=== PATIENT | female | born 1940 | race Caucasian/White ===

== ENCOUNTER 2019-09-02 11:27 | Outpatient (CLI) | payer MEDICARE, OTHER, SELFPAY ==
[2019-09-02 12:55] LABS: Hematocrit 22.3 % (37.0-47.0); Hemoglobin 7.1 g/dL (11.5-15.3); Lymphocytes # 0.4 10^3/uL (0.8-4.8); Lymphocytes % 15.1 %; Mean Corpuscular HGB Conc 31.8 g/dL (30.0-36.0); Mean Corpuscular Hemoglobin 26.6 pg (28.0-34.0); Mean Corpuscular Volume 83.5 fL (81-99); Mean Platelet Volume 10.1 fL (7.4-10.4); Monocytes # 0.2 10^3/uL (0.2-0.9); Monocytes % 9.3 %; Neutrophils # 1.8 10^3/uL (1.8-7.7); Nucleated Red Blood Cells % 0 %; Platelet Count 240 10^3/cmm (130-400); Red Blood Count 2.67 10^6/uL (4.1-5.3); White Blood Count 2.6 10^3/uL (4.0-10.0)
[2019-09-02 13:12] LABS: Alanine Aminotransferase < 5 U/L (0-33); Albumin Level 4.1 g/dL (3.5-5.2); Alkaline Phosphatase 87 IU/L (35-105); Anion Gap 14.8 (5-19); Aspartate Amino Transferase 6 U/L (0-32); Blood Urea Nitrogen 11 mg/dL (8-23); Calcium 9.2 mg/dL (8.5-10.5); Carbon Dioxide 24 mmol/L (22-29); Chloride 101 mmol/L (98-107); Globulin 2.3 g/dL (1.3-4.6); Glucose 103 mg/dL (65-115); Lactate Dehydrogenase 250 U/L (135-214); Potassium 4.8 mmol/L (3.5-5.1); Sodium 135 mmol/L (136-145); Total Bilirubin 0.7 mg/dL (0.15-1.2); Total Protein 6.4 g/dL (6.6-8.7)
[2019-09-02 15:54] LABS: Slide Review Slide Review Perform
[2019-09-02 15:55] LABS: Neutrophils % 75.6 %
--- NOTE | 2019-09-03 17:37 | ONC FU_ITS ---
Dr. Gonzales Patient Follow-Up Note Patient: Tonya Lynch Unit #: [id number]: 1940 Dicatated By: Cole Gonzales M.D.Date of Visit:Sep 02, 2019 Onc Med Follow-up/Prog Note Chief Complaint: Myelofibrosis. History of Present Illness: This is a 78 year-old woman with myelofibrosis, presenting with anemia, leukopenia, and splenomegaly. On 05/16/2018 she was admitted to the hospital with anemia and leukopenia. Her initial CBC showed hemoglobin 6.5 g with hematocrit 20.2%. The red cell indices were in the low normal range. The white blood cell count was 2800 and the platelet count was 163,000. The differential showed 70% neutrophils, 17% lymphocytes, and 9% monocytes. Also reported were 3% immature . Her serum iron studies show transferrin saturation 34%. The ferritin was relatively low at 44.1 ng/mL. Her comprehensive metabolic profile showed borderline renal function with BUN 9 and creatinine 1.21 mg/dL. The bilirubin and liver enzymes were normal. TSH was normal at 2.38. She was transfused PRBC. She reportedly had a similar episode in 2017, at which time she did undergo GI endoscopy studies. Hematology consultation was recommended, but apparently not completed. I had seen her initially on 06/14/2019. At that time, she was noted to have an enlarged spleen, and that was subsequently confirmed by CT. There was no associated lymphadenopathy. Bone marrow aspiration/biopsy on 07/14/2019 showed hypercellular marrow estimated at 70 to 90% cellularity. There was megakaryocytic hyperplasia with occasional bizarre megakaryocyte forms present. Blasts were estimated at 2.5%. There was severe reticulin fibrosis noted. Standard cytogenetics were not able to be done, as the bone marrow aspirate did not contain any spicules. The FISH panel for MDS was unrevealing. Overall, the findings were most consistent with myelofibrosis. Her other medical illnesses include hypertension, hyperlipidemia, chronic kidney disease, GERD, irritable bowel syndrome, degenerative arthritis, and anxiety/depression. She has a history of smoking 2 packs of cigarettes daily for 63 years. She has cut down to 1 pack/day. She is seen for a follow-up visit. She had recently been transfused after her hemoglobin had dropped to below 8 g. She did note significant improvement with the transfusion, though she still complains of being weak and tired, and she has limited activity. Her ECOG score is 2. Her appetite is not good, but her weight is up a little. She thinks she sometimes has fever. She does not complain of night sweating. She has some shortness of breath and she has cough productive of white sputum. She sometimes has chest pain. She has been having some postprandial nausea and she also complains of having heartburn. She has chronic constipation. She has nocturia up to 3 times. She has pain in her knees and in her neck. She has quite a few headaches and she complains that she is dizzy most of the time. She has no numbness/tingling or other focal neurologic symptoms, but she does complain that her fingers freeze easily and turn white with cold exposure. Medications: Albuterol Sulfate 2 Puff(s) (of 108 (90 base) mcg/act) Aerosol Powder, Breath Activated Inhalation q 6 hours PRN, ALPRAZolam 1 (1 mg) Tablet Oral t.i.d. PRN, amLODIPine Besylate 1 (5 mg) Tablet Oral daily, Antacid Maximum Tablet, chewable Oral PRN, Benzonatate 1 (200 mg) Capsule Oral daily PRN, Combivent Respimat 1 Inhalation (of 20-100 mcg/act) Aerosol, solution Inhalation b.i.d., Cough & Sore Throat NightTime 30 mL (of 30-12.5-1000 mg/30mL) Liquid Oral PRN, [facility] Migraine Relief 1 (250-250-65 mg) Tablet Oral PRN, Ferrous Sulfate 1 (325 (65 fe) mg) Tablet Oral daily, Isosorbide Mononitrate ER 1 (30 mg) Tablet SR 24 HR Oral daily, Meclizine HCl 1 (12.5 mg) Tablet Oral PRN, raNITIdine HCl 1 (150 mg) Capsule Oral at bedtime, SUMAtriptan Succinate Tablet Oral PRN, traMADol-Acetaminophen 1 (37.5-325 mg) Tablet Oral q 6 hours PRN Allergies: No Known Allergies. Review of Systems: Constitutional - She has been feeling weak, but better since the transfusion. Her activity is limited. Her appetite has not been good, but her weight is up a little. She sometimes has fever. She has not had night sweating. ECOG score is 2, ENMT - She has felt plugged up a little. No mouth sores. No sore throat or difficulty swallowing, Hematologic/Lymphatic - She bruises easily, Respiratory - She has some shortness of breath. She has cough productive of white sputum. No pleuritic pain or hemoptysis, Cardiovascular - No angina pain. No palpitations, Gastrointestinal - She sometimes has nausea after eating. No heartburn or acid reflux. She uses Milk of Mag for constipation. No blood in the stool or black stools, Genitourinary (F) - No dysuria or hematuria. She has urinary frequency at night. No urgency or incontinence, Musculoskeletal - She has pain in her knees and the back of her neck, Integumentary - No skin complications, Neurologic - She has frequent headaches. She has a lot of dizziness. Her hands get cold and turn white. No numbness/paresthesias or other focal neurologic symptoms, Psychiatric - She has anxiety and depression. She does not sleep well at night, but that has always been an issue for her. Vital Signs: Performed on Sep 02, 2019 11:56 Height - 69.00 in Weight - 121.8 lbs (HIGH) BSA - 1.67 sq.m BMI - 17.99 (LOW) Temperature - 98.4 F Pulse - 94 /min Respiration - 18 /min BP - 123/63 mm(hg) O2 Sat - 94 % (LOW) Pain - 3 Physical Examination: Constitutional - She appears generally weak and chronically ill, Eyes - Sclerae nonicteric. Conjunctivae clear, ENMT - No lesions noted in the oral cavity, Hematologic/Lymphatic - No cervical, clavicular, or axillary adenopathy, Respiratory - Lungs sound clear with diminished air movement bilaterally, Cardiovascular - Heart rhythm is regular. There is a II/ systolic murmur. There is no gallop or rub noted, Abdomen - Firm on the left side, but not tender. Liver is not enlarged. Spleen is enlarged extending at least 5 cm below the costal margin. There is no abdominal mass or ascites noted and there is no inguinal adenopathy, Extremities - No edema, Neurologic - No focal neurologic deficits noted. Impression: 1. Patient with anemia, leukopenia, and splenomegaly. Her bone marrow aspiration/biopsy on 07/14/2019 showed severe reticulin fibrosis, consistent with myelofibrosis. 2. She has had declining performance status and significant weight loss. Her other medical illnesses include: 3. Hypertension. 4. Hyperlipidemia. 5. Chronic kidney disease, stage III. 6. GERD. 7. Irritable bowel syndrome. 8. Degenerative arthritis. 9. Anxiety/depression. Plan: The bone marrow aspiration/biopsy results were reviewed, and we discussed the clinical implications. Overall, the clinical picture is most consistent with myelofibrosis. We discussed the fact that there is treatment to help with the symptoms, but this is an incurable condition which does tend to be progressive over time. She will have additional laboratory studies today to include CBC and typenex along with CMP, LDH level, and a JAK2 gene mutation study. With those results pending, I will begin the process of getting coverage for a trial of therapy with ruxolitinib. Signed By: Cole Gonzales M.D. <<Signature on File>>
== END 2019-09-02 11:28 | disposition home or self-care (01) ==
PROVIDERS: Family Provider Physician Assistant Medical; PCP Physician Assistant Medical; Visit Provider Internal Medicine Medical Oncology
DX: D75.81 Myelofibrosis (principal); R63.4 Abnormal weight loss; D64.9 Anemia, unspecified; E78.5 Hyperlipidemia, unspecified; I11.0 Hypertensive heart disease with heart failure; N18.3 Chronic kidney disease, stage 3 (moderate); K21.9 Gastro-esophageal reflux disease without esophagitis; K58.9 Irritable bowel syndrome, unspecified; M19.90 Unspecified osteoarthritis, unspecified site; F41.8 Other specified anxiety disorders; F17.210 Nicotine dependence, cigarettes, uncomplicated; Z79.51 Long term (current) use of inhaled steroids; Z79.891 Long term (current) use of opiate analgesic
CPT/HCPCS: 36415; 80053; 81403; 83615; 85025; 99214

== ENCOUNTER 2019-09-12 09:20 | Outpatient (CLI) | payer MEDICARE, OTHER, SELFPAY ==
[2019-09-12 16:13] LABS: Hematocrit 28.7 % (37.0-47.0); Hemoglobin 8.9 g/dL (11.5-15.3); Lymphocytes # 0.7 10^3/uL (0.8-4.8); Lymphocytes % 19.3 %; Mean Corpuscular Hemoglobin 26.1 pg (28.0-34.0); Mean Corpuscular Volume 84.2 fL (81-99); Mean Platelet Volume 11.3 fL (7.4-10.4); Monocytes # 0.3 10^3/uL (0.2-0.9); Monocytes % 9.2 %; Neutrophils # 2.2 10^3/uL (1.8-7.7); Neutrophils % 64.4 %; Nucleated Red Blood Cells % 0 %; Platelet Count 224 10^3/cmm (130-400); Red Blood Count 3.41 10^6/uL (4.1-5.3); Red Cell Distribution Width 16.8 % (12.1-15.1); White Blood Count 3.4 10^3/uL (4.0-10.0)
[2019-09-12 16:58] LABS: Slide Review Slide Review Perform
== END 2019-09-12 09:21 | disposition home or self-care (01) ==
LOC: ONCMED 16:22
PROVIDERS: Family Provider Physician Assistant Medical; PCP Physician Assistant Medical; Visit Provider Internal Medicine Medical Oncology
DX: D75.81 Myelofibrosis (principal); D64.9 Anemia, unspecified
CPT/HCPCS: 36415; 85025

== ENCOUNTER 2019-09-19 10:15 | Outpatient (CLI) | payer MEDICARE, OTHER, SELFPAY ==
[2019-09-19 16:41] LABS: Basophils % 0.2 %; Hematocrit 31.9 % (37.0-47.0); Lymphocytes # 0.6 10^3/uL (0.8-4.8); Lymphocytes % 13.1 %; Mean Corpuscular HGB Conc 31.3 g/dL (30.0-36.0); Mean Corpuscular Hemoglobin 27.2 pg (28.0-34.0); Mean Corpuscular Volume 86.9 fL (81-99); Mean Platelet Volume 11.4 fL (7.4-10.4); Monocytes # 0.4 10^3/uL (0.2-0.9); Monocytes % 8.2 %; Neutrophils # 3.4 10^3/uL (1.8-7.7); Neutrophils % 71.3 %; Nucleated Red Blood Cells % 0 %; Platelet Count 269 10^3/cmm (130-400); Red Blood Count 3.67 10^6/uL (4.1-5.3); Red Cell Distribution Width 16.8 % (12.1-15.1); White Blood Count 4.8 10^3/uL (4.0-10.0)
[2019-09-19 19:29] LABS: Slide Review Slide Review Perform
== END 2019-09-19 10:16 | disposition home or self-care (01) ==
LOC: ONCMED 16:55
PROVIDERS: Family Provider Physician Assistant Medical; PCP Physician Assistant Medical; Visit Provider Internal Medicine Medical Oncology
DX: D75.81 Myelofibrosis (principal); D64.9 Anemia, unspecified
CPT/HCPCS: 36415; 85025

== ENCOUNTER 2019-09-26 13:10 | Outpatient (CLI) | payer MEDICARE, OTHER, SELFPAY ==
[2019-09-26 16:54] LABS: Basophils % 0.3 %; Hematocrit 25.7 % (37.0-47.0); Hemoglobin 8.3 g/dL (11.5-15.3); Lymphocytes # 0.6 10^3/uL (0.8-4.8); Lymphocytes % 17.1 %; Mean Corpuscular HGB Conc 32.3 g/dL (30.0-36.0); Mean Corpuscular Hemoglobin 26.5 pg (28.0-34.0); Mean Corpuscular Volume 82.1 fL (81-99); Mean Platelet Volume 11.4 fL (7.4-10.4); Monocytes # 0.3 10^3/uL (0.2-0.9); Monocytes % 9.1 %; Neutrophils # 2.5 10^3/uL (1.8-7.7); Neutrophils % 66.8 %; Nucleated Red Blood Cells % 0 %; Platelet Count 227 10^3/cmm (130-400); Red Blood Count 3.13 10^6/uL (4.1-5.3); Red Cell Distribution Width 16.9 % (12.1-15.1); White Blood Count 3.8 10^3/uL (4.0-10.0)
[2019-09-26 17:38] LABS: Slide Review Slide Review Perform
== END 2019-09-26 13:11 | disposition home or self-care (01) ==
LOC: ONCMED 17:08
PROVIDERS: Family Provider Physician Assistant Medical; PCP Physician Assistant Medical; Visit Provider Internal Medicine Medical Oncology
DX: D75.81 Myelofibrosis (principal); D64.9 Anemia, unspecified
CPT/HCPCS: 85025

== ENCOUNTER 2019-10-03 12:50 | Outpatient (CLI) | payer MEDICARE, OTHER, SELFPAY ==
[2019-10-03 17:49] LABS: Hematocrit 30.5 % (37.0-47.0); Hemoglobin 9.4 g/dL (11.5-15.3); Lymphocytes # 0.5 10^3/uL (0.8-4.8); Mean Corpuscular HGB Conc 30.8 g/dL (30.0-36.0); Mean Corpuscular Hemoglobin 26.1 pg (28.0-34.0); Mean Corpuscular Volume 84.7 fL (81-99); Mean Platelet Volume 10.8 fL (7.4-10.4); Monocytes # 0.3 10^3/uL (0.2-0.9); Monocytes % 11.4 %; Neutrophils # 1.7 10^3/uL (1.8-7.7); Neutrophils % 63.1 %; Nucleated Red Blood Cells % 0 %; Platelet Count 188 10^3/cmm (130-400); Red Cell Distribution Width 16.4 % (12.1-15.1); White Blood Count 2.6 10^3/uL (4.0-10.0)
[2019-10-03 21:00] LABS: Slide Review Slide Review Perform
== END 2019-10-03 12:51 | disposition home or self-care (01) ==
LOC: ONCMED 17:50
PROVIDERS: Family Provider Physician Assistant Medical; PCP Physician Assistant Medical; Visit Provider Internal Medicine Medical Oncology
DX: D75.81 Myelofibrosis (principal); D64.9 Anemia, unspecified; D72.819 Decreased white blood cell count, unspecified
CPT/HCPCS: 36415; 85025

== ENCOUNTER 2019-10-07 06:36 | Outpatient (CLI) | payer MEDICARE, OTHER, SELFPAY | END 2019-10-07 06:37 | disposition home or self-care (01) | LOC: ONCMED 06:38 | PROVIDERS: Family Provider Physician Assistant Medical; PCP Physician Assistant Medical; Visit Provider Internal Medicine Medical Oncology | DX: Z01.89 Encounter for other specified special examinations (principal) ==

== ENCOUNTER 2019-10-11 06:00 | Outpatient (CLI) | payer MEDICARE, OTHER, SELFPAY ==
[2019-10-10 16:17] LABS: Basophils % 0.2 %; Hematocrit 31.9 % (37.0-47.0); Lymphocytes # 1.4 10^3/uL (0.8-4.8); Lymphocytes % 32.1 %; Mean Corpuscular HGB Conc 31.3 g/dL (30.0-36.0); Mean Corpuscular Hemoglobin 26.6 pg (28.0-34.0); Mean Corpuscular Volume 84.8 fL (81-99); Mean Platelet Volume 10.6 fL (7.4-10.4); Monocytes # 0.3 10^3/uL (0.2-0.9); Monocytes % 6.6 %; Neutrophils # 2.3 10^3/uL (1.8-7.7); Nucleated Red Blood Cells % 0 %; Platelet Count 302 10^3/cmm (130-400); Red Blood Count 3.76 10^6/uL (4.1-5.3); Red Cell Distribution Width 15.9 % (12.1-15.1); White Blood Count 4.4 10^3/uL (4.0-10.0)
[2019-10-10 16:24] LABS: Neutrophils % 61.1 %
--- NOTE | 2019-10-13 12:04 | ONC FU_ITS ---
Dr. Gonzales Patient Follow-Up Note Patient: Tonya Lynch Unit #: [id number]: 1940 Dicatated By: Cole Gonzales M.D.Date of Visit:Oct 11, 2019 Onc Med Follow-up/Prog Note Chief Complaint: Myelofibrosis. History of Present Illness: This is a 79 year-old woman with myelofibrosis, presenting with anemia, leukopenia, and splenomegaly. On 05/16/2018 she was admitted to the hospital with anemia and leukopenia. Her initial CBC showed hemoglobin 6.5 g with hematocrit 20.2%. The red cell indices were in the low normal range. The white blood cell count was 2800 and the platelet count was 163,000. The differential showed 70% neutrophils, 17% lymphocytes, and 9% monocytes. Also reported were 3% immature . Her serum iron studies show transferrin saturation 34%. The ferritin was relatively low at 44.1 ng/mL. Her comprehensive metabolic profile showed borderline renal function with BUN 9 and creatinine 1.21 mg/dL. The bilirubin and liver enzymes were normal. TSH was normal at 2.38. She was transfused PRBC. She reportedly had a similar episode in 2017, at which time she did undergo GI endoscopy studies. Hematology consultation was recommended, but apparently not completed. I had seen her initially on 06/14/2019. At that time, she was noted to have an enlarged spleen, and that was subsequently confirmed by CT. There was no associated lymphadenopathy. Bone marrow aspiration/biopsy on 07/14/2019 showed hypercellular marrow estimated at 70 to 90% cellularity. There was megakaryocytic hyperplasia with occasional bizarre megakaryocyte forms present. Blasts were estimated at 2.5%. There was severe reticulin fibrosis noted. Standard cytogenetics were not able to be done, as the bone marrow aspirate did not contain any spicules. The FISH panel for MDS was unrevealing. Overall, the findings were most consistent with myelofibrosis. Her other medical illnesses include hypertension, hyperlipidemia, chronic kidney disease, GERD, irritable bowel syndrome, degenerative arthritis, and anxiety/depression. She has a history of smoking 2 packs of cigarettes daily for 63 years. She had cut down to 1 pack/day. INTERIM HISTORY: On 10/04/2019 she began treatment with ruxolitinib 10 mg daily for 3 days, then 10 mg twice daily. She is seen for a follow-up visit. Thus far she has tolerated the ruxolitinib without any apparent adverse effects, though she still does not feel good generally. She has limited activity. She does a little bit of light work. ECOG score is 2. She is having to force herself to eat. She has not had fever or night sweats. She has been having some dizzy spells. She mainly feels off balance, but she also says that her head feels numbish. She says her breathing is sometimes tight. She has a little bit of cough. She has tiny chest pains. She has not been having nausea. She has occasional heartburn. She has some constipation, but her bowel function has been pretty good. She has no complaints other than she gets up at night 2 or 3 times. She has some joint pain, mainly in the knees. She also has pain in her neck, which gives her headache. She has no numbness/paresthesia or other focal neurologic symptoms. Medications: Albuterol Sulfate 2 Puff(s) (of 108 (90 base) mcg/act) Aerosol Powder, Breath Activated Inhalation q 6 hours PRN, ALPRAZolam 1 (1 mg) Tablet Oral t.i.d. PRN, amLODIPine Besylate 1 (5 mg) Tablet Oral daily, Antacid Maximum Tablet, chewable Oral PRN, Benzonatate 1 (200 mg) Capsule Oral daily PRN, Combivent Respimat 1 Inhalation (of 20-100 mcg/act) Aerosol, solution Inhalation b.i.d., Cough & Sore Throat NightTime 30 mL (of 30-12.5-1000 mg/30mL) Liquid Oral PRN, [facility] Migraine Relief 1 (250-250-65 mg) Tablet Oral PRN, Ferrous Sulfate 1 (325 (65 fe) mg) Tablet Oral daily, Isosorbide Mononitrate ER 1 (30 mg) Tablet SR 24 HR Oral daily, Jakafi 1 Tablet (of 10 mg) Oral b.i.d. for 2 weeks, Meclizine HCl 1 (12.5 mg) Tablet Oral PRN, raNITIdine HCl 1 (150 mg) Capsule Oral at bedtime, SUMAtriptan Succinate Tablet Oral PRN, traMADol-Acetaminophen 1 (37.5-325 mg) Tablet Oral q 6 hours PRN Allergies: No Known Allergies. Review of Systems: Constitutional - Her energy level is not good. She is able to do a little bit of light housework. Her appetite is poor. Her weight is stable. No fever, chills, hot flashes, or night sweats. ECOG score is 2, ENMT - She has some sinus congestion. No mouth sores. No sore throat or difficulty swallowing, Hematologic/Lymphatic - No abnormal bruising or bleeding, Respiratory - She has some shortness of breath. No cough. No pleuritic pain or hemoptysis, Cardiovascular - No angina pain. No palpitations, Gastrointestinal - No nausea or vomiting. She has occasional heartburn. No diarrhea. No blood in the stool or black stools. She is taking milk of magnesium for prevention of constipation, Genitourinary (F) - No dysuria or hematuria. No urinary frequency, but she does have nocturia. No urgency or incontinence, Musculoskeletal - She is having arthritis pain in her knees and in her neck, Integumentary - No skin complications, Neurologic - No headache. She has been having episodes of dizziness. States she feels off balance and that her head is numby. No numbness/paresthesias or other focal neurologic symptoms, Psychiatric - No anxiety or depression. She is not a good sleeper. Vital Signs: Performed on Oct 11, 2019 10:50 Height - 69.00 in Weight - 116 lbs (LOW) BSA - 1.64 sq.m BMI - 17.13 (LOW) Temperature - 98.0 F (LOW) Pulse - 69 /min Respiration - 21 /min BP - 128/89 mm(hg) O2 Sat - 93 % (LOW) Pain - 0 Physical Examination: Constitutional - She appears generally weak and chronically ill, Eyes - Sclerae nonicteric. Conjunctivae clear, ENMT - No lesions noted in the oral cavity, Hematologic/Lymphatic - No cervical, clavicular, or axillary adenopathy, Respiratory - Lungs sound clear with diminished air movement bilaterally, Cardiovascular - Heart rhythm is regular. There is a II/ systolic murmur. There is no gallop or rub noted, Abdomen - Generally firm. Liver is not enlarged. Spleen is enlarged, extending approximately 5 cm below the costal margin. There is no abdominal mass or ascites noted and there is no inguinal adenopathy, Extremities - No edema, Neurologic - No focal neurologic deficits noted. Lab/Imaging: Test performed on Oct 03, 2019 12:50 WBC 2.6 10 3/uL RBC 3.60 10 6/uL HGB 9.4 g/dL HCT 30.5 % MCV 84.7 fL MCH 26.1 pg MCHC 30.8 g/dL RDW 16.4 % Platelet Count 188 10 3/cmm MPV 10.8 fL Neutrophils 1.7 10 3/uL Lymphocytes 0.5 10 3/uL Monocytes 0.3 10 3/uL Eosinophils 0.0 10 3/uL Basophils 0.0 10 3/uL Neutrophil % 63.1 % Lymphocyte % 19.0 % Monocyte % 11.4 % Eosinophil % 0.0 % Basophils % 0.0 % CBC Slide Review Slide Review Perform Impression: 1. Patient with anemia, leukopenia, and splenomegaly. Her bone marrow aspiration/biopsy on 07/14/2019 showed severe reticulin fibrosis, consistent with myelofibrosis. 2. She has had declining performance status and significant weight loss. Her other medical illnesses include: 3. Hypertension. 4. Hyperlipidemia. 5. Chronic kidney disease, stage III. 6. GERD. 7. Irritable bowel syndrome. 8. Degenerative arthritis. 9. Anxiety/depression. On 10/04/2019 she began treatment with ruxolitinib 10 mg daily for 3 days, then 10 mg twice daily. Thus far she has tolerated it without any apparent adverse effects, though she does have multiple pre-existing complaints and marginal performance status. Plan: She is to continue the ruxolitinib 10 mg twice daily for 2 weeks and then try increasing to 20 mg twice daily. Her blood counts will be monitored twice weekly. I will see her again in 1 month. Signed By: Cole Gonzales M.D. <<Signature on File>>
== END 2019-10-11 06:01 | disposition home or self-care (01) ==
LOC: ONCMED 11:49
PROVIDERS: Family Provider Physician Assistant Medical; PCP Physician Assistant Medical; Visit Provider Internal Medicine Medical Oncology
DX: D75.81 Myelofibrosis (principal); I12.9 Hypertensive chronic kidney disease with stage 1 through stage 4 chronic kidney disease, or unspecified chronic kidney disease; N18.3 Chronic kidney disease, stage 3 (moderate); E78.5 Hyperlipidemia, unspecified; K21.9 Gastro-esophageal reflux disease without esophagitis; K58.9 Irritable bowel syndrome, unspecified; M19.90 Unspecified osteoarthritis, unspecified site; F41.8 Other specified anxiety disorders; F17.210 Nicotine dependence, cigarettes, uncomplicated; Z79.899 Other long term (current) drug therapy
CPT/HCPCS: 85025; 99214

== ENCOUNTER 2019-10-25 13:35 | Outpatient (RCR) | payer MEDICARE, OTHER, SELFPAY ==
[2019-10-13 14:49] LABS: Basophils % 0.2 %; Hematocrit 29.6 % (37.0-47.0); Hemoglobin 9.5 g/dL (11.5-15.3); Lymphocytes % 17.5 %; Mean Corpuscular HGB Conc 32.1 g/dL (30.0-36.0); Mean Corpuscular Hemoglobin 26.5 pg (28.0-34.0); Mean Corpuscular Volume 82.7 fL (81-99); Mean Platelet Volume 10.4 fL (7.4-10.4); Monocytes # 0.4 10^3/uL (0.2-0.9); Monocytes % 6.7 %; Neutrophils # 3.8 10^3/uL (1.8-7.7); Nucleated Red Blood Cells % 0 %; Platelet Count 260 10^3/cmm (130-400); Red Blood Count 3.58 10^6/uL (4.1-5.3); Red Cell Distribution Width 15.9 % (12.1-15.1); White Blood Count 5.7 10^3/uL (4.0-10.0)
[2019-10-13 15:29] LABS: Slide Review Slide Review Perform
[2019-10-17 16:34] LABS: Lymphocytes # 0.7 10^3/uL (0.8-4.8); Lymphocytes % 19.1 %; Mean Corpuscular Hemoglobin 26.9 pg (28.0-34.0); Mean Corpuscular Volume 86.8 fL (81-99); Mean Platelet Volume 10.3 fL (7.4-10.4); Monocytes # 0.3 10^3/uL (0.2-0.9); Monocytes % 8.4 %; Neutrophils # 2.5 10^3/uL (1.8-7.7); Nucleated Red Blood Cells % 0 %; Platelet Count 185 10^3/cmm (130-400); Red Blood Count 3.34 10^6/uL (4.1-5.3); Red Cell Distribution Width 16.2 % (12.1-15.1); White Blood Count 3.8 10^3/uL (4.0-10.0)
[2019-10-17 17:53] LABS: Neutrophils % 72.2 %
[2019-10-17 17:54] LABS: Slide Review Slide Review Perform
[2019-10-20 15:29] LABS: Hematocrit 26.2 % (37.0-47.0); Hemoglobin 8.4 g/dL (11.5-15.3); Lymphocytes # 1.2 10^3/uL (0.8-4.8); Lymphocytes % 24.3 %; Mean Corpuscular HGB Conc 32.1 g/dL (30.0-36.0); Mean Corpuscular Hemoglobin 27.1 pg (28.0-34.0); Mean Corpuscular Volume 84.5 fL (81-99); Mean Platelet Volume 10.7 fL (7.4-10.4); Monocytes # 0.4 10^3/uL (0.2-0.9); Monocytes % 7.8 %; Neutrophils # 2.7 10^3/uL (1.8-7.7); Neutrophils % 57.3 %; Nucleated Red Blood Cells % 0 %; Platelet Count 181 10^3/cmm (130-400); Red Cell Distribution Width 16.3 % (12.1-15.1); White Blood Count 4.7 10^3/uL (4.0-10.0)
[2019-10-20 15:50] LABS: Alanine Aminotransferase < 5 U/L (0-33); Albumin Level 4.4 g/dL (3.5-5.2); Alkaline Phosphatase 84 IU/L (35-105); Anion Gap 17.5 (5-19); Aspartate Amino Transferase 9 U/L (0-32); Blood Urea Nitrogen 10 mg/dL (8-23); Calcium 8.7 mg/dL (8.5-10.5); Carbon Dioxide 22 mmol/L (22-29); Chloride 100 mmol/L (98-107); Globulin 1.9 g/dL (1.3-4.6); Glucose 86 mg/dL (65-115); Lactate Dehydrogenase 237 U/L (135-214); Osmolality Calculated 275 mOsm/kg (285-295); Potassium 4.5 mmol/L (3.5-5.1); Sodium 135 mmol/L (136-145); Total Bilirubin 0.4 mg/dL (0.15-1.2); Total Protein 6.3 g/dL (6.6-8.7)
[2019-10-20 17:24] LABS: Slide Review Slide Review Perform
[2019-10-25 18:38] LABS: Basophils % 0.2 %; Hematocrit 25.9 % (37.0-47.0); Hemoglobin 8.2 g/dL (11.5-15.3); Lymphocytes # 1.5 10^3/uL (0.8-4.8); Lymphocytes % 30.7 %; Mean Corpuscular HGB Conc 31.7 g/dL (30.0-36.0); Mean Corpuscular Hemoglobin 27.2 pg (28.0-34.0); Mean Corpuscular Volume 85.8 fL (81-99); Mean Platelet Volume 10.9 fL (7.4-10.4); Monocytes # 0.2 10^3/uL (0.2-0.9); Monocytes % 4.4 %; Neutrophils # 2.6 10^3/uL (1.8-7.7); Neutrophils % 55.6 %; Nucleated Red Blood Cells % 0 %; Platelet Count 242 10^3/cmm (130-400); Red Blood Count 3.02 10^6/uL (4.1-5.3); Red Cell Distribution Width 16.4 % (12.1-15.1); White Blood Count 4.7 10^3/uL (4.0-10.0)
[2019-10-25 19:57] LABS: Slide Review Slide Review Perform
== END 2019-10-25 23:59 | disposition home or self-care (01) ==
LOC: ONCMED 13:35
PROVIDERS: Family Provider Physician Assistant Medical; PCP Physician Assistant Medical; Visit Provider Internal Medicine Medical Oncology
DX: D75.81 Myelofibrosis (principal); D64.9 Anemia, unspecified; D72.819 Decreased white blood cell count, unspecified
CPT/HCPCS: 36415; 80053; 83615; 85025

== ENCOUNTER 2019-11-24 11:27 | Outpatient (RCR) | payer MEDICARE, OTHER, SELFPAY ==
[2019-10-27] VITALS (11 sets, daily range): BP systolic 94–121; BP diastolic 50–67; PULSE 52–60; RESP 16–60; TEMP 36.3–36.8; O2SAT 97
[2019-10-27] MEDS: diphenhydrAMINE 25 mg Capsule PO (08:36)
[2019-10-27] MEDS: sodium chloride 0.9% 100 ML 30 ML (08:36)
[2019-10-27] MEDS: acetaminophen 325 mg Tablet 650 MG PO (08:36)
[2019-10-27] MEDS: FUROsemide 10 mg/mL SDV 2mL 20 MG IV (10:45)
[2019-10-27] MEDS: sodium chloride 0.9% 250 ML 999 ML IV (10:48)
[2019-10-31 19:36] LABS: Basophils % 0.3 %; Hematocrit 30.2 % (37.0-47.0); Hemoglobin 9.5 g/dL (11.5-15.3); Lymphocytes # 1.3 10^3/uL (0.8-4.8); Lymphocytes % 34.9 %; Mean Corpuscular HGB Conc 31.5 g/dL (30.0-36.0); Mean Corpuscular Hemoglobin 27.5 pg (28.0-34.0); Mean Corpuscular Volume 87.5 fL (81-99); Mean Platelet Volume 10.1 fL (7.4-10.4); Monocytes # 0.3 10^3/uL (0.2-0.9); Monocytes % 7.9 %; Neutrophils # 1.9 10^3/uL (1.8-7.7); Neutrophils % 50.3 %; Nucleated Red Blood Cells % 0.5 %; Platelet Count 213 10^3/cmm (130-400); Red Blood Count 3.45 10^6/uL (4.1-5.3); Red Cell Distribution Width 16.6 % (12.1-15.1); White Blood Count 3.8 10^3/uL (4.0-10.0)
[2019-10-31 20:48] LABS: Slide Review Slide Review Perform
[2019-11-03 14:56] LABS: Basophils % 0.2 %; Hematocrit 29.3 % (37.0-47.0); Hemoglobin 9.2 g/dL (11.5-15.3); Lymphocytes # 1.7 10^3/uL (0.8-4.8); Lymphocytes % 34.7 %; Mean Corpuscular HGB Conc 31.4 g/dL (30.0-36.0); Mean Corpuscular Hemoglobin 27.1 pg (28.0-34.0); Mean Corpuscular Volume 86.4 fL (81-99); Mean Platelet Volume 10.6 fL (7.4-10.4); Monocytes # 0.4 10^3/uL (0.2-0.9); Monocytes % 9.2 %; Neutrophils # 2.3 10^3/uL (1.8-7.7); Neutrophils % 48.6 %; Nucleated Red Blood Cells % 0 %; Platelet Count 192 10^3/cmm (130-400); Red Blood Count 3.39 10^6/uL (4.1-5.3); Red Cell Distribution Width 16.8 % (12.1-15.1); White Blood Count 4.8 10^3/uL (4.0-10.0)
[2019-11-03 15:29] LABS: Slide Review Slide Review Perform
[2019-11-07 17:06] LABS: Basophils % 0.4 %; Hematocrit 29.9 % (37.0-47.0); Hemoglobin 9.5 g/dL (11.5-15.3); Lymphocytes # 1.4 10^3/uL (0.8-4.8); Lymphocytes % 27.9 %; Mean Corpuscular HGB Conc 31.8 g/dL (30.0-36.0); Mean Corpuscular Hemoglobin 27.7 pg (28.0-34.0); Mean Corpuscular Volume 87.2 fL (81-99); Mean Platelet Volume 10.8 fL (7.4-10.4); Monocytes # 0.4 10^3/uL (0.2-0.9); Monocytes % 8.6 %; Neutrophils # 2.8 10^3/uL (1.8-7.7); Neutrophils % 54.9 %; Nucleated Red Blood Cells % 0 %; Platelet Count 175 10^3/cmm (130-400); Red Blood Count 3.43 10^6/uL (4.1-5.3); Red Cell Distribution Width 16.7 % (12.1-15.1)
[2019-11-07 17:47] LABS: Slide Review Slide Review Perform
[2019-11-10 20:29] LABS: Basophils % 0.2 %; Hemoglobin 8.7 g/dL (11.5-15.3); Lymphocytes # 1.2 10^3/uL (0.8-4.8); Lymphocytes % 27.4 %; Mean Corpuscular HGB Conc 32.2 g/dL (30.0-36.0); Mean Corpuscular Hemoglobin 27.9 pg (28.0-34.0); Mean Corpuscular Volume 86.5 fL (81-99); Mean Platelet Volume 11.2 fL (7.4-10.4); Monocytes # 0.4 10^3/uL (0.2-0.9); Monocytes % 9.5 %; Neutrophils # 2.5 10^3/uL (1.8-7.7); Neutrophils % 55.6 %; Nucleated Red Blood Cells % 0 %; Platelet Count 151 10^3/cmm (130-400); Red Blood Count 3.12 10^6/uL (4.1-5.3); Red Cell Distribution Width 16.8 % (12.1-15.1); White Blood Count 4.5 10^3/uL (4.0-10.0)
[2019-11-10 20:43] LABS: Alanine Aminotransferase 12 U/L (0-33); Albumin Level 4.5 g/dL (3.5-5.2); Alkaline Phosphatase 77 IU/L (35-105); Anion Gap 13.5 (5-19); Aspartate Amino Transferase 12 U/L (0-32); Blood Urea Nitrogen 21 mg/dL (8-23); Calcium 9.3 mg/dL (8.5-10.5); Carbon Dioxide 26 mmol/L (22-29); Chloride 99 mmol/L (98-107); Globulin 2.1 g/dL (1.3-4.6); Glucose 83 mg/dL (65-115); Lactate Dehydrogenase 250 U/L (135-214); Osmolality Calculated 274 mOsm/kg (285-295); Potassium 4.5 mmol/L (3.5-5.1); Sodium 134 mmol/L (136-145); Total Bilirubin 0.4 mg/dL (0.15-1.2); Total Protein 6.6 g/dL (6.6-8.7)
[2019-11-10 23:43] LABS: Slide Review Slide Review Perform
[2019-11-14 19:31] LABS: Basophils % 0.2 %; Hematocrit 28.4 % (37.0-47.0); Hemoglobin 8.8 g/dL (11.5-15.3); Lymphocytes # 1.4 10^3/uL (0.8-4.8); Lymphocytes % 25.3 %; Mean Corpuscular Hemoglobin 27.8 pg (28.0-34.0); Mean Corpuscular Volume 89.9 fL (81-99); Mean Platelet Volume 10.3 fL (7.4-10.4); Monocytes # 0.4 10^3/uL (0.2-0.9); Monocytes % 7.5 %; Neutrophils # 3.3 10^3/uL (1.8-7.7); Neutrophils % 59.2 %; Nucleated Red Blood Cells % 0 %; Platelet Count 158 10^3/cmm (130-400); Red Blood Count 3.16 10^6/uL (4.1-5.3); Red Cell Distribution Width 16.8 % (12.1-15.1); White Blood Count 5.5 10^3/uL (4.0-10.0)
[2019-11-14 20:48] LABS: Slide Review Slide Review Perform
[2019-11-21 13:17] LABS: Basophils % 0.5 %; Hematocrit 24.9 % (37.0-47.0); Hemoglobin 7.8 g/dL (11.5-15.3); Lymphocytes # 0.7 10^3/uL (0.8-4.8); Lymphocytes % 17.4 %; Mean Corpuscular HGB Conc 31.3 g/dL (30.0-36.0); Mean Corpuscular Hemoglobin 27.2 pg (28.0-34.0); Mean Corpuscular Volume 86.8 fL (81-99); Mean Platelet Volume 10.8 fL (7.4-10.4); Monocytes # 0.5 10^3/uL (0.2-0.9); Monocytes % 11.8 %; Neutrophils # 2.7 10^3/uL (1.8-7.7); Neutrophils % 62.5 %; Nucleated Red Blood Cells % 0 %; Platelet Count 122 10^3/cmm (130-400); Red Blood Count 2.87 10^6/uL (4.1-5.3); Red Cell Distribution Width 16.6 % (12.1-15.1); White Blood Count 4.3 10^3/uL (4.0-10.0)
[2019-11-21 13:31] LABS: Slide Review Slide Review Perform
[2019-11-24 15:08] LABS: Basophils % 0.2 %; Hematocrit 29.3 % (37.0-47.0); Hemoglobin 9.6 g/dL (11.5-15.3); Lymphocytes # 1.2 10^3/uL (0.8-4.8); Lymphocytes % 25.4 %; Mean Corpuscular HGB Conc 32.8 g/dL (30.0-36.0); Mean Corpuscular Hemoglobin 28.7 pg (28.0-34.0); Mean Corpuscular Volume 87.5 fL (81-99); Mean Platelet Volume 10.9 fL (7.4-10.4); Monocytes # 0.4 10^3/uL (0.2-0.9); Monocytes % 7.5 %; Neutrophils # 2.7 10^3/uL (1.8-7.7); Nucleated Red Blood Cells % 0 %; Platelet Count 199 10^3/cmm (130-400); Red Blood Count 3.35 10^6/uL (4.1-5.3); Red Cell Distribution Width 15.9 % (12.1-15.1); White Blood Count 4.8 10^3/uL (4.0-10.0)
[2019-11-24 15:34] LABS: Slide Review Slide Review Perform
== END 2019-11-24 23:59 | disposition home or self-care (01) ==
LOC: ONCMED 11:27
PROVIDERS: Family Provider Physician Assistant Medical; PCP Physician Assistant Medical; Visit Provider Internal Medicine Medical Oncology
DX: D64.9 Anemia, unspecified (principal); D75.81 Myelofibrosis; D72.819 Decreased white blood cell count, unspecified
CPT/HCPCS: 36415; 36430; 80053; 83615; 85025; 86850; 86900; 86920; J1940; J7050; P9016

== ENCOUNTER 2019-12-12 14:05 | Outpatient (RCR) | payer MEDICARE, OTHER, SELFPAY ==
[2019-11-28 13:14] LABS: Basophils % 0.5 %; Hematocrit 29.5 % (37.0-47.0); Hemoglobin 9.3 g/dL (11.5-15.3); Lymphocytes # 0.9 10^3/uL (0.8-4.8); Mean Corpuscular HGB Conc 31.5 g/dL (30.0-36.0); Mean Corpuscular Hemoglobin 27.5 pg (28.0-34.0); Mean Corpuscular Volume 87.3 fL (81-99); Mean Platelet Volume 10.2 fL (7.4-10.4); Monocytes # 0.3 10^3/uL (0.2-0.9); Monocytes % 6.9 %; Neutrophils # 2.6 10^3/uL (1.8-7.7); Neutrophils % 59.1 %; Nucleated Red Blood Cells % 0 %; Platelet Count 220 10^3/cmm (130-400); Red Blood Count 3.38 10^6/uL (4.1-5.3); Red Cell Distribution Width 15.9 % (12.1-15.1); White Blood Count 4.4 10^3/uL (4.0-10.0)
[2019-11-28 14:49] LABS: Slide Review Slide Review Perform
[2019-12-01 16:34] LABS: Basophils % 0.2 %; Hematocrit 27.7 % (37.0-47.0); Hemoglobin 8.9 g/dL (11.5-15.3); Lymphocytes # 1.6 10^3/uL (0.8-4.8); Lymphocytes % 24.1 %; Mean Corpuscular HGB Conc 32.1 g/dL (30.0-36.0); Mean Corpuscular Hemoglobin 27.5 pg (28.0-34.0); Mean Corpuscular Volume 85.5 fL (81-99); Monocytes # 0.4 10^3/uL (0.2-0.9); Monocytes % 6.2 %; Neutrophils % 60.2 %; Nucleated Red Blood Cells % 0 %; Platelet Count 231 10^3/cmm (130-400); Red Blood Count 3.24 10^6/uL (4.1-5.3); Red Cell Distribution Width 15.8 % (12.1-15.1); White Blood Count 6.6 10^3/uL (4.0-10.0)
[2019-12-01 20:28] LABS: Slide Review Slide Review Perform
[2019-12-05 15:28] LABS: Hematocrit 25.7 % (37.0-47.0); Hemoglobin 8.1 g/dL (11.5-15.3); Mean Corpuscular HGB Conc 31.5 g/dL (30.0-36.0); Mean Corpuscular Hemoglobin 27.6 pg (28.0-34.0); Mean Corpuscular Volume 87.4 fL (81-99); Mean Platelet Volume 10.3 fL (7.4-10.4); Nucleated Red Blood Cells % 0 %; Platelet Count 213 10^3/cmm (130-400); Red Blood Count 2.94 10^6/uL (4.1-5.3); Red Cell Distribution Width 16.1 % (12.1-15.1); White Blood Count 5.9 10^3/uL (4.0-10.0)
[2019-12-05 15:51] LABS: Slide Review Slide Review Perform
[2019-12-05 15:55] LABS: Absolute Segmented Neutrophil 3.5 10/cmm (1.6-7.1); Band Neutrophils Absolute 0.1 10^3/cmm (0.0-1.2); Lymphocytes 35 %; Platelet Estimate Normal (Normal); Polychromasia 2+; Segmented Neutrophils 60 %; Total Cells Counted 100 (0-100)
[2019-12-08 11:58] LABS: Basophils % 0.2 %; Hematocrit 23.6 % (37.0-47.0); Hemoglobin 7.6 g/dL (11.5-15.3); Lymphocytes # 1.2 10^3/uL (0.8-4.8); Lymphocytes % 24.3 %; Mean Corpuscular HGB Conc 32.2 g/dL (30.0-36.0); Mean Corpuscular Hemoglobin 27.8 pg (28.0-34.0); Mean Corpuscular Volume 86.4 fL (81-99); Mean Platelet Volume 10.9 fL (7.4-10.4); Monocytes # 0.3 10^3/uL (0.2-0.9); Neutrophils # 2.9 10^3/uL (1.8-7.7); Neutrophils % 61.5 %; Nucleated Red Blood Cells % 0 %; Platelet Count 191 10^3/cmm (130-400); Red Blood Count 2.73 10^6/uL (4.1-5.3); Red Cell Distribution Width 16.3 % (12.1-15.1); White Blood Count 4.7 10^3/uL (4.0-10.0)
[2019-12-08 12:38] LABS: Slide Review Slide Review Perform
[2019-12-12 19:50] LABS: Basophils % 0.2 %; Hematocrit 32.3 % (37.0-47.0); Hemoglobin 10.4 g/dL (11.5-15.3); Lymphocytes # 1.4 10^3/uL (0.8-4.8); Lymphocytes % 24.8 %; Mean Corpuscular HGB Conc 32.2 g/dL (30.0-36.0); Mean Corpuscular Hemoglobin 27.9 pg (28.0-34.0); Mean Corpuscular Volume 86.6 fL (81-99); Mean Platelet Volume 10.4 fL (7.4-10.4); Monocytes # 0.4 10^3/uL (0.2-0.9); Monocytes % 7.6 %; Neutrophils # 3.4 10^3/uL (1.8-7.7); Neutrophils % 61.3 %; Nucleated Red Blood Cells % 0 %; Platelet Count 175 10^3/cmm (130-400); Red Blood Count 3.73 10^6/uL (4.1-5.3); Red Cell Distribution Width 15.7 % (12.1-15.1); White Blood Count 5.6 10^3/uL (4.0-10.0)
[2019-12-12 23:50] LABS: Slide Review Slide Review Perform
== END 2019-12-12 23:59 | disposition home or self-care (01) ==
LOC: ONCMED 14:05
PROVIDERS: Family Provider Physician Assistant Medical; PCP Physician Assistant Medical; Visit Provider Internal Medicine Medical Oncology
DX: D75.81 Myelofibrosis (principal); D64.9 Anemia, unspecified; D72.819 Decreased white blood cell count, unspecified
CPT/HCPCS: 36415; 85007; 85025

== ENCOUNTER 2019-12-15 10:10 | Outpatient (RCR) | payer MEDICARE, OTHER, SELFPAY ==
[2019-12-15 13:24] LABS: Hematocrit 30.4 % (37.0-47.0); Hemoglobin 9.7 g/dL (11.5-15.3); Mean Corpuscular HGB Conc 31.9 g/dL (30.0-36.0); Mean Corpuscular Hemoglobin 27.9 pg (28.0-34.0); Mean Corpuscular Volume 87.4 fL (81-99); Mean Platelet Volume 9.8 fL (7.4-10.4); Nucleated Red Blood Cells % 0 %; Platelet Count 151 10^3/cmm (130-400); Red Blood Count 3.48 10^6/uL (4.1-5.3); Red Cell Distribution Width 15.5 % (12.1-15.1); White Blood Count 4.6 10^3/uL (4.0-10.0)
[2019-12-15 15:12] LABS: Slide Review Slide Review Perform
[2019-12-15 15:46] LABS: Absolute Segmented Neutrophil 2.4 10/cmm (1.6-7.1); Band Neutrophils Absolute 0.2 10^3/cmm (0.0-1.2); Lymphocytes 35 %; Monocytes Absolute 0.2 10^3/cmm (0.1-0.6); Segmented Neutrophils 54 %; Total Cells Counted 100 (0-100)
[2019-12-15 15:48] LABS: Platelet Estimate Normal (Normal)
== END 2019-12-25 23:59 | disposition home or self-care (01) ==
LOC: ONCMED 10:10
PROVIDERS: PCP Physician Assistant Medical; Visit Provider Internal Medicine Medical Oncology
DX: D75.81 Myelofibrosis (principal); D64.9 Anemia, unspecified; D72.819 Decreased white blood cell count, unspecified
CPT/HCPCS: 85007; 85025

== ENCOUNTER 2020-01-09 11:25 | Outpatient (RCR) | payer MEDICARE, OTHER, SELFPAY ==
[2019-12-26 12:17] LABS: Basophils % 0.2 %; Hemoglobin 8.1 g/dL (11.5-15.3); Lymphocytes # 1.2 10^3/uL (0.8-4.8); Lymphocytes % 23.1 %; Mean Corpuscular HGB Conc 32.4 g/dL (30.0-36.0); Mean Corpuscular Hemoglobin 28.1 pg (28.0-34.0); Mean Corpuscular Volume 86.8 fL (81-99); Mean Platelet Volume 10.7 fL (7.4-10.4); Monocytes # 0.4 10^3/uL (0.2-0.9); Neutrophils # 3.3 10^3/uL (1.8-7.7); Neutrophils % 63.1 %; Nucleated Red Blood Cells % 0 %; Platelet Count 235 10^3/cmm (130-400); Red Blood Count 2.88 10^6/uL (4.1-5.3); Red Cell Distribution Width 15.7 % (12.1-15.1); White Blood Count 5.3 10^3/uL (4.0-10.0)
[2019-12-26 12:33] LABS: Slide Review Slide Review Perform
[2019-12-29 11:43] LABS: Basophils % 0.2 %; Hematocrit 23.2 % (37.0-47.0); Hemoglobin 7.6 g/dL (11.5-15.3); Lymphocytes # 1.3 10^3/uL (0.8-4.8); Lymphocytes % 27.1 %; Mean Corpuscular HGB Conc 32.8 g/dL (30.0-36.0); Mean Corpuscular Hemoglobin 28.3 pg (28.0-34.0); Mean Corpuscular Volume 86.2 fL (81-99); Mean Platelet Volume 9.8 fL (7.4-10.4); Monocytes # 0.3 10^3/uL (0.2-0.9); Monocytes % 7.2 %; Neutrophils # 2.8 10^3/uL (1.8-7.7); Neutrophils % 59.1 %; Nucleated Red Blood Cells % 0 %; Platelet Count 228 10^3/cmm (130-400); Red Blood Count 2.69 10^6/uL (4.1-5.3); Red Cell Distribution Width 15.4 % (12.1-15.1); White Blood Count 4.7 10^3/uL (4.0-10.0)
[2019-12-29 12:09] LABS: Slide Review Slide Review Perform
[2020-01-02 13:54] LABS: Basophils % 0.5 %; Hematocrit 31.4 % (37.0-47.0); Hemoglobin 10.2 g/dL (11.5-15.3); Lymphocytes # 1.8 10^3/uL (0.8-4.8); Lymphocytes % 27.2 %; Mean Corpuscular HGB Conc 32.5 g/dL (30.0-36.0); Mean Corpuscular Hemoglobin 29.6 pg (28.0-34.0); Mean Platelet Volume 10.5 fL (7.4-10.4); Monocytes # 0.5 10^3/uL (0.2-0.9); Monocytes % 7.9 %; Neutrophils # 3.9 10^3/uL (1.8-7.7); Neutrophils % 59.7 %; Nucleated Red Blood Cells % 0 %; Platelet Count 226 10^3/cmm (130-400); Red Blood Count 3.45 10^6/uL (4.1-5.3); Red Cell Distribution Width 15.5 % (12.1-15.1); White Blood Count 6.6 10^3/uL (4.0-10.0)
[2020-01-05 10:50] LABS: Basophils % 0.2 %; Hematocrit 28.9 % (37.0-47.0); Hemoglobin 9.4 g/dL (11.5-15.3); Lymphocytes # 1.6 10^3/uL (0.8-4.8); Lymphocytes % 34.6 %; Mean Corpuscular HGB Conc 32.5 g/dL (30.0-36.0); Mean Corpuscular Hemoglobin 28.7 pg (28.0-34.0); Mean Corpuscular Volume 88.4 fL (81-99); Mean Platelet Volume 10.4 fL (7.4-10.4); Monocytes # 0.4 10^3/uL (0.2-0.9); Monocytes % 7.8 %; Neutrophils # 2.4 10^3/uL (1.8-7.7); Neutrophils % 52.4 %; Nucleated Red Blood Cells % 0 %; Platelet Count 183 10^3/cmm (130-400); Red Blood Count 3.27 10^6/uL (4.1-5.3); Red Cell Distribution Width 15.4 % (12.1-15.1); White Blood Count 4.6 10^3/uL (4.0-10.0)
[2020-01-09 16:45] LABS: Basophils % 0.2 %; Hematocrit 29.6 % (37.0-47.0); Hemoglobin 9.3 g/dL (11.5-15.3); Lymphocytes # 1.9 10^3/uL (0.8-4.8); Lymphocytes % 38.7 %; Mean Corpuscular HGB Conc 31.4 g/dL (30.0-36.0); Mean Corpuscular Volume 89.2 fL (81-99); Mean Platelet Volume 10.2 fL (7.4-10.4); Monocytes # 0.4 10^3/uL (0.2-0.9); Monocytes % 8.5 %; Neutrophils # 2.4 10^3/uL (1.8-7.7); Neutrophils % 49.3 %; Nucleated Red Blood Cells % 0 %; Platelet Count 206 10^3/cmm (130-400); Red Blood Count 3.32 10^6/uL (4.1-5.3); Red Cell Distribution Width 15.3 % (12.1-15.1); White Blood Count 4.8 10^3/uL (4.0-10.0)
== END 2020-01-09 23:59 | disposition home or self-care (01) ==
LOC: ONCMED 11:25
PROVIDERS: PCP Physician Assistant Medical; Visit Provider Internal Medicine Medical Oncology
DX: D75.81 Myelofibrosis (principal); D64.9 Anemia, unspecified; D72.819 Decreased white blood cell count, unspecified
CPT/HCPCS: 36415; 85025

== ENCOUNTER 2020-01-10 10:11 | Outpatient (CLI) | payer MEDICARE, OTHER, SELFPAY ==
--- NOTE | 2020-01-13 18:36 | ONC FU_ITS ---
Dr. Gonzales Patient Follow-Up Note Patient: Tonya Lynch Unit #: [id number]: 1940 Dicatated By: Cole Gonzales M.D.Date of Visit:Jan 10, 2020 Onc Med Follow-up/Prog Note Chief Complaint: Myelofibrosis. History of Present Illness: This is a 79 year-old woman with myelofibrosis, presenting with anemia, leukopenia, and splenomegaly. On 05/16/2018 she was admitted to the hospital with anemia and leukopenia. Her initial CBC showed hemoglobin 6.5 g with hematocrit 20.2%. The red cell indices were in the low normal range. The white blood cell count was 2800 and the platelet count was 163,000. The differential showed 70% neutrophils, 17% lymphocytes, and 9% monocytes. Also reported were 3% immature . Her serum iron studies show transferrin saturation 34%. The ferritin was relatively low at 44.1 ng/mL. Her comprehensive metabolic profile showed borderline renal function with BUN 9 and creatinine 1.21 mg/dL. The bilirubin and liver enzymes were normal. TSH was normal at 2.38. She was transfused PRBC. She reportedly had a similar episode in 2017, at which time she did undergo GI endoscopy studies. Hematology consultation was recommended, but apparently not completed. I had seen her initially on 06/14/2019. At that time, she was noted to have an enlarged spleen, and that was subsequently confirmed by CT. There was no associated lymphadenopathy. Bone marrow aspiration/biopsy on 07/14/2019 showed hypercellular marrow estimated at 70 to 90% cellularity. There was megakaryocytic hyperplasia with occasional bizarre megakaryocyte forms present. Blasts were estimated at 2.5%. There was severe reticulin fibrosis noted. Standard cytogenetics were not able to be done, as the bone marrow aspirate did not contain any spicules. The FISH panel for MDS was unrevealing. Overall, the findings were most consistent with myelofibrosis. Her other medical illnesses include hypertension, hyperlipidemia, chronic kidney disease, GERD, irritable bowel syndrome, degenerative arthritis, and anxiety/depression. She has a history of smoking 2 packs of cigarettes daily for 63 years. She had cut down to 1 pack/day. INTERIM HISTORY: On 10/04/2019 she began treatment with ruxolitinib 10 mg daily for 3 days, then 10 mg twice daily. As of 10/14/2019 the dosage was further increased to 20 mg twice daily. She is seen for a follow-up visit. She says her energy is not too bad, though she does get pretty weak when her blood count is low, and she has continued to require transfusion support. She is able to do light work. ECOG score is 1. Her appetite is better, and she has gained weight. She has not had fever or night sweats. She says her throat feels a little raw. She has no difficulty swallowing. She is sometimes short of breath. She has cough productive of white sputum. She occasionally has small chest pains. She currently has no GI or complaints. She has pain in her neck and back, she also has arthritis in her hands. She has headaches and she sometimes has dizziness. She also sometimes has numbness in her fingers or in her feet. She complains that she has no push in her knees, and she has difficulty getting up steps or getting out of a chair. Medications: Albuterol Sulfate 2 Puff(s) (of 108 (90 base) mcg/act) Aerosol Powder, Breath Activated Inhalation q 6 hours PRN, ALPRAZolam 1 (1 mg) Tablet Oral t.i.d. PRN, amLODIPine Besylate 1 (5 mg) Tablet Oral daily, Antacid Maximum Tablet, chewable Oral PRN, Benzonatate 1 (200 mg) Capsule Oral daily PRN, Combivent Respimat 1 Inhalation (of 20-100 mcg/act) Aerosol, solution Inhalation b.i.d., Cough & Sore Throat NightTime 30 mL (of 30-12.5-1000 mg/30mL) Liquid Oral PRN, [facility]S Migraine Relief 1 (250-250-65 mg) Tablet Oral PRN, Ferrous Sulfate 1 (325 (65 fe) mg) Tablet Oral daily, Isosorbide Mononitrate ER 1 (30 mg) Tablet SR 24 HR Oral daily, Jakafi 1 Tablet (of 20 mg) Oral b.i.d. for 30 days, Meclizine HCl 1 (12.5 mg) Tablet Oral PRN, raNITIdine HCl 1 (150 mg) Capsule Oral at bedtime, SUMAtriptan Succinate Tablet Oral PRN, traMADol-Acetaminophen 1 (37.5-325 mg) Tablet Oral q 6 hours PRN Allergies: No Known Allergies. Review of Systems: Constitutional - Her energy level is not too bad. She is able to do light housework. Her appetite is better. She has gained weight. No fever, chills, hot flashes, or night sweats. ECOG score is 1, ENMT - No sinus congestion/drainage. No mouth sores. Her sore throat feels a little raw. No difficulty swallowing, Hematologic/Lymphatic - No abnormal bruising or bleeding, Respiratory - She has some shortness of breath. She has cough productive of white sputum. No pleuritic pain or hemoptysis, Cardiovascular - She occasionally has small chest pains. No palpitations, Gastrointestinal - No nausea or vomiting. She has some heartburn. No diarrhea or connstipation. No blood in the stool or black stools, Genitourinary (F) - No dysuria or hematuria. No urinary frequency. No urgency or incontinence, Musculoskeletal - She is having arthritis pain in her neck and back and in her hands and knees. She complains that she has no push in her knees, and she has difficulty getting up steps and getting out of a chair, Integumentary - No skin complications, Neurologic - No headache. She has had episodes of dizziness. She sometimes has numbness in her hands or her feet, Psychiatric - She has some anxiety/depression. She is not a good sleeper. Vital Signs: Performed on Jan 10, 2020 10:16 Height - 69.00 in Weight - 127 lbs (HIGH) BSA - 1.70 sq.m BMI - 18.75 Temperature - 97.5 F (LOW) Pulse - 68 /min Respiration - 17 /min BP - 142/74 mm(hg) (HIGH) O2 Sat - 97 % Pain - 0 Physical Examination: Constitutional - She appears generally weak and chronically ill, Eyes - Sclerae nonicteric. Conjunctivae clear, ENMT - No lesions noted in the oral cavity, Hematologic/Lymphatic - No cervical, clavicular, or axillary adenopathy, Respiratory - Lungs sound clear with diminished air movement bilaterally, Cardiovascular - Heart rhythm is regular. There is a II/ systolic murmur. There is no gallop or rub noted, Abdomen - Relatively thin and somewhat firm. Liver is not enlarged. The spleen does not appear to be palpable now. There is no abdominal mass or ascites noted and there is no inguinal adenopathy, Extremities - No edema, Integumentary - No skin eruption, Neurologic - No focal neurologic deficits noted. Lab/Imaging: Test performed on Jan 05, 2020 09:05 WBC 4.6 10 3/uL RBC 3.27 10 6/uL HGB 9.4 g/dL HCT 28.9 % MCV 88.4 fL MCH 28.7 pg MCHC 32.5 g/dL RDW 15.4 % Platelet Count 183 10 3/cmm MPV 10.4 fL Neutrophils 2.4 10 3/uL Lymphocytes 1.6 10 3/uL Monocytes 0.4 10 3/uL Eosinophils 0.0 10 3/uL Basophils 0.0 10 3/uL Neutrophil % 52.4 % Lymphocyte % 34.6 % Monocyte % 7.8 % Eosinophil % 0.0 % Basophils % 0.2 % NRBC % 0 % Impression: 1. Patient with anemia, leukopenia, and splenomegaly. Her bone marrow aspiration/biopsy on 07/14/2019 showed severe reticulin fibrosis, consistent with myelofibrosis. 2. She has had declining performance status and significant weight loss. Her other medical illnesses include: 3. Hypertension. 4. Hyperlipidemia. 5. Chronic kidney disease, stage III. 6. GERD. 7. Irritable bowel syndrome. 8. Degenerative arthritis. 9. Anxiety/depression. On 10/04/2019 she began treatment with ruxolitinib 10 mg daily for 3 days, then 10 mg twice daily. As of 10/14/2019 the dosage was further increased to 20 mg twice daily. She does seem to tolerate it without adverse effects, and she does appear to be showing some benefit with improvement in splenomegaly and with weight gain. However, she remains transfusion dependent, and she continues to have fairly marginal performance status. She appears to have significant proximal muscle weakness in her legs. Plan: She is to continue the ruxolitinib 20 mg twice daily. Her blood counts will be monitored weekly and she will be transfused as needed. I will see her again in 1 month. In the meantime, we will check and see what assistance may be available for her at home, including physical therapy. Signed By: Cole Gonzales M.D. <<Signature on File>>
== END 2020-01-10 10:12 | disposition home or self-care (01) ==
LOC: ONCMED 10:11
PROVIDERS: PCP Physician Assistant Medical; Visit Provider Internal Medicine Medical Oncology
DX: D75.81 Myelofibrosis (principal); R16.1 Splenomegaly, not elsewhere classified; M62.81 Muscle weakness (generalized); I12.9 Hypertensive chronic kidney disease with stage 1 through stage 4 chronic kidney disease, or unspecified chronic kidney disease; N18.3 Chronic kidney disease, stage 3 (moderate); E78.5 Hyperlipidemia, unspecified; K21.9 Gastro-esophageal reflux disease without esophagitis; K58.9 Irritable bowel syndrome, unspecified; M19.90 Unspecified osteoarthritis, unspecified site; F41.8 Other specified anxiety disorders; Z79.899 Other long term (current) drug therapy
CPT/HCPCS: 99214

== ENCOUNTER 2020-01-23 12:35 | Outpatient (RCR) | payer MEDICARE, OTHER, SELFPAY ==
[2020-01-16 18:44] LABS: Basophils % 0.4 %; Hematocrit 26.9 % (37.0-47.0); Hemoglobin 8.5 g/dL (11.5-15.3); Lymphocytes # 2.4 10^3/uL (0.8-4.8); Lymphocytes % 42.6 %; Mean Corpuscular HGB Conc 31.6 g/dL (30.0-36.0); Mean Corpuscular Hemoglobin 28.3 pg (28.0-34.0); Mean Corpuscular Volume 89.7 fL (81-99); Mean Platelet Volume 10.5 fL (7.4-10.4); Monocytes # 0.5 10^3/uL (0.2-0.9); Monocytes % 8.6 %; Neutrophils # 2.6 10^3/uL (1.8-7.7); Neutrophils % 46.1 %; Nucleated Red Blood Cells % 0 %; Platelet Count 218 10^3/cmm (130-400); Red Cell Distribution Width 15.5 % (12.1-15.1); White Blood Count 5.7 10^3/uL (4.0-10.0)
[2020-01-16 19:07] LABS: Alanine Aminotransferase < 5 U/L (0-33); Albumin Level 4.5 g/dL (3.5-5.2); Alkaline Phosphatase 59 IU/L (35-105); Anion Gap 18.5 (5-19); Aspartate Amino Transferase 9 U/L (0-32); Blood Urea Nitrogen 12 mg/dL (8-23); Calcium 9.1 mg/dL (8.5-10.5); Carbon Dioxide 24 mmol/L (22-29); Chloride 97 mmol/L (98-107); Globulin 2.4 g/dL (1.3-4.6); Glucose 76 mg/dL (65-115); Lactate Dehydrogenase 227 U/L (135-214); Osmolality Calculated 275 mOsm/kg (285-295); Potassium 4.5 mmol/L (3.5-5.1); Sodium 135 mmol/L (136-145); Total Bilirubin 0.3 mg/dL (0.15-1.2); Total Protein 6.9 g/dL (6.6-8.7)
[2020-01-23 16:51] LABS: Basophils % 0.2 %; Hematocrit 23.3 % (37.0-47.0); Hemoglobin 7.5 g/dL (11.5-15.3); Lymphocytes # 2.1 10^3/uL (0.8-4.8); Lymphocytes % 40.4 %; Mean Corpuscular HGB Conc 32.2 g/dL (30.0-36.0); Mean Platelet Volume 9.9 fL (7.4-10.4); Monocytes # 0.5 10^3/uL (0.2-0.9); Monocytes % 8.8 %; Neutrophils # 2.4 10^3/uL (1.8-7.7); Neutrophils % 46.6 %; Nucleated Red Blood Cells % 0 %; Platelet Count 227 10^3/cmm (130-400); Red Blood Count 2.59 10^6/uL (4.1-5.3); Red Cell Distribution Width 15.8 % (12.1-15.1); White Blood Count 5.2 10^3/uL (4.0-10.0)
[2020-01-23 17:26] LABS: Alanine Aminotransferase < 5 U/L (0-33); Albumin Level 4.5 g/dL (3.5-5.2); Alkaline Phosphatase 53 IU/L (35-105); Anion Gap 15.6 (5-19); Aspartate Amino Transferase 8 U/L (0-32); Blood Urea Nitrogen 11 mg/dL (8-23); Calcium 8.9 mg/dL (8.5-10.5); Carbon Dioxide 25 mmol/L (22-29); Chloride 99 mmol/L (98-107); Globulin 2.2 g/dL (1.3-4.6); Glucose 82 mg/dL (65-115); Lactate Dehydrogenase 227 U/L (135-214); Osmolality Calculated 275 mOsm/kg (285-295); Potassium 4.6 mmol/L (3.5-5.1); Sodium 135 mmol/L (136-145); Total Bilirubin 0.3 mg/dL (0.15-1.2); Total Protein 6.7 g/dL (6.6-8.7)
[2020-01-25] VITALS (8 sets, daily range): BP systolic 102–153; BP diastolic 56–69; PULSE 62–76; RESP 18; TEMP 36.5–37.2; O2SAT 94–99
[2020-01-25 15:25] LABS: Erythropoietin 249.1 mIU/mL (2.6-18.5)
== END 2020-01-24 23:59 | disposition home or self-care (01) ==
LOC: ONCMED 12:35
PROVIDERS: PCP Physician Assistant Medical; Visit Provider Internal Medicine Medical Oncology
DX: D75.81 Myelofibrosis (principal); D64.9 Anemia, unspecified; D72.819 Decreased white blood cell count, unspecified
CPT/HCPCS: 36415; 80053; 82668; 83615; 85025

== ENCOUNTER 2020-02-13 09:50 | Outpatient (RCR) | payer MEDICARE, OTHER, SELFPAY ==
[2020-01-25] MEDS: sodium chloride 0.9% 250 ML 999 ML IV (10:15)
[2020-01-25] MEDS: acetaminophen 325 mg Tablet 650 MG PO (13:47)
[2020-01-25] MEDS: FUROsemide 10 mg/mL SDV 2mL 20 MG IV (14:15)
[2020-01-25] MEDS: diphenhydrAMINE 25 mg Capsule PO (14:15)
[2020-01-30 13:08] LABS: Alanine Aminotransferase < 5 U/L (0-33); Albumin Level 4.6 g/dL (3.5-5.2); Alkaline Phosphatase 53 IU/L (35-105); Anion Gap 17.1 (5-19); Aspartate Amino Transferase 9 U/L (0-32); Blood Urea Nitrogen 10 mg/dL (8-23); Calcium 8.8 mg/dL (8.5-10.5); Carbon Dioxide 24 mmol/L (22-29); Chloride 98 mmol/L (98-107); Globulin 2.2 g/dL (1.3-4.6); Glucose 132 mg/dL (65-115); Lactate Dehydrogenase 235 U/L (135-214); Osmolality Calculated 278 mOsm/kg (285-295); Potassium 4.1 mmol/L (3.5-5.1); Sodium 135 mmol/L (136-145); Total Bilirubin 0.4 mg/dL (0.15-1.2); Total Protein 6.8 g/dL (6.6-8.7)
[2020-01-30 13:14] LABS: Basophils % 0.4 %; Hemoglobin 9.6 g/dL (11.5-15.3); Lymphocytes # 2.6 10^3/uL (0.8-4.8); Lymphocytes % 47.4 %; Mean Corpuscular Hemoglobin 28.7 pg (28.0-34.0); Mean Corpuscular Volume 89.6 fL (81-99); Mean Platelet Volume 10.2 fL (7.4-10.4); Monocytes # 0.4 10^3/uL (0.2-0.9); Monocytes % 7.2 %; Neutrophils # 2.3 10^3/uL (1.8-7.7); Neutrophils % 42.8 %; Nucleated Red Blood Cells % 0.4 %; Platelet Count 215 10^3/cmm (130-400); Red Blood Count 3.35 10^6/uL (4.1-5.3); Red Cell Distribution Width 15.1 % (12.1-15.1); White Blood Count 5.4 10^3/uL (4.0-10.0)
[2020-02-06 15:23] LABS: Basophils % 0.3 %; Hematocrit 27.2 % (37.0-47.0); Hemoglobin 8.8 g/dL (11.5-15.3); Lymphocytes # 2.5 10^3/uL (0.8-4.8); Lymphocytes % 40.4 %; Mean Corpuscular HGB Conc 32.4 g/dL (30.0-36.0); Mean Corpuscular Hemoglobin 29.2 pg (28.0-34.0); Mean Corpuscular Volume 90.4 fL (81-99); Mean Platelet Volume 10.5 fL (7.4-10.4); Monocytes # 0.6 10^3/uL (0.2-0.9); Neutrophils # 2.89 10^3/uL (1.8-7.7); Neutrophils % 46.7 %; Nucleated Red Blood Cells % 0 %; Platelet Count 242 10^3/cmm (130-400); Red Blood Count 3.01 10^6/uL (4.1-5.3); Red Cell Distribution Width 15.2 % (12.1-15.1); White Blood Count 6.2 10^3/uL (4.0-10.0)
[2020-02-08] MEDS: acetaminophen 325 mg Tablet 650 MG PO (09:00)
[2020-02-08] MEDS: sodium chloride 0.9% 250 ML 999 ML IV (09:00)
[2020-02-08] MEDS: diphenhydrAMINE 25 mg Capsule PO (09:37)
[2020-02-08] MEDS: FUROsemide 10 mg/mL SDV 2mL 20 MG IV (16:46)
[2020-02-13 13:31] LABS: Basophils % 0.2 %; Hematocrit 32.3 % (37.0-47.0); Hemoglobin 10.3 g/dL (11.5-15.3); Lymphocytes % 36.2 %; Mean Corpuscular HGB Conc 31.9 g/dL (30.0-36.0); Mean Corpuscular Hemoglobin 28.6 pg (28.0-34.0); Mean Corpuscular Volume 89.7 fL (81-99); Mean Platelet Volume 10.3 fL (7.4-10.4); Monocytes # 0.6 10^3/uL (0.2-0.9); Monocytes % 11.1 %; Neutrophils # 2.75 10^3/uL (1.8-7.7); Nucleated Red Blood Cells % 0 %; Platelet Count 182 10^3/cmm (130-400); Red Cell Distribution Width 14.7 % (12.1-15.1); White Blood Count 5.4 10^3/uL (4.0-10.0)
[2020-02-13 19:06] LABS: Alanine Aminotransferase 6 U/L (0-33); Albumin Level 1.6 g/dL (3.5-5.2); Alkaline Phosphatase 51 IU/L (35-105); Anion Gap 17.2 (5-19); Aspartate Amino Transferase 8 U/L (0-32); Blood Urea Nitrogen 10 mg/dL (8-23); Calcium 8.4 mg/dL (8.5-10.5); Carbon Dioxide 23 mmol/L (22-29); Chloride 95 mmol/L (98-107); Glucose 69 mg/dL (65-115); Lactate Dehydrogenase 250 U/L (135-214); Osmolality Calculated 266 mOsm/kg (285-295); Potassium 4.2 mmol/L (3.5-5.1); Sodium 131 mmol/L (136-145); Total Bilirubin 0.4 mg/dL (0.15-1.2); Total Protein 6.6 g/dL (6.6-8.7)
== END 2020-02-13 23:59 | disposition home or self-care (01) ==
LOC: ONCMED 09:50
PROVIDERS: PCP Physician Assistant Medical; Visit Provider Internal Medicine Medical Oncology
DX: D75.81 Myelofibrosis (principal); D64.9 Anemia, unspecified; D72.819 Decreased white blood cell count, unspecified
CPT/HCPCS: 36415; 80053; 83615; 85025; 86850; 86900; 86920; J1940; J7050; P9016

== ENCOUNTER 2020-02-14 09:31 | Outpatient (CLI) | payer MEDICARE, OTHER, SELFPAY ==
--- NOTE | 2020-02-15 07:18 | ONC FU_ITS ---
Dr. Gonzales Patient Follow-Up Note Patient: Tonya Lynch Unit #: [id number]: 1940 Dicatated By: Cole Gonzales M.D.Date of Visit:Feb 14, 2020 Onc Med Follow-up/Prog Note Chief Complaint: Myelofibrosis. History of Present Illness: This is a 79 year-old woman with myelofibrosis, presenting with anemia, leukopenia, and splenomegaly. On 05/16/2018 she was admitted to the hospital with anemia and leukopenia. Her initial CBC showed hemoglobin 6.5 g with hematocrit 20.2%. The red cell indices were in the low normal range. The white blood cell count was 2800 and the platelet count was 163,000. The differential showed 70% neutrophils, 17% lymphocytes, and 9% monocytes. Also reported were 3% immature . Her serum iron studies show transferrin saturation 34%. The ferritin was relatively low at 44.1 ng/mL. Her comprehensive metabolic profile showed borderline renal function with BUN 9 and creatinine 1.21 mg/dL. The bilirubin and liver enzymes were normal. TSH was normal at 2.38. She was transfused PRBC. She reportedly had a similar episode in 2017, at which time she did undergo GI endoscopy studies. Hematology consultation was recommended, but apparently not completed. I had seen her initially on 06/14/2019. At that time, she was noted to have an enlarged spleen, and that was subsequently confirmed by CT. There was no associated lymphadenopathy. Bone marrow aspiration/biopsy on 07/14/2019 showed hypercellular marrow estimated at 70 to 90% cellularity. There was megakaryocytic hyperplasia with occasional bizarre megakaryocyte forms present. Blasts were estimated at 2.5%. There was severe reticulin fibrosis noted. Standard cytogenetics were not able to be done, as the bone marrow aspirate did not contain any spicules. The FISH panel for MDS was unrevealing. Overall, the findings were most consistent with myelofibrosis. Her other medical illnesses include hypertension, hyperlipidemia, chronic kidney disease, GERD, irritable bowel syndrome, degenerative arthritis, and anxiety/depression. She has a history of smoking 2 packs of cigarettes daily for 63 years. She had cut down to 1 pack/day. INTERIM HISTORY: On 10/04/2019 she began treatment with ruxolitinib 10 mg daily for 3 days, then 10 mg twice daily. As of 10/14/2019 the dosage was further increased to 20 mg twice daily. She has been tolerating it well. During follow-up she has had improvement in her clinical status with resolution of splenomegaly, improved appetite, and significant weight gain. 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 She is seen for a follow-up visit. She says she is not bad. Her energy is better at times, though she still has significant fatigue. She is able to do light work. She has good appetite. She has gained weight. She does not have fever or night sweats. She has shortness of breath with activity. She has a smoker's cough. She reports having tiny chest pains, but that is chronic. She complains of having abdominal bloating and she occasionally has nausea/vomiting. She also is having acid reflux. Bowel function has been okay. She does complain of urinary frequency and nocturia. She says her knees bother her a lot and she also has pain and muscle cramping in her legs. She has had some headaches and she also complains of dizziness. She has numbness/tingling in her fingers. Medications: Albuterol Sulfate 2 Puff(s) (of 108 (90 base) mcg/act) Aerosol Powder, Breath Activated Inhalation q 6 hours PRN, ALPRAZolam 1 (1 mg) Tablet Oral t.i.d. PRN, amLODIPine Besylate 1 (5 mg) Tablet Oral daily, Antacid Maximum Tablet, chewable Oral PRN, Benzonatate 1 (200 mg) Capsule Oral daily PRN, Combivent Respimat 1 Inhalation (of 20-100 mcg/act) Aerosol, solution Inhalation b.i.d., Cough & Sore Throat NightTime 30 mL (of 30-12.5-1000 mg/30mL) Liquid Oral PRN, [facility] Migraine Relief 1 (250-250-65 mg) Tablet Oral PRN, Ferrous Sulfate 1 (325 (65 fe) mg) Tablet Oral daily, Isosorbide Mononitrate ER 1 (30 mg) Tablet SR 24 HR Oral daily, Jakafi 1 Tablet (of 20 mg) Oral b.i.d. for 30 days, Meclizine HCl 1 (12.5 mg) Tablet Oral PRN, raNITIdine HCl 1 (150 mg) Capsule Oral at bedtime, SUMAtriptan Succinate Tablet Oral PRN, traMADol-Acetaminophen 1 (37.5-325 mg) Tablet Oral q 6 hours PRN Allergies: No Known Allergies. Review of Systems: Constitutional - She feels pretty good, though her energy is up and down. She is able to do light housework. Her appetite is good and her weight is up about 5 pounds. No fever, night sweats, or hot flashes. ECOG score is 1, ENMT - She has some sinus congestion. No mouth sores. No sore throat or difficulty swallowing, Hematologic/Lymphatic - She bruises easily, Respiratory - She has shortness of breath with activity. She has a chronic cough. No pleuritic pain or hemoptysis, Cardiovascular - She has tiny chest pains, which is chronic. No palpitations, Gastrointestinal - She has occasional nausea. No vomiting. She has occasional heartburn. No diarrhea or constipation. No blood in the stool or black stools, Genitourinary (F) - No dysuria or hematuria. She has urinary frequency both day and night. No urgency or incontinence, Musculoskeletal - She is having joint pain in her knees and ankles. She is having have muscle cramping in her legs, both day and at night, Integumentary - No skin complications, Neurologic - She has headaches. She has dizziness. She has numbness and tingling in her fingers and in her feet. No other focal neurologic symptoms, Psychiatric - Her anxiety is managed with alprazolam. She has some depression. She has some difficulty sleeping. Vital Signs: Performed on Feb 14, 2020 09:23 Height - 69.00 in Weight - 132 lbs (HIGH) BSA - 1.73 sq.m BMI - 19.49 Temperature - 97.6 F (LOW) Pulse - 72 /min Respiration - 19 /min BP - 118/88 mm(hg) O2 Sat - 94 % (LOW) Pain - 0 Physical Examination: Constitutional - She appears chronically ill, Eyes - Sclerae nonicteric. Conjunctivae clear, ENMT - No lesions noted in the oral cavity, Hematologic/Lymphatic - No cervical, clavicular, or axillary adenopathy, Respiratory - Lungs show diminished air movement bilaterally, Cardiovascular - Heart rhythm is regular. There is a II/ systolic murmur. There is no gallop or rub noted, Abdomen - Thin. Liver is not enlarged. The spleen is not palpable. There is no abdominal mass or ascites noted and there is no inguinal adenopathy, Extremities - No edema. Pedal pulses are palpable bilaterally, Integumentary - No skin eruption, Neurologic - Her proximal leg muscles are weak. There are no focal neurologic deficits noted. Lab/Imaging: Test performed on Feb 06, 2020 10:37 WBC 6.2 10 3/uL RBC 3.01 10 6/uL HGB 8.8 g/dL HCT 27.2 % MCV 90.4 fL MCH 29.2 pg MCHC 32.4 g/dL RDW 15.2 % Platelet Count 242 10 3/cmm MPV 10.5 fL Neutrophils 2.89 10 3/uL Lymphocytes 2.5 10 3/uL Monocytes 0.6 10 3/uL Eosinophils 0.0 10 3/uL Basophils 0.0 10 3/uL Neutrophil % 46.7 % Lymphocyte % 40.4 % Monocyte % 10.0 % Eosinophil % 0.0 % Basophils % 0.3 % NRBC % 0 % Impression: 1. Patient with anemia, leukopenia, and splenomegaly. Her bone marrow aspiration/biopsy on 07/14/2019 showed severe reticulin fibrosis, consistent with myelofibrosis. 2. She has had declining performance status and significant weight loss. Her other medical illnesses include: 3. Hypertension. 4. Hyperlipidemia. 5. Chronic kidney disease, stage III. 6. GERD. 7. Irritable bowel syndrome. 8. Degenerative arthritis. 9. Anxiety/depression. On 10/04/2019 she began treatment with ruxolitinib 10 mg daily for 3 days, then 10 mg twice daily. As of 10/14/2019 the dosage was further increased to 20 mg twice daily. Thus far she has been able to tolerate it with no adverse effects. She does appear to be showing a good clinical response with weight gain and resolution of splenomegaly. 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 Her erythropoietin level was found to be significantly elevated. Plan: She is to continue the ruxolitinib 20 mg twice daily. Her blood counts will be monitored weekly and she will be transfused as needed. I will see her again in 3 month. In the meantime, she will be given a prescription for pantoprazole for the GERD symptoms and I will have her try ropinirole for the muscle cramps. Signed By: Cole Gonzales M.D. <<Signature on File>>
== END 2020-02-14 09:32 | disposition home or self-care (01) ==
PROVIDERS: PCP Physician Assistant Medical; Visit Provider Internal Medicine Medical Oncology
DX: D75.81 Myelofibrosis (principal); K21.9 Gastro-esophageal reflux disease without esophagitis; R25.2 Cramp and spasm; D64.9 Anemia, unspecified; I12.9 Hypertensive chronic kidney disease with stage 1 through stage 4 chronic kidney disease, or unspecified chronic kidney disease; N18.3 Chronic kidney disease, stage 3 (moderate); E78.5 Hyperlipidemia, unspecified; K58.9 Irritable bowel syndrome, unspecified; M19.90 Unspecified osteoarthritis, unspecified site; F41.8 Other specified anxiety disorders; Z79.899 Other long term (current) drug therapy
CPT/HCPCS: 99214

== ENCOUNTER 2020-02-20 11:06 | Outpatient (RCR) | payer MEDICARE, OTHER, SELFPAY ==
[2020-02-20 15:09] LABS: Basophils % 0.2 %; Hematocrit 28.9 % (37.0-47.0); Hemoglobin 9.4 g/dL (11.5-15.3); Lymphocytes # 0.8 10^3/uL (0.8-4.8); Lymphocytes % 17.6 %; Mean Corpuscular HGB Conc 32.5 g/dL (30.0-36.0); Mean Corpuscular Hemoglobin 29.7 pg (28.0-34.0); Mean Corpuscular Volume 91.2 fL (81-99); Mean Platelet Volume 10.5 fL (7.4-10.4); Monocytes # 0.6 10^3/uL (0.2-0.9); Neutrophils # 2.93 10^3/uL (1.8-7.7); Neutrophils % 66.4 %; Nucleated Red Blood Cells % 0 %; Platelet Count 134 10^3/cmm (130-400); Red Blood Count 3.17 10^6/uL (4.1-5.3); Red Cell Distribution Width 14.6 % (12.1-15.1); White Blood Count 4.4 10^3/uL (4.0-10.0)
== END 2020-02-24 23:59 | disposition home or self-care (01) ==
LOC: ONCMED 11:06
PROVIDERS: PCP Physician Assistant Medical; Visit Provider Internal Medicine Medical Oncology
DX: D75.81 Myelofibrosis (principal); D64.9 Anemia, unspecified; D72.819 Decreased white blood cell count, unspecified
CPT/HCPCS: 36415; 85025

== ENCOUNTER 2020-03-26 09:11 | Outpatient (RCR) | payer MEDICARE, OTHER, SELFPAY ==
[2020-02-28 15:43] LABS: Basophils % 0.3 %; Hematocrit 26.9 % (37.0-47.0); Hemoglobin 8.7 g/dL (11.5-15.3); Lymphocytes # 2.1 10^3/uL (0.8-4.8); Lymphocytes % 27.7 %; Mean Corpuscular HGB Conc 32.3 g/dL (30.0-36.0); Mean Corpuscular Hemoglobin 28.4 pg (28.0-34.0); Mean Corpuscular Volume 87.9 fL (81-99); Mean Platelet Volume 10.3 fL (7.4-10.4); Monocytes # 0.7 10^3/uL (0.2-0.9); Monocytes % 9.5 %; Neutrophils # 4.36 10^3/uL (1.8-7.7); Neutrophils % 57.5 %; Nucleated Red Blood Cells % 0 %; Platelet Count 302 10^3/cmm (130-400); Red Blood Count 3.06 10^6/uL (4.1-5.3); Red Cell Distribution Width 14.6 % (12.1-15.1); White Blood Count 7.6 10^3/uL (4.0-10.0)
[2020-03-01] MEDS: acetaminophen 325 mg Tablet 650 MG PO (10:20)
[2020-03-01] MEDS: sodium chloride 0.9% 250 ML 999 ML IV (10:30)
[2020-03-01] MEDS: diphenhydrAMINE 25 mg Capsule PO (16:12)
[2020-03-01] MEDS: FUROsemide 10 mg/mL SDV 2mL 20 MG IV (16:13)
[2020-03-12 15:52] LABS: Basophils % 0.2 %; Hematocrit 30.2 % (37.0-47.0); Hemoglobin 9.5 g/dL (11.5-15.3); Lymphocytes # 1.9 10^3/uL (0.8-4.8); Lymphocytes % 32.1 %; Mean Corpuscular HGB Conc 31.5 g/dL (30.0-36.0); Mean Corpuscular Hemoglobin 28.4 pg (28.0-34.0); Mean Corpuscular Volume 90.4 fL (81-99); Mean Platelet Volume 10.4 fL (7.4-10.4); Monocytes # 0.8 10^3/uL (0.2-0.9); Monocytes % 13.1 %; Neutrophils # 3.12 10^3/uL (1.8-7.7); Neutrophils % 52.4 %; Nucleated Red Blood Cells % 0 %; Platelet Count 162 10^3/cmm (130-400); Red Blood Count 3.34 10^6/uL (4.1-5.3); Red Cell Distribution Width 14.7 % (12.1-15.1)
[2020-03-19 13:48] LABS: Basophils % 0.2 %; Hematocrit 29.6 % (37.0-47.0); Hemoglobin 9.5 g/dL (11.5-15.3); Lymphocytes # 1.6 10^3/uL (0.8-4.8); Mean Corpuscular HGB Conc 32.1 g/dL (30.0-36.0); Mean Corpuscular Hemoglobin 28.6 pg (28.0-34.0); Mean Corpuscular Volume 89.2 fL (81-99); Mean Platelet Volume 10.2 fL (7.4-10.4); Monocytes # 0.5 10^3/uL (0.2-0.9); Monocytes % 10.9 %; Neutrophils # 2.16 10^3/uL (1.8-7.7); Neutrophils % 50.3 %; Nucleated Red Blood Cells % 0 %; Platelet Count 141 10^3/cmm (130-400); Red Blood Count 3.32 10^6/uL (4.1-5.3); Red Cell Distribution Width 14.7 % (12.1-15.1); White Blood Count 4.3 10^3/uL (4.0-10.0)
[2020-03-26 13:57] LABS: Basophils % 0.4 %; Hematocrit 24.3 % (37.0-47.0); Hemoglobin 7.9 g/dL (11.5-15.3); Lymphocytes # 0.5 10^3/uL (0.8-4.8); Lymphocytes % 19.1 %; Mean Corpuscular HGB Conc 32.5 g/dL (30.0-36.0); Mean Corpuscular Hemoglobin 28.4 pg (28.0-34.0); Mean Corpuscular Volume 87.4 fL (81-99); Mean Platelet Volume 10.9 fL (7.4-10.4); Monocytes # 0.5 10^3/uL (0.2-0.9); Monocytes % 19.5 %; Neutrophils # 1.49 10^3/uL (1.8-7.7); Neutrophils % 57.9 %; Nucleated Red Blood Cells % 0.8 %; Platelet Count 91 10^3/cmm (130-400); Red Blood Count 2.78 10^6/uL (4.1-5.3); Red Cell Distribution Width 14.9 % (12.1-15.1); White Blood Count 2.6 10^3/uL (4.0-10.0)
== END 2020-03-26 23:59 | disposition home or self-care (01) ==
LOC: ONCMED 09:11
PROVIDERS: PCP Physician Assistant Medical; Visit Provider Internal Medicine Medical Oncology
DX: D75.81 Myelofibrosis (principal); D64.9 Anemia, unspecified
CPT/HCPCS: 36415; 85025; 86850; 86900; 86920; J1940; J7050; P9016

== ENCOUNTER 2020-04-23 10:55 | Outpatient (RCR) | payer MEDICARE, OTHER, SELFPAY ==
[2020-03-27] MEDS: acetaminophen 325 mg Tablet 650 MG PO (11:30)
[2020-03-27] MEDS: sodium chloride 0.9% 250 ML 999 ML IV (17:03)
[2020-03-27] MEDS: diphenhydrAMINE 25 mg Capsule PO (17:03)
[2020-03-27] MEDS: FUROsemide 10 mg/mL SDV 2mL 20 MG IV (17:03)
[2020-04-03 14:47] LABS: Hematocrit 29.1 % (37.0-47.0); Hemoglobin 9.5 g/dL (11.5-15.3); Mean Corpuscular HGB Conc 32.6 g/dL (30.0-36.0); Mean Corpuscular Hemoglobin 28.6 pg (28.0-34.0); Mean Corpuscular Volume 87.7 fL (81-99); Mean Platelet Volume 10.2 fL (7.4-10.4); Platelet Count 192 10^3/cmm (130-400); Red Blood Count 3.32 10^6/uL (4.1-5.3); Red Cell Distribution Width 14.7 % (12.1-15.1); White Blood Count 5.8 10^3/uL (4.0-10.0)
[2020-04-03 15:11] LABS: Slide Review Slide Review Perform
[2020-04-03 15:20] LABS: Absolute Neutrophil 3.9 10^3/cmm (1.4-6.5); Absolute Segmented Neutrophil 3.5 10/cmm (1.6-7.1); Band Neutrophils Absolute 0.4 10^3/cmm (0.0-1.2); Lymphocytes 25 %; Monocytes Absolute 0.3 10^3/cmm (0.1-0.6); Platelet Estimate Normal (Normal); Segmented Neutrophils 61 %; Total Cells Counted 100 (0-100)
[2020-04-09 15:16] LABS: Basophils % 0.3 %; Hematocrit 28.9 % (37.0-47.0); Hemoglobin 9.2 g/dL (11.5-15.3); Lymphocytes # 1.6 10^3/uL (0.8-4.8); Mean Corpuscular HGB Conc 31.8 g/dL (30.0-36.0); Mean Corpuscular Hemoglobin 28.8 pg (28.0-34.0); Mean Corpuscular Volume 90.6 fL (81-99); Mean Platelet Volume 10.7 fL (7.4-10.4); Monocytes # 0.8 10^3/uL (0.2-0.9); Monocytes % 13.3 %; Neutrophils # 3.27 10^3/uL (1.8-7.7); Neutrophils % 54.3 %; Nucleated Red Blood Cells % 0 %; Platelet Count 169 10^3/cmm (130-400); Red Blood Count 3.19 10^6/uL (4.1-5.3); Red Cell Distribution Width 14.8 % (12.1-15.1)
[2020-04-09 16:08] LABS: Slide Review Slide Review Perform
[2020-04-16 14:45] LABS: Basophils % 0.2 %; Hematocrit 25.3 % (37.0-47.0); Hemoglobin 8.1 g/dL (11.5-15.3); Lymphocytes % 33.2 %; Mean Corpuscular Hemoglobin 28.3 pg (28.0-34.0); Mean Corpuscular Volume 88.5 fL (81-99); Mean Platelet Volume 10.7 fL (7.4-10.4); Monocytes # 0.9 10^3/uL (0.2-0.9); Neutrophils # 3.02 10^3/uL (1.8-7.7); Neutrophils % 49.2 %; Nucleated Red Blood Cells % 0 %; Platelet Count 152 10^3/cmm (130-400); Red Blood Count 2.86 10^6/uL (4.1-5.3); White Blood Count 6.1 10^3/uL (4.0-10.0)
[2020-04-18] VITALS (9 sets, daily range): BP systolic 84–116; BP diastolic 47–62; PULSE 60–93; RESP 18; TEMP 36.1–36.9; O2SAT 92–97
[2020-04-18] MEDS: acetaminophen 325 mg Tablet 650 MG PO (08:10)
[2020-04-18] MEDS: sodium chloride 0.9% 250 ML 999 ML IV (08:15)
[2020-04-18] MEDS: diphenhydrAMINE 25 mg Capsule PO (08:15)
[2020-04-18] MEDS: FUROsemide 10 mg/mL SDV 2mL 20 MG IV (10:30)
[2020-04-23 15:45] LABS: Basophils % 0.5 %; Hematocrit 29.8 % (37.0-47.0); Hemoglobin 9.4 g/dL (11.5-15.3); Lymphocytes # 1.6 10^3/uL (0.8-4.8); Lymphocytes % 38.6 %; Mean Corpuscular HGB Conc 31.5 g/dL (30.0-36.0); Mean Corpuscular Hemoglobin 28.6 pg (28.0-34.0); Mean Corpuscular Volume 90.6 fL (81-99); Mean Platelet Volume 9.5 fL (7.4-10.4); Monocytes # 0.6 10^3/uL (0.2-0.9); Monocytes % 14.4 %; Neutrophils # 1.78 10^3/uL (1.8-7.7); Neutrophils % 44.3 %; Nucleated Red Blood Cells % 0 %; Platelet Count 165 10^3/cmm (130-400); Red Blood Count 3.29 10^6/uL (4.1-5.3); Red Cell Distribution Width 15.1 % (12.1-15.1)
== END 2020-04-25 23:59 | disposition home or self-care (01) ==
LOC: ONCMED 10:55
PROVIDERS: PCP Physician Assistant Medical; Visit Provider Internal Medicine Medical Oncology
DX: D75.81 Myelofibrosis (principal); D64.9 Anemia, unspecified; D72.819 Decreased white blood cell count, unspecified
CPT/HCPCS: 36415; 36430; 85007; 85025; 86850; 86900; 86920; J1940; J7050; P9016; P9040

== ENCOUNTER 2020-05-15 10:17 | Outpatient (CLI) | payer MEDICARE, OTHER, SELFPAY ==
--- NOTE | 2020-05-21 09:54 | ONC FU_ITS ---
Dr. Gonzales Patient Follow-Up Note Patient: Tnoya Lynch Unit #: [id number]: [id number] Dicatated By: Cole Gonzales M.D.Date of Visit:May 15, 2020 Onc Med Follow-up/Prog Note Chief Complaint: Myelofibrosis. History of Present Illness: This is a 79 year-old woman with myelofibrosis, presenting with anemia, leukopenia, and splenomegaly. On 05/16/2018 she was admitted to the hospital with anemia and leukopenia. Her initial CBC showed hemoglobin 6.5 g with hematocrit 20.2%. The red cell indices were in the low normal range. The white blood cell count was 2800 and the platelet count was 163,000. The differential showed 70% neutrophils, 17% lymphocytes, and 9% monocytes. Also reported were 3% immature . Her serum iron studies show transferrin saturation 34%. The ferritin was relatively low at 44.1 ng/mL. Her comprehensive metabolic profile showed borderline renal function with BUN 9 and creatinine 1.21 mg/dL. The bilirubin and liver enzymes were normal. TSH was normal at 2.38. She was transfused PRBC. She reportedly had a similar episode in 2017, at which time she did undergo GI endoscopy studies. Hematology consultation was recommended, but apparently not completed. I had seen her initially on 06/14/2019. At that time, she was noted to have an enlarged spleen, and that was subsequently confirmed by CT. There was no associated lymphadenopathy. Bone marrow aspiration/biopsy on 07/14/2019 showed hypercellular marrow estimated at 70 to 90% cellularity. There was megakaryocytic hyperplasia with occasional bizarre megakaryocyte forms present. Blasts were estimated at 2.5%. There was severe reticulin fibrosis noted. Standard cytogenetics were not able to be done, as the bone marrow aspirate did not contain any spicules. The FISH panel for MDS was unrevealing. Overall, the findings were most consistent with myelofibrosis. Her other medical illnesses include hypertension, hyperlipidemia, chronic kidney disease, GERD, irritable bowel syndrome, degenerative arthritis, and anxiety/depression. She has a history of smoking 2 packs of cigarettes daily for 63 years. She had cut down to 1 pack/day. INTERIM HISTORY: On 10/04/2019 she began treatment with ruxolitinib 10 mg daily for 3 days, then 10 mg twice daily. As of 10/14/2019 the dosage was further increased to 20 mg twice daily. She has been tolerating it well. During follow-up she has had improvement in her clinical status with resolution of splenomegaly, improved appetite, and significant weight gain. 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 She is seen for a follow-up visit. She has not been feeling good generally. Last week she developed acute onset of sharp pain in the right knee. It lasted for about 3 days and then her left knee started hurting. The pain is worse when she gets up. She continues to complain of fatigue, but she is able to do light work. Her appetite is not very good, but her weight is stable. She has no fever or night sweats. She has shortness of breath with activity. She has cough productive of white sputum. She is still smoking 1 pack of cigarettes daily. She has tiny chest pains. She sometimes has nausea. She has heartburn, which she manages with baking soda. Bowel and bladder function have been okay. She also has back pain. She has had a few headaches. She sometimes has dizziness. She has muscle cramping in her lower legs and feet and she says her legs feel like they are on fire. Medications: Albuterol Sulfate 2 Puff(s) (of 108 (90 base) mcg/act) Aerosol Powder, Breath Activated Inhalation q 6 hours PRN, ALPRAZolam 1 (1 mg) Tablet Oral t.i.d. PRN, amLODIPine Besylate 1 (5 mg) Tablet Oral daily, Antacid Maximum Tablet, chewable Oral PRN, Benzonatate 1 (200 mg) Capsule Oral daily PRN, Combivent Respimat 1 Inhalation (of 20-100 mcg/act) Aerosol, solution Inhalation b.i.d., Cough & Sore Throat NightTime 30 mL (of 30-12.5-1000 mg/30mL) Liquid Oral PRN, [facility] Migraine Relief 1 (250-250-65 mg) Tablet Oral PRN, Ferrous Sulfate 1 (325 (65 fe) mg) Tablet Oral daily, Isosorbide Mononitrate ER 1 (30 mg) Tablet SR 24 HR Oral daily, Jakafi 1 Tablet (of 20 mg) Oral b.i.d. for 30 days, Meclizine HCl 1 (12.5 mg) Tablet Oral PRN, raNITIdine HCl 1 (150 mg) Capsule Oral at bedtime, SUMAtriptan Succinate Tablet Oral PRN, traMADol-Acetaminophen 1 (37.5-325 mg) Tablet Oral q 6 hours PRN Allergies: No Known Allergies. Review of Systems: Constitutional - She has generally been feeling OK. Her energy is the same. She has limited activity. She is able to do housework and care for all her animals. Her appetite is normally good. Her weight is stable. No fever, night sweats, or hot flashes. ECOG score is 1, ENMT - No sinus congestion/drainage. No mouth sores. No sore throat or difficulty swallowing, Hematologic/Lymphatic - She bruises easily, Respiratory - She has shortness of breath with activity. She has a productive cough. No pleuritic pain or hemoptysis, Cardiovascular - No angina pain. No palpitations, Gastrointestinal - No nausea or vomiting. She uses baking soda and water for heartburn. No diarrhea or constipation. No blood in the stool or black stools, Genitourinary (F) - No dysuria or hematuria. No urinary frequency. No urgency or incontinence, Musculoskeletal - Last week she developed acute onset of pain in her right knee which lasted a few days. Her left knee then started hurting. It is worse with bending or getting up. It is limiting her activity, Integumentary - No skin complications, Neurologic - No headache. She has dizziness. No numbness or tingling. No other focal neurologic symptoms, Psychiatric - No anxiety or depression. She sometimes has difficulty sleeping. Vital Signs: Performed on May 15, 2020 10:14 Height - 69.00 in Weight - 131 lbs (LOW) BSA - 1.73 sq.m BMI - 19.35 Temperature - 97.5 F (LOW) Pulse - 106 /min (HIGH) Respiration - 16 /min BP - 122/62 mm(hg) O2 Sat - 97 % Pain - 8 Physical Examination: Constitutional - She appears chronically ill, Eyes - Sclerae nonicteric. Conjunctivae clear, ENMT - No lesions noted in the oral cavity, Hematologic/Lymphatic - No cervical, clavicular, or axillary adenopathy, Respiratory - Lungs sound clear with diminished air movement bilaterally, Cardiovascular - Heart rhythm is regular. There is a II/ systolic murmur. There is no gallop or rub noted, Abdomen - Thin. Liver is not enlarged. The spleen is not palpable or tender. There is no abdominal mass or ascites noted and there is no inguinal adenopathy, Extremities - There is no lower extremity edema, but there is swelling in both knees, slightly worse on the left. The left knee is warm to touch. There is no associated erythema, Integumentary - No skin eruption, Neurologic - There are no focal neurologic deficits noted. Lab/Imaging: Test performed on May 07, 2020 10:45 WBC 5.1 10 3/uL RBC 2.66 10 6/uL HGB 7.6 g/dL HCT 23.4 % MCV 88.0 fL MCH 28.6 pg MCHC 32.5 g/dL RDW 15.4 % Platelet Count 190 10 3/cmm MPV 10.6 fL Neutrophils 2.21 10 3/uL Lymphocytes 2.1 10 3/uL Monocytes 0.5 10 3/uL Eosinophils 0.0 10 3/uL Basophils 0.0 10 3/uL Neutrophil % 43.7 % Lymphocyte % 41.5 % Monocyte % 10.3 % Eosinophil % 0.0 % Basophils % 0.2 % NRBC % 0 % Impression: 1. Patient with anemia, leukopenia, and splenomegaly. Her bone marrow aspiration/biopsy on 07/14/2019 showed severe reticulin fibrosis, consistent with myelofibrosis. 2. She has had declining performance status and significant weight loss. Her other medical illnesses include: 3. Hypertension. 4. Hyperlipidemia. 5. Chronic kidney disease, stage III. 6. GERD. 7. Irritable bowel syndrome. 8. Degenerative arthritis. 9. Anxiety/depression. On 10/04/2019 she began treatment with ruxolitinib 10 mg daily for 3 days, then 10 mg twice daily. As of 10/14/2019 the dosage was further increased to 20 mg twice daily. Thus far she has been able to tolerate it with no adverse effects. She does appear to be showing a good clinical response with weight gain and resolution of splenomegaly. 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 Her erythropoietin level was found to be significantly elevated. She comes in now with new complaint of pain in both knees. This does appear to be some form of acute arthritis, most likely gout or pseudogout. There is some associated swelling in both knees, and the left knee is warm to touch. Plan: She will continue the ruxolitinib 20 mg twice daily. Her blood counts will be monitored weekly and she will be transfused as needed. She will be given short course of prednisone for the acute arthritis in her knees. If that problem persists, she will need to be referred to the orthopedic clinic. I will see her again in 3 months, or sooner as needed. Signed By: Cole Gonzales M.D. <<Signature on File>>
== END 2020-05-15 10:18 | disposition home or self-care (01) ==
LOC: ONCMED 10:18
PROVIDERS: PCP Physician Assistant Medical; Visit Provider Internal Medicine Medical Oncology
DX: D75.81 Myelofibrosis (principal); I10 Essential (primary) hypertension; E78.5 Hyperlipidemia, unspecified; N18.30 Chronic kidney disease, stage 3 unspecified; K21.9 Gastro-esophageal reflux disease without esophagitis; K58.9 Irritable bowel syndrome, unspecified; M19.90 Unspecified osteoarthritis, unspecified site; F41.9 Anxiety disorder, unspecified; F32.9 Major depressive disorder, single episode, unspecified; Z79.899 Other long term (current) drug therapy
CPT/HCPCS: 99214

== ENCOUNTER 2020-05-21 12:15 | Outpatient (RCR) | payer MEDICARE, OTHER, SELFPAY ==
[2020-04-30 13:27] LABS: Basophils % 0.2 %; Hematocrit 27.4 % (37.0-47.0); Hemoglobin 8.8 g/dL (11.5-15.3); Lymphocytes % 40.8 %; Mean Corpuscular HGB Conc 32.1 g/dL (30.0-36.0); Mean Corpuscular Hemoglobin 28.4 pg (28.0-34.0); Mean Corpuscular Volume 88.4 fL (81-99); Mean Platelet Volume 10.5 fL (7.4-10.4); Monocytes # 0.6 10^3/uL (0.2-0.9); Monocytes % 12.2 %; Neutrophils # 2.08 10^3/uL (1.8-7.7); Neutrophils % 43.1 %; Nucleated Red Blood Cells % 0 %; Platelet Count 188 10^3/cmm (130-400); White Blood Count 4.8 10^3/uL (4.0-10.0)
[2020-05-07 14:20] LABS: Basophils % 0.2 %; Hematocrit 23.4 % (37.0-47.0); Hemoglobin 7.6 g/dL (11.5-15.3); Lymphocytes # 2.1 10^3/uL (0.8-4.8); Lymphocytes % 41.5 %; Mean Corpuscular HGB Conc 32.5 g/dL (30.0-36.0); Mean Corpuscular Hemoglobin 28.6 pg (28.0-34.0); Mean Platelet Volume 10.6 fL (7.4-10.4); Monocytes # 0.5 10^3/uL (0.2-0.9); Monocytes % 10.3 %; Neutrophils # 2.21 10^3/uL (1.8-7.7); Neutrophils % 43.7 %; Nucleated Red Blood Cells % 0 %; Platelet Count 190 10^3/cmm (130-400); Red Blood Count 2.66 10^6/uL (4.1-5.3); Red Cell Distribution Width 15.4 % (12.1-15.1); White Blood Count 5.1 10^3/uL (4.0-10.0)
[2020-05-08] MEDS: sodium chloride 0.9% 250 ML 999 ML IV (09:05)
[2020-05-08] MEDS: diphenhydrAMINE 25 mg Capsule PO (09:05)
[2020-05-08] MEDS: acetaminophen 325 mg Tablet 650 MG PO (09:05)
[2020-05-08 09:20] VITALS: BP 112/67; PULSE 69; RESP 18; TEMP 36.3; O2SAT 98
[2020-05-08 09:35] VITALS: BP 118/64; PULSE 70; RESP 18; TEMP 36.3; O2SAT 97
[2020-05-08 10:35] VITALS: BP 136/68; PULSE 65; RESP 18; TEMP 36.6; O2SAT 98
[2020-05-08 10:45] VITALS: BP 128/68; PULSE 65; RESP 18; TEMP 36.3; O2SAT 98
[2020-05-08] MEDS: FUROsemide 10 mg/mL SDV 2mL 20 MG IV (11:05)
[2020-05-14 14:53] LABS: Basophils % 0.4 %; Hemoglobin 9.7 g/dL (11.5-15.3); Lymphocytes # 0.9 10^3/uL (0.8-4.8); Lymphocytes % 16.1 %; Mean Corpuscular HGB Conc 32.3 g/dL (30.0-36.0); Mean Corpuscular Hemoglobin 28.5 pg (28.0-34.0); Mean Corpuscular Volume 88.2 fL (81-99); Mean Platelet Volume 10.7 fL (7.4-10.4); Monocytes # 0.9 10^3/uL (0.2-0.9); Monocytes % 17.3 %; Neutrophils % 64.5 %; Nucleated Red Blood Cells % 0 %; Platelet Count 141 10^3/cmm (130-400); Red Cell Distribution Width 14.8 % (12.1-15.1); White Blood Count 5.4 10^3/uL (4.0-10.0)
[2020-05-14 15:05] LABS: Alanine Aminotransferase 10 U/L (0-33); Albumin Level 4.2 g/dL (3.5-5.2); Alkaline Phosphatase 100 IU/L (35-105); Aspartate Amino Transferase 12 U/L (0-32); Blood Urea Nitrogen 11 mg/dL (8-23); Calcium 8.9 mg/dL (8.5-10.5); Carbon Dioxide 24 mmol/L (22-29); Chloride 95 mmol/L (98-107); Ferritin 975 ng/mL (15-150); Globulin 2.7 g/dL (1.3-4.6); Glucose 140 mg/dL (65-115); Iron 56 ug/dL (37-145); Lactate Dehydrogenase 254 U/L (135-214); Osmolality Calculated 274 mOsm/kg (285-295); Percent Saturation 29.7 % (20-50); Sodium 131 mmol/L (136-145); Total Bilirubin 0.7 mg/dL (0.15-1.2); Total Iron Binding Capacity 188 mcg/dl; Total Protein 6.9 g/dL (6.6-8.7); Unsaturated Iron Binding 132 ug/dL (112-347)
[2020-05-21 14:41] LABS: Basophils % 0.2 %; Hematocrit 26.9 % (37.0-47.0); Hemoglobin 8.7 g/dL (11.5-15.3); Lymphocytes # 1.5 10^3/uL (0.8-4.8); Lymphocytes % 18.4 %; Mean Corpuscular HGB Conc 32.3 g/dL (30.0-36.0); Mean Corpuscular Hemoglobin 28.6 pg (28.0-34.0); Mean Corpuscular Volume 88.5 fL (81-99); Monocytes # 0.8 10^3/uL (0.2-0.9); Monocytes % 9.7 %; Neutrophils # 5.49 10^3/uL (1.8-7.7); Nucleated Red Blood Cells % 0 %; Platelet Count 368 10^3/cmm (130-400); Red Blood Count 3.04 10^6/uL (4.1-5.3); White Blood Count 8.3 10^3/uL (4.0-10.0)
[2020-05-21 15:11] LABS: Neutrophils % 71.7 %; Slide Review Slide Review Perform
== END 2020-05-26 23:59 | disposition home or self-care (01) ==
LOC: ONCMED 12:15
PROVIDERS: Nurse Practitioner; PCP Physician Assistant Medical; Visit Provider Internal Medicine Medical Oncology
DX: D75.81 Myelofibrosis (principal); I12.9 Hypertensive chronic kidney disease with stage 1 through stage 4 chronic kidney disease, or unspecified chronic kidney disease; E78.5 Hyperlipidemia, unspecified; K21.9 Gastro-esophageal reflux disease without esophagitis; K58.9 Irritable bowel syndrome, unspecified; M19.90 Unspecified osteoarthritis, unspecified site; F41.8 Other specified anxiety disorders; F17.210 Nicotine dependence, cigarettes, uncomplicated; N18.30 Chronic kidney disease, stage 3 unspecified; M25.562 Pain in left knee; M25.561 Pain in right knee; Z79.899 Other long term (current) drug therapy; Z79.51 Long term (current) use of inhaled steroids
CPT/HCPCS: 36415; 80053; 82728; 83540; 83550; 83615; 85025; 86850; 86900; 86920; J1940; J7050; P9016

== ENCOUNTER 2020-06-16 19:25 | Emergency (ER) | payer MEDICARE, OTHER, SELFPAY ==
[2020-06-16] VITALS (14 sets, daily range): BP systolic 115–125; BP diastolic 66–75; PULSE 84–107; RESP 16–22; TEMP 36.8; O2SAT 92–100; BMI 23.6
--- NOTE | 2020-06-16 19:50 | CTR_ITS ---
PROCEDURE INFORMATION: Exam: CT Cervical Spine Without Contrast Exam date and time: 06/16/2020 8:55 PM Age: 79 years old Clinical indication: Injury or trauma; Blunt trauma; Patient HX: Fall 1 week ago denies loc C/O neck pain x 3 days TECHNIQUE: Imaging protocol: Computed tomography images of the cervical spine without contrast. Radiation optimization: All CT scans at this facility use at least one of these dose optimization techniques: automated exposure control; mA and/or kV adjustment per patient size (includes targeted exams where dose is matched to clinical indication); or iterative reconstruction. COMPARISON: No relevant prior studies available. RADIATION DOSE METRICS: Total DLP (mGy-cm): 329.68 FINDINGS: Bones/joints: Vertebral body heights are preserved. No compression fractures are noted. Vertebral alignment is physiologic. Discs/Spinal canal/Neural foramina: Degenerative disc narrowing at C5-C6 and C6-C7. The upper cervical discs are normal in height. No severe cervical spinal canal or neural foraminal stenosis noted. Soft tissues: Unremarkable. Lungs: The lung apices are unremarkable. Pleural space: No apical pneumothorax demonstrated. CT/CT cervical spin wo con* [id number] IMPRESSION: 1. Degenerative changes of the cervical spine are noted. 2. No acute abnormality demonstrated. Radiation Dose CTDIVOL = (mGy): DLP = 329.68 (mGy-cm)
--- NOTE | 2020-06-16 19:50 | CTR_ITS ---
PROCEDURE INFORMATION: Exam: CT Head Without Contrast Exam date and time: 06/16/2020 8:55 PM Age: 79 years old Clinical indication: Injury or trauma; Blunt trauma (contusions or hematomas); Without loss of consciousness; Patient HX: Fall 1 week ago denies loc C/O neck pain x 3 days TECHNIQUE: Imaging protocol: Computed tomography of the head without contrast. Radiation optimization: All CT scans at this facility use at least one of these dose optimization techniques: automated exposure control; mA and/or kV adjustment per patient size (includes targeted exams where dose is matched to clinical indication); or iterative reconstruction. COMPARISON: MR head wo con* [id number] 01/02/2015 11:01 AM RADIATION DOSE METRICS: Total DLP (mGy-cm): 860.63 FINDINGS: Limitations: The study is slightly limited by mild patient motion artifact. Brain: Mild parenchymal volume loss noted. There is decreased attenuation of the periventricular white matter, consistent with mild microangiopathic chronic white matter disease. No intracranial hemorrhage noted. No parenchymal edema identified. There is a densely calcified 1.7 cm extra-axial lesion in the left temporal area, likely representing a meningioma. Cerebral ventricles: The ventricles are proportional to the sulci. No hydrocephalus is noted. Bones/joints: No fracture or other acute osseous abnormality. Paranasal sinuses: The paranasal sinuses, as demonstrated, appear clear. Mastoid air cells: The mastoid air cells are clear bilaterally. Soft tissues: Unremarkable. CT/CT head wo con* [id number] IMPRESSION: 1. The study is slightly limited by mild patient motion artifact. 2. Chronic intracranial changes are present. 3. No acute intracranial abnormality is noted. 4. There is a densely calcified 1.7 cm extra-axial lesion in the left temporal area, likely representing a meningioma. No significant mass effect associated. This is unchanged from MRI of 01/02/2015. Radiation Dose CTDIVOL = (mGy): DLP = 860.63 (mGy-cm)
--- NOTE | 2020-06-16 20:55 | W.ED.NECK ---
HPI - Neck Pain/Injury General: Chief Complaint: Neck Pain/Injury Stated Complaint: FALL Time Seen by Provider: 06/16/20 19:37 History of Present Illness: HPI Narrative: 79-year-old female who says that she fell last week striking her head. About 3 days ago she developed head and neck pain that has been significant. She has pain with turning her head. She is not dizzy. She has not vomited. She has had no changes in mental status that she knows of. She notes that her left side feels a little weak, but did so prior to her fall. MD complaint: neck pain and neck injury Associated symptoms: Denies dizziness, headache(s) or nausea Review of Systems Const: Denies: fever(s) or chills Eyes: Denies: change in vision or blurry vision ENMT: Denies: odynophagia or sinus pain Card: Denies: chest pain, palpitations or irregular heart rhythm Resp: Reports: non-productive cough; Denies: dyspnea, productive cough or wheezing GI: Denies: abdominal pain, nausea or vomiting : Denies: dysuria or hematuria Musc: Reports: neck pain; Denies: back pain Skin/Breast: Denies: rash or erythema Neuro: Denies: headache(s), dizziness or vertigo Psych: Denies: anxiety Physical Exam Const: GENERAL APPEARANCE: well developed ORIENTATION/CONSCIOUSNESS: Yes oriented to person, Yes oriented to place and Yes oriented to time HENMT: COMMON NORMALS: normocephalic, external ears normal and Normal external nose present HEAD & SCALP: normocephalic FACE & SINUS: normal facial exam NOSE: Normal external nose present and No nasal discharge present EXTERNAL EAR: Yes external ears normal THROAT: posterior oropharynx normal; no peritonsillar mass Eye: COMMON NORMALS: Equal, round and reactive pupils present, EOMs intact bilaterally and conjunctivae normal EYELID: eyelids normal CONJUNCTIVA: Yes conjunctivae normal PUPIL: Yes Equal, round and reactive pupils present Neck/C-Spine: GENERAL: No tracheal deviation CERVICAL SPINE: Yes normal cervical lordosis and Yes Cervical spine tenderness Chest: COMMONS NORMALS: normal inspection of the chest CHEST: No tenderness Resp: COMMON NORMALS: clear to auscultation bilaterally EFFORT & INSPECTION: No tachypneic, No respiratory distress, No retractions, No uses accessory muscles and No tracheal deviation AUSCULTATION: clear to auscultation bilaterally, no rhonchi, no wheezes and lung sounds not diminished Cardio: COMMON NORMALS: regular rate and regular rhythm RATE: regular rate RHYTHM: regular rhythm HEART SOUNDS: no murmurs PERIPHERAL PULSES: radial pulses present GI: INSPECTION: No abdominal distension AUSCULTATION: No Hyperactive bowel sounds present and No Hypoactive bowel sounds present PALPATION: No Guarding due to palpation present (GI) and No Rigid due to palpation PERCUSSION: no dullness to percussion and no tympanic to percussion Neuro: SENSORIUM/ORIENTATION: Yes oriented to person, Yes oriented to place and Yes oriented to time Psych: COMMON NORMALS: mental status grossly normal Skin: COMMON NORMALS: no rashes or lesions noted GENERAL SKIN EXAM: no rashes or lesions noted Course Vital Signs: Vital signs: Vital Signs Temperature 98.2 F 06/16/20 19:31 Pulse Rate 107 H 06/16/20 23:47 Respiratory Rate 18 06/16/20 23:47 Blood Pressure 115/74 06/16/20 23:47 Pulse Oximetry 92 06/16/20 23:47 MDM - Neck Pain/Injury MDM Narrative: Medical decision making narrative: Patient has minimal symptoms. Head and cervical spine CT are negative. She will be placed on a small taper of steroid for the neck pain, and asked to follow-up with her PCP. Discharge Plan Discharge Patient Disposition: Home Clinical Impression: Cervical spondylosis Condition: Stable Prescriptions: New Blue 5-325 mg tablet 1 tab PO Q6H Qty: 5 RF: 0 Medrol (Greg) 4 mg tablets,dose pack See Rx Instructions .ROUTE .COMPLEX Qty: 21 RF: 0 Discharge Orders: Discharge Order (Routine); Ordered 06/16/20 Ordered By: Washington Fulton Referrals: Bj Mcdowell [Primary Care Provider] - 4-7 days Discharge Diet: Advance as tolerated Discharge Activity: Increase activity as tolerated Patient Instructions: Osteoarthritis (ED), Cervical Sprain (ED) Activity Restrictions/Additional Instructions: Take pain pill only for significant pain. Otherwise use the steroid taper for neck and head pain, which should improve in a couple of days. Return for mental status changes, worsening pain despite treatment, fever greater than 100, weakness, other concerning symptoms. Coding Level of Care Code ED Firewall Administrator for Chg Fwd Exam Comprehensive
--- NOTE | 2020-06-16 21:17 | PC.NURSE ---
Pt in CT
[2020-06-16] MEDS: HYDROcodone-acetaminophen 5-325 mg Tablet 1 TAB PO (22:52)
--- NOTE | 2020-06-16 22:59 | PC.NURSE ---
call to DARIELA Nelson. no answer.
--- NOTE | 2020-06-16 23:02 | PC.NURSE ---
Call Sister on contact list, sister in [place] will try and call Leslie per Sister. Per sister pt has a home number
--- NOTE | 2020-06-16 23:20 | PC.NURSE ---
Leslie, called back and stated she is unable to come to the hospital and pick up driver her cousin. Review with pt and she stated she pay for cab. Cab called by Unit Sec
--- NOTE | 2020-06-16 23:30 | PC.NURSE ---
Pt to [facility] via w/c, notified front desk receptionist staff to call if pt need anything, while she is waiting for cab ride.
== END 2020-06-16 23:35 | disposition home or self-care (01) ==
PROVIDERS: Emergency Provider Emergency Medicine; PCP Physician Assistant Medical
DX: M47.812 Spondylosis without myelopathy or radiculopathy, cervical region (principal)
CPT/HCPCS: 12345; 70450; 72125; 99283

== ENCOUNTER 2020-06-25 11:40 | Outpatient (RCR) | payer MEDICARE, OTHER, SELFPAY ==
[2020-05-28 13:59] LABS: Basophils % 0.2 %; Hemoglobin 7.9 g/dL (11.5-15.3); Lymphocytes # 1.4 10^3/uL (0.8-4.8); Lymphocytes % 21.7 %; Mean Corpuscular HGB Conc 31.6 g/dL (30.0-36.0); Mean Corpuscular Hemoglobin 28.7 pg (28.0-34.0); Mean Corpuscular Volume 90.9 fL (81-99); Mean Platelet Volume 10.3 fL (7.4-10.4); Monocytes % 16.7 %; Neutrophils # 3.54 10^3/uL (1.8-7.7); Neutrophils % 56.9 %; Nucleated Red Blood Cells % 0 %; Platelet Count 179 10^3/cmm (130-400); Red Blood Count 2.75 10^6/uL (4.1-5.3); Red Cell Distribution Width 15.7 % (12.1-15.1); White Blood Count 6.2 10^3/uL (4.0-10.0)
[2020-05-29] MEDS: diphenhydrAMINE 25 mg Capsule PO (09:00)
[2020-05-29] MEDS: sodium chloride 0.9% 250 ML 999 ML IV (09:00)
[2020-05-29] MEDS: acetaminophen 325 mg Tablet 650 MG PO (09:00)
[2020-05-29 09:35] VITALS: BP 100/57; PULSE 72; RESP 18; TEMP 36.6; O2SAT 95
[2020-05-29 09:50] VITALS: BP 101/56; PULSE 72; RESP 18; TEMP 36.4; O2SAT 94
[2020-05-29 10:20] VITALS: BP 113/76; PULSE 66; RESP 18; TEMP 36.6; O2SAT 95
[2020-05-29 11:20] VITALS: BP 112/72; PULSE 66; RESP 18; TEMP 36.6; O2SAT 96
[2020-05-29 11:45] VITALS: BP 122/68; PULSE 74; RESP 18; TEMP 36.1; O2SAT 98
[2020-05-29] MEDS: FUROsemide 10 mg/mL SDV 2mL 20 MG IV (14:43)
[2020-06-04 15:06] LABS: Basophils % 0.4 %; Hematocrit 30.1 % (37.0-47.0); Hemoglobin 9.5 g/dL (11.5-15.3); Lymphocytes # 1.2 10^3/uL (0.8-4.8); Lymphocytes % 24.2 %; Mean Corpuscular HGB Conc 31.6 g/dL (30.0-36.0); Mean Corpuscular Hemoglobin 28.5 pg (28.0-34.0); Mean Corpuscular Volume 90.4 fL (81-99); Mean Platelet Volume 10.6 fL (7.4-10.4); Monocytes # 0.6 10^3/uL (0.2-0.9); Monocytes % 11.9 %; Neutrophils # 3.02 10^3/uL (1.8-7.7); Neutrophils % 61.9 %; Nucleated Red Blood Cells % 0 %; Platelet Count 146 10^3/cmm (130-400); Red Blood Count 3.33 10^6/uL (4.1-5.3); Red Cell Distribution Width 15.5 % (12.1-15.1); White Blood Count 4.9 10^3/uL (4.0-10.0)
[2020-06-11 14:28] LABS: Basophils % 0.2 %; Hematocrit 24.9 % (37.0-47.0); Lymphocytes # 1.6 10^3/uL (0.8-4.8); Lymphocytes % 31.2 %; Mean Corpuscular HGB Conc 32.1 g/dL (30.0-36.0); Mean Corpuscular Hemoglobin 28.4 pg (28.0-34.0); Mean Corpuscular Volume 88.3 fL (81-99); Mean Platelet Volume 10.6 fL (7.4-10.4); Monocytes # 0.7 10^3/uL (0.2-0.9); Monocytes % 13.3 %; Neutrophils # 2.76 10^3/uL (1.8-7.7); Nucleated Red Blood Cells % 0 %; Platelet Count 208 10^3/cmm (130-400); Red Blood Count 2.82 10^6/uL (4.1-5.3); Red Cell Distribution Width 15.1 % (12.1-15.1); White Blood Count 5.2 10^3/uL (4.0-10.0)
[2020-06-13] VITALS (10 sets, daily range): BP systolic 104–120; BP diastolic 54–68; PULSE 66–69; RESP 18; TEMP 36.6–36.9; O2SAT 96–98
[2020-06-13] MEDS: sodium chloride 0.9% 250 ML 999 ML IV (10:00)
[2020-06-13] MEDS: acetaminophen 325 mg Tablet 650 MG PO (10:00)
[2020-06-13] MEDS: diphenhydrAMINE 25 mg Capsule PO (10:00)
[2020-06-13] MEDS: FUROsemide 10 mg/mL SDV 2mL 20 MG IV (12:45)
[2020-06-18 13:45] LABS: Basophils % 0.3 %; Hematocrit 32.4 % (37.0-47.0); Hemoglobin 10.6 g/dL (11.5-15.3); Lymphocytes # 1.4 10^3/uL (0.8-4.8); Lymphocytes % 23.1 %; Mean Corpuscular HGB Conc 32.7 g/dL (30.0-36.0); Mean Corpuscular Hemoglobin 28.3 pg (28.0-34.0); Mean Corpuscular Volume 86.4 fL (81-99); Monocytes # 0.6 10^3/uL (0.2-0.9); Monocytes % 10.3 %; Neutrophils # 3.79 10^3/uL (1.8-7.7); Neutrophils % 62.8 %; Nucleated Red Blood Cells % 0 %; Platelet Count 161 10^3/cmm (130-400); Red Blood Count 3.75 10^6/uL (4.1-5.3); Red Cell Distribution Width 14.3 % (12.1-15.1)
[2020-06-25 15:41] LABS: Basophils % 0.1 %; Hematocrit 28.5 % (37.0-47.0); Lymphocytes # 1.4 10^3/uL (0.8-4.8); Lymphocytes % 20.8 %; Mean Corpuscular HGB Conc 31.6 g/dL (30.0-36.0); Mean Corpuscular Volume 88.5 fL (81-99); Mean Platelet Volume 10.3 fL (7.4-10.4); Monocytes % 15.4 %; Neutrophils # 4.04 10^3/uL (1.8-7.7); Neutrophils % 60.6 %; Nucleated Red Blood Cells % 0 %; Platelet Count 258 10^3/cmm (130-400); Red Blood Count 3.22 10^6/uL (4.1-5.3); Red Cell Distribution Width 14.6 % (12.1-15.1); White Blood Count 6.7 10^3/uL (4.0-10.0)
== END 2020-06-25 23:59 | disposition home or self-care (01) ==
LOC: ONCMED 11:40
PROVIDERS: Nurse Practitioner; PCP Physician Assistant Medical; Visit Provider Internal Medicine Medical Oncology
DX: D75.81 Myelofibrosis (principal); D64.9 Anemia, unspecified; D72.819 Decreased white blood cell count, unspecified
CPT/HCPCS: 36430; 85025; 86850; 86900; 86920; J1940; J7050; P9040

== ENCOUNTER 2020-06-30 13:08 | Emergency (ER) | payer MEDICARE, OTHER, SELFPAY ==
[2020-06-30] VITALS (7 sets, daily range): BP systolic 101–116; BP diastolic 49–62; PULSE 82–87; RESP 18–22; TEMP 36.8–37; O2SAT 92–100; BMI 19.2
--- NOTE | 2020-06-30 13:49 | CTR_ITS ---
PROCEDURE INFORMATION: Exam: CT Angiography Chest With Contrast Exam date and time: 06/30/2020 2:34 PM Age: 79 years old Clinical indication: Shortness of breath; Patient HX: C/O difficulty breathing HX of recent fall w lue injury; Additional info: Dyspnea TECHNIQUE: Imaging protocol: Computed tomographic angiography of the chest with intravenous contrast. 3D rendering (Not supervised by radiologist): MIP and/or 3D reconstructed images were created by the technologist. Radiation optimization: All CT scans at this facility use at least one of these dose optimization techniques: automated exposure control; mA and/or kV adjustment per patient size (includes targeted exams where dose is matched to clinical indication); or iterative reconstruction. Contrast material: VISI 320; Contrast volume: 62 ml; Contrast route: INTRAVENOUS (IV); COMPARISON: CTA Chest-Pulmonary Emb [id number] 02/04/2018 8:09 PM RADIATION DOSE METRICS: Total DLP (mGy-cm): 467.15 FINDINGS: Pulmonary arteries: Normal. No pulmonary emboli. Aorta: Unremarkable. No aortic aneurysm. No aortic dissection. Lungs: Unremarkable. No consolidation. No masses. Pleural space: Unremarkable. No pneumothorax. No pleural effusion. Heart: Unremarkable. No cardiomegaly. No pericardial effusion. Lymph nodes: Unremarkable. No enlarged lymph nodes. Bones/joints: Degenerative change is identified in the spine. No acute fracture. Soft tissues: Unremarkable. CT/CT angio chest PE protcl [id number] IMPRESSION: There is no evidence for a pulmonary embolus. Radiation Dose CTDIVOL = (mGy): DLP = 467.15 (mGy-cm)
--- NOTE | 2020-06-30 13:49 | XRR_ITS ---
PROCEDURE INFORMATION: Exam: XR Chest, 1 View Exam date and time: 06/30/2020 1:52 PM Age: 79 years old Clinical indication: Cough and dyspnea; Additional info: Dyspnea/cough TECHNIQUE: Imaging protocol: XR of the chest Views: 1 view. COMPARISON: CR Chest 1 [place] [id number] 02/04/2018 5:56 PM FINDINGS: Lungs: Unremarkable. No consolidation. Pleural space: Unremarkable. No pleural effusion. No pneumothorax. Heart/Mediastinum: Unremarkable. No cardiomegaly. Bones/joints: Unremarkable. XR/XR chest 1V portable [id number] IMPRESSION: No acute findings.
--- NOTE | 2020-06-30 13:49 | USR_ITS ---
PROCEDURE INFORMATION: Exam: US Duplex Left Upper Extremity Veins, Limited Exam date and time: 06/30/2020 1:58 PM Age: 79 years old Clinical indication: Pain; Arm, lower; Left; Additional info: Pain swelling TECHNIQUE: Imaging protocol: Real-time Duplex ultrasound of the Left Upper Extremity with 2-D durán scale, color Doppler flow and spectral waveform analysis with image documentation. Limited exam focused on the left upper extremity veins. COMPARISON: No relevant prior studies available. FINDINGS: Left deep veins: Unremarkable. Axillary and brachial veins are patent throughout without thrombus. Normal Doppler waveforms. Normal compressibility and/or augmentation response. Visualized internal jugular and subclavian veins are patent. Left superficial veins: Unremarkable. Visualized cephalic and basilic veins are patent without thrombus. Soft tissues: Unremarkable. [place] [id number] IMPRESSION: No evidence of deep vein thrombosis.
--- NOTE | 2020-06-30 13:49 | XRR_ITS ---
PROCEDURE INFORMATION: Exam: XR Left Wrist Exam date and time: 06/30/2020 1:52 PM Age: 79 years old Clinical indication: Pain; Wrist; Left; Additional info: Wrist pain, red/swollen, no known injury TECHNIQUE: Imaging protocol: XR Left wrist. Views: 3 or more views. COMPARISON: No relevant prior studies available. FINDINGS: Bones/joints: No fracture, dislocation or other acute bone or joint abnormalities are seen. Chronic degenerative disease is present with mild joint space narrowing and sclerosis in the triscaphe joint and 1st carpometacarpal joint. Soft tissues: Normal. XR/XR wrist LT min 3V* [id number] IMPRESSION: Mild chronic degenerative joint disease. No acute abnormality.
[2020-06-30 14:04] LABS: ABG PCO2 30.5 mmHg (35-45); ABG PH Result 7.47 (7.35-7.45); Arterial Blood Gas Hematocrit 24.4 % (37-47); Base Excess ABG -1.1 mmol/L (-2.0-2.0); Blood Gas Operator Identificat AMH; HCO3 ABG 22.2 mmol/L (22-26); Oxygen Device NC; Potassium Level - ABG 3.7 mmol/L (3.5-5.0)
[2020-06-30 14:05] LABS: Carboxyhemoglobin 1.7 %THgb (0.4-20.1); HGB O2 Sat 97.4 % (95-100); Ionized Calcium Level - ABG 1.2 mmol/L (1.1-1.4); Methemoglobin 0.9 % (0.4-1.5)
[2020-06-30 14:08] LABS: Alveolar-Arterial Oxygen Gradi 4.6 mmHg (5-10); Blood Gas Allen Test Pos; Blood Gas Sample Site Radial, right; Blood Gas Sample Type Arterial
[2020-06-30 14:27] LABS: Basophils % 0.3 %; Hematocrit 26.2 % (37.0-47.0); Hemoglobin 8.9 g/dL (11.5-15.3); Lymphocytes # 0.8 10^3/uL (0.8-4.8); Lymphocytes % 12.8 %; Mean Corpuscular Hemoglobin 28.8 pg (28.0-34.0); Mean Corpuscular Volume 84.8 fL (81-99); Mean Platelet Volume 10.9 fL (7.4-10.4); Monocytes # 1.6 10^3/uL (0.2-0.9); Monocytes % 24.9 %; Neutrophils # 3.87 10^3/uL (1.8-7.7); Neutrophils % 59.5 %; Nucleated Red Blood Cells % 0 %; Platelet Count 189 10^3/cmm (130-400); Red Blood Count 3.09 10^6/uL (4.1-5.3); Red Cell Distribution Width 14.6 % (12.1-15.1); White Blood Count 6.5 10^3/uL (4.0-10.0)
--- NOTE | 2020-06-30 14:28 | W.ED.SOB ---
HPI - SOB/Dyspnea General: Chief Complaint: Shortness of Breath/Dyspnea Stated Complaint: RESP DISTRESS Time Seen by Provider: 06/30/20 13:12 History of Present Illness: HPI Narrative: 79-year-old female presents emergency room presents with difficulty breathing for the last week. She was seen previously after a fall hit the back of her head was evaluated and had no significant injury. On arrival today EMS reports that her wrist was wrapped because her wrist had also been bothering her at home. When they evaluated the wrist was inflamed reddened and swollen they removed the wrap seemed to improve the swelling distal to it. She had stated she had that the pain initially began in the elbow and moved to the left wrist. She is not had any injections any indwelling lines or IVs in that arm recently. She denies any chest or abdominal pain. MD elicited complaint: shortness of breath Pertinent past history: COPD Onset (ago): day(s) Context: recent illness and occurred during exertion Timing: constant Severity: moderate Exacerbating factors: coughing Relieving factors: nothing Known history of: COPD Associated symptoms: Reports cough; Deny abdominal pain, chest congestion, chest pain, diaphoresis, dizziness, extremity pain, fever(s), hemoptysis, lightheadedness, myalgias, nausea, orthopnea, palpitations, paresthesias, polydipsia, polyuria, rash, sense of impending doom, syncope or vomiting Treatment prior to arrival: oxygen Review of Systems Const: Denies: diaphoresis Card: Denies: chest pain, palpitations, lightheadedness, syncope or orthopnea Resp: Denies: hemoptysis or chest congestion GI: Denies: abdominal pain, nausea or vomiting Musc: Denies: extremity pain Neuro: Denies: dizziness Endo: Denies: polyuria or polydipsia [facility] ED PFSH: Medical History (Updated 06/30/20 @ 18:12 by Dell Schultz DO) Chronic kidney disease Hypertension Irritable bowel syndrome Myelodysplasia (myelodysplastic syndrome) Social History (Updated 06/30/20 @ 14:35 by Dell Schultz DO) Smoking and tobacco status: current every day smoker cigarettes Packs smoked per day: 1 Alcohol intake: never Physical Exam Const: COMMON NORMALS: no acute distress GENERAL APPEARANCE: cooperative and comfortable HENMT: COMMON NORMALS: normocephalic, atraumatic and hearing grossly normal bilaterally HEAD & SCALP: normocephalic and atraumatic Neck/C-Spine: COMMON NORMALS: no JVD Resp: COMMON NORMALS: normal respiratory effort, No retractions, No use of accessory muscles and clear to auscultation bilaterally AUSCULTATION: clear to auscultation bilaterally Cardio: COMMON NORMALS: no JVD, regular rate, regular rhythm and No murmurs present (Cardio) RATE: regular rate RHYTHM: regular rhythm GI: COMMON NORMALS: Soft to palpation and No hepatosplenomegaly present AUSCULTATION: Yes normoactive bowel sounds PALPATION: Yes Soft to palpation, No Tenderness to palpation present (GI), No Guarding due to palpation present (GI) and Yes No hepatosplenomegaly present Extremity: COMMON NORMALS: normal to inspection, capillary refill normal, no clubbing, cyanosis or edema, no calf tenderness and no pedal edema NARRATIVE EXTREMITY EXAM: Edema of the right hand at the wrist. Palpable pulses radial and ulnar neurovascularly intact no pain in the shoulder or at the elbow no swelling proximal to the forearm. Skin: COMMON NORMALS: no rashes or lesions noted GENERAL SKIN EXAM: no rashes or lesions noted Course Vital Signs: Vital signs: Vital Signs Temperature 98.6 F 06/30/20 20:28 Pulse Rate 82 06/30/20 20:28 Respiratory Rate 18 06/30/20 20:28 Blood Pressure 116/62 06/30/20 20:28 Pulse Oximetry 95 06/30/20 20:28 MDM - SOB/Dyspnea MDM Narrative: Medical decision making narrative: No fractures on the wrist x-ray. Swelling is down she still has some discomfort suspect that may be from her fall if it persist she may need more advanced imaging. Chest x-ray shows hyperinflation but no evidence of pneumonia. No pneumonia or PE on CTA of the chest. Patient initially required small amount of oxygen but when we turned it off she maintain her sats in the upper 90s to 100% without difficulty. She is anemic but is chronically anemic. Covid swab was negative. Discussed observation. Patient would prefer to go home. We will go ahead and discharge her home on doxycycline and Medrol Dosepak use albuterol at home which has been worsening or changes symptoms return. Lab Data: Labs: Lab Results 06/30/20 06/30/20 06/30/20 Range/Units 13:20 13:20 13:20 WBC 6.5 (4.0-10.0) 10^3/ uL RBC 3.09 L (4.1-5.3) 10^6/u L Hgb 8.9 L (11.5-15.3) g/dL Hct 26.2 L (37.0-47.0) % MCV 84.8 (81-99) fL MCH 28.8 (28.0-34.0) pg MCHC 34.0 (30.0-36.0) g/dL RDW 14.6 (12.1-15.1) % Plt Count 189 (130-400) 10^3/c mm MPV 10.9 H (7.4-10.4) fL Neut % (Auto) 59.5 % Lymph % (Auto) 12.8 % Stokes % (Auto) 24.9 % Eos % (Auto) 0.0 % Baso % (Auto) 0.3 % Neut # (Auto) 3.87 (1.8-7.7) 10^3/u L Lymph # (Auto) 0.8 (0.8-4.8) 10^3/u L Stokes # (Auto) 1.6 H (0.2-0.9) 10^3/u L Eos # (Auto) 0.0 (0.0-0.8) 10^3/u L Baso # (Auto) 0.0 (0.0-0.1) 10^3/u L Nucleated RBC % (a uto) 0 % Nucleated RBCs # 0.0 /100WBC Specimen Type Sample Site ABG pH (7.35-7.45) ABG pCO2 (35-45) mmHg ABG pO2 (80.0-100.0) mmH g ABG HCO3 (22-26) mmol/L ABG O2 Saturation ABG Base Excess (-2.0-2.0) mmol/ L Ra Test A-a O2 Gradient (5-10) mmHg Hematocrit (37-47) % Hgb O2 Saturation (95-100) % Carboxyhemoglobin (0.4-20.1) %THgb Methemoglobin (0.4-1.5) % Total Hemoglobin (12-16) g/dL Ionized Calcium (1.1-1.4) mmol/L O2 Delivery Device O2 Liters/Min % FiO2 % Linen Worker ID Sodium 133 L (136-145) mmol/L Potassium 4.8 (3.5-5.1) mmol/L Chloride 97 L (98-107) mmol/L Carbon Dioxide 24 (22-29) mmol/L Anion Gap 16.8 (5-19) BUN 11 (8-23) mg/dL Creatinine 1.1 H (0.5-0.9) mg/dL GFR Calculation Not Reportable Glucose 122 H (65-115) mg/dL Calculated Osmolal ity 277 L (285-295) mOsm/k g Calcium 9.4 (8.5-10.5) mg/dL Total Bilirubin 0.8 (0.15-1.2) mg/dL AST 6 (0-32) U/L ALT < 5 (0-33) U/L Alkaline Phosphata se 79 (35-105) IU/L Troponin T Gen 5 n g/L 23 H (0-10) ng/L Total Protein 7.1 (6.6-8.7) g/dL Albumin 4.4 (3.5-5.2) g/dL Globulin 2.7 (1.3-4.6) g/dL Urine Color (Yellow) Urine Appearance (CLEAR) Urine pH (5-7) Ur Specific Gravit y (1.005-1.030) Urine Protein (Negative) Urine Glucose (UA) (Normal) Urine Ketones (Negative) Urine Blood (Negative) Urine Nitrate (Negative) Urine Bilirubin (Negative) Urine Urobilinogen (Negative) mg/dL Ur Leukocyte Karla ase (Negative) Urine RBC (0-2) /hpf Urine WBC (0-5) /hpf Ur Squamous Epith Cells (0-5) /hpf Amorphous Sediment Urine Bacteria (NONE) /hpf Urine Mucus /hpf SARS-CoV-2 Ag (Rap id) (Negative) 06/30/20 06/30/20 06/30/20 Range/Units 13:27 15:55 16:10 WBC (4.0-10.0) 10^3/ uL RBC (4.1-5.3) 10^6/u L Hgb (11.5-15.3) g/dL Hct (37.0-47.0) % MCV (81-99) fL MCH (28.0-34.0) pg MCHC (30.0-36.0) g/dL RDW (12.1-15.1) % Plt Count (130-400) 10^3/c mm MPV (7.4-10.4) fL Neut % (Auto) % Lymph % (Auto) % Stokes % (Auto) % Eos % (Auto) % Baso % (Auto) % Neut # (Auto) (1.8-7.7) 10^3/u L Lymph # (Auto) (0.8-4.8) 10^3/u L Stokes # (Auto) (0.2-0.9) 10^3/u L Eos # (Auto) (0.0-0.8) 10^3/u L Baso # (Auto) (0.0-0.1) 10^3/u L Nucleated RBC % (a uto) % Nucleated RBCs # /100WBC Specimen Type Arterial Sample Site Radial, right ABG pH 7.47 H (7.35-7.45) ABG pCO2 30.5 L (35-45) mmHg ABG pO2 152.0 H (80.0-100.0) mmH g ABG HCO3 22.2 (22-26) mmol/L ABG O2 Saturation 100.0 ABG Base Excess -1.1 (-2.0-2.0) mmol/ L Ra Test Pos A-a O2 Gradient 4.6 L (5-10) mmHg Hematocrit 24.4 L (37-47) % Hgb O2 Saturation 97.4 (95-100) % Carboxyhemoglobin 1.7 (0.4-20.1) %THgb Methemoglobin 0.9 (0.4-1.5) % Total Hemoglobin 8.0 L (12-16) g/dL Ionized Calcium 1.2 (1.1-1.4) mmol/L O2 Delivery Device Nc O2 Liters/Min 3.0 % FiO2 32.0 % Linen Worker ID Amh Sodium 133.0 (136-145) mmol/L Potassium 3.7 (3.5-5.1) mmol/L Chloride (98-107) mmol/L Carbon Dioxide (22-29) mmol/L Anion Gap (5-19) BUN (8-23) mg/dL Creatinine (0.5-0.9) mg/dL GFR Calculation Glucose 179.0 H (65-115) mg/dL Calculated Osmolal ity (285-295) mOsm/k g Calcium (8.5-10.5) mg/dL Total Bilirubin (0.15-1.2) mg/dL AST (0-32) U/L ALT (0-33) U/L Alkaline Phosphata se (35-105) IU/L Troponin T Gen 5 n g/L (0-10) ng/L Total Protein (6.6-8.7) g/dL Albumin (3.5-5.2) g/dL Globulin (1.3-4.6) g/dL Urine Color Yellow (Yellow) Urine Appearance Clear (CLEAR) Urine pH 5 (5-7) Ur Specific Gravit y 1.000 L (1.005-1.030) Urine Protein Trace (Negative) Urine Glucose (UA) Norm (Normal) Urine Ketones 1+ H (Negative) Urine Blood Neg (Negative) Urine Nitrate Negative (Negative) Urine Bilirubin Neg (Negative) Urine Urobilinogen 1 H (Negative) mg/dL Ur Leukocyte Karla ase Negative (Negative) Urine RBC None (0-2) /hpf Urine WBC 0-4 H (0-5) /hpf Ur Squamous Epith Cells 0-4 H (0-5) /hpf Amorphous Sediment Not Reportable Urine Bacteria Trace (NONE) /hpf Urine Mucus 1+ /hpf SARS-CoV-2 Ag (Rap id) Negative (Negative) Discharge Plan Discharge Patient Disposition: Home Clinical Impression: Acute exacerbation of chronic obstructive airways disease Condition: Stable Prescriptions: New doxycycline hyclate 100 mg capsule 100 mg PO BID 10 Days Qty: 20 RF: 0 Medrol (Greg) 4 mg tablets,dose pack See Rx Instructions .ROUTE .COMPLEX Qty: 21 RF: 0 albuterol sulfate 90 mcg/actuation HFA aerosol inhaler 2 inh INHALATION Q4H PRN (Reason: shortness of breath or wheezing) Qty: 18 RF: 0 Held prednisone 10 mg tablet See Rx Instructions .ROUTE .COMPLEX RF: 0 Hold Instructions: Resume on 07/07/20. No Action alprazolam 1 mg tablet 1 mg PO DAILY PRN (Reason: Anxiety) RF: 0 tramadol-acetaminophen 37.5-325 mg tablet 1 tab PO Q6H PRN (Reason: low back pain) RF: 0 ropinirole 0.25 mg tablet 0.25 mg PO BID@0800,1999 RF: 0 pantoprazole 40 mg tablet,delayed release (DR/EC) 40 mg PO DAILY RF: 0 Jakafi 20 mg tablet 20 mg PO CONT RF: 0 Combivent Respimat 20-100 mcg/actuation mist 1 puff INHALATION BID@0900,1999 RF: 0 Vitamin C 1 tab PO DAILY@0800 RF: 0 Vitamin D3 1 tab PO DAILY@0800 RF: 0 vitamin E 1 tab PO DAILY@0800 RF: 0 Discharge Orders: Discharge ED (Routine); Ordered 06/30/20 Ordered By: Dell Schultz Referrals: Bj Mcdowell [Primary Care Provider] - Activity Restrictions/Additional Instructions: Check with your doctor in 3 to 4 days if you have any worsening or change symptoms return. Coding Level of Care Code ED Plastics Supervisor for Susan Fwd Exam Comprehensive
[2020-06-30 14:59] LABS: Alanine Aminotransferase < 5 U/L (0-33); Albumin Level 4.4 g/dL (3.5-5.2); Alkaline Phosphatase 79 IU/L (35-105); Anion Gap 16.8 (5-19); Aspartate Amino Transferase 6 U/L (0-32); Blood Urea Nitrogen 11 mg/dL (8-23); Calcium 9.4 mg/dL (8.5-10.5); Carbon Dioxide 24 mmol/L (22-29); Chloride 97 mmol/L (98-107); Globulin 2.7 g/dL (1.3-4.6); Glucose 122 mg/dL (65-115); Osmolality Calculated 277 mOsm/kg (285-295); Potassium 4.8 mmol/L (3.5-5.1); Sodium 133 mmol/L (136-145); Total Bilirubin 0.8 mg/dL (0.15-1.2); Total Protein 7.1 g/dL (6.6-8.7)
[2020-06-30] MEDS: iodixanol 320 mg/mL 100mL Btl IV (15:16)
[2020-06-30 16:15] LABS: Add Urine Microscopic? YES; Bilirubin Urine Neg (Negative); Blood Urine Neg (Negative); Glucose Urine UA Norm (Normal); Ketones Urine 1+ (Negative); Leukocyte Esterase Urine Negative (Negative); Nitrate Urine Negative (Negative); Protein Urine Trace (Negative); Urine Appearance Clear (CLEAR); Urine Color Yellow (Yellow); Urobilinogen Urine 1 mg/dL (Negative); pH Urine 5 (5-7)
[2020-06-30] MEDS: dexamethasone 4 mg/mL INJ 10 MG IVP (16:16)
[2020-06-30 16:29] LABS: Add Urine Culture? No; Bacteria Urine TRACE /hpf; Mucus Urine 1+ /hpf; Squamous Epithelial Cell Urine 0-4 /hpf (0-5); WBC Urine 0-4 /hpf (0-5)
[2020-06-30 17:37] LABS: SARS Covid-2 Antigen Negative (Negative)
[2020-06-30 17:46] LABS: Troponin T (5th) Once 23 ng/L (0-10)
--- NOTE | 2020-06-30 19:24 | PC.NURSE ---
Report from AMANDA Littlejohn. Pt being D/C. Possible needs a Home OX evaluation. Noted to provider.
--- NOTE | 2020-06-30 20:25 | PC.NURSE ---
RT to do will do a walking trail without oxygen.
== END 2020-06-30 20:31 | disposition home or self-care (01) ==
PROVIDERS: Family Medicine; Emergency Provider Emergency Medicine; PCP Physician Assistant Medical
DX: J44.1 Chronic obstructive pulmonary disease with (acute) exacerbation (principal); I10 Essential (primary) hypertension; F17.210 Nicotine dependence, cigarettes, uncomplicated; M79.89 Other specified soft tissue disorders
CPT/HCPCS: 12345; 36600; 71045; 71275; 73110; 80051; 80053; 81001; 82330; 82805; 83605; 84484; 85025; 87426; 93971; 96374; 99283; 99284; J1100; Q9967

== ENCOUNTER 2020-07-23 12:05 | Outpatient (RCR) | payer MEDICARE, OTHER, SELFPAY ==
[2020-07-02 15:28] LABS: Basophils % 0.3 %; Hematocrit 22.9 % (37.0-47.0); Hemoglobin 7.6 g/dL (11.5-15.3); Lymphocytes # 1.9 10^3/uL (0.8-4.8); Lymphocytes % 29.9 %; Mean Corpuscular HGB Conc 33.2 g/dL (30.0-36.0); Mean Corpuscular Hemoglobin 28.4 pg (28.0-34.0); Mean Corpuscular Volume 85.4 fL (81-99); Monocytes # 0.7 10^3/uL (0.2-0.9); Monocytes % 11.6 %; Neutrophils # 3.53 10^3/uL (1.8-7.7); Neutrophils % 55.5 %; Nucleated Red Blood Cells % 0 %; Platelet Count 253 10^3/cmm (130-400); Red Blood Count 2.68 10^6/uL (4.1-5.3); Red Cell Distribution Width 14.7 % (12.1-15.1); White Blood Count 6.4 10^3/uL (4.0-10.0)
[2020-07-05] VITALS (7 sets, daily range): BP systolic 93–108; BP diastolic 54–74; PULSE 71–83; RESP 18; TEMP 36.6–37.1; O2SAT 96–99
[2020-07-05] MEDS: acetaminophen 325 mg Tablet 650 MG PO (12:30)
[2020-07-05] MEDS: sodium chloride 0.9% 250 ML 999 ML IV (12:30)
[2020-07-05] MEDS: diphenhydrAMINE 25 mg Capsule PO (12:30)
[2020-07-05] MEDS: FUROsemide 10 mg/mL SDV 2mL 20 MG IV (14:22)
[2020-07-09 15:33] LABS: Basophils % 0.3 %; Hematocrit 31.9 % (37.0-47.0); Hemoglobin 10.2 g/dL (11.5-15.3); Lymphocytes # 1.5 10^3/uL (0.8-4.8); Lymphocytes % 23.1 %; Mean Corpuscular Hemoglobin 28.7 pg (28.0-34.0); Mean Corpuscular Volume 89.6 fL (81-99); Mean Platelet Volume 10.6 fL (7.4-10.4); Monocytes # 1.2 10^3/uL (0.2-0.9); Monocytes % 18.5 %; Neutrophils # 3.57 10^3/uL (1.8-7.7); Neutrophils % 54.3 %; Nucleated Red Blood Cells % 0 %; Platelet Count 239 10^3/cmm (130-400); Red Blood Count 3.56 10^6/uL (4.1-5.3); Red Cell Distribution Width 14.6 % (12.1-15.1); White Blood Count 6.6 10^3/uL (4.0-10.0)
[2020-07-16 16:48] LABS: Basophils % 0.2 %; Hematocrit 30.6 % (37.0-47.0); Hemoglobin 9.8 g/dL (11.5-15.3); Lymphocytes # 1.2 10^3/uL (0.8-4.8); Lymphocytes % 26.1 %; Mean Corpuscular Hemoglobin 28.7 pg (28.0-34.0); Mean Corpuscular Volume 89.7 fL (81-99); Mean Platelet Volume 10.8 fL (7.4-10.4); Monocytes # 0.8 10^3/uL (0.2-0.9); Monocytes % 17.6 %; Neutrophils % 53.6 %; Nucleated Red Blood Cells % 0 %; Platelet Count 180 10^3/cmm (130-400); Red Blood Count 3.41 10^6/uL (4.1-5.3); Red Cell Distribution Width 14.6 % (12.1-15.1); White Blood Count 4.5 10^3/uL (4.0-10.0)
[2020-07-23 17:30] LABS: Eosinophils % 0.3 %; Hematocrit 25.6 % (37.0-47.0); Hemoglobin 8.2 g/dL (11.5-15.3); Lymphocytes # 1.1 10^3/uL (0.8-4.8); Lymphocytes % 26.3 %; Mean Corpuscular Hemoglobin 28.4 pg (28.0-34.0); Mean Corpuscular Volume 88.6 fL (81-99); Mean Platelet Volume 10.3 fL (7.4-10.4); Monocytes # 0.7 10^3/uL (0.2-0.9); Monocytes % 17.3 %; Neutrophils # 2.18 10^3/uL (1.8-7.7); Neutrophils % 54.6 %; Nucleated Red Blood Cells % 0 %; Platelet Count 152 10^3/cmm (130-400); Red Blood Count 2.89 10^6/uL (4.1-5.3); Red Cell Distribution Width 14.6 % (12.1-15.1)
== END 2020-07-26 23:59 | disposition home or self-care (01) ==
LOC: ONCMED 12:05
PROVIDERS: PCP Physician Assistant Medical; Visit Provider Internal Medicine Medical Oncology
DX: D64.9 Anemia, unspecified (principal); D75.81 Myelofibrosis; D72.819 Decreased white blood cell count, unspecified
CPT/HCPCS: 36415; 36430; 85025; 86850; 86900; 86920; J1940; J7050; P9040

== ENCOUNTER 2020-08-14 12:30 | Outpatient (CLI) | payer MEDICARE, OTHER, SELFPAY ==
--- NOTE | 2020-08-17 18:13 | ONC FU_ITS ---
Dr. Gonzales Patient Follow-Up Note Patient: Tonya Lynch Unit #: [id number]: 1940 Dicatated By: Cole Gonzales M.D.Date of Visit:Aug 14, 2020 Onc Med Follow-up/Prog Note Chief Complaint: Myelofibrosis. History of Present Illness: This is an 80 year-old woman with myelofibrosis, presenting with anemia, leukopenia, and splenomegaly. On 05/16/2018 she was admitted to the hospital with anemia and leukopenia. Her initial CBC showed hemoglobin 6.5 g with hematocrit 20.2%. The red cell indices were in the low normal range. The white blood cell count was 2800 and the platelet count was 163,000. The differential showed 70% neutrophils, 17% lymphocytes, and 9% monocytes. Also reported were 3% immature . Her serum iron studies show transferrin saturation 34%. The ferritin was relatively low at 44.1 ng/mL. Her comprehensive metabolic profile showed borderline renal function with BUN 9 and creatinine 1.21 mg/dL. The bilirubin and liver enzymes were normal. TSH was normal at 2.38. She was transfused PRBC. She reportedly had a similar episode in 2017, at which time she did undergo GI endoscopy studies. Hematology consultation was recommended, but apparently not completed. I had seen her initially on 06/14/2019. At that time, she was noted to have an enlarged spleen, and that was subsequently confirmed by CT. There was no associated lymphadenopathy. Bone marrow aspiration/biopsy on 07/14/2019 showed hypercellular marrow estimated at 70 to 90% cellularity. There was megakaryocytic hyperplasia with occasional bizarre megakaryocyte forms present. Blasts were estimated at 2.5%. There was severe reticulin fibrosis noted. Standard cytogenetics were not able to be done, as the bone marrow aspirate did not contain any spicules. The FISH panel for MDS was unrevealing. Overall, the findings were most consistent with myelofibrosis. Her other medical illnesses include hypertension, hyperlipidemia, chronic kidney disease, GERD, irritable bowel syndrome, degenerative arthritis, and anxiety/depression. She has a history of smoking 2 packs of cigarettes daily for 63 years. She had cut down to 1 pack/day. INTERIM HISTORY: On 10/04/2019 she began treatment with ruxolitinib 10 mg daily for 3 days, then 10 mg twice daily. As of 10/14/2019 the dosage was further increased to 20 mg twice daily. She has been tolerating it well. During follow-up she had improvement in her clinical status with resolution of splenomegaly, improved appetite, and significant weight gain. 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 She is seen for a follow-up visit. She has been feeling pretty good generally. She recently had been having pretty severe right hip pain. Xrays, though, were unrevealing, and the pain has since then improved. She doesn't have any other pain, but she does complain that her knees don't push. She is able to do housework. ECOG score is 1. She has not had much appetite lately, but her weight has been stable. She has no fever or night sweats. She does have shortness of breath at times. She has cough productive of white sputum. She has little chest pains which come and go. She has no GI/ complaints other than occasional heartburn. She does have some headache and she sometimes has dizziness. She has burning pain in her calves and feet. She sometimes has a little depression. Medications: Albuterol Sulfate 2 Puff(s) (of 108 (90 base) mcg/act) Aerosol Powder, Breath Activated Inhalation q 6 hours PRN, ALPRAZolam 1 (1 mg) Tablet Oral t.i.d. PRN, amLODIPine Besylate 1 (5 mg) Tablet Oral daily, Antacid Maximum Tablet, chewable Oral PRN, Benzonatate 1 (200 mg) Capsule Oral daily PRN, Combivent Respimat 1 Inhalation (of 20-100 mcg/act) Aerosol, solution Inhalation b.i.d., Cough & Sore Throat NightTime 30 mL (of 30-12.5-1000 mg/30mL) Liquid Oral PRN, [employer]S Migraine Relief 1 (250-250-65 mg) Tablet Oral PRN, Ferrous Sulfate 1 (325 (65 fe) mg) Tablet Oral daily, Isosorbide Mononitrate ER 1 (30 mg) Tablet SR 24 HR Oral daily, Jakafi 1 Tablet (of 20 mg) Oral b.i.d. for 30 days, Meclizine HCl 1 (12.5 mg) Tablet Oral PRN, raNITIdine HCl 1 (150 mg) Capsule Oral at bedtime, SUMAtriptan Succinate Tablet Oral PRN, traMADol-Acetaminophen 1 (37.5-325 mg) Tablet Oral q 6 hours PRN Allergies: No Known Allergies. Vital Signs: Performed on Aug 14, 2020 11:50 Height - 69.00 in Weight - 131 lbs BSA - 1.73 sq.m BMI - 19.35 Temperature - 98.1 F (LOW) Pulse - 96 /min Respiration - 16 /min BP - 112/58 mm(hg) O2 Sat - 97 % Pain - 0 Physical Examination: Constitutional - She appears generally weak and chronically ill, Eyes - Sclerae nonicteric. Conjunctivae clear, ENMT - No lesions noted in the oral cavity, Hematologic/Lymphatic - No cervical, clavicular, or axillary adenopathy, Respiratory - Lungs sound clear with diminished air movement bilaterally, Cardiovascular - Heart rhythm is a little irregular. There is a II/ systolic murmur. There is no gallop or rub noted, Abdomen - Soft. Liver is not enlarged. The spleen is not palpable. There is no abdominal mass or ascites noted and there is no inguinal adenopathy, Extremities - No edema. She has scattered, small purpuric lesions, Neurologic - No focal neurologic deficits noted. Lab/Imaging: Test performed on Aug 06, 2020 13:20 LDH (Total) 290 U/L Sodium 129 mmol/L Potassium 4.3 mmol/L Chloride 95 mmol/L CO2 26 mmol/L Anion Gap 12.3 BUN 7 mg/dL Creatinine 1.0 mg/dL Cr Clearance (Est) 42.0900 mL/min Glucose 106 mg/dL Osmolality - Calculated 266 mOsm/kg Calcium 9.2 mg/dL Protein, Total 6.5 g/dL Albumin 3.9 g/dL Globulin 2.6 g/dL Bilirubin, Total 0.3 mg/dL ALT (SGPT) 6 U/L AST (SGOT) 7 U/L Alkaline Phosphatase 84 IU/L WBC 5.5 10 3/uL RBC 3.60 10 6/uL HGB 10.2 g/dL HCT 31.4 % MCV 87.2 fL MCH 28.3 pg MCHC 32.5 g/dL RDW 14.4 % Platelet Count 223 10 3/cmm MPV 10.7 fL Neutrophils 3.48 10 3/uL Lymphocytes 1.0 10 3/uL Monocytes 0.8 10 3/uL Eosinophils 0.0 10 3/uL Basophils 0.0 10 3/uL Neutrophil % 62.8 % Lymphocyte % 18.1 % Monocyte % 14.4 % Eosinophil % 0.0 % Basophils % 0.5 % NRBC % 0 % Problem List: 1. Patient with anemia, leukopenia, and splenomegaly. Her bone marrow aspiration/biopsy on 07/14/2019 showed severe reticulin fibrosis, consistent with myelofibrosis. She had associated decline in performance status and weight loss. Her symptoms have improved with ruxolitinib. 2. She has remained transfusion dependent. She is at risk for iron overload. 3. Hypertension. 4. Hyperlipidemia. 5. Chronic kidney disease, stage III. 6. GERD. 7. Irritable bowel syndrome. 8. Degenerative arthritis. 9. Anxiety/depression. Problems Addressed with this Encounter and Plan: 1. Myelofibrosis with transfusion dependent anemia. Her symptoms have improved with ruxolitinib, but she has remained transfusion dependent. She will continue the ruxolitinib 20 mg twice daily. Her blood counts will be monitored weekly and she will be transfused as needed. She will be scheduled for a followup visit in 3 months. 2. She is at risk for iron overload. She requires monitoring of her transferrin saturation and ferritin. Signed By: Cole Gonzales M.D. <<Signature on File>>
== END 2020-08-14 12:31 | disposition home or self-care (01) ==
LOC: ONCMED 08-15 09:55
PROVIDERS: PCP Physician Assistant Medical; Visit Provider Internal Medicine Medical Oncology
DX: D75.81 Myelofibrosis (principal); D64.9 Anemia, unspecified; D72.819 Decreased white blood cell count, unspecified; I10 Essential (primary) hypertension; E78.5 Hyperlipidemia, unspecified; N18.30 Chronic kidney disease, stage 3 unspecified; K21.9 Gastro-esophageal reflux disease without esophagitis; K58.9 Irritable bowel syndrome, unspecified; M19.90 Unspecified osteoarthritis, unspecified site; F41.9 Anxiety disorder, unspecified; F32.9 Major depressive disorder, single episode, unspecified; Z79.899 Other long term (current) drug therapy
CPT/HCPCS: 99214

== ENCOUNTER 2020-08-21 08:02 | Outpatient (RCR) | payer MEDICARE, OTHER, SELFPAY ==
[2020-07-30 14:20] LABS: Basophils % 0.2 %; Hematocrit 23.2 % (37.0-47.0); Hemoglobin 7.6 g/dL (11.5-15.3); Lymphocytes # 0.8 10^3/uL (0.8-4.8); Lymphocytes % 19.5 %; Mean Corpuscular HGB Conc 32.8 g/dL (30.0-36.0); Mean Corpuscular Hemoglobin 28.4 pg (28.0-34.0); Mean Corpuscular Volume 86.6 fL (81-99); Monocytes # 0.6 10^3/uL (0.2-0.9); Monocytes % 15.2 %; Neutrophils # 2.54 10^3/uL (1.8-7.7); Neutrophils % 61.2 %; Nucleated Red Blood Cells % 0 %; Platelet Count 178 10^3/cmm (130-400); Red Blood Count 2.68 10^6/uL (4.1-5.3); Red Cell Distribution Width 14.6 % (12.1-15.1); White Blood Count 4.2 10^3/uL (4.0-10.0)
[2020-07-30 14:32] LABS: Alanine Aminotransferase < 5 U/L (0-33); Albumin Level 3.6 g/dL (3.5-5.2); Alkaline Phosphatase 64 IU/L (35-105); Anion Gap 13.3 (5-19); Aspartate Amino Transferase 6 U/L (0-32); Blood Urea Nitrogen 8 mg/dL (8-23); Calcium 8.3 mg/dL (8.5-10.5); Carbon Dioxide 24 mmol/L (22-29); Chloride 96 mmol/L (98-107); Globulin 2.3 g/dL (1.3-4.6); Glucose 100 mg/dL (65-115); Lactate Dehydrogenase 266 U/L (135-214); Osmolality Calculated 266 mOsm/kg (285-295); Potassium 4.3 mmol/L (3.5-5.1); Sodium 129 mmol/L (136-145); Total Bilirubin 0.3 mg/dL (0.15-1.2); Total Protein 5.9 g/dL (6.6-8.7)
[2020-08-01] VITALS (10 sets, daily range): BP systolic 102–134; BP diastolic 52–66; PULSE 74–84; RESP 18; TEMP 36.6–37.2; O2SAT 97–99
[2020-08-01] MEDS: sodium chloride 0.9% 250 ML 999 ML IV (11:20)
[2020-08-01] MEDS: diphenhydrAMINE 25 mg Capsule PO (11:20)
[2020-08-01] MEDS: acetaminophen 325 mg Tablet 650 MG PO (11:20)
[2020-08-01] MEDS: FUROsemide 10 mg/mL SDV 2mL 20 MG IV (13:55)
[2020-08-06 17:28] LABS: Basophils % 0.5 %; Hematocrit 31.4 % (37.0-47.0); Hemoglobin 10.2 g/dL (11.5-15.3); Lymphocytes % 18.1 %; Mean Corpuscular HGB Conc 32.5 g/dL (30.0-36.0); Mean Corpuscular Hemoglobin 28.3 pg (28.0-34.0); Mean Corpuscular Volume 87.2 fL (81-99); Mean Platelet Volume 10.7 fL (7.4-10.4); Monocytes # 0.8 10^3/uL (0.2-0.9); Monocytes % 14.4 %; Neutrophils # 3.48 10^3/uL (1.8-7.7); Neutrophils % 62.8 %; Nucleated Red Blood Cells % 0 %; Platelet Count 223 10^3/cmm (130-400); Red Cell Distribution Width 14.4 % (12.1-15.1); White Blood Count 5.5 10^3/uL (4.0-10.0)
[2020-08-06 17:30] LABS: Alanine Aminotransferase 6 U/L (0-33); Albumin Level 3.9 g/dL (3.5-5.2); Alkaline Phosphatase 84 IU/L (35-105); Anion Gap 12.3 (5-19); Aspartate Amino Transferase 7 U/L (0-32); Blood Urea Nitrogen 7 mg/dL (8-23); Calcium 9.2 mg/dL (8.5-10.5); Carbon Dioxide 26 mmol/L (22-29); Chloride 95 mmol/L (98-107); Globulin 2.6 g/dL (1.3-4.6); Glucose 106 mg/dL (65-115); Lactate Dehydrogenase 290 U/L (135-214); Osmolality Calculated 266 mOsm/kg (285-295); Potassium 4.3 mmol/L (3.5-5.1); Sodium 129 mmol/L (136-145); Total Bilirubin 0.3 mg/dL (0.15-1.2); Total Protein 6.5 g/dL (6.6-8.7)
[2020-08-13 17:01] LABS: Basophils % 0.3 %; Hematocrit 28.5 % (37.0-47.0); Hemoglobin 9.2 g/dL (11.5-15.3); Lymphocytes # 1.5 10^3/uL (0.8-4.8); Lymphocytes % 23.7 %; Mean Corpuscular HGB Conc 32.3 g/dL (30.0-36.0); Mean Corpuscular Hemoglobin 27.8 pg (28.0-34.0); Mean Corpuscular Volume 86.1 fL (81-99); Mean Platelet Volume 10.5 fL (7.4-10.4); Monocytes # 0.9 10^3/uL (0.2-0.9); Monocytes % 13.8 %; Neutrophils # 3.58 10^3/uL (1.8-7.7); Neutrophils % 58.3 %; Nucleated Red Blood Cells % 0 %; Platelet Count 208 10^3/cmm (130-400); Red Blood Count 3.31 10^6/uL (4.1-5.3); Red Cell Distribution Width 14.4 % (12.1-15.1); White Blood Count 6.2 10^3/uL (4.0-10.0)
[2020-08-13 17:35] LABS: Alanine Aminotransferase 7 U/L (0-33); Albumin Level 3.9 g/dL (3.5-5.2); Alkaline Phosphatase 71 IU/L (35-105); Anion Gap 13.3 (5-19); Aspartate Amino Transferase 8 U/L (0-32); Blood Urea Nitrogen 10 mg/dL (8-23); Calcium 8.8 mg/dL (8.5-10.5); Carbon Dioxide 26 mmol/L (22-29); Chloride 95 mmol/L (98-107); Globulin 2.2 g/dL (1.3-4.6); Glucose 88 mg/dL (65-115); Lactate Dehydrogenase 286 U/L (135-214); Osmolality Calculated 268 mOsm/kg (285-295); Potassium 4.3 mmol/L (3.5-5.1); Sodium 130 mmol/L (136-145); Total Bilirubin 0.3 mg/dL (0.15-1.2); Total Protein 6.1 g/dL (6.6-8.7)
[2020-08-20 15:01] LABS: Basophils % 0.2 %; Hematocrit 22.8 % (37.0-47.0); Hemoglobin 7.3 g/dL (11.5-15.3); Lymphocytes # 1.2 10^3/uL (0.8-4.8); Lymphocytes % 25.2 %; Mean Corpuscular Hemoglobin 28.5 pg (28.0-34.0); Mean Corpuscular Volume 89.1 fL (81-99); Mean Platelet Volume 10.6 fL (7.4-10.4); Monocytes # 0.7 10^3/uL (0.2-0.9); Monocytes % 14.4 %; Neutrophils # 2.65 10^3/uL (1.8-7.7); Neutrophils % 56.2 %; Nucleated Red Blood Cells % 0 %; Platelet Count 221 10^3/cmm (130-400); Red Blood Count 2.56 10^6/uL (4.1-5.3); Red Cell Distribution Width 14.8 % (12.1-15.1); White Blood Count 4.7 10^3/uL (4.0-10.0)
[2020-08-21] VITALS (10 sets, daily range): BP systolic 108–128; BP diastolic 56–96; PULSE 60–68; RESP 18; TEMP 36.1–36.9; O2SAT 96–98
== END 2020-08-26 23:59 | disposition home or self-care (01) ==
LOC: ONCMED 08:02
PROVIDERS: PCP Physician Assistant Medical; Visit Provider Internal Medicine Medical Oncology
DX: D75.81 Myelofibrosis (principal); D64.9 Anemia, unspecified; D72.819 Decreased white blood cell count, unspecified
CPT/HCPCS: 36415; 36430; 80053; 81270; 83615; 85025; 86850; 86900; 86920; J1940; J7050; P9016; P9040

== ENCOUNTER 2020-09-19 09:38 | Outpatient (RCR) | payer MEDICARE, OTHER, SELFPAY ==
[2020-08-27 16:35] LABS: Basophils % 0.2 %; Hematocrit 29.9 % (37.0-47.0); Hemoglobin 9.5 g/dL (11.5-15.3); Lymphocytes # 1.4 10^3/uL (0.8-4.8); Lymphocytes % 25.1 %; Mean Corpuscular HGB Conc 31.8 g/dL (30.0-36.0); Mean Corpuscular Hemoglobin 28.4 pg (28.0-34.0); Mean Corpuscular Volume 89.5 fL (81-99); Mean Platelet Volume 10.8 fL (7.4-10.4); Monocytes % 18.8 %; Neutrophils # 2.88 10^3/uL (1.8-7.7); Neutrophils % 53.7 %; Nucleated Red Blood Cells % 0 %; Platelet Count 204 10^3/cmm (130-400); Red Blood Count 3.34 10^6/uL (4.1-5.3); Red Cell Distribution Width 14.8 % (12.1-15.1); White Blood Count 5.4 10^3/uL (4.0-10.0)
[2020-09-04 17:38] LABS: Basophils % 0.4 %; Lymphocytes # 1.5 10^3/uL (0.8-4.8); Lymphocytes % 28.4 %; Mean Corpuscular Hemoglobin 28.8 pg (28.0-34.0); Mean Corpuscular Volume 90.1 fL (81-99); Mean Platelet Volume 10.1 fL (7.4-10.4); Monocytes % 18.1 %; Neutrophils # 2.56 10^3/uL (1.8-7.7); Neutrophils % 48.4 %; Nucleated Red Blood Cells % 0.4 %; Platelet Count 218 10^3/cmm (130-400); Red Blood Count 2.22 10^6/uL (4.1-5.3); Red Cell Distribution Width 15.2 % (12.1-15.1); White Blood Count 5.3 10^3/uL (4.0-10.0)
[2020-09-04 17:46] LABS: Hemoglobin 6.4 g/dL (11.5-15.3)
[2020-09-11 16:55] LABS: Basophils % 0.4 %; Hemoglobin 9.4 g/dL (11.5-15.3); Lymphocytes # 1.7 10^3/uL (0.8-4.8); Lymphocytes % 31.5 %; Mean Corpuscular HGB Conc 32.4 g/dL (30.0-36.0); Mean Corpuscular Hemoglobin 29.1 pg (28.0-34.0); Mean Corpuscular Volume 89.8 fL (81-99); Mean Platelet Volume 10.3 fL (7.4-10.4); Monocytes # 0.8 10^3/uL (0.2-0.9); Monocytes % 14.8 %; Neutrophils # 2.62 10^3/uL (1.8-7.7); Nucleated Red Blood Cells % 0.4 %; Platelet Count 244 10^3/cmm (130-400); Red Blood Count 3.23 10^6/uL (4.1-5.3); White Blood Count 5.5 10^3/uL (4.0-10.0)
[2020-09-11 17:44] LABS: Slide Review Slide Review Perform
[2020-09-18 18:58] LABS: Basophils % 0.3 %; Hematocrit 24.2 % (37.0-47.0); Hemoglobin 7.9 g/dL (11.5-15.3); Lymphocytes # 0.7 10^3/uL (0.8-4.8); Lymphocytes % 10.9 %; Mean Corpuscular HGB Conc 32.6 g/dL (30.0-36.0); Mean Corpuscular Hemoglobin 29.3 pg (28.0-34.0); Mean Corpuscular Volume 89.6 fL (81-99); Mean Platelet Volume 11.1 fL (7.4-10.4); Monocytes # 1.2 10^3/uL (0.2-0.9); Monocytes % 18.4 %; Neutrophils # 4.46 10^3/uL (1.8-7.7); Neutrophils % 68.3 %; Nucleated Red Blood Cells % 0 %; Platelet Count 187 10^3/cmm (130-400); Red Cell Distribution Width 14.6 % (12.1-15.1); White Blood Count 6.5 10^3/uL (4.0-10.0)
[2020-09-19] MEDS: sodium chloride 0.9% 250 ML 999 ML IV (11:20)
[2020-09-19] MEDS: diphenhydrAMINE 25 mg Capsule PO (11:35)
[2020-09-19] MEDS: acetaminophen 325 mg Tablet 650 MG PO (11:35)
[2020-09-19 12:30] VITALS: RESP 18; O2SAT 97
[2020-09-19] MEDS: oxyCODONE 5 mg IR Tab/Cap PO (12:30)
[2020-09-19] MEDS: FUROsemide 10 mg/mL SDV 2mL 20 MG IV (13:25)
--- NOTE | 2020-09-24 08:47 | ONC FU_ITS ---
[facility] Patient Note Patient: Tonya Lynch Unit #: [id number]: 1940 Dictated By: Dion RosalesDate of Visit: Sep 19, 2020 Onc MED Follow-Up/Prog Note Chief Complaint: Myelofibrosis. History of Present Illness: Ms Lynch is an 81 year-old woman with myelofibrosis, presenting with anemia, leukopenia, and splenomegaly. On 05/16/2018 she was admitted to the hospital with anemia and leukopenia. Her initial CBC showed hemoglobin 6.5 g with hematocrit 20.2%. The red cell indices were in the low normal range. The white blood cell count was 2800 and the platelet count was 163,000. The differential showed 70% neutrophils, 17% lymphocytes, and 9% monocytes. Also reported were 3% immature . Her serum iron studies show transferrin saturation 34%. The ferritin was relatively low at 44.1 ng/mL. Her comprehensive metabolic profile showed borderline renal function with BUN 9 and creatinine 1.21 mg/dL. The bilirubin and liver enzymes were normal. TSH was normal at 2.38. She was transfused PRBC. She reportedly had a similar episode in 2017, at which time she did undergo GI endoscopy studies. Hematology consultation was recommended, but apparently not completed. Dr Gonzales had seen her initially on 06/14/2019. At that time, she was noted to have an enlarged spleen, and that was subsequently confirmed by CT. There was no associated lymphadenopathy. Bone marrow aspiration/biopsy on 07/14/2019 showed hypercellular marrow estimated at 70 to 90% cellularity. There was megakaryocytic hyperplasia with occasional bizarre megakaryocyte forms present. Blasts were estimated at 2.5%. There was severe reticulin fibrosis noted. Standard cytogenetics were not able to be done, as the bone marrow aspirate did not contain any spicules. The FISH panel for MDS was unrevealing. Overall, the findings were most consistent with myelofibrosis. Her other medical illnesses include hypertension, hyperlipidemia, chronic kidney disease, GERD, irritable bowel syndrome, degenerative arthritis, and anxiety/depression. She has a history of smoking 2 packs of cigarettes daily for 63 years. She had cut down to 1 pack/day. INTERIM HISTORY: On 10/04/2019 she began treatment with ruxolitinib 10 mg daily for 3 days, then 10 mg twice daily. As of 10/14/2019 the dosage was further increased to 20 mg twice daily. She has been tolerating it well. During follow-up she had improvement in her clinical status with resolution of splenomegaly, improved appetite, and significant weight gain. 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 Ms Lynch is here today for transfusion services and reports she has had multiple falls due to weakness ove the last few weeks. She has had no apparent injury. She lives alone and cares for herself. She has no outside assistance. She denies any pain. She is weak and short of breath due to the anemia. Her hemoglobin today was 7.9. She denies any fever or chills. She denies any cough. She denies nausea or vomiting. She states her bowels are normal for her. She denies any lower extremity edema. She does have upper arm strength to maneuver a walker but at this time cannot maneuver a wheelchair. Her ECOG today is 2. Past Medical History: Chronic kidney disease (stage III) Gastroesophageal reflux disease History of skin cancer Hyperlipidemia Hypertension Irritable bowel syndrome Menigioma Osteoarthritis Past Surgical History: Cholecystectomy - 1989' Hysterectomy/bilateral salpingectomy-oophorectomy in 1983 Right knee repair in 1966 Appendectomy in 1952 Allergies: No Known Allergies. Medications: Albuterol Sulfate 2 Puff(s) (of 108 (90 base) mcg/act) Aerosol Powder, Breath Activated Inhalation q 6 hours PRN ALPRAZolam 1 (1 mg) Tablet Oral t.i.d. PRN amLODIPine Besylate 1 (5 mg) Tablet Oral daily Antacid Maximum Tablet, chewable Oral PRN Benzonatate 1 (200 mg) Capsule Oral daily PRN Combivent Respimat 1 Inhalation (of 20-100 mcg/act) Aerosol, solution Inhalation b.i.d. Cough & Sore Throat NightTime 30 mL (of 30-12.5-1000 mg/30mL) Liquid Oral PRN CVS Migraine Relief 1 (250-250-65 mg) Tablet Oral PRN Ferrous Sulfate 1 (325 (65 fe) mg) Tablet Oral daily Isosorbide Mononitrate ER 1 (30 mg) Tablet SR 24 HR Oral daily Jakafi 1 Tablet (of 20 mg) Oral b.i.d. for 30 days Meclizine HCl 1 (12.5 mg) Tablet Oral PRN raNITIdine HCl 1 (150 mg) Capsule Oral at bedtime SUMAtriptan Succinate Tablet Oral PRN traMADol-Acetaminophen 1 (37.5-325 mg) Tablet Oral q 6 hours PRN Family History: Ms. Lynch's mother at age 91: stroke. Ms. Lynch's father at age 59: myocardial infarction. Her maternal grandfather is : esophageal cancer. Father had a sudden at age 59, presumed heart attack. Mother of stroke at age 91. Maternal grandfather had esophageal cancer. She had one son who was killed by a drunk electric pile driver operator at age 23. Social History: Ms. Lynch is and she is retired. She is a daily smoker who has smoked 1.0 pack/day for 65 years. She has no history of drinking. She has indicated exposure to the following products: cigarettes. Ms. Lynch reports the following support systems: lives alone, lives in own house, no support system exists, and adequate transportation available for expected visits. Her diet consists of regular meals. She indicates her activity level as: daily activities. She has history of smoking 2 packs of cigarettes daily for 63 years. She has cut down to 1 pack per day. She does not drink alcohol. Review Of Symptoms: Constitutional Denies fevers, chills, night sweats, excessive fatigue or weight loss. ' Really weak Allergic/Immunologic No reactions. Eyes Denies significant visual changes. No diplopia. No amaurosis. ENMT Denies changes in hearing, sore throat, mouth sores, difficulty or changes in swallowing ability, and/or sinus drainage. Respiratory Increased dyspnea on exertion, but denies chest pain, cough or hemoptysis. Denies orthopnea. Cardiovascular Denies anginal chest pain, palpitations or orthopnea. Gastrointestinal Denies nausea, vomiting, diarrhea, GI bleeding, or constipation. Denies change in bowel habits and/or stool color, no heartburn or early satiety. Genitourinary (F) No hematuria, hesitancy, incontinence, vaginal bleeding, discharge or other problems with urination. Musculoskeletal Denies joint pain, swelling or redness. Chronic joint pain-stable. Integumentary Denies chronic rashes, inflammation, ulcerations or skin changes. Neurologic Denies headache, blurred vision, and no areas of focal weakness or numbness. Unsteady gait, requires assistance of nurse. Psychiatric Denies insomnia, depression, jenniffer or mood swings. Vital Signs: ,2 - Ambulatory/capable of all self-care, unable to perform any work activities. Up and about more than 50% of waking hours. (ECOG) Physical Examination: Constitutional Alert, oriented, no acute distress. Skin pink, warm and dry. Generalized weakness-no acute distress. Head Normocephalic; atraumatic. Eyes Conjunctivae and sclerae are clear and without icterus. Pupils are reactive and equal. Neck Supple without masses or thyromegaly. No jugular venous distension. Respiratory Lungs are clear to auscultation without rhonchi or wheezing. Cardiovascular Regular rate and rhythm of heart without murmurs,clicks, gallops or rubs. Back/Spine Non-tender to palpation. Extremities No visible deformities, no cyanosis, clubbing or edema. Musculoskeletal No tenderness or swelling, normal range of motion without obvious weakness. Integumentary No rashes or lesions. Psychiatric Alert and oriented times three. Coherent speech. Verbalizes understanding of our discussions today. Laboratory:Test performed on Sep 18, 2020 16:42 WBC 6.5 10 3/uL RBC 2.70 10 6/uL HGB 7.9 g/dL HCT 24.2 % MCV 89.6 fL MCH 29.3 pg MCHC 32.6 g/dL RDW 14.6 % Platelet Count 187 10 3/cmm MPV 11.1 fL Neutrophils 4.46 10 3/uL Lymphocytes 0.7 10 3/uL Monocytes 1.2 10 3/uL Eosinophils 0.0 10 3/uL Basophils 0.0 10 3/uL Neutrophil % 68.3 % Lymphocyte % 10.9 % Monocyte % 18.4 % Eosinophil % 0.0 % Basophils % 0.3 % NRBC % 0 % Irradiated Red Blood Cells [id number] AP RCI XM COMPATIBLE Anti-D Positive Blood Type AP Antibody Screen (Gel) NEGATIVE Impression: 1. Patient with anemia, leukopenia, and splenomegaly. Her bone marrow aspiration/biopsy on 07/14/2019 showed severe reticulin fibrosis, consistent with myelofibrosis. She had associated decline in performance status and weight loss. Her symptoms have improved with ruxolitinib. 2. She has remained transfusion dependent. She is at risk for iron overload. 3. Hypertension. 4. Hyperlipidemia. 5. Chronic kidney disease, stage III. 6. GERD. 7. Irritable bowel syndrome. 8. Degenerative arthritis. 9. Anxiety/depression. Plan: 1. Myelofibrosis with transfusion dependent anemia. Her symptoms have improved with ruxolitinib, but she has remained transfusion dependent. She will continue the ruxolitinib 20 mg twice daily. A. Transfusion services today with 2 units of PRBCs. B. Continue weeklky CBC, and Typenex. CMP and iron studies monthly. C. Today's labs reviewed in detail discussed with Mrs. Lynch. WBC 6.5, hemoglobin 7.9, platelets are 87,000 ANC is 4500. 2. She is at risk for iron overload. Will continue to monitor and treat when appropriate. 3. Frequent falls due to anemia and degenerative arthritis. A. I have requested a wheeled seated walker with brakes for Mrs. Lynch due to her frequent falls and degenerative arthritis. Length of need will be 99. Her weakness and degenerative arthritis does impair her ability to participate in mobility related activities of daily living and that she has difficulty reaching her bathroom and her kitchen. Without the mobility assistance with a wheeled, seated walker she is high risk for falls and thus far has not had any apparent injury but she is certainly high risk. She states she is able to safely use a walker and has room around the house to maneuver that. I do feel she has the functional mobility deficit that would be greatly improved and sufficiently resolved with the use of this walker. I request for the walker will be sent to [facility]. I have also requested referral to for assistance with her medication she is on Colin if I 20 mg twice daily and need weekly labs drawn. She may also benefit from physical therapy. I will also ask that they assess her for any other resources that may benefit and improve her ability to remain at home. She refuses to consider jail facility or assisted living at this time. C. We will see her back as scheduled unless otherwise needed. Signed By: Dion Rosales-, [facility] Cole Gonzales MD <<Signature on File>>
== END 2020-09-23 23:59 | disposition home or self-care (01) ==
LOC: ONCMED 09:38
PROVIDERS: PCP Physician Assistant Medical; Visit Provider Internal Medicine Medical Oncology
DX: D75.81 Myelofibrosis (principal); D50.9 Iron deficiency anemia, unspecified; D72.819 Decreased white blood cell count, unspecified; I10 Essential (primary) hypertension; E78.5 Hyperlipidemia, unspecified; N18.30 Chronic kidney disease, stage 3 unspecified; K21.9 Gastro-esophageal reflux disease without esophagitis; K58.9 Irritable bowel syndrome, unspecified; M19.90 Unspecified osteoarthritis, unspecified site; F41.9 Anxiety disorder, unspecified; F32.9 Major depressive disorder, single episode, unspecified; Z79.899 Other long term (current) drug therapy
CPT/HCPCS: 85025; 86850; 86900; 86920; 99214; J1940; J7050; P9040

== ENCOUNTER 2020-09-25 14:35 | Outpatient (RCR) | payer MEDICARE, OTHER, SELFPAY ==
[2020-09-25 16:03] LABS: Basophils % 0.3 %; Hematocrit 31.5 % (37.0-47.0); Hemoglobin 10.3 g/dL (11.5-15.3); Lymphocytes # 1.4 10^3/uL (0.8-4.8); Lymphocytes % 22.7 %; Mean Corpuscular HGB Conc 32.7 g/dL (30.0-36.0); Mean Corpuscular Hemoglobin 29.4 pg (28.0-34.0); Mean Platelet Volume 10.5 fL (7.4-10.4); Monocytes # 0.7 10^3/uL (0.2-0.9); Monocytes % 11.8 %; Neutrophils % 59.1 %; Nucleated Red Blood Cells % 0 %; Platelet Count 263 10^3/cmm (130-400); Red Cell Distribution Width 14.9 % (12.1-15.1); White Blood Count 6.1 10^3/uL (4.0-10.0)
[2020-09-25 16:32] LABS: Slide Review Slide Review Perform
[2020-09-25 16:49] LABS: Alanine Aminotransferase 8 U/L (0-33); Albumin Level 3.9 g/dL (3.5-5.2); Alkaline Phosphatase 133 IU/L (35-105); Anion Gap 14.6 (5-19); Aspartate Amino Transferase 9 U/L (0-32); Blood Urea Nitrogen 12 mg/dL (8-23); Calcium 8.8 mg/dL (8.5-10.5); Carbon Dioxide 26 mmol/L (22-29); Chloride 95 mmol/L (98-107); Globulin 2.5 g/dL (1.3-4.6); Glucose 87 mg/dL (65-115); Osmolality Calculated 271 mOsm/kg (285-295); Potassium 4.6 mmol/L (3.5-5.1); Sodium 131 mmol/L (136-145); Total Bilirubin 0.2 mg/dL (0.15-1.2); Total Protein 6.4 g/dL (6.6-8.7)
[2020-09-25 23:59] LABS: Ferritin 845 ng/mL (15-150); Iron 100 ug/dL (37-145); Total Iron Binding Capacity 200 mcg/dl; Unsaturated Iron Binding 100 ug/dL (112-347)
== END 2020-10-01 23:00 | disposition home or self-care (01) ==
LOC: ONCMED 14:35
PROVIDERS: Internal Medicine Medical Oncology; PCP Physician Assistant Medical; Visit Provider Nurse Practitioner
DX: D75.81 Myelofibrosis (principal); D50.9 Iron deficiency anemia, unspecified; D72.819 Decreased white blood cell count, unspecified
CPT/HCPCS: 80053; 82728; 83540; 83550; 85025

== ENCOUNTER 2020-10-01 23:55 | Inpatient (IN) | payer MEDICARE, OTHER, SELFPAY ==
[2020-10-01 23:57] VITALS: BMI 19.8
[2020-10-02] VITALS (45 sets, daily range): BP systolic 88–119; BP diastolic 42–68; PULSE 82–109; RESP 14–20; TEMP 36.2–37.2; O2SAT 94–100
--- NOTE | 2020-10-02 00:08 | PC.NURSE ---
DIRECT ADMIT: PATIENT ARRIVED TO FLOOR VIA STRETCHER WITH EMS. PATIENT ORIENTED TO ROOM AND INTRODUCED TO STAFF.
--- NOTE | 2020-10-02 00:18 | USCV_ITS ---
Tonya Lynch Age: 80 Gender: F : 1940 Exam Date: 10/02/2020 06:34 Ordering Phys: Guy Burgess MD Technologist: [place] Exam Location: [facility] [place] Indication: DIZZINESS Risk Factors: Previous Vascular Surgery: Right Brachial BP: / Left Brachial BP: / Right Left Velocity (cm/s) Spectral Plaque Velocity (cm/s) Spectral Plaque Syst/Diast Broadening Syst/Diast Broadening 71.30/ 23.00 Prox CCA 81.80 / 25.60 122.30/23.70 Mid CCA 83.80 / 29.80 90.60/ 23.50 Distal CCA 60.00 / 20.60 106.50/14.50 Prox ICA 76.10 / 17.90 105.80/27.60 Mid ICA 81.60 / 28.70 112.50/45.20 Distal ICA 107.80/ 38.10 124.90 ECA 32.60 0.92 ICA/CCA 1.29 Antegrade Vertebral Antegrade 94.80/ 27.60 cm/s 71.70/ 23.20 cm/s Tri Subclavian Tri 149.1 142.0 0 0 FINDINGS Minimal plaques of the bifurcations bilaterally. Intimal thickening in the common carotid arteries bilaterally. Antegrade flow in the vertebral arteries bilaterally. Normal Doppler flow velocities in the subclavian arteries bilaterally CONCLUSIONS Minimal plaques bilaterally at the bifurcations with stenosis of less than 50%. Intimal thickening in the common carotid arteries bilaterally. No significant stenosis, based on the above findings Dr Mel Raman MD MERGED WITH [facility] (Electronically Signed) Final Date: 03 October 2020 00:36 S
--- NOTE | 2020-10-02 00:18 | CTR_ITS ---
PROCEDURE INFORMATION: Exam: CT Head Without Contrast Exam date and time: 10/02/2020 1:36 AM Age: 80 years old Clinical indication: Dizziness; Additional info: Dizzyness TECHNIQUE: Imaging protocol: Computed tomography of the head without contrast. Radiation optimization: All CT scans at this facility use at least one of these dose optimization techniques: automated exposure control; mA and/or kV adjustment per patient size (includes targeted exams where dose is matched to clinical indication); or iterative reconstruction. COMPARISON: CT head wo con* [id number] 06/16/2020 9:07 PM RADIATION DOSE METRICS: Total DLP (mGy-cm): 854.07 FINDINGS: Brain: Stable calcified meningioma of the left temporal bone. There is mild parenchymal atrophy and chronic small vessel disease. No acute infarct or hemorrhage. Cerebral ventricles: No ventriculomegaly. Bones/joints: Unremarkable. No acute fracture. Paranasal sinuses: Paranasal sinuses are clear. No air-fluid level. Mastoid air cells: Visualized mastoid air cells are clear. Soft tissues: Unremarkable. CT/CT head wo con* [id number] IMPRESSION: 1. Mild parenchymal atrophy and chronic small vessel disease. 2. No acute infarct or hemorrhage. 3. Stable calcified meningioma of the left temporal bone. Radiation Dose CTDIVOL = (mGy): DLP = 854.07 (mGy-cm)
--- NOTE | 2020-10-02 00:21 | ECG_ITS ---
[facility] Test Date: 2020-10-02 Pat Name: Tonya Lynch Department: Room: 264 Gender: Female Acute Dialysis Nurse: : 1940 Requested By: Guy Burgess Order Number: [id number] Vishnu MD: Mel Raman M.D. Measurements Intervals [place] Rate: 89 P: 62 NC: 132 QRS: 41 QRSD: 94 T: 80 QT: 355 QTc: 434 Interpretive Statements SINUS RHYTHM INCOMPLETE RIGHT BUNDLE BRANCH BLOCK [90+ ms QRS DURATION, TERMINAL R IN V1/V2, 40+ ms S IN I/aVL/V4/V5/V6] INTERPRETATION BASED ON A DEFAULT AGE OF 40 YEARS Compared to ECG 02/04/2018 20:40:33 No significant changes Electronically Signed On 10-02-2020 23:50:35 BIOMEDICAL EQUIPMENT SUPPORT SPECIALIST by Mel Raman M.D. [email or web address]
--- NOTE | 2020-10-02 00:24 | USCV_ITS ---
Tonya Lynch Age: 80 Gender: F : 1940 Exam Date: 10/02/2020 07:33 Ordering Phys: Guy Burgess MD Technologist: Rocael Rose [place] [facility] [place]: Aortic regurgitation BP: 135 / 78 HR: 87 Rhythm: Sinus Technical Quality: Fair MEASUREMENTS (Male / Female) Normal Values 2D ECHO LV Diastolic Diameter PLAX 4.4 cm 4.2 - 5.9 / 3.9 - 5.3 cm LV Systolic Diameter PLAX 2.8 cm IVS Diastolic Thickness 1.1 cm 0.6 - 1.0 / 0.6 - 0.9 cm IVS Systolic Thickness 1.3 cm LVPW Diastolic Thickness 1.0 cm 0.6 - 1.0 / 0.6 - 0.9 cm LVPW Systolic Thickness 1.4 cm LVOT Diameter 2.1 cm LV Ejection Fraction 2D Teich 66.4 % LV Ejection Fraction MOD 2C 67.5 % LV Ejection Fraction 2C AL 68.5 % LA Diameter 3.6 cm LA Width 3.4 cm LA Height 4.7 cm RA Width 3.5 cm RA Height 5.2 cm Aorta at Sinotubular Diameter 2.8 cm M-MODE LV Diastolic Diameter MM 6.2 cm 4.2 - 5.9 / 3.9 - 5.3 cm LV Systolic Diameter MM 3.8 cm LV Ejection Fraction MM Teich 68.9 % IVS Diastolic Thickness MM 1.1 cm 0.6 - 1.0 / 0.6 - 0.9 cm IVS Systolic Thickness MM 1.7 cm LVPW Diastolic Thickness MM 1.5 cm 0.6 - 1.0 / 0.6 - 0.9 cm LVPW Systolic Thickness MM 1.6 cm RV Diastolic Diameter MM 1.6 cm Aortic Annulus Diameter 3.8 cm LA Ao Ratio MM 1.1 MV E Point Septal Separation 1.5 cm DOPPLER AV Peak Velocity 268.7 cm/s LVOT Peak Velocity 146.0 cm/s AV Area Cont Eq vti 2.3 cm squared AV Area Cont Eq pk 1.9 cm squared MV Area PHT 5.0 cm squared Mitral E to A Ratio 0.9 MV E' Velocity 58.0 cm/s Mitral E to MV E' Ratio 9.1 Mitral E to LV E' Lateral Ratio 12.8 Mitral E to LV E' Septal Ratio 7.1 TR Peak Velocity 278.3 cm/s TR Peak Gradient 31.0 mmHg TV Peak E Velocity 123.0 cm/s Right Atrial Pressure 3.0 mmHg Pulmonary Artery Systolic Pressu 34.0 mmHg PV Peak Velocity 67.0 cm/s FINDINGS Left Ventricle Normal left ventricular size, systolic function and wall thickness, with no regional wall motion abnormalities. Left ventricular ejection fraction is estimated at 67 %. Normal diastolic function. Right Ventricle Normal right ventricular size and systolic function. Right ventricular systolic pressure 30 mmHg. Right Atrium Normal right atrial size. Left Atrium Upper normal left atrial size. Mitral Valve Severe mitral annular calcification. Mildly thickened mitral valve. No mitral valve stenosis. No mitral valve regurgitation. Aortic Valve Aortic valve not well visualized. Aortic valve sclerosis without stenosis. Moderate aortic valve regurgitation. Tricuspid Valve Structurally normal tricuspid valve. Pulmonic Valve Pulmonic valve not well visualized. No pulmonary valve stenosis. No significant pulmonary valve regurgitation. Pericardium No pericardial effusion. Aorta Normal size aortic root and proximal ascending aorta. Normal- sized inferior vena cava. CONCLUSIONS 1. Normal left ventricular size, systolic function and wall thickness, with no regional wall motion abnormalities. Left ventricular ejection fraction is estimated at 67 %. Normal diastolic function. 2. Normal right ventricular size and systolic function. 3. Pulmonary artery pressure estimated at 30 mmHg. 4. Moderate aortic valve regurgitation. 5. No prior similar studies to compare. Zoraida Abbott MD (Electronically Signed) Final Date: 02 October 2020 12:55 S
--- NOTE | 2020-10-02 00:32 | PM.HP ---
Providers/Chief Complaint Admitting Physician: Guy Burgess MD Primary Care Provider: Bj Mcdowell Chief Complaint: chronic anemia History of Present Illness Tonya Lynch is a 80 year old female with a past medical history of myelofibrosis, on ruxolitinib, history of CVA, hypertension, hyperlipidemia, CKD stage III, GERD, irritable bowel, degenerative arthritis, anxiety depression who presents to [facility] as a transfer from [facility] for concerns for weakness, fatigue, lightheadedness, presyncope, shortness of breath, fall. Patient tells me that she has a history of myelofibrosis, she chronically gets transfusions, she is managed by Dr. Gonzales, she tells me that she lives in [place], she has a couple dogs at home, no other help. She tells me that she chronically has lightheadedness, for the last 3 years, she tells me that they can never figure out why, she will report lightheadedness and dizziness occurring at any time, not really associate with position, she has had a CVA in the last 3 years, no remaining focal neurologic deficits. She also reports chronic knee osteoarthritis, she tells me that her knees frequently give out. This evening she went to the kitchen to grab a glass of water, just before she reached the kitchen, she felt that her knees gave out, she also felt lightheaded, she says that she almost passed out, but never passed out, no preceding chest pain or palpitations, no seizure-like episode, she tells me that she fell to the floor, she hurt her neck, she hurt her knee, she spent some time on the floor, before she was able to call her cousin who called 911. Patient presented to [facility] ER, work-up showed a hemoglobin of 6.1, creatinine of 1.25, due to concerns for fatigue and weakness, and that patient was scheduled to have a transfusion tomorrow at [facility] [place], I was called for transfer. Patient arrived at [facility] [place], she is on 3 L nasal cannula, she tells me she does not use oxygen, but has been feeling short of breath recently, has had a cough for the last 3 weeks, she quit smoking a few weeks ago, has a diagnosis COPD, no fevers, no chills, no loss of taste, no loss of smell, no known exposure to COVID-19, rapid Covid was negative. Her only complaint is knee pain, and lightheadedness. She also reports chest pain, she tells me that she has been developing chest pain on and off, and the left side of her chest, lasting a few seconds, fairly nonspecific, not associate with exertion, not associate with shortness of breath, no diaphoresis, no cardiovascular history, no history of CHF Review of Systems Const: Reports: malaise; Denies: fever(s), chills or fatigue Eyes: Denies: change in vision or blurry vision ENMT: Denies: nasal congestion Card: Reports: chest pain, lightheadedness and pre-syncope; Denies: irregular heart rhythm Resp: Reports: dyspnea and non-productive cough; Denies: productive cough or wheezing GI: Denies: abdominal pain, nausea, vomiting, hematemesis, diarrhea, constipation, hematochezia or melena : Denies: flank pain, dysuria or urinary frequency Musc: Reports: joint pain; Denies: neck pain or back pain Skin/Breast: Denies: rash Neuro: Denies: headache(s), dizziness or vertigo Psych: Denies: anxiety or depression Endo: Denies: polyuria or polydipsia Medications/Allergies Home Medications Medication Instructions Recorded Confirmed Last Taken Type Vitamin C 1 tab PO DAILY@0800 06/30/20 06/30/20 06/29/20 History Vitamin D3 1 tab PO DAILY@0800 06/30/20 06/30/20 06/29/20 History albuterol sulfate 2 inh INHALATION Q4H PRN #18 gm 06/30/20 Unknown Rx alprazolam 1 mg PO DAILY PRN 06/30/20 06/30/20 Unknown History ipratropium-albuterol [Combivent 1 puff INHALATION BID@09,199906/30/20 06/30/20 06/30/20 History Respimat] methylprednisolone [Medrol (Greg)] See Rx Instructions .ROUTE 06/30/20 Unknown Rx .COMPLEX #21 each pantoprazole 40 mg PO DAILY 06/30/20 06/30/20 Unknown History prednisone See Rx Instructions .ROUTE .COMPLEX 06/30/20 06/30/20 Unknown History ropinirole 0.25 mg PO BID@0800,199906/30/20 06/30/20 Unknown History ruxolitinib [Jakafi] 20 mg PO CONT 06/30/20 06/30/20 06/30/20 History tramadol-acetaminophen 1 tab PO Q6H PRN 06/30/20 06/30/20 06/29/20 History vitamin E 1 tab PO DAILY@0800 06/30/20 06/30/20 Unknown History Allergies Allergy/AdvReac Type Severity Reaction Status Date / Time No Known Allergies Allergy Verified 06/16/20 22:57 PFSH Acute PFSH: Medical History (Updated 10/02/20 @ 00:44 by Guy Burgess MD) Chronic kidney disease Hypertension Irritable bowel syndrome Myelodysplasia (myelodysplastic syndrome) Surgical History (Updated 10/02/20 @ 00:39 by Guy Burgess MD) History of appendectomy History of cholecystectomy History of hysterectomy Family History (Updated 10/02/20 @ 00:39 by Guy Burgess MD) Mother Lung disease Asthma Father CAD (coronary artery disease) Social History (Updated 10/02/20 @ 00:40 by Guy Burgess MD) Smoking and tobacco status: current every day smoker cigarettes Packs smoked per day: 1 Alcohol intake: never Substance/Drug Use: never Vitals/I&O/Wt Last Vital Signs Temp 97.2 F L 10/02/20 00:05 Pulse 93 10/02/20 00:05 Resp 17 10/02/20 00:05 BP 119/68 10/02/20 00:05 Pulse Ox 100 10/02/20 00:05 Weight last 48 hrs Weight 60.827 kg Physical Exam Const: COMMON NORMALS: no acute distress GENERAL APPEARANCE: cooperative and frail appearing NUTRITIONAL APPEARANCE: thin HENMT: COMMON NORMALS: normocephalic HEAD & SCALP: normocephalic Eye: COMMON NORMALS: Equal, round and reactive pupils present and EOMs intact bilaterally GENERAL EYE: appearance normal, both eyes and all related structures PUPIL: Yes Equal, round and reactive pupils present Neck/C-Spine: COMMON NORMALS: full ROM and no JVD Resp: COMMON NORMALS: normal respiratory effort, No retractions and No use of accessory muscles AUSCULTATION: wheezes inspiratory wheezes Cardio: COMMON NORMALS: no JVD, regular rate, regular rhythm, S1 normal heart sound present, S2 normal heart sound present, No gallops present (Cardio), No clicks present (Cardio) and No murmurs present (Cardio) RATE: regular rate RHYTHM: regular rhythm HEART SOUNDS: S1 normal heart sound present and S2 normal heart sound present GI: COMMON NORMALS: Normal to inspection, nondistended, normoactive bowel sounds present, Soft to palpation, non-tender and No hepatosplenomegaly present PALPATION: Yes Soft to palpation Extremity: COMMON NORMALS: normal to inspection, full ROM and no pedal edema Neuro: COMMON NORMALS: patient oriented x3, CN's II-XII intact bilaterally, moves all extremities and no focal motor deficits Psych: COMMON NORMALS: mental status grossly normal, Normal thought process present and cooperative THOUGHT PROCESS: Normal thought process present A&P Assessment and plan (1) Anemia: Transfusion dependent myelofibrosis We will transfuse 1 unit PRBC, patient has a risk of iron overload Ferritin, iron, reticulocyte count Status: Acute (2) Falls: Likely multifactorial related to anemia, degenerative arthritis, possible other etiology of presyncope PT OT Orthostatic vitals Status: Acute (3) Pre-syncope: -Patient describes presyncopal symptoms, occurring frequently, for the last 3 years -Some associated with falls -Likely related to acute on chronic anemia, degenerative arthritis -However she does have a history of CVA -We will perform orthostatic vitals -Telemetry monitoring -CT head -Carotid artery ultrasound -Cardiac echo Status: Acute (4) Chest pain: -Fairly nonspecific -Serial EKGs, serial troponins -Echo as above Status: Acute (5) Degenerative arthritis: Had x-rays at [facility], no acute fracture Status: Acute (6) Hyperlipidemia: Status: Acute (7) Irritable bowel syndrome: Status: Acute (8) Hypertension: Status: Acute (9) Chronic kidney disease: Status: Acute (10) Myelofibrosis: Status: Acute Additional A&P Information Patient is a full code Anticoagulation contraindicated given anemia Attestations Medical Necessity Statement*: Patient requires hospitalization, outpatient with observation, for anemia, falls, presyncope, chest pain, deconditioning Coding Level of Care Code Acute Press Assistant for [facility] F[facility] Diagnoses Anemia D64.9 Falls W19.XXXA Pre-syncope R55 Chest pain R07.9 Degenerative arthritis M19.90 Hyperlipidemia E78.5 Irritable bowel syndrome K58.9 Hypertension I10 Chronic kidney disease N18.9 Myelofibrosis D75.81
[2020-10-02] MEDS: sodium chloride 0.9% 1,000 ML 75 ML IV ×2 (01:09→14:35)
[2020-10-02 01:15] LABS: Ferritin 847 ng/mL (15-150); Iron 185 ug/dL (37-145)
[2020-10-02 01:17] LABS: Troponin(5th) Baseline 25 ng/L (0-10)
--- NOTE | 2020-10-02 02:21 | ECG_ITS ---
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 Measurements Intervals [place] Rate: 89 P: 62 ND: 132 QRS: 41 QRSD: 94 T: 80 QT: 355 QTc: 434 Interpretive Statements SINUS RHYTHM INCOMPLETE RIGHT BUNDLE BRANCH BLOCK [90+ ms QRS DURATION, TERMINAL R IN V1/V2, 40+ ms S IN I/aVL/V4/V5/V6] INTERPRETATION BASED ON A DEFAULT AGE OF 40 YEARS Compared to ECG 02/04/2018 20:40:33 No significant changes Electronically Signed On 10-02-2020 23:56:17 RADIOPHARMACIST by Mel Raman M.D. [id number]
[2020-10-02 02:54] LABS: Troponin 5 2HR 27.41 ng/L (0-10); Troponin 5 2HR Delta 2.41 ABS# (0-10)
[2020-10-02] MEDS: ipratropium-albuterol 3 mL Neb INHALATION ×5 (03:10→19:46)
--- NOTE | 2020-10-02 06:21 | ECG_ITS ---
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 Measurements Intervals [place] Rate: 87 P: 54 NC: 124 QRS: -5 QRSD: 102 T: 67 QT: 369 QTc: 444 Interpretive Statements SINUS RHYTHM INCOMPLETE RIGHT BUNDLE BRANCH BLOCK [90+ ms QRS DURATION, TERMINAL R IN V1/V2, 40+ ms S IN I/aVL/V4/V5/V6] Compared to ECG 10/02/2020 03:14:12 No significant changes Electronically Signed On 10-02-2020 23:56:22 [employer] CORE LAYER by Mel Raman M.D. [email or web address]
[2020-10-02 06:57] LABS: Basophils % 0.2 %; Lymphocytes % 19.6 %; Mean Corpuscular HGB Conc 29.1 g/dL (30.0-36.0); Mean Corpuscular Hemoglobin 29.5 pg (28.0-34.0); Mean Corpuscular Volume 101.7 fL (81-99); Mean Platelet Volume 10.9 fL (7.4-10.4); Monocytes # 0.5 10^3/uL (0.2-0.9); Monocytes % 9.6 %; Neutrophils # 3.31 10^3/uL (1.8-7.7); Neutrophils % 64.9 %; Nucleated Red Blood Cells % 0.4 %; Platelet Count 194 10^3/cmm (130-400); Red Blood Count 1.76 10^6/uL (4.1-5.3); Red Cell Distribution Width 15.6 % (12.1-15.1); White Blood Count 5.1 10^3/uL (4.0-10.0)
[2020-10-02 06:59] LABS: Hematocrit 17.9 % (37.0-47.0); Hemoglobin 5.2 g/dL (11.5-15.3)
--- NOTE | 2020-10-02 07:02 | PC.NURSE ---
Notified Care Nurse JEFFRY Carmona and Dr Burgess that patient has critical labs Hgb 5.2 and Hct 17.9.
--- NOTE | 2020-10-02 07:41 | PC.OT ---
OT note: From chart review hgb is 5.2 and hct is 17.9. Will hold at this time.
--- NOTE | 2020-10-02 08:00 | PC.NURSE ---
Nurse was notified of low bp: 88/42
[2020-10-02 09:01] LABS: Hemoglobin 6.2 g/dL (11.5-15.3)
[2020-10-02] MEDS: famotidine 20 mg Tablet PO (09:01)
[2020-10-02] MEDS: predniSONE 20 mg Tablet 40 MG PO (09:01)
[2020-10-02] MEDS: ascorbic acid 500 mg Tablet PO (09:01)
[2020-10-02 09:02] LABS: Hematocrit 19.2 % (37.0-47.0)
[2020-10-02] MEDS: ropinirole 0.25 mg Tablet PO ×2 (09:02→20:36)
[2020-10-02 09:19] LABS: Troponin 5 6HR 22.68 ng/L (0-10)
[2020-10-02 09:23] LABS: Troponin 5 6HR Delta -2.32 ng/L (0-12)
--- NOTE | 2020-10-02 10:25 | PC.NURSE ---
lab called and said 2 units blood ready. check writer notified Care Nurse Silvia
[2020-10-02] MEDS: TRAMadol 50 mg Tablet PO ×2 (10:26→19:52)
[2020-10-02] MEDS: sodium chloride 0.9% (100 ml) 100 ML 10 ML ×2 (10:45→17:54)
--- NOTE | 2020-10-02 10:53 | P.PN_ITS ---
Subjective Subjective: Interval history: Patient appears dyspneic this morning. Reports that she is short of breath but denies chest pain. She is saturating 96% on 2 L. She received 1 inch of blood and second 1 ordered Vitals/I&O/Wt Last Vital Signs Temp 97.5 F L 10/02/20 10:40 Pulse 94 10/02/20 10:40 Resp 18 10/02/20 10:40 BP 100/57 10/02/20 10:40 Pulse Ox 96 10/02/20 08:19 10/01/20 10/02/20 10/02/20 22:59 06:59 14:59 Intake Total 590 / 590 240 / 240 Output Total 500 / 500 Balance 590 / 590 -260 / -260 Weight last 48 hrs Weight 60.827 kg Physical Exam Narrative: EXAM NARRATIVE: Lungs are clear with relatively good air movement. No wheezing rales or rhonchi. Data : 10/02/20 08:34 A&P Assessment and plan (1) Anemia: Transfusion dependent myelofibrosis We will transfuse 1 unit PRBC, patient has a risk of iron overload Ferritin, iron, reticulocyte count Status: Acute (2) Falls: Likely multifactorial related to anemia, degenerative arthritis, possible other etiology of presyncope PT OT Orthostatic vitals Status: Acute (3) Pre-syncope: -Patient describes presyncopal symptoms, occurring frequently, for the last 3 years -Some associated with falls -Likely related to acute on chronic anemia, degenerative arthritis -However she does have a history of CVA -We will perform orthostatic vitals -Telemetry monitoring -CT head -Carotid artery ultrasound -Cardiac echo Status: Acute (4) Chest pain: -Fairly nonspecific -Serial EKGs, serial troponins -Echo as above Status: Acute (5) Degenerative arthritis: [facility], no acute fracture Status: Acute (6) Hyperlipidemia: Status: Acute (7) Irritable bowel syndrome: Status: Acute (8) Hypertension: Status: Acute (9) Chronic kidney disease: Status: Acute (10) Myelofibrosis: Status: Acute Additional A&P Information PLAN: Continue with blood transfusion. Patient currently is not in COPD exacerbation therefore will discontinue prednisone and start patient on Protonix for better GI protection. She does not appear to have GI bleed. Attestations Medical Necessity Statement*: Patient with myelofibrosis requires hospitalization for monitoring and treatment including blood transfusion Time Spent in Patient Care: 16 - 35 minutes Coding Level of Care Code Acute Delivery Helper for [facility] Fwd Diagnoses Anemia D64.9 Falls W19.XXXA Pre-syncope R55 Chest pain R07.9 Degenerative arthritis M19.90 Hyperlipidemia E78.5 Irritable bowel syndrome K58.9 Hypertension I10 Chronic kidney disease N18.9 Myelofibrosis D75.81
--- NOTE | 2020-10-02 11:28 | PC.CHAP ---
Pastoral Care Encounter/Spiritual Assessment Type of Contact [] Declined orthopedic cast specialist visit [] Patient/Family/Request visit [] Outpatient visit [] Follow-up visit [] Physician referral [] Code/Alert [x] Routine visit [] Staff referral [] Actively dying [] Patient sleeping [] Family support [] [] Out of room [] Palliative care [] [x] Receiving care in room [] Pre-surgical visit [] Trauma [] Long length of stay [] ICU visit [] Other: Relational/Emotional Strength [] Patient feels connected with others/family/visitors/staff [] Distress [] Loneliness/isolation [] Abandonment Spirituality of Patient [x] Person of Juliane [] Attends Yazidism of their Juliane [x] Believes in Prayer [] Reads Bible or Anglican materials [] There are Spiritual issues to be addressed Extrusion Supervisor Interventions [x] Prayer [] Active listening [] Non-anxious presence [] Spiritual/emotional support [] Crisis/trauma care [] Spiritual counseling [] Bereavement support [] Provided bereavement packet [] Provided Bible/devotional materials [] Provided toy/stuffed animal, coloring book to patient or family member [] Provided Communion [] Anointing/[place] [] Salvation [] Completed spiritual assessment [] Other: Impact on Illness or Injury [] Angry [] Fearful [] Anxious [] Often cries [] Exhaustion [] Unable to work [] Unable to attend amish [] Unable to walk/stand [] Unable to read [] Unable to drive [] Unable to eat/drink [] Unable to sleep [] Unable to be with family [] Patient intubated [] Other: Summary Seemed to be short of breath, but a kind woman. Time spent with patient 5 minutes
[2020-10-02 16:45] LABS: Hemoglobin 6.7 g/dL (11.5-15.3)
[2020-10-02 16:55] LABS: Hematocrit 20.3 % (37.0-47.0)
--- NOTE | 2020-10-02 16:58 | PC.NURSE ---
notified Care Nurse Silvia and Dr Bose that patient has Hct of 20.3.
[2020-10-02] MEDS: pantoprazole DR 40 mg Tablet PO (17:15)
--- NOTE | 2020-10-02 17:18 | P.CONIM_ITS ---
Providers/Reason For Consult Consulting Physican/Specialty*: Mohit Archuleta MD Reason for Consult*: Melena associated with anemia Attending Physician: Seth Bose MD Primary Care Provider: Bj Mcdowell History of Present Illness History of Present Illness Chief Complaint: I have black stools History of present illness: Ms Tonya Lynch is a pleasant 80 year old female admitted to the hospitalist service with history of chronic myelodysplasia and has been receiving blood tra nsfusion on regular basis every 2 weeks. Patient reports that she has been having black stools for the past 2 weeks or so and hospitalist service is concerned about the patient not responding appropriately to blood transfusion as expected and in the presence of black stool General surgery was consulted for potential evaluation and possible upper endoscopy.Patient reports that she had a previous colonoscopy about 10 years ago or so and was within normal limits. Patient does have multiple medical comorbidities including myelofibrosis, history of CVA, hypertension, hyperlipidemia, chronic kidney stage III, GERD, irritable bowel, degenerative arthritis, anxiety and depression. Patient is well-known history of COPD but she does not use home O2. On evaluation patient is resting comfortably in bed and having a regular diet for supper. Review of Systems General: Reports: 10 or more systems reviewed and unremarkable except in HPI and below Meds/Allergies Home Medications and Allergies Home Medications Medication Instructions Recorded Confirmed Last Taken Type Vitamin C 1 tab PO DAILY@0800 06/30/20 10/02/20 1 Day Ago History ~10/01/20 Vitamin D3 1 tab PO DAILY@0800 06/30/20 10/02/20 1 Day Ago History ~10/01/20 albuterol sulfate 2 inh INHALATION Q4H PRN #18 gm 06/30/20 10/02/20 1 Day Ago Rx ~10/01/20 alprazolam 1 mg PO DAILY PRN 06/30/20 10/02/20 1 Day Ago History ~10/01/20 ipratropium-albuterol [Combivent 1 puff INHALATION BID@899,199906/30/20 10/02/20 1 Day Ago History Respimat] ~10/01/20 methylprednisolone [Medrol (Greg)] See Rx Instructions .ROUTE 06/30/20 10/02/20 Unknown Rx .COMPLEX #21 each pantoprazole 40 mg PO DAILY 06/30/20 10/02/20 2 Days Ago History ~09/30/20 prednisone See Rx Instructions .ROUTE .COMPLEX 06/30/20 10/02/20 1 Day Ago History ~10/01/20 ropinirole 0.25 mg PO BID@06/30/20 10/02/20 1 Day Ago History ~10/01/20 ruxolitinib [Jakafi] 20 mg PO CONT 06/30/20 10/02/20 1 Day Ago History ~10/01/20 tramadol-acetaminophen 1 tab PO Q6H PRN 06/30/20 10/02/20 1 Day Ago History ~10/01/20 vitamin E 1 tab PO DAILY@0800 06/30/20 10/02/20 1 Day Ago History ~10/01/20 Allergies Allergy/AdvReac Type Severity Reaction Status Date / Time No Known Allergies Allergy Verified 10/02/20 17:50 Current Medications Current Medications Generic Name Dose Route Start Last Admin Trade Name Freq PRN Reason Stop Dose Admin Albuterol/Ipratropium 3 ml 10/02/20 04:00 10/02/20 15:19 Ipratropium-Albuterol 3 Ml Neb INHALATION 3 ml Q4H.RESPIRATORY FRANCESCO Administration Sodium Chloride 1,000 mls @ 75 mls/hr 10/02/20 00:30 10/02/20 14:35 Sodium Chloride 0.9% IV 75 mls/hr .[id number] FRANCESCO Administration Pantoprazole Sodium 40 mg 10/02/20 18:00 10/02/20 17:[address] 40 Mg Tablet PO 40 mg BID FRANCESCO Administration Ropinirole HCl 0.25 mg 10/02/20 08:00 10/02/20 09:02 Ropinirole 0.25 Mg Tablet PO 0.25 mg BID@799,1999 FRANCESCO Administration Tramadol HCl 50 mg 10/02/20 10:13 10/02/20 10:26 Tramadol 50 Mg Tablet PO 50 mg Q6H PRN Administration MODERATE PAIN Vitamin E 400 unit 10/02/20 08:00 10/02/20 09:01 Vitamin E 400 Unit Capsule PO 400 unit DAILY@0800 FRANCESCO Administration PFSH Acute PFSH: Medical History Chronic kidney disease Hypertension Irritable bowel syndrome Myelodysplasia (myelodysplastic syndrome) Surgical History History of appendectomy History of cholecystectomy History of hysterectomy Family History Mother Lung disease Asthma Father CAD (coronary artery disease) Social History Smoking and tobacco status: current every day smoker cigarettes Packs smoked per day: 1 Alcohol intake: never Substance/Drug Use: never Vitals/I&O/Wt Last Vital Signs Temp 98.0 F 10/02/20 15:16 Pulse 82 10/02/20 15:26 Resp 18 10/02/20 15:26 BP 96/50 10/02/20 15:16 Pulse Ox 99 10/02/20 15:26 10/02/20 10/02/20 10/02/20 06:59 14:59 22:59 Intake Total 590 / 590 1830 / 1830 Output Total 500 / 500 400 / 900 Balance 590 / 590 1330 / 1330 -400 / 930 Weight last 48 hrs Weight 134 lb 1.6 oz Physical Exam Narrative: EXAM NARRATIVE: Patient is conscious alert oriented X3 BMI 20 Head and neck examination PERRLA no masses no cervical lymphadenopathy no jaundice Cardiac examination audible S1-S2 no murmurs no gallops no arrhythmias Chest is clear bilateral,abscence of Rhonchi or wheezes,no surgical emphysema Abdomen nontender nondistended soft no organomegaly guarding or rigidity/no signs of peritonitis A&P Assessment and plan (1) Melena: Plan of care; After thorough history and physical examination and reviewing the chart, plan to perform a diagnostic esophagogastroduodenoscopy with possible biopsy in the GI lab. I discussed with the patient in detail the risk,benefits,alternatives and indications.The risk of aspiration, bleeding, soft tissue injury, perforation of the stomach/esophagus and other potential concomitant complications were explained to the patient in details,aslo the potential need for Thoracic and or Abdominal surgery to repair any complications.The patient understood this well and did agree to proceed. Rationale was carefully and clearly discussed with the patient.Appropriate informed consent have been reviewed and signed All questions have been answered and all concerns have been addressed to patient's satisfaction. Status: Acute Consult Attestations Medical Necessity Statement: Continue hospitalization for medical management of anemia and surgical consultation for endoscopy Time Spent in Patient Care: (>than 50% of time spent in counselling and/or direct pt care on unit) . Coding Level of Care Code Acute [employer] for Chg Fwd Diagnoses Melena K92.1
--- NOTE | 2020-10-02 17:58 | PC.NURSE ---
SHIFT SUMMARY PATIENT HAS DONE WELL TODAY. PATIENT STATED SHE FEELS STRONGER NOW AFTER BLOOD TRANSFUSIONS. PATIENT IS AMBULATING FROM BED TO BEDSIDE COMMODE WITH ONE PERSON ASSIST. PATIENT ON 1L NC. OXYGEN SATURATION 98-100%. 900ML OF URINE OUTPUT. COMPLAINTS OF LEG PAIN THIS AM. THIS NURSE ADMINISTERED TRAMADOL, PAIN WELL CONTROLLED. IN CONVERSATION PATIENT MENTIONED HAVING BLACK TARRY STOOLS. THIS NURSE NOTIFIED DR. COHEN AND DR. CAPONE WAS CONSULTED. PLAN IS FOR EGD TOMORROW. PATIENT HAS RECEIVED 2 UNITS OF PRBC'S, CURRENTLY RECEIVING A 3RD UNIT, AND HAS 2 MORE ORDERED. TOLERATING WELL.
--- NOTE | 2020-10-02 22:15 | PC.NURSE ---
NURSES IN ROOM DOING BLOOD INFUSION.
[2020-10-03] VITALS (32 sets, daily range): BP systolic 89–118; BP diastolic 41–63; PULSE 75–99; RESP 16–20; TEMP 36.3–37.1; O2SAT 93–99
[2020-10-03] MEDS: ipratropium-albuterol 3 mL Neb INHALATION ×5 (00:07→15:31)
[2020-10-03 06:18] LABS: Basophils % 0.5 %; Eosinophils % 0.2 %; Hematocrit 26.1 % (37.0-47.0); Hemoglobin 8.8 g/dL (11.5-15.3); Lymphocytes # 0.5 10^3/uL (0.8-4.8); Lymphocytes % 11.5 %; Mean Corpuscular HGB Conc 33.7 g/dL (30.0-36.0); Mean Corpuscular Volume 86.1 fL (81-99); Mean Platelet Volume 10.9 fL (7.4-10.4); Monocytes # 0.4 10^3/uL (0.2-0.9); Monocytes % 10.1 %; Neutrophils # 3.19 10^3/uL (1.8-7.7); Neutrophils % 73.1 %; Nucleated Red Blood Cells % 0.5 %; Platelet Count 137 10^3/cmm (130-400); Red Blood Count 3.03 10^6/uL (4.1-5.3); Red Cell Distribution Width 16.7 % (12.1-15.1); White Blood Count 4.4 10^3/uL (4.0-10.0)
[2020-10-03 06:48] LABS: NT Pro B Type Natriuretic Pept 958 pg/mL (0-450); Procalcitonin 0.13 ng/mL (0-0.5)
[2020-10-03 06:51] LABS: Alanine Aminotransferase 8 U/L (0-33); Alkaline Phosphatase 49 IU/L (35-105); Anion Gap 13.5 (5-19); Aspartate Amino Transferase 7 U/L (0-32); Blood Urea Nitrogen 33 mg/dL (8-23); Calcium 7.8 mg/dL (8.5-10.5); Carbon Dioxide 19 mmol/L (22-29); Chloride 105 mmol/L (98-107); Globulin 1.7 g/dL (1.3-4.6); Glucose 105 mg/dL (65-115); Magnesium 1.9 mg/dL (1.7-2.3); Osmolality Calculated 286 mOsm/kg (285-295); Phosphorus 3.5 mg/dL (2.5-4.5); Potassium 3.5 mmol/L (3.5-5.1); Sodium 134 mmol/L (136-145); Thyroid Stimulating Hormone 3.18 uIU/mL (0.27-4.20); Total Bilirubin 0.5 mg/dL (0.15-1.2); Total Protein 4.7 g/dL (6.6-8.7)
--- NOTE | 2020-10-03 07:00 | XR_ITS ---
WS: [id number] Portable AP upright chest, 10/03/2020 Clinical Data: sob Comparison: Portable chest, 06/30/2020. Findings: No nodules, masses or effusions are seen. The heart is normal. The pulmonary vascularity is not increased. No pneumonia or pneumothorax is seen. The aortic arch and descending aorta show tortu osity. Monitor leads are on the chest wall. XR/XR chest 1V portable [id number] Impression: Atherosclerosis.
[2020-10-03] MEDS: TRAMadol 50 mg Tablet PO ×2 (07:12→13:49)
[2020-10-03] MEDS: ropinirole 0.25 mg Tablet PO (07:12)
[2020-10-03] MEDS: pantoprazole DR 40 mg Tablet PO (07:12)
[2020-10-03] MEDS: sodium chloride 0.9% 1,000 ML 30 ML IV (08:30)
--- NOTE | 2020-10-03 08:30 | PM.PN ---
Subjective Subjective: Interval history: Patient reported yesterday that she had melanotic stool therefore Dr. Archuleta was consulted and patient is going to be scoped today. This morning she denies shortness of breath or chest pain. Denies significant abdominal pain. She received 5 units of blood and her hemoglobin is up to 8.8. Patient does have underlying dementia and is very poor historian. She could not recall medication she takes at home. She does not know if she takes prednisone or not. Vitals/I&O/Wt Last Vital Signs Temp 97.8 F 10/03/20 08:24 Pulse 80 10/03/20 08:24 Resp 18 10/03/20 08:24 BP 96/52 10/03/20 08:24 Pulse Ox 98 10/03/20 08:24 10/02/20 10/03/20 10/03/20 22:59 06:59 14:59 Intake Total 870 / 2700 1935 / 4635 Output Total 400 / 900 325 / 1225 600 / 600 Balance 470 / 1800 1610 / 3410 -600 / -600 Weight last 48 hrs Weight 60.827 kg Physical Exam Narrative: EXAM NARRATIVE: Lungs are clear with relatively good air movement. No wheezing rales or rhonchi. Heart is regular. Abdomen is soft and nontender with positive bowel sounds Data : 10/03/20 06:09 10/03/20 06:09 A&P Assessment and plan (1) Anemia: Transfusion dependent myelofibrosis We will transfuse 1 unit PRBC, patient has a risk of iron overload Ferritin, iron, reticulocyte count Status: Acute (2) Falls: Likely multifactorial related to anemia, degenerative arthritis, possible other etiology of presyncope PT OT Orthostatic vitals Status: Acute (3) Pre-syncope: -Patient describes presyncopal symptoms, occurring frequently, for the last 3 years -Some associated with falls -Likely related to acute on chronic anemia, degenerative arthritis -However she does have a history of CVA -We will perform orthostatic vitals -Telemetry monitoring -CT head -Carotid artery ultrasound -Cardiac echo Status: Acute (4) Chest pain: -Fairly nonspecific -Serial EKGs, serial troponins -Echo as above Status: Acute (5) Degenerative arthritis: Had x-rays at [facility], no acute fracture Status: Acute (6) Hyperlipidemia: Status: Acute (7) Irritable bowel syndrome: Status: Acute (8) Hypertension: Status: Acute (9) Chronic kidney disease: Status: Acute (10) Myelofibrosis: Status: Acute (11) Upper GI bleed: Status: Acute Additional A&P Information PLAN: Continue monitoring and treatment. Awaiting EGD. If shows no significant problems and if patient's melanotic stools resolved we can likely discharge patient home either today or tomorrow. Attestations Medical Necessity Statement*: Patient with what appears GI bleed requires close inpatient monitoring, treatment and evaluation. Coding Level of Care Code Acute Home Health Care Provider for Chg Fwd Diagnoses Anemia D64.9 Falls W19.XXXA Pre-syncope R55 Chest pain R07.9 Degenerative arthritis M19.90 Hyperlipidemia E78.5 Irritable bowel syndrome K58.9 Hypertension I10 Chronic kidney disease N18.9 Myelofibrosis D75.81 Upper GI bleed K92.2
--- NOTE | 2020-10-03 08:58 | PC.OT ---
OT note: Pt scheduled for EGD today, will hold at this time.
--- NOTE | 2020-10-03 09:00 | P.ANESASSM_ITS ---
Pre-Anesthetic Assessment Pre-Anesthetic Assessment: Height/Weight: Height 1.75 m Weight 60.827 kg Temp Pulse Resp BP Pulse Ox 97.8 F 80 18 96/52 98 10/03/20 08:24 10/03/20 08:24 10/03/20 08:24 10/03/20 08:24 10/03/20 08:24 Preop Diagnosis: Melena Proposed Procedure: Operation Date: 10/03/20 11:15 Proposed Procedures p EGD/COLON(Not Applicable) - Mohit Archuleta MD s Colonoscopy(Not Applicable) - Mohit Archuleta MD Was Beta Junaid taken within 24 hours: N/A Social: Social History: Tobacco and No alcohol Exam: Pre-Anes Outpt Exam: alert, oriented x 3 and regular rate & rhythm Additional Exam Findings (including area of procedure): rhonchi Airway: Submandibular: WNL Cervical ROM: WNL MP: 2 Additional comments: very poor dentition Pulmonary: Pulmonary: COPD CV/HEM: CV/HEM: Anemia and HTN Comments: Myelofibrosis : : Chronic renal Insufficiency GI: GI: GERD Anesthetic Plan: ASA status: 3 Anesthesia: MAC Risk of > 500 ml blood loss (7ml/kg in children): No Meds/Allergies Current Medications: Current Medications Generic Name Dose Route Start Last Admin Trade Name Freq PRN Reason Stop Dose Admin Albuterol/Ipratrop ium 3 ml 10/02/20 04:00 10/03/20 07:56 Ipratropium-Albu terol 3 Ml Neb INHALATION 3 ml Q4H.RESPIRATORY S CH Administration Sodium Chloride 1,000 mls @ 75 ml s/hr 10/02/20 00:30 10/03/20 06:03 Sodium Chloride 0.9% IV Not Given .[id number] FRANCESCO Sodium Chloride 1,000 mls @ 30 ml s/hr 10/03/20 08:13 10/03/20 08:30 Sodium Chloride 0.9% IV 10/04/20 08:12 30 mls/hr .Q24H ONE Administration Pantoprazole Sodiu m 40 mg 10/02/20 18:00 10/03/20 07:[address] 40 Mg Tablet PO 40 mg BID FRANCESCO Administration Ropinirole HCl 0.25 mg 10/02/20 08:00 10/03/20 07:12 Ropinirole 0.25 Mg Tablet PO 0.25 mg BID@0800,2000 FRANCESCO Administration Tramadol HCl 50 mg 10/02/20 10:13 10/03/20 07:12 Tramadol 50 Mg T ablet PO 50 mg Q6H PRN Administration MODERATE PAIN Vitamin E 400 unit 10/02/20 08:00 10/03/20 07:13 Vitamin E 400 Un it Capsule PO 400 unit DAILY@0800 FRANCESCO Administration PFSH Anesthesia PFSH: Medical History Chronic kidney disease Hypertension Irritable bowel syndrome Myelodysplasia (myelodysplastic syndrome) Surgical History History of appendectomy History of cholecystectomy History of hysterectomy Family History Mother Lung disease Asthma Father CAD (coronary artery disease) Social History Smoking and tobacco status: current every day smoker cigarettes Packs smoked per day: 1 Alcohol intake: never Substance/Drug Use: never Data Anesthesia CBC & Chem 7: 10/03/20 06:09 10/03/20 06:09 Other Labs: Laboratory Results - last 48 hr 10/02/20 10/02/20 10/02/20 00:43 00:43 00:43 WBC RBC Hgb Hct MCV MCH MCHC RDW Plt Count MPV Neut % (Auto) Lymph % (Auto) [place] % (Auto) Eos % (Auto) Baso % (Auto) Reticulocyte % (Auto) 1.7100 Neut # (Auto) Lymph # (Auto) [place] # (Auto) Eos # (Auto) Baso # (Auto) Nucleated RBC % (auto) Nucleated RBCs # Sodium Potassium Chloride Carbon Dioxide Anion Gap BUN Creatinine GFR Calculation Glucose Calculated Osmolality Calcium Phosphorus Magnesium Iron Ferritin Total Bilirubin AST ALT Alkaline Phosphatase Troponin T Baseline 25 H Troponin T 120 Minute Delta Troponin T Troponin T Hi Sens 6Hr Troponin T Hi Sens 6Hr Delta NT-Pro-B Natriuret Pep Total Protein Albumin Globulin Procalcitonin TSH Blood Type A Positive Rho(D) Type Positive Antibody Screen Negative Crossmatch See Detail 10/02/20 10/02/20 10/02/20 00:43 00:43 02:19 WBC 5.1 RBC 1.76 L Hgb 5.2 L* Hct 17.9 L* MCV 101.7 H MCH 29.5 MCHC 29.1 L RDW 15.6 H Plt Count 194 MPV 10.9 H Neut % (Auto) 64.9 Lymph % (Auto) 19.6 [place] % (Auto) 9.6 Eos % (Auto) 0.0 Baso % (Auto) 0.2 Reticulocyte % (Auto) Neut # (Auto) 3.31 Lymph # (Auto) 1.0 [place] # (Auto) 0.5 Eos # (Auto) 0.0 Baso # (Auto) 0.0 Nucleated RBC % (auto) 0.4 Nucleated RBCs # 0.0 Sodium Potassium Chloride Carbon Dioxide Anion Gap BUN Creatinine GFR Calculation Glucose Calculated Osmolality Calcium Phosphorus Magnesium Iron 185 H Ferritin 847 H Total Bilirubin AST ALT Alkaline Phosphatase Troponin T Baseline Troponin T 120 Minute 27.41 H Delta Troponin T 2.41 Troponin T Hi Sens 6Hr Troponin T Hi Sens 6Hr Delta NT-Pro-B Natriuret Pep Total Protein Albumin Globulin Procalcitonin TSH Blood Type Rho(D) Type Antibody Screen Crossmatch 10/02/20 10/02/20 10/02/20 08:34 08:34 16:18 WBC RBC Hgb 6.2 L* 6.7 L Hct 19.2 L* 20.3 L* MCV MCH MCHC RDW Plt Count MPV Neut % (Auto) Lymph % (Auto) [place] % (Auto) Eos % (Auto) Baso % (Auto) Reticulocyte % (Auto) Neut # (Auto) Lymph # (Auto) [place] # (Auto) Eos # (Auto) Baso # (Auto) Nucleated RBC % (auto) Nucleated RBCs # Sodium Potassium Chloride Carbon Dioxide Anion Gap BUN Creatinine GFR Calculation Glucose Calculated Osmolality Calcium Phosphorus Magnesium Iron Ferritin Total Bilirubin AST ALT Alkaline Phosphatase Troponin T Baseline Troponin T 120 Minute Delta Troponin T Troponin T Hi Sens 6Hr 22.68 H Troponin T Hi Sens 6Hr Delta -2.32 L NT-Pro-B Natriuret Pep Total Protein Albumin Globulin Procalcitonin TSH Blood Type Rho(D) Type Antibody Screen Crossmatch 10/03/20 10/03/20 10/03/20 06:09 06:09 06:09 WBC 4.4 RBC 3.03 L Hgb 8.8 L D Hct 26.1 L MCV 86.1 MCH 29.0 MCHC 33.7 RDW 16.7 H Plt Count 137 MPV 10.9 H Neut % (Auto) 73.1 Lymph % (Auto) 11.5 [place] % (Auto) 10.1 Eos % (Auto) 0.2 Baso % (Auto) 0.5 Reticulocyte % (Auto) Neut # (Auto) 3.19 Lymph # (Auto) 0.5 L [place] # (Auto) 0.4 Eos # (Auto) 0.0 Baso # (Auto) 0.0 Nucleated RBC % (auto) 0.5 Nucleated RBCs # 0.0 Sodium 134 L Potassium 3.5 Chloride 105 Carbon Dioxide 19 L Anion Gap 13.5 BUN 33 H Creatinine 1.0 H GFR Calculation Not Reportable Glucose 105 Calculated Osmolality 286 Calcium 7.8 L Phosphorus 3.5 Magnesium 1.9 Iron Ferritin Total Bilirubin 0.5 AST 7 ALT 8 Alkaline Phosphatase 49 Troponin T Baseline Troponin T 120 Minute Delta Troponin T Troponin T Hi Sens 6Hr Troponin T Hi Sens 6Hr Delta NT-Pro-B Natriuret Pep 958 H Total Protein 4.7 L Albumin 3.0 L Globulin 1.7 Procalcitonin 0.13 TSH 3.18 Blood Type Rho(D) Type Antibody Screen Crossmatch Cardiac Studies: No Data to Display
--- NOTE | 2020-10-03 09:42 | PC.CHAP ---
Pastoral Care Encounter/Spiritual Assessment Type of Contact [] Declined commercial installer visit [] Patient/Family/Request visit [] Outpatient visit [] Follow-up visit [] Physician referral [] Code/Alert [x] Routine visit [] Staff referral [] Actively dying [x] Patient sleeping [] Family support [] [] Out of room [] Palliative care [] [] Receiving care in room [] Pre-surgical visit [] Trauma [] Long length of stay [] ICU visit [] Other: Relational/Emotional Strength [] Patient feels connected with others/family/visitors/staff [] Distress [] Loneliness/isolation [] Abandonment Spirituality of Patient [] Person of Juliane [] Attends Zoroastrian of their Juliane [] Believes in Prayer [] Reads Bible or Congregation materials [] There are Spiritual issues to be addressed Gut Dropper Interventions [] Prayer [] Active listening [] Non-anxious presence [] Spiritual/emotional support [] Crisis/trauma care [] Spiritual counseling [] Bereavement support [] Provided bereavement packet [] Provided Bible/devotional materials [] Provided toy/stuffed animal, coloring book to patient or family member [] Provided Communion [] Anointing/[place] [] Salvation [] Completed spiritual assessment [] Other: Impact on Illness or Injury [] Angry [] Fearful [] Anxious [] Often cries [] Exhaustion [] Unable to work [] Unable to attend sabianism [] Unable to walk/stand [] Unable to read [] Unable to drive [] Unable to eat/drink [] Unable to sleep [] Unable to be with family [] Patient intubated [] Other: Summary Time spent with patient
--- NOTE | 2020-10-03 14:45 | P.DS_ITS ---
Discharge Providers Date of Admission: 10/02/20 15:31 Date of Discharge: October 03, 2020 Attending Provider at Admission: Guy Burgess MD Attending Provider at Discharge: Seth Bose MD Primary Care Provider: Bj Mcdowell Diagnoses at Discharge Discharge Diagnosis (1) Anemia: Status: Acute (2) Falls: Status: Acute (3) Pre-syncope: Status: Acute (4) Chest pain: Status: Acute (5) Degenerative arthritis: Status: Acute (6) Hyperlipidemia: Status: Acute (7) Irritable bowel syndrome: Status: Acute (8) Hypertension: Status: Acute (9) Chronic kidney disease: Status: Acute (10) Myelofibrosis: Status: Acute (11) Upper GI bleed: Status: Acute (12) Gastritis: Status: Acute Permanent problem details: appears to be due to Vitamin C and steroids. Reason for Visit Reason for Visit: chronic anemia Hospital Course Hospital Course Patient with myelofabrosis and frequent need for blood transfusion presents with severe anemia and melanotic stool. Patient had 5 units PRBC transfusion and was further evaluated with EGD showing severe gastritis which appears to be secondary to vitamin C and steroids. There was no obvious evidence of bleeding during procedure. Patient this morning reports feeling much better. Denied chest pain or shortness of breath. No abdominal pain. Patient started on high dose PPI. Patient should avoid vitamin C, NSAIDs or steroids. Will start patient on Florinef 0.1mg daily. Patient to see Dr. Gonzales for repeat labs in the near future. Patient is poor historian due to dementia. Im worried that she doesn't take her medications as prescribed. Will request home health to see patient post discharge. Physical Exam Narrative: EXAM NARRATIVE: lungs are clear and heart is regular. Abdomen soft and non tender.no lower extremity edema. Discharge Data Data Completed and Pending: Completed Studies During Hospitalization Category Date Time Status CT head wo con* [id number] 0450 Routine Cat Scan 10/02/20 00:18 Completed XR chest 1V miguelina ble [id number] Routine Exams 10/03/20 07:00 Completed CV carotid duplex BI* [id number] Routine Ultrasound 10/02/20 00:18 Completed CV echo complete* [id number] Routine Ultrasound 10/02/20 00:24 Completed Pending at discharge Category Date Time Status Complete Blood Co unt w/Auto AM LABS Lab 10/04/20 04:00 Ordered Complete Blood Co unt w/Auto AM LABS Lab 10/05/20 04:00 Ordered Comprehensive Met abolic Panel AM LA BS Lab 10/04/20 04:00 Ordered Comprehensive Met abolic Panel AM LA BS Lab 10/05/20 04:00 Ordered H. Pylori / SYLVESTER T est Routine Lab 10/03/20 11:10 Ordered Magnesium AM LABS Lab 10/04/20 04:00 Ordered Magnesium AM LABS Lab 10/05/20 04:00 Ordered Phosphorus AM LAB S Lab 10/04/20 04:00 Ordered Phosphorus AM LAB S Lab 10/05/20 04:00 Ordered Labs from last 24 hours 10/03/20 10/03/20 10/03/20 06:09 06:09 06:09 WBC 4.4 RBC 3.03 L Hgb 8.8 L D Hct 26.1 L MCV 86.1 MCH 29.0 MCHC 33.7 RDW 16.7 H Plt Count 137 MPV 10.9 H Neut % (Auto) 73.1 Lymph % (Auto) 11.5 [place] % (Auto) 10.1 Eos % (Auto) 0.2 Baso % (Auto) 0.5 Neut # (Auto) 3.19 Lymph # (Auto) 0.5 L [place] # (Auto) 0.4 Eos # (Auto) 0.0 Baso # (Auto) 0.0 Nucleated RBC % (a uto) 0.5 Nucleated RBCs # 0.0 Sodium 134 L Potassium 3.5 Chloride 105 Carbon Dioxide 19 L Anion Gap 13.5 BUN 33 H Creatinine 1.0 H GFR Calculation Not Reportable Glucose 105 Calculated Osmolal ity 286 Calcium 7.8 L Phosphorus 3.5 Magnesium 1.9 Total Bilirubin 0.5 AST 7 ALT 8 Alkaline Phosphata se 49 NT-Pro-B Natriuret Pep 958 H Total Protein 4.7 L Albumin 3.0 L Globulin 1.7 Procalcitonin 0.13 TSH 3.18 Blood Type Rho(D) Type Antibody Screen Crossmatch 10/02/20 10/02/20 16:18 00:43 WBC RBC Hgb 6.7 L Hct 20.3 L* MCV MCH MCHC RDW Plt Count MPV Neut % (Auto) Lymph % (Auto) [place] % (Auto) Eos % (Auto) Baso % (Auto) Neut # (Auto) Lymph # (Auto) [place] # (Auto) Eos # (Auto) Baso # (Auto) Nucleated RBC % (a uto) Nucleated RBCs # Sodium Potassium Chloride Carbon Dioxide Anion Gap BUN Creatinine GFR Calculation Glucose Calculated Osmolal ity Calcium Phosphorus Magnesium Total Bilirubin AST ALT Alkaline Phosphata se NT-Pro-B Natriuret Pep Total Protein Albumin Globulin Procalcitonin TSH Blood Type A Positive Rho(D) Type Positive Antibody Screen Negative Crossmatch See Detail Vitals: Last Vital Signs Temp 98.4 F 10/03/20 12:00 Pulse 83 10/03/20 13:14 Resp 18 10/03/20 12:00 BP 99/48 10/03/20 12:00 Pulse Ox 98 10/03/20 12:00 Discharge Plan Discharge Patient Disposition: Home Health Service Condition: Stable Prescriptions: New potassium chloride 10 mEq Tablet Extended Release 10 meq PO DAILY Qty: 30 RF: 0 fludrocortisone 0.1 mg tablet 0.1 mg PO DAILY Qty: 30 RF: 0 Continued alprazolam 1 mg tablet 1 mg PO DAILY PRN (Reason: Anxiety) RF: 0 tramadol-acetaminophen 37.5-325 mg tablet 1 tab PO Q6H PRN (Reason: low back pain) RF: 0 ropinirole 0.25 mg tablet 0.25 mg PO BID@0800,1999 RF: 0 Jakafi 20 mg tablet 20 mg PO CONT RF: 0 Combivent Respimat 20-100 mcg/actuation mist 1 puff INHALATION BID@0900,1999 RF: 0 Vitamin D3 1 tab PO DAILY@0800 RF: 0 vitamin E 1 tab PO DAILY@0800 RF: 0 albuterol sulfate 90 mcg/actuation HFA aerosol inhaler 2 inh INHALATION Q4H PRN (Reason: shortness of breath or wheezing) Qty: 18 RF: 0 Changed pantoprazole 40 mg tablet,delayed release (DR/EC) 40 mg PO BID Qty: 60 RF: 0 Discontinued prednisone 10 mg tablet See Rx Instructions .ROUTE .COMPLEX RF: 0 Hold Instructions: Resume on 07/07/20. Vitamin C 1 tab PO DAILY@0800 RF: 0 methylprednisolone [Medrol (Greg)] 4 mg tablets,dose pack See Rx Instructions .ROUTE .COMPLEX Qty: 21 RF: 0 Discharge Orders: Discharge Order (Routine); Ordered 10/03/20 Ordered By: Seth Bose Referrals: Bj Mcdowell [Primary Care Provider] - 4-7 days Cole Gonzales MD [Hospitalist] - 4-7 days Discharge Diet: Advance as tolerated Discharge Activity: Increase activity as tolerated Patient Instructions: GI Discharge Instructions Activity Restrictions/Additional Instructions: Please call your doctor or present to emergency department if your condition worsens or you develop lightheadedness, dizziness, fatigue or see blood in your stool or black stool. Please do not take vitamin C, NSADIs or steroids. Please follow up with Dr. Gonzales as scheduled. Please keep blood pressure and heart rate log 3 times daily to present to your doctor for medication adjustment. Discharge Attestations Time Spent in Discharge Care*: greater than 30 min Quality Metrics Clinical Quality Measures During this hospital stay, did patient experience: None Coding Level of Care Code Acute Web[employer] Process Server Developer for Susan Fwd Diagnoses Anemia D64.9 Falls W19.XXXA Pre-syncope R55 Chest pain R07.9 Degenerative arthritis M19.90 Hyperlipidemia E78.5 Irritable bowel syndrome K58.9 Hypertension I10 Chronic kidney disease N18.9 Myelofibrosis D75.81 Upper GI bleed K92.2 Gastritis K29.70
--- NOTE | 2020-10-03 14:51 | ANE.PACU2 ---
Inpatient post-anesthesia follow up: Airway intact: Yes Vital signs: Temperature 98.4 F Pulse Rate [Orthos tatic 99 Standing Right] Pulse Rate [Orthos tatic 88 Sitting Right] Pulse Rate [Orthos tatic Lying 86 Right] Pulse Rate 83 Respiratory Rate 18 Blood Pressure [Or thostatic 111/55 Standing Right Arm ] Blood Pressure [Or thostatic 105/59 Sitting Right Arm] Blood Pressure [Or thostatic 99/48 Lying Right Arm] Blood Pressure 106/60 Pulse Oximetry 98 Oxygen Delivery Me thod Room Air Oxygen Flow Rate 1 Fraction of Inspir ed Oxygen Hydration adequate: Yes Nausea and vomiting: No Pain level: 1 Mental status: Baseline
[2020-10-03] MEDS: fludrocortisone 0.1 mg Tablet PO (14:57)
[2020-10-04 14:03] LABS: H. Pylori / CLO Test Negative
== END 2020-10-03 16:00 | disposition home health service (06) | DRG 812 ==
PROVIDERS: Surgery; Admitting Provider Family Medicine; PCP Physician Assistant Medical; Visit Provider Internal Medicine
PROC: 0DJ08ZZ Inspection of Upper Intestinal Tract, Via Natural or Artificial Opening Endoscopic (ICD-10-PCS; CPT 43235; principal; 2020-10-03 11:15)
DX: D64.9 Anemia, unspecified (principal); D75.81 Myelofibrosis; J44.1 Chronic obstructive pulmonary disease with (acute) exacerbation; N13.0 Hydronephrosis with ureteropelvic junction obstruction; K92.1 Melena; K92.2 Gastrointestinal hemorrhage, unspecified; Z87.891 Personal history of nicotine dependence; Z86.73 Personal history of transient ischemic attack (TIA), and cerebral infarction without residual deficits; I12.9 Hypertensive chronic kidney disease with stage 1 through stage 4 chronic kidney disease, or unspecified chronic kidney disease; E78.5 Hyperlipidemia, unspecified; K21.9 Gastro-esophageal reflux disease without esophagitis; M17.0 Bilateral primary osteoarthritis of knee; F41.8 Other specified anxiety disorders; R29.6 Repeated falls; R55 Syncope and collapse; K58.9 Irritable bowel syndrome, unspecified; F03.90 Unspecified dementia, unspecified severity, without behavioral disturbance, psychotic disturbance, mood disturbance, and anxiety; Z79.899 Other long term (current) drug therapy; K29.70 Gastritis, unspecified, without bleeding; T38.0X5A Adverse effect of glucocorticoids and synthetic analogues, initial encounter; T45.2X5A Adverse effect of vitamins, initial encounter
CPT/HCPCS: 36415; 36430; 43239; 70450; 71045; 80053; 82728; 83540; 83735; 83880; 84100; 84145; 84443; 84484; 85014; 85018; 85025; 85045; 86850; 86900; 86920; 87077; 93005; 93306; 93880; 94640; 97161; 97530; G0378; G0379; J2704; J2930; J7030; J7512; P9016

== ENCOUNTER 2020-10-16 15:08 | Outpatient (RCR) | payer MEDICARE, OTHER, SELFPAY ==
[2020-10-09 17:13] LABS: Basophils % 0.3 %; Hematocrit 27.8 % (37.0-47.0); Hemoglobin 8.9 g/dL (11.5-15.3); Lymphocytes # 1.7 10^3/uL (0.8-4.8); Mean Corpuscular Hemoglobin 28.9 pg (28.0-34.0); Mean Corpuscular Volume 90.3 fL (81-99); Mean Platelet Volume 10.2 fL (7.4-10.4); Monocytes # 0.7 10^3/uL (0.2-0.9); Monocytes % 10.3 %; Neutrophils # 3.85 10^3/uL (1.8-7.7); Neutrophils % 58.5 %; Nucleated Red Blood Cells % 0 %; Platelet Count 322 10^3/cmm (130-400); Red Blood Count 3.08 10^6/uL (4.1-5.3); Red Cell Distribution Width 16.8 % (12.1-15.1); White Blood Count 6.6 10^3/uL (4.0-10.0)
[2020-10-09 17:36] LABS: Alanine Aminotransferase 6 U/L (0-33); Albumin Level 3.7 g/dL (3.5-5.2); Alkaline Phosphatase 60 IU/L (35-105); Anion Gap 13.3 (5-19); Aspartate Amino Transferase 6 U/L (0-32); Blood Urea Nitrogen 8 mg/dL (8-23); Calcium 8.5 mg/dL (8.5-10.5); Carbon Dioxide 26 mmol/L (22-29); Chloride 100 mmol/L (98-107); Globulin 2.1 g/dL (1.3-4.6); Glucose 96 mg/dL (65-115); Iron 75 ug/dL (37-145); Lactate Dehydrogenase 295 U/L (135-214); Osmolality Calculated 278 mOsm/kg (285-295); Percent Saturation 40.5 % (20-50); Potassium 4.3 mmol/L (3.5-5.1); Sodium 135 mmol/L (136-145); Total Bilirubin 0.2 mg/dL (0.15-1.2); Total Iron Binding Capacity 185 mcg/dl; Total Protein 5.8 g/dL (6.6-8.7); Unsaturated Iron Binding 110 ug/dL (112-347)
[2020-10-09 17:55] LABS: Ferritin 1314 ng/mL (15-150)
[2020-10-16 18:31] LABS: Basophils % 0.2 %; Lymphocytes # 1.2 10^3/uL (0.8-4.8); Lymphocytes % 25.7 %; Mean Corpuscular HGB Conc 31.5 g/dL (30.0-36.0); Mean Corpuscular Volume 92.1 fL (81-99); Mean Platelet Volume 10.7 fL (7.4-10.4); Monocytes # 0.5 10^3/uL (0.2-0.9); Monocytes % 10.8 %; Neutrophils # 2.64 10^3/uL (1.8-7.7); Neutrophils % 58.4 %; Nucleated Red Blood Cells % 0.4 %; Platelet Count 225 10^3/cmm (130-400); Red Blood Count 2.14 10^6/uL (4.1-5.3); Red Cell Distribution Width 16.4 % (12.1-15.1); White Blood Count 4.5 10^3/uL (4.0-10.0)
[2020-10-16 19:36] LABS: Hematocrit 19.7 % (37.0-47.0); Hemoglobin 6.2 g/dL (11.5-15.3)
== END 2020-10-17 10:00 | disposition home or self-care (01) ==
LOC: ONCMED 15:08
PROVIDERS: Nurse Practitioner; PCP Physician Assistant Medical; Visit Provider Internal Medicine Medical Oncology
DX: D75.81 Myelofibrosis (principal); D50.9 Iron deficiency anemia, unspecified
CPT/HCPCS: 80053; 82728; 83540; 83550; 83615; 85025

== ENCOUNTER 2020-10-17 10:49 | Observation (INO) | payer MEDICARE, OTHER, SELFPAY ==
[2020-10-17] VITALS (24 sets, daily range): BP systolic 101–121; BP diastolic 48–68; PULSE 61–97; RESP 14–24; TEMP 36.4–37.5; O2SAT 93–100; BMI 20.3
--- NOTE | 2020-10-17 11:00 | ED_ITS ---
HPI - GI Bleed General: Chief complaint: GI Bleed Stated complaint: DARK STOOLS Time Seen by Provider: 10/17/20 10:50 Source: patient and EMS Mode of arrival: EMS Limitations: no limitations History of Present Illness: HPI Narrative: 80-year-old female who has a history of upper GI bleed states she had her blood drawn yesterday and was anemic. States she has had black stools that were worse than last week. She states she has had weakness as well. Her hemoglobin yesterday was 6.2. She denies any vomiting blood. She denies any worsening or improving factors. She denies any fever. complaint: melena Associated symptoms: Denies chills, easy bruising, fever(s) or rash Review of Systems Const: Denies: fever(s), chills, body aches or change in appetite Eyes: Denies: blurry vision or eye discomfort ENMT: Denies: throat pain or dental pain Card: Denies: chest pain Resp: Denies: dyspnea GI: Reports: melena : Denies: dysuria Musc: Denies: neck pain or back pain Skin/Breast: Denies: rash Neuro: Reports: weakness in extremities Psych: Denies: depression [place]/Lymph: Denies: easy bruising All/Imm: Denies: urticaria PFSH ED PFSH: Medical History Chronic kidney disease Hypertension Irritable bowel syndrome Myelodysplasia (myelodysplastic syndrome) Surgical History History of appendectomy History of cholecystectomy History of hysterectomy Family History Mother Lung disease Asthma Father CAD (coronary artery disease) Social History Smoking and tobacco status: current every day smoker cigarettes Packs smoked per day: 1 Alcohol intake: never Physical Exam Const: COMMON NORMALS: no acute distress, patient oriented x3 and healthy appearing HENMT: COMMON NORMALS: normocephalic and atraumatic HEAD & SCALP: normocephalic and atraumatic Eye: COMMON NORMALS: Equal, round and reactive pupils present and EOMs intact bilaterally PUPIL: Yes Equal, round and reactive pupils present Neck/C-Spine: COMMON NORMALS: full ROM and supple Chest: COMMONS NORMALS: normal inspection of the chest and normal palpation of entire chest wall Resp: COMMON NORMALS: normal respiratory effort, No retractions, No use of accessory muscles and clear to auscultation bilaterally AUSCULTATION: clear to auscultation bilaterally Cardio: COMMON NORMALS: regular rate, regular rhythm and No murmurs present (Cardio) RATE: regular rate RHYTHM: regular rhythm GI: COMMON NORMALS: Normal to inspection, nondistended, normoactive bowel sounds present, Soft to palpation, non-tender and no masses PALPATION: Yes Soft to palpation RECTAL EXAM: Abnormal stool present black stool and heme positive stool Extremity: COMMON NORMALS: normal to inspection and full ROM Neuro: COMMON NORMALS: patient oriented x3, moves all extremities and no focal motor deficits Psych: COMMON NORMALS: mental status grossly normal, Normal thought process present and cooperative THOUGHT PROCESS: Normal thought process present Skin: COMMON NORMALS: no rashes or lesions noted and no wounds GENERAL SKIN EXAM: no rashes or lesions noted Course Vital Signs: Vital signs: Vital Signs Temperature 97.6 F 10/17/20 10:50 Pulse Rate 81 10/17/20 11:30 Respiratory Rate 21 H 10/17/20 11:30 Blood Pressure 112/57 10/17/20 11:30 Pulse Oximetry 100 10/17/20 11:30 MDM - GI Bleed MDM Narrative: Medical decision making narrative: Presents with upper GI bleed and anemia likely from her GI bleeding. Patient's vitals here are stable she does have chronic anemia as well. We will transfuse her 2 units. I spoke to the hospitalist will admit to the ICU. I also spoke to surgery who is consulted. She has been stable while here. Lab Data: Labs: Lab Results 10/17/20 10/17/20 Range/Units 10:01 10:01 WBC 3.7 L (4.0-10.0) 10^3/ uL RBC 1.89 L (4.1-5.3) 10^6/u L Hgb 5.4 L* (11.5-15.3) g/dL Hct 17.0 L* (37.0-47.0) % MCV 89.9 (81-99) fL MCH 28.6 (28.0-34.0) pg MCHC 31.8 (30.0-36.0) g/dL RDW 16.8 H (12.1-15.1) % Plt Count 199 (130-400) 10^3/c mm MPV 10.4 (7.4-10.4) fL Neut % (Auto) 60.6 % Lymph % (Auto) 22.9 % [place] % (Auto) 13.5 % Eos % (Auto) 0.0 % Baso % (Auto) 0.3 % Neut # (Auto) 2.25 (1.8-7.7) 10^3/u L Lymph # (Auto) 0.9 (0.8-4.8) 10^3/u L [place] # (Auto) 0.5 (0.2-0.9) 10^3/u L Eos # (Auto) 0.0 (0.0-0.8) 10^3/u L Baso # (Auto) 0.0 (0.0-0.1) 10^3/u L Nucleated RBC % (a uto) 0 % Nucleated RBCs # 0.0 /100WBC Sodium 135 L (136-145) mmol/L Potassium 4.2 (3.5-5.1) mmol/L Chloride 103 (98-107) mmol/L Carbon Dioxide 24 (22-29) mmol/L Anion Gap 12.2 (5-19) BUN 27 H (8-23) mg/dL Creatinine 0.9 (0.5-0.9) mg/dL GFR Calculation Not Reportable Glucose 96 (65-115) mg/dL Calculated Osmolal ity 285 (285-295) mOsm/k g Calcium 8.1 L (8.5-10.5) mg/dL Total Bilirubin 0.3 (0.15-1.2) mg/dL AST 7 (0-32) U/L ALT < 5 (0-33) U/L Alkaline Phosphata se 47 (35-105) IU/L Total Protein 5.2 L (6.6-8.7) g/dL Albumin 3.5 (3.5-5.2) g/dL Globulin 1.7 (1.3-4.6) g/dL Critical Care Time Critical Care Time: Critical Care Time: Yes Total Critical Care Time: 35 Attestation: This case had a high probability of a clinically significant, sudden, or life threatening deterioration of this patient's condition which required my full and direct attention, intervention and personal management. Discharge Plan Discharge Patient Disposition: Admitted As Inpatient Clinical Impression: Upper gastrointestinal hemorrhage Anemia Qualifiers: Anemia type: unspecified type Qualified Code(s): D64.9 - Anemia, unspecified Condition: Stable Coding Level of Care Code ED [employer]og Machine Operator for Susan Fwd Exam Comprehensive
--- NOTE | 2020-10-17 11:13 | PC.NURSE ---
C/O dizzy and weak, not in pain. No push power anymore in my legs
[2020-10-17 11:23] LABS: Basophils % 0.3 %; Lymphocytes # 0.9 10^3/uL (0.8-4.8); Lymphocytes % 22.9 %; Mean Corpuscular HGB Conc 31.8 g/dL (30.0-36.0); Mean Corpuscular Hemoglobin 28.6 pg (28.0-34.0); Mean Corpuscular Volume 89.9 fL (81-99); Mean Platelet Volume 10.4 fL (7.4-10.4); Monocytes # 0.5 10^3/uL (0.2-0.9); Monocytes % 13.5 %; Neutrophils # 2.25 10^3/uL (1.8-7.7); Neutrophils % 60.6 %; Nucleated Red Blood Cells % 0 %; Platelet Count 199 10^3/cmm (130-400); Red Blood Count 1.89 10^6/uL (4.1-5.3); Red Cell Distribution Width 16.8 % (12.1-15.1); White Blood Count 3.7 10^3/uL (4.0-10.0)
[2020-10-17 11:26] LABS: Alanine Aminotransferase < 5 U/L (0-33); Albumin Level 3.5 g/dL (3.5-5.2); Alkaline Phosphatase 47 IU/L (35-105); Anion Gap 12.2 (5-19); Aspartate Amino Transferase 7 U/L (0-32); Blood Urea Nitrogen 27 mg/dL (8-23); Calcium 8.1 mg/dL (8.5-10.5); Carbon Dioxide 24 mmol/L (22-29); Chloride 103 mmol/L (98-107); Globulin 1.7 g/dL (1.3-4.6); Glucose 96 mg/dL (65-115); Osmolality Calculated 285 mOsm/kg (285-295); Potassium 4.2 mmol/L (3.5-5.1); Sodium 135 mmol/L (136-145); Total Bilirubin 0.3 mg/dL (0.15-1.2); Total Protein 5.2 g/dL (6.6-8.7)
[2020-10-17 11:29] LABS: Hemoglobin 5.4 g/dL (11.5-15.3)
[2020-10-17] MEDS: pantoprazole 40 mg SDV 80 MG IVP (11:29)
--- NOTE | 2020-10-17 11:50 | PC.PHAR ---
pt states she takes care of her own medications-pt states she is unsure of what her fludrocortisone was for but states she thinks she took this medication yesterday 10/16/20-pt states she thinks the name of the otc medication she has been taking is meclizine for her dizziness-pt states she takes ropinirole but didnt bring in the medication bottle
[2020-10-17 11:52] LABS: INR 1.12 (0.8-1.2)
--- NOTE | 2020-10-17 12:06 | P.HP_ITS ---
Providers/Chief Complaint Admitting Physician: Alex De La Fuente MD Primary Care Provider: Bj Mcdowell Chief Complaint: DARK STOOLS History of Present Illness Tonya Lynch is a 80 year old female who presents to the emergency department with shortness of breath, fatigue, lightheadedness. She denies any chest discomfort. She has history of myelodysplasia for which she gets rather frequent transfusions. She was recently in the hospital with black stool and concern of GI bleed. She got an EGD at that time and was discharged October 03. Hemoglobin was 8.9 at discharge. Patient reports she has previously had a colonoscopy around 2 years ago which was negative. She reports she cannot get another one secondary to technical difficulties with her colon and possible increased risk of perforation. She denies any fever, vomiting, history of Covid or exposure to it. She states she has not had diarrhea and has approximately 2 bowel movements per week. Last bowel movement was yesterday. She denies any use of iron or other dietary supplements or food that could darken her stool. Review of Systems General: Reports: 10 or more systems reviewed and unremarkable except in HPI and below Const: Denies: fever(s) Eyes: Denies: change in vision ENMT: Denies: throat pain Card: Denies: chest pain Resp: Reports: dyspnea GI: Reports: melena; Denies: abdominal pain, nausea or hematochezia : Denies: flank pain Musc: Denies: neck pain Skin/Breast: Denies: rash Neuro: Denies: headache(s) Psych: Denies: anxiety Endo: Denies: polyuria [place]/Lymph: Denies: easy bruising All/Imm: Denies: urticaria Medications/Allergies Home Medications Medication Instructions Recorded Confirmed Last Taken Type Combivent Respimat 1 puff INHALATION TID PRN 06/30/20 10/17/20 1 Day Ago History ~10/01/20 Jakafi 20 mg PO BID 06/30/20 10/17/20 10/17/20 07:00 History Vitamin D3 1 tab PO DAILY 06/30/20 10/17/20 10/16/20 History albuterol sulfate 2 inh INHALATION Q4H PRN #18 gm 06/30/20 10/17/20 1 Day Ago Rx ~10/01/20 alprazolam 1 mg PO DAILY PRN 06/30/20 10/17/20 1 Day Ago History ~10/01/20 ropinirole 0.25 mg PO BID 06/30/20 10/17/20 1 Day Ago History ~10/01/20 tramadol-acetaminophen 1 tab PO Q6H PRN 06/30/20 10/17/20 1 Day Ago History ~10/01/20 vitamin E 1 tab PO DAILY 06/30/20 10/17/20 10/16/20 History fludrocortisone 0.1 mg PO DAILY #30 tab 10/03/20 10/17/20 10/16/20 Rx pantoprazole 40 mg PO BID #60 tab 10/03/20 10/17/20 10/16/20 Rx albuterol sulfate 2.5 mg INHALATION Q6H PRN 10/17/20 10/17/20 Unknown History lovastatin 20 mg PO DAILY@17 10/17/20 10/17/20 10/16/20 History meclizine 12.5 mg PO PRN 10/17/20 10/17/20 10/16/20 History nitroglycerin 0.4 mg SUBLINGUAL Q5M PRN 10/17/20 10/17/20 Unknown History potassium chloride 10 meq PO QAM 10/17/20 10/17/20 10/16/20 History Allergies Allergy/AdvReac Type Severity Reaction Status Date / Time No Known Allergies Allergy Verified 10/17/20 11:41 PFSH Acute PFSH: Medical History (Updated 10/17/20 @ 12:10 by Alex De La Fuente MD) Anemia Chronic kidney disease COPD (chronic obstructive pulmonary disease) Degenerative arthritis Hyperlipidemia Hypertension Irritable bowel syndrome Myelodysplasia (myelodysplastic syndrome) Surgical History History of appendectomy History of cholecystectomy History of hysterectomy Family History Mother Lung disease Asthma Father CAD (coronary artery disease) Social History Smoking and tobacco status: current every day smoker cigarettes Packs smoked per day: 1 Alcohol intake: never Vitals/I&O/Wt Last Vital Signs Temp 97.6 F 10/17/20 10:50 Pulse 81 10/17/20 11:30 Resp 21 H 10/17/20 11:30 BP 112/57 10/17/20 11:30 Pulse Ox 100 10/17/20 11:30 Weight last 48 hrs Weight 62.596 kg Physical Exam Narrative: EXAM NARRATIVE: General exam no apparent distress HEENT: Pupils equally round. Oropharynx clear. Neck is supple no lymphadenopathy or thyromegaly Cardiovascular regular rate and rhythm with a 2/6 systolic murmur Lungs clear no wheezing or crackles Abdomen is soft positive bowel sounds. No obvious organomegaly was deferred Extremities no cyanosis clubbing or edema, cap refill brisk Skin no rash, pale Neuro no obvious focal deficits Data : 10/17/20 10:01 10/17/20 10:01 Other data: INR is 1.12. Differential on CBC is normal. LFTs are normal TSH recently checked and normal Stool reported to be Hemoccult positive in the emergency department Previous echo recently done demonstrated preserved EF, moderate aortic valve regurgitation A&P Assessment and plan (1) Anemia: History of black stools recently. EGD was performed October 03 and no evidence of bleeding at that time. Only moderate gastritis was noted. She only has about 2 stools a week. I suspect her bleeding is coming from her small bowel and that repeating an endoscopy will not be useful. Compounding this is her myelodysplasia for which she had been requiring transfusions every several w eeks. At this point transfusion is indicated, and 2 units packed red blood cells will be given. I would like her hemoglobin to be significantly more than 8 prior to discharge. I discussed with her our limitation here about not being able to do small bowel enteroscopy or pill endoscopy. I think more likely her bleeding is from her small bowel, such as an AVM with a very slow amount of blood loss. She agrees to stabilization here, and then outpatient arrangement for small bowel pill endoscopy. Secondary to this she will be an observation admission for transfusion secondary to her severe anemia with symptoms.(Symptomatic anemia). At this point no surgical consultation is needed for repeat EGD unless significant bleeding is noted. Status: Acute Qualifiers: Anemia type: unspecified type Qualified Code(s): D64.9 - Anemia, u nspecified (2) Myelodysplasia (myelodysplastic syndrome): We will have her follow-up with her psychologist counseling as an outpatient Status: Acute Additional A&P Information COPD, stable Hyperlipidemia, on statin Multiple other medical problems as outlined in her past medical history Full code. Discussed in detail with the patient. SCDs for DVT prophylaxis. 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
[2020-10-17] MEDS: sodium chloride 0.9% (100 ml) 100 ML 10 ML (16:48)
[2020-10-17] MEDS: atorvastatin 40 mg Tablet 20 MG PO (17:44)
[2020-10-17] MEDS: pantoprazole DR 40 mg Tablet PO (17:44)
[2020-10-17] MEDS: ropinirole 0.25 mg Tablet PO (17:45)
[2020-10-17 20:49] LABS: Hematocrit 21.4 % (37.0-47.0); Hemoglobin 6.9 g/dL (11.5-15.3)
[2020-10-17] MEDS: FUROsemide 10 mg/mL SDV 2mL 20 MG IVP (22:00)
[2020-10-18] VITALS (12 sets, daily range): BP systolic 99–124; BP diastolic 57–71; PULSE 54–87; RESP 15–18; TEMP 36.4–37; O2SAT 94–100
[2020-10-18] MEDS: sodium chloride 0.9% (100 ml) 100 ML (01:13)
[2020-10-18 02:52] LABS: Basophils % 0.3 %; Hematocrit 23.2 % (37.0-47.0); Hemoglobin 7.8 g/dL (11.5-15.3); Lymphocytes # 1.1 10^3/uL (0.8-4.8); Mean Corpuscular HGB Conc 33.6 g/dL (30.0-36.0); Mean Corpuscular Hemoglobin 29.3 pg (28.0-34.0); Mean Corpuscular Volume 87.2 fL (81-99); Mean Platelet Volume 10.4 fL (7.4-10.4); Monocytes # 0.5 10^3/uL (0.2-0.9); Monocytes % 12.8 %; Neutrophils # 2.02 10^3/uL (1.8-7.7); Neutrophils % 53.6 %; Nucleated Red Blood Cells % 0 %; Platelet Count 175 10^3/cmm (130-400); Red Blood Count 2.66 10^6/uL (4.1-5.3); Red Cell Distribution Width 15.5 % (12.1-15.1); White Blood Count 3.8 10^3/uL (4.0-10.0)
[2020-10-18 03:18] LABS: Alanine Aminotransferase < 5 U/L (0-33); Albumin Level 3.5 g/dL (3.5-5.2); Alkaline Phosphatase 44 IU/L (35-105); Anion Gap 11.8 (5-19); Aspartate Amino Transferase 7 U/L (0-32); Blood Urea Nitrogen 32 mg/dL (8-23); Carbon Dioxide 24 mmol/L (22-29); Chloride 105 mmol/L (98-107); Globulin 1.7 g/dL (1.3-4.6); Glucose 105 mg/dL (65-115); Osmolality Calculated 291 mOsm/kg (285-295); Potassium 3.8 mmol/L (3.5-5.1); Sodium 137 mmol/L (136-145); Total Bilirubin 0.8 mg/dL (0.15-1.2); Total Protein 5.2 g/dL (6.6-8.7)
[2020-10-18] MEDS: potassium chloride ER 10 mEq Tablet PO (06:11)
[2020-10-18] MEDS: acetaminophen 325 mg Tablet 650 MG PO (06:12)
[2020-10-18] MEDS: ropinirole 0.25 mg Tablet PO (08:07)
[2020-10-18] MEDS: fludrocortisone 0.1 mg Tablet PO (08:07)
[2020-10-18] MEDS: pantoprazole DR 40 mg Tablet PO (08:15)
[2020-10-18] MEDS: ondansetron 2 mg/ML SDV 2 mL 4 MG IVP (09:27)
[2020-10-18] MEDS: FUROsemide 10 mg/mL SDV 2mL 20 MG IVP (10:02)
--- NOTE | 2020-10-18 10:47 | PC.CHAP ---
Pastoral Care Encounter/Spiritual Assessment Type of Contact [] Declined coal handling supervisor visit [] Patient/Family/Request visit [] Outpatient visit [] Follow-up visit [] Physician referral [] Code/Alert [x] Routine visit [] Staff referral [] Actively dying [] Patient sleeping [] Family support [] [] Out of room [] Palliative care [] [x] Receiving care in room [] Pre-surgical visit [] Trauma [x] Long length of stay [] ICU visit [] Other: Relational/Emotional Strength [x] Patient feels connected with others/family/visitors/staff [] Distress [] Loneliness/isolation [] Abandonment Spirituality of Patient [x] Person of Juliane [] Attends Temple of their Juliane [x] Believes in Prayer [] Reads Bible or Buddhist materials [] There are Spiritual issues to be addressed Research Agricultural Engineer Interventions [x] Prayer [x] Active listening [x] Non-anxious presence [x] Spiritual/emotional support [] Crisis/trauma care [x] Spiritual counseling [] Bereavement support [] Provided bereavement packet [] Provided Bible/devotional materials [] Provided toy/stuffed animal, coloring book to patient or family member [] Provided Communion [] Anointing/[place] [] Salvation [x] Completed spiritual assessment [] Other: Impact on Illness or Injury [] Angry [x] Fearful [] Anxious [] Often cries [] Exhaustion [] Unable to work [] Unable to attend zoroastrian [] Unable to walk/stand [] Unable to read [] Unable to drive [] Unable to eat/drink [] Unable to sleep [] Unable to be with family [] Patient intubated [] Other: Summary Needs blood and then the doctor can make a decision, not sure what needs to be done? has a negative atttitude Time spent with patient 10 mins
--- NOTE | 2020-10-18 13:35 | P.DS_ITS ---
Discharge Providers Date of Admission: 10/17/20 12:46 Date of Discharge: October 18, 2020 Attending Provider at Admission: Alex De La Fuente MD Attending Provider at Discharge: Alex De La Fuente MD Primary Care Provider: Bj Mcdowell Diagnoses at Discharge Discharge Diagnosis (1) Anemia: Status: Acute Qualifiers: Anemia type: unspecified type Qualified Code(s): D64.9 - Anemia, unspecified (2) Myelodysplasia (myelodysplastic syndrome): Status: Acute Reason for Visit Reason for Visit: DARK [employer] Hospital Course Hospital Course Tonya is an 80-year-old white female with history of myelodysplasia transfusion dependent who presented with severe anemia. She was symptomatic with shortness of breath/dyspnea on exertion as well as dizziness. During her hospital course she was ultimately transfused 4 units of packed red blood cells. Initial hemoglobin was 5.4. Following 3 units it was 7.8. Hemoglobin was not checked directly following the fourth unit. With transfusions which she tolerated well she had no evidence of fluid overload, and symptoms improved. In the emergency department she was heme positive. It should be noted that she has approximately 2 bowel movements per week. She had a recent EGD demonstrating gastritis mild to moderate and no active bleeding. This was not thought to be indicated to repeat. She had had a colonoscopy approximately 2 years prior according to the patient, that was negative. I discussed with her that further work-up would be pill endoscopy as an outpatient. She agreed to this. I discussed with her the need for possible further transfusions which she acknowledged. She reports she has been getting at least 2 units every several weeks. She will discharge after her transfusion of her fourth unit, following up with her primary care provider as well as hematology. She will need another hemoglobin on Thursday which should be called to her cleaner laboratory equipment. Physical Exam Narrative: EXAM NARRATIVE: General exam no apparent distress Cardiovascular regular rate and rhythm, no murmur Lungs clear Abdomen is soft with positive bowel sounds Extremities no cyanosis clubbing or edema Discharge Data Data Completed and Pending: Pending at discharge Category Date Time Status Leukocyte Reduced RBC Stat Lab 10/17/20 10:51 Results Type and Screen R outine Lab 10/17/20 10:51 Results Labs from last 24 hours 10/18/20 10/18/20 10/17/20 02:28 02:28 20:25 WBC 3.8 L RBC 2.66 L Hgb 7.8 L 6.9 L Hct 23.2 L 21.4 L MCV 87.2 MCH 29.3 MCHC 33.6 D RDW 15.5 H Plt Count 175 MPV 10.4 Neut % (Auto) 53.6 Lymph % (Auto) 29.0 [place] % (Auto) 12.8 Eos % (Auto) 0.0 Baso % (Auto) 0.3 Neut # (Auto) 2.02 Lymph # (Auto) 1.1 [place] # (Auto) 0.5 Eos # (Auto) 0.0 Baso # (Auto) 0.0 Nucleated RBC % (a uto) 0 Nucleated RBCs # 0.0 Sodium 137 Potassium 3.8 Chloride 105 Carbon Dioxide 24 Anion Gap 11.8 BUN 32 H Creatinine 0.9 GFR Calculation Not Reportable Glucose 105 Calculated Osmolal ity 291 Calcium 8.0 L Total Bilirubin 0.8 AST 7 ALT < 5 Alkaline Phosphata se 44 Total Protein 5.2 L Albumin 3.5 Globulin 1.7 Blood Type Rho(D) Type Antibody Screen Crossmatch 10/16/20 15:08 WBC RBC Hgb Hct MCV MCH MCHC RDW Plt Count MPV Neut % (Auto) Lymph % (Auto) [place] % (Auto) Eos % (Auto) Baso % (Auto) Neut # (Auto) Lymph # (Auto) [place] # (Auto) Eos # (Auto) Baso # (Auto) Nucleated RBC % (a uto) Nucleated RBCs # Sodium Potassium Chloride Carbon Dioxide Anion Gap BUN Creatinine GFR Calculation Glucose Calculated Osmolal ity Calcium Total Bilirubin AST ALT Alkaline Phosphata se Total Protein Albumin Globulin Blood Type A Positive Rho(D) Type Positive / 4+ Antibody Screen Negative Crossmatch See Detail Vitals: Last Vital Signs Temp 98.4 F 10/18/20 10:50 Pulse 83 10/18/20 10:50 Resp 15 10/18/20 10:50 BP 108/71 10/18/20 10:50 Pulse Ox 95 10/18/20 10:50 Discharge Plan Discharge Patient Disposition: Home Condition: Stable Prescriptions: Continued alprazolam 1 mg tablet 1 mg PO DAILY PRN (Reason: Anxiety) RF: 0 tramadol-acetaminophen 37.5-325 mg tablet 1 tab PO Q6H PRN (Reason: low back pain) RF: 0 ropinirole 0.25 mg tablet 0.25 mg PO BID RF: 0 Jakafi 20 mg tablet 20 mg PO BID RF: 0 Combivent Respimat 20-100 mcg/actuation mist 1 puff INHALATION TID PRN (Reason: Shortness Of Breath) RF: 0 Vitamin D3 1 tab PO DAILY RF: 0 vitamin E 1 tab PO DAILY RF: 0 albuterol sulfate 90 mcg/actuation HFA aerosol inhaler 2 inh INHALATION Q4H PRN (Reason: shortness of breath or wheezing) Qty: 18 RF: 0 albuterol sulfate 2.5 mg /3 mL (0.083 %) solution for nebulization 2.5 mg inhalation Q6H PRN (Reason: Shortness Of Breath) RF: 0 meclizine 12.5 mg Tablet 12.5 mg PO PRN RF: 0 nitroglycerin 0.4 mg Tablet, Sublingual 0.4 mg SUBLINGUAL Q5M PRN (Reason: Chest Pain) RF: 0 lovastatin 20 mg Tablet 20 mg PO DAILY@17 RF: 0 potassium chloride 10 mEq tablet extended release 10 meq PO QAM RF: 0 pantoprazole 40 mg tablet,delayed release (DR/EC) 40 mg PO BID Qty: 60 RF: 0 fludrocortisone 0.1 mg tablet 0.1 mg PO DAILY Qty: 30 RF: 0 Discharge Orders: Discharge Order (Routine); Ordered 10/18/20 Ordered By: Alex De La Fuente Referrals: Bj Mcdowell [Primary Care Provider] - 4-7 days Cole Gonzales MD [Hospitalist] - 4-7 days (Thursday CBC) Discharge Diet: Usual diet Discharge Activity: Increase activity as tolerated Activity Restrictions/Additional Instructions: CBC will need to be drawn Thursday. You could use her home health agency which is already in place. Do not discharge until her blood transfusion today is completed. Discharge planning to set up outpatient pill endoscopy at [place] indication is anemia with occult GI bleeding and negative EGD and colonoscopy. Discharge Attestations Time Spent in Discharge Care*: greater than 30 min Quality Metrics Clinical Quality Measures During this hospital stay, did patient experience: None Coding Level of Care Code Acute Chg FW DC note Diagnoses Anemia D64.9 Anemia type: unspecified type Myelodysplasia (myelodysplastic syndrome) D46.9
[2020-10-18] MEDS: sodium chloride 0.9% (100 ml) 100 ML 30 ML (17:36)
--- NOTE | 2020-10-18 18:49 | PC.NURSE ---
Patient's IV catheter removed tip intact. Discharge instructions given to patient all questions answered. Patient discharged at this time in stable condition.
== END 2020-10-18 18:51 | disposition home or self-care (01) ==
LOC: ER 11:49 → MEDSURG 14:12 → ICU 16:10
PROVIDERS: Admitting Provider Internal Medicine; Emergency Provider Emergency Medicine; PCP Physician Assistant Medical; Visit Provider Internal Medicine
DX: D64.9 Anemia, unspecified (principal); D46.9 Myelodysplastic syndrome, unspecified; J44.9 Chronic obstructive pulmonary disease, unspecified; E78.5 Hyperlipidemia, unspecified; I12.9 Hypertensive chronic kidney disease with stage 1 through stage 4 chronic kidney disease, or unspecified chronic kidney disease; N18.9 Chronic kidney disease, unspecified; M19.90 Unspecified osteoarthritis, unspecified site
CPT/HCPCS: 36415; 36430; 80053; 85014; 85018; 85025; 85610; 86850; 86900; 86920; 94640; 96374; 96375; 99285; C9113; G0378; J1940; J2405; J7611; P9016; P9040

== ENCOUNTER 2020-10-22 16:58 | Outpatient (CLI) | payer MEDICARE, OTHER, SELFPAY ==
[2020-10-22 17:09] LABS: Basophils % 0.2 %; Hematocrit 25.6 % (37.0-47.0); Hemoglobin 8.2 g/dL (11.5-15.3); Lymphocytes # 1.3 10^3/uL (0.8-4.8); Lymphocytes % 24.5 %; Mean Corpuscular Hemoglobin 29.1 pg (28.0-34.0); Mean Corpuscular Volume 90.8 fL (81-99); Mean Platelet Volume 10.6 fL (7.4-10.4); Monocytes # 0.8 10^3/uL (0.2-0.9); Monocytes % 15.3 %; Neutrophils # 2.83 10^3/uL (1.8-7.7); Nucleated Red Blood Cells % 0 %; Platelet Count 255 10^3/cmm (130-400); Red Blood Count 2.82 10^6/uL (4.1-5.3); Red Cell Distribution Width 14.9 % (12.1-15.1); White Blood Count 5.2 10^3/uL (4.0-10.0)
== END 2020-10-22 16:59 | disposition home or self-care (01) ==
LOC: LAB 17:01
PROVIDERS: PCP Physician Assistant Medical; Visit Provider Physician Assistant Medical
DX: K29.71 Gastritis, unspecified, with bleeding (principal)
CPT/HCPCS: 85025

== ENCOUNTER 2020-10-24 08:14 | Outpatient (RCR) | payer MEDICARE, OTHER, SELFPAY ==
[2020-10-24] MEDS: diphenhydrAMINE 25 mg Capsule PO (09:00)
[2020-10-24] MEDS: acetaminophen 325 mg Tablet 650 MG PO (09:00)
[2020-10-24] MEDS: sodium chloride 0.9% 250 ML 999 ML IV (09:00)
[2020-10-24 09:17] LABS: Basophils % 0.2 %; Hematocrit 25.2 % (37.0-47.0); Lymphocytes # 1.5 10^3/uL (0.8-4.8); Lymphocytes % 26.2 %; Mean Corpuscular HGB Conc 31.7 g/dL (30.0-36.0); Mean Corpuscular Hemoglobin 29.1 pg (28.0-34.0); Mean Corpuscular Volume 91.6 fL (81-99); Mean Platelet Volume 10.3 fL (7.4-10.4); Monocytes # 0.8 10^3/uL (0.2-0.9); Neutrophils # 3.06 10^3/uL (1.8-7.7); Neutrophils % 54.8 %; Nucleated Red Blood Cells % 0 %; Platelet Count 289 10^3/cmm (130-400); Red Blood Count 2.75 10^6/uL (4.1-5.3); Red Cell Distribution Width 15.2 % (12.1-15.1); White Blood Count 5.6 10^3/uL (4.0-10.0)
[2020-10-24 10:30] VITALS: BP 101/62; PULSE 59; RESP 18; TEMP 37.1; O2SAT 98
[2020-10-24 10:50] VITALS: BP 104/62; PULSE 59; RESP 18; TEMP 37; O2SAT 97
[2020-10-24] MEDS: FUROsemide 10 mg/mL SDV 2mL 20 MG IV (12:12)
== END 2020-10-24 23:59 | disposition home or self-care (01) ==
LOC: ONCMED 08:14
PROVIDERS: PCP Physician Assistant Medical; Visit Provider Internal Medicine Medical Oncology
DX: D75.81 Myelofibrosis (principal); D64.9 Anemia, unspecified
CPT/HCPCS: 36430; 85025; 86850; 86900; 86920; J1940; J7050; P9016

== ENCOUNTER 2020-10-29 15:22 | Outpatient (CLI) | payer MEDICARE, OTHER, SELFPAY ==
[2020-10-29 16:16] LABS: Basophils % 0.3 %; Hematocrit 34.2 % (37.0-47.0); Hemoglobin 10.6 g/dL (11.5-15.3); Lymphocytes # 0.9 10^3/uL (0.8-4.8); Lymphocytes % 26.1 %; Mean Corpuscular Hemoglobin 28.8 pg (28.0-34.0); Mean Corpuscular Volume 92.9 fL (81-99); Mean Platelet Volume 10.4 fL (7.4-10.4); Monocytes # 0.5 10^3/uL (0.2-0.9); Monocytes % 16.6 %; Neutrophils # 1.78 10^3/uL (1.8-7.7); Neutrophils % 54.5 %; Nucleated Red Blood Cells % 0 %; Platelet Count 224 10^3/cmm (130-400); Red Blood Count 3.68 10^6/uL (4.1-5.3); Red Cell Distribution Width 14.3 % (12.1-15.1); White Blood Count 3.3 10^3/uL (4.0-10.0)
== END 2020-10-29 15:23 | disposition home or self-care (01) ==
LOC: LAB 15:32
PROVIDERS: PCP Physician Assistant Medical; Visit Provider Internal Medicine Medical Oncology
DX: D64.9 Anemia, unspecified (principal)
CPT/HCPCS: 85025

== ENCOUNTER 2020-11-05 11:44 | Outpatient (CLI) | payer MEDICARE, OTHER, SELFPAY ==
[2020-11-05 12:42] LABS: Basophils % 0.5 %; Hematocrit 28.6 % (37.0-47.0); Hemoglobin 9.5 g/dL (11.5-15.3); Lymphocytes # 0.9 10^3/uL (0.8-4.8); Lymphocytes % 25.2 %; Mean Corpuscular HGB Conc 33.2 g/dL (30.0-36.0); Mean Corpuscular Hemoglobin 28.9 pg (28.0-34.0); Mean Corpuscular Volume 86.9 fL (81-99); Mean Platelet Volume 10.9 fL (7.4-10.4); Monocytes # 0.3 10^3/uL (0.2-0.9); Monocytes % 9.2 %; Neutrophils # 2.23 10^3/uL (1.8-7.7); Neutrophils % 60.5 %; Nucleated Red Blood Cells % 0 %; Platelet Count 254 10^3/cmm (130-400); Red Blood Count 3.29 10^6/uL (4.1-5.3); Red Cell Distribution Width 13.8 % (12.1-15.1); White Blood Count 3.7 10^3/uL (4.0-10.0)
== END 2020-11-05 11:45 | disposition home or self-care (01) ==
PROVIDERS: PCP Physician Assistant Medical; Visit Provider Physician Assistant Medical
DX: D64.9 Anemia, unspecified (principal)
CPT/HCPCS: 85025; 86850; 86900

== ENCOUNTER 2020-11-06 10:55 | Outpatient (CLI) | payer MEDICARE, OTHER, SELFPAY ==
--- NOTE | 2020-11-06 14:59 | ONC FU_ITS ---
Dr. Gonzales Patient Follow-Up Note Patient: Tonya Lynch Unit #: [id number]: [id number] Dicatated By: Cole Gonzales M.D.Date of Visit:Nov 06, 2020 Onc Med Follow-up/Prog Note Chief Complaint: Myelofibrosis. History of Present Illness: This is an 80 year-old woman with myelofibrosis, presenting with anemia, leukopenia, and splenomegaly. On 05/16/2018 she was admitted to the hospital with anemia and leukopenia. Her initial CBC showed hemoglobin 6.5 g with hematocrit 20.2%. The red cell indices were in the low normal range. The white blood cell count was 2800 and the platelet count was 163,000. The differential showed 70% neutrophils, 17% lymphocytes, and 9% monocytes. Also reported were 3% immature . Her serum iron studies show transferrin saturation 34%. The ferritin was relatively low at 44.1 ng/mL. Her comprehensive metabolic profile showed borderline renal function with BUN 9 and creatinine 1.21 mg/dL. The bilirubin and liver enzymes were normal. TSH was normal at 2.38. She was transfused PRBC. She reportedly had a similar episode in 2017, at which time she did undergo GI endoscopy studies. Hematology consultation was recommended, but apparently not completed. I had seen her initially on 06/14/2019. At that time, she was noted to have an enlarged spleen, and that was subsequently confirmed by CT. There was no associated lymphadenopathy. Bone marrow aspiration/biopsy on 07/14/2019 showed hypercellular marrow estimated at 70 to 90% cellularity. There was megakaryocytic hyperplasia with occasional bizarre megakaryocyte forms present. Blasts were estimated at 2.5%. There was severe reticulin fibrosis noted. Standard cytogenetics were not able to be done, as the bone marrow aspirate did not contain any spicules. The FISH panel for MDS was unrevealing. Overall, the findings were most consistent with myelofibrosis. Her other medical illnesses include hypertension, hyperlipidemia, chronic kidney disease, GERD, irritable bowel syndrome, degenerative arthritis, and anxiety/depression. She has a history of smoking 2 packs of cigarettes daily for 63 years. She had cut down to 1 pack/day. INTERIM HISTORY: On 10/04/2019 she began treatment with ruxolitinib 10 mg daily for 3 days, then 10 mg twice daily. As of 10/14/2019 the dosage was further increased to 20 mg twice daily. She tolerated it well. During follow-up she had improvement in her clinical status with resolution of splenomegaly, improved appetite, and significant weight gain, and she felt better generally. However, she continued to have tansfusion dependent anemia. She has recently been in the hospital a couple of times with more severe anemia in association with acute GI bleeding. Her evaluation revealed no specific source of GI blood loss, and she has been scheduled to have further evaluation with camera endoscopy. She is seen for a follow-up visit. She has been feeling a little better since her recent hospitalization. Her energy is pretty good most of the time, though she has ongoing problems with weakness in her legs. She still manages to function well enough to live independently. Her ECOG score is 1. Her appetite has not been too good and she has lost weight. She does not have fever or night sweats. She complains that her sinuses have been plugged up a lot. Her breathing is not bad. She sometimes has shortness of breath. She also sometimes has cough. She does brings up white sputum. She occasionally has tiny chest pains. She sometimes has nausea. Her acid reflux is adequately managed with medication. She occasionally has loose stools, but her stool recently has been brownish colored. She occasionally has pain neither the right upper quadrant or the left upper quadrant. She has no complaints. She does have a lot of musculoskeletal pain. She has been hurting a lot in the left shoulder, but that seems to have resolved. She is now having pain in her butt on the right side she also complains that her knees hurt. She has had some headaches. She has poor balance and she has been prone to falling. She has some numbness in her fingers. Medications: Albuterol Sulfate 2 Puff(s) (of 108 (90 base) mcg/act) Aerosol Powder, Breath Activated Inhalation q 6 hours PRN, ALPRAZolam 1 (1 mg) Tablet Oral t.i.d. PRN, amLODIPine Besylate 1 (5 mg) Tablet Oral daily, Antacid Maximum Tablet, chewable Oral PRN, Benzonatate 1 (200 mg) Capsule Oral daily PRN, Combivent Respimat 1 Inhalation (of 20-100 mcg/act) Aerosol, solution Inhalation b.i.d., Cough & Sore Throat NightTime 30 mL (of 30-12.5-1000 mg/30mL) Liquid Oral PRN, [facility] Migraine Relief 1 (250-250-65 mg) Tablet Oral PRN, Ferrous Sulfate 1 (325 (65 fe) mg) Tablet Oral daily, Isosorbide Mononitrate ER 1 (30 mg) Tablet SR 24 HR Oral daily, Jakafi 1 Tablet (of 20 mg) Oral b.i.d. for 30 days, Meclizine HCl 1 (12.5 mg) Tablet Oral PRN, raNITIdine HCl 1 (150 mg) Capsule Oral at bedtime, SUMAtriptan Succinate Tablet Oral PRN, traMADol-Acetaminophen 1 (37.5-325 mg) Tablet Oral q 6 hours PRN Allergies: No Known Allergies. Vital Signs: Performed on Nov 06, 2020 11:13 Height - 69.00 in Weight - 126 lbs (LOW) BSA - 1.70 sq.m BMI - 18.61 Temperature - 98.0 F (LOW) Pulse - 93 /min Respiration - 18 /min BP - 104/58 mm(hg) O2 Sat - 95 % (LOW) Pain - 6 Physical Examination: Constitutional - She appears generally weak, Eyes - Sclerae nonicteric. Conjunctivae clear, ENMT - No lesions noted in the oral cavity, Hematologic/Lymphatic - No cervical, clavicular, or axillary adenopathy, Respiratory - Lungs sound clear with diminished air movement bilaterally, Cardiovascular - Heart rhythm appears regular. There is a II/ systolic murmur. There is no gallop or rub noted, Abdomen - Soft. Liver is not enlarged. The spleen is not palpable. There is no abdominal mass or ascites noted and there is no inguinal adenopathy, Extremities - No edema, Neurologic - No focal neurologic deficits noted. Lab/Imaging: Test performed on Nov 01, 2020 11:44 Magnesium 1.9 mg/dL Glucose 106 mg/dL BUN 8 mg/dL Creatinine 1.00 mg/dL Cr Clearance (Est) 42.09 mL/min Sodium 132 mmol/L Potassium 3.9 mmol/L Chloride 97 mmol/L CO2 22 mmol/L Calcium 8.7 mg/dL Protein, Total 5.9 g/dL Albumin 3.5 g/dL Bilirubin, Total 0.6 mg/dL Alkaline Phosphatase 91 IU/L AST (SGOT) 7 IU/L ALT (SGPT) 7 IU/L WBC 4.6 10^9/L RBC 3.38 10^12/L HGB 9.8 g/dL HCT 29.7 % MCV 87.9 fl MCH 29.0 pg MCHC 33.0 g/dL RDW 14.1 % Platelet Count 175 10^9/L MPV 9.4 fL Neutrophils (Gran) 2.84 10^9/L Lymphocytes 0.77 10^9/L Monocytes 0.89 10^9/L Eosinophils 0.00 10^9/L Basophils 0.01 10^9/L Manual Lymphocytes 17 % Manual Monocytes 19 % Manual Eosinophils 0 % Manual Basophils 0 % Problem List: 1. Myelofibrosis with transfusion dependent anemia. 2. She is at risk for iron overload. 3. Hypertension. 4. Hyperlipidemia. 5. Chronic kidney disease, stage III. 6. GERD. 7. Irritable bowel syndrome. 8. Degenerative arthritis. 9. Anxiety/depression. Problems Addressed with this Encounter and Plan: 1. Patient with myelofibrosis. She had presented with anemia, leukopenia, and splenomegaly. Her bone marrow aspiration/biopsy on 07/14/2019 showed severe reticulin fibrosis, consistent with myelofibrosis. She had associated decline in performance status and weight loss. Her symptoms improved with ruxolitinib, and she has tolerated it well. However, she has remained transfusion dependent. She will continue the ruxolitinib 20 mg twice daily. Her blood counts now are being monitored twice weekly. She will be transfused as needed. She will be scheduled for a followup visit in 3 months. 2. She has recently been in the hospital with more severe anemia and with evidence of acute GI bleeding. A source of blood loss has not been determined. She is scheduled to have further evaluation with camera endoscopy. 3. She is at risk for iron overload. She requires monitoring of her transferrin saturation and ferritin. Signed By: Cole Gonzales M.D. <<Signature on File>>
== END 2020-11-06 10:56 | disposition home or self-care (01) ==
LOC: ONCMED 10:56
PROVIDERS: PCP Physician Assistant Medical; Visit Provider Internal Medicine Medical Oncology
DX: D47.1 Chronic myeloproliferative disease (principal); E83.111 Hemochromatosis due to repeated red blood cell transfusions; I10 Essential (primary) hypertension; E78.5 Hyperlipidemia, unspecified; E11.22 Type 2 diabetes mellitus with diabetic chronic kidney disease; N18.30 Chronic kidney disease, stage 3 unspecified; K21.9 Gastro-esophageal reflux disease without esophagitis; K58.9 Irritable bowel syndrome, unspecified; M19.90 Unspecified osteoarthritis, unspecified site; F41.9 Anxiety disorder, unspecified; F32.9 Major depressive disorder, single episode, unspecified; Z79.899 Other long term (current) drug therapy
CPT/HCPCS: 99214

== ENCOUNTER 2020-11-08 16:35 | Outpatient (CLI) | payer MEDICARE, OTHER, SELFPAY ==
[2020-11-08 16:45] LABS: Basophils % 0.4 %; Hematocrit 26.6 % (37.0-47.0); Hemoglobin 8.5 g/dL (11.5-15.3); Mean Corpuscular Hemoglobin 28.9 pg (28.0-34.0); Mean Corpuscular Volume 90.5 fL (81-99); Mean Platelet Volume 10.8 fL (7.4-10.4); Monocytes # 0.3 10^3/uL (0.2-0.9); Monocytes % 6.3 %; Neutrophils % 68.9 %; Nucleated Red Blood Cells % 0 %; Platelet Count 301 10^3/cmm (130-400); Red Blood Count 2.94 10^6/uL (4.1-5.3); White Blood Count 4.8 10^3/uL (4.0-10.0)
== END 2020-11-08 16:36 | disposition home or self-care (01) ==
LOC: LAB 16:37
PROVIDERS: PCP Physician Assistant Medical; Visit Provider Internal Medicine Medical Oncology
DX: D64.9 Anemia, unspecified (principal)
CPT/HCPCS: 85025

== ENCOUNTER 2020-11-12 11:30 | Outpatient (CLI) | payer MEDICARE, OTHER, SELFPAY ==
[2020-11-12 12:07] LABS: Basophils % 0.3 %; Hematocrit 28.2 % (37.0-47.0); Hemoglobin 9.2 g/dL (11.5-15.3); Lymphocytes # 0.9 10^3/uL (0.8-4.8); Lymphocytes % 14.2 %; Mean Corpuscular HGB Conc 32.6 g/dL (30.0-36.0); Monocytes # 0.9 10^3/uL (0.2-0.9); Monocytes % 14.2 %; Neutrophils # 4.28 10^3/uL (1.8-7.7); Neutrophils % 65.8 %; Nucleated Red Blood Cells % 0 %; Platelet Count 351 10^3/cmm (130-400); Red Blood Count 3.17 10^6/uL (4.1-5.3); White Blood Count 6.5 10^3/uL (4.0-10.0)
[2020-11-12 12:50] LABS: Slide Review Slide Review Perform
== END 2020-11-12 11:31 | disposition home or self-care (01) ==
PROVIDERS: PCP Physician Assistant Medical; Visit Provider Internal Medicine Medical Oncology
DX: D64.9 Anemia, unspecified (principal)
CPT/HCPCS: 85025; 86850; 86900

== ENCOUNTER 2020-11-19 13:05 | Outpatient (CLI) | payer MEDICARE, OTHER, SELFPAY ==
[2020-11-19 13:39] LABS: Basophils % 0.3 %; Hematocrit 24.9 % (37.0-47.0); Hemoglobin 7.7 g/dL (11.5-15.3); Lymphocytes # 1.2 10^3/uL (0.8-4.8); Lymphocytes % 19.9 %; Mean Corpuscular HGB Conc 30.9 g/dL (30.0-36.0); Mean Corpuscular Hemoglobin 28.4 pg (28.0-34.0); Mean Corpuscular Volume 91.9 fL (81-99); Mean Platelet Volume 10.4 fL (7.4-10.4); Monocytes # 0.6 10^3/uL (0.2-0.9); Monocytes % 10.5 %; Neutrophils # 3.62 10^3/uL (1.8-7.7); Nucleated Red Blood Cells % 0 %; Platelet Count 281 10^3/cmm (130-400); Red Blood Count 2.71 10^6/uL (4.1-5.3); Red Cell Distribution Width 15.1 % (12.1-15.1); White Blood Count 5.8 10^3/uL (4.0-10.0)
[2020-11-19 13:42] LABS: Neutrophils % 69.3 %
== END 2020-11-19 13:06 | disposition home or self-care (01) ==
LOC: LAB 13:06
PROVIDERS: PCP Physician Assistant Medical; Visit Provider Internal Medicine Medical Oncology
DX: D64.9 Anemia, unspecified (principal)
CPT/HCPCS: 85025

== ENCOUNTER 2020-11-22 15:35 | Outpatient (CLI) | payer MEDICARE, OTHER, SELFPAY ==
[2020-11-22 18:11] LABS: Basophils % 0.3 %; Hematocrit 22.2 % (37.0-47.0); Hemoglobin 6.9 g/dL (11.5-15.3); Lymphocytes # 0.8 10^3/uL (0.8-4.8); Lymphocytes % 23.1 %; Mean Corpuscular HGB Conc 31.1 g/dL (30.0-36.0); Mean Corpuscular Hemoglobin 28.3 pg (28.0-34.0); Mean Platelet Volume 10.9 fL (7.4-10.4); Monocytes # 0.4 10^3/uL (0.2-0.9); Monocytes % 10.7 %; Neutrophils % 60.7 %; Nucleated Red Blood Cells % 0 %; Platelet Count 247 10^3/cmm (130-400); Red Blood Count 2.44 10^6/uL (4.1-5.3); White Blood Count 3.5 10^3/uL (4.0-10.0)
[2020-11-22 18:12] LABS: Slide Review Slide Review Perform
== END 2020-11-22 15:36 | disposition home or self-care (01) ==
LOC: LAB 15:38
PROVIDERS: PCP Physician Assistant Medical; Visit Provider Internal Medicine Medical Oncology
DX: D64.9 Anemia, unspecified (principal)
CPT/HCPCS: 85025

== ENCOUNTER 2020-11-23 10:35 | Outpatient (CLI) | payer MEDICARE, OTHER, SELFPAY ==
[2020-11-23] VITALS (13 sets, daily range): BP systolic 89–122; BP diastolic 51–68; PULSE 72–96; RESP 16–20; TEMP 36.1–37.2; O2SAT 64–100
[2020-11-23] MEDS: acetaminophen 325 mg Tablet 650 MG PO (12:16)
[2020-11-23] MEDS: diphenhydrAMINE 25 mg Capsule PO (12:16)
[2020-11-23] MEDS: FUROsemide 10 mg/mL SDV 2mL 20 MG IVP (17:20)
[2020-11-23] MEDS: sodium chloride 0.9% (100 ml) 100 ML 150 ML ×2 (17:21→17:47)
[2020-11-23] MEDS: sodium chloride 0.9% (100 ml) 100 ML 50 ML (17:48)
--- NOTE | 2020-11-23 19:42 | PC.NURSE ---
Physician Notification Dr. Gonzales notified per patient request. Patient is experiencing some sob and did not bring her albuterol inhaler with her. Patient states that she normally has to take it every evening. This nurse received order for Albuterol inhaler inhalation 2 puffs q4h prn sob.
[2020-11-23] MEDS: albuterol 8 gm MDI 2 PUFF INHALATION (19:59)
--- NOTE | 2020-11-23 21:29 | PC.NURSE ---
Patient unit PRBCs ended at 2014. IV line flushed with NS. Patient IV catheter removed at 2034. Patient left facility at 2044 with all personal belongings. Patient taken via wheelchair by this nurse to personal vehicle.
== END 2020-11-23 20:45 | disposition home or self-care (01) ==
LOC: OPMS 10:46 → MEDSURG 11-27 08:29
PROVIDERS: PCP Physician Assistant Medical; Visit Provider Internal Medicine Medical Oncology
DX: D64.9 Anemia, unspecified (principal)
CPT/HCPCS: 36430; 86850; 86900; 86920; 94640; J1940; J3535; P9016

== ENCOUNTER 2020-11-26 09:30 | Outpatient (CLI) | payer MEDICARE, OTHER, SELFPAY ==
[2020-11-26 15:58] LABS: Basophils % 0.4 %; Hematocrit 27.8 % (37.0-47.0); Lymphocytes # 0.7 10^3/uL (0.8-4.8); Lymphocytes % 14.9 %; Mean Corpuscular HGB Conc 32.4 g/dL (30.0-36.0); Mean Corpuscular Hemoglobin 28.5 pg (28.0-34.0); Mean Platelet Volume 10.5 fL (7.4-10.4); Monocytes # 0.8 10^3/uL (0.2-0.9); Monocytes % 16.4 %; Neutrophils # 3.08 10^3/uL (1.8-7.7); Neutrophils % 65.7 %; Nucleated Red Blood Cells % 0 %; Platelet Count 241 10^3/cmm (130-400); Red Blood Count 3.16 10^6/uL (4.1-5.3); White Blood Count 4.7 10^3/uL (4.0-10.0)
== END 2020-11-26 09:31 | disposition home or self-care (01) ==
LOC: LAB 10-10 14:31
PROVIDERS: Visit Provider Internal Medicine Medical Oncology
DX: D64.9 Anemia, unspecified (principal)
CPT/HCPCS: 85025

== ENCOUNTER 2020-12-03 12:50 | Outpatient (CLI) | payer MEDICARE, OTHER, SELFPAY ==
[2020-12-03 13:50] LABS: Basophils % 0.4 %; Hematocrit 28.2 % (37.0-47.0); Lymphocytes # 1.3 10^3/uL (0.8-4.8); Lymphocytes % 25.5 %; Mean Corpuscular HGB Conc 31.9 g/dL (30.0-36.0); Mean Corpuscular Hemoglobin 28.6 pg (28.0-34.0); Mean Corpuscular Volume 89.5 fL (81-99); Mean Platelet Volume 10.6 fL (7.4-10.4); Monocytes # 0.4 10^3/uL (0.2-0.9); Monocytes % 8.4 %; Neutrophils # 2.99 10^3/uL (1.8-7.7); Neutrophils % 58.6 %; Nucleated Red Blood Cells % 0 %; Platelet Count 477 10^3/cmm (130-400); Red Blood Count 3.15 10^6/uL (4.1-5.3); Red Cell Distribution Width 14.9 % (12.1-15.1); White Blood Count 5.1 10^3/uL (4.0-10.0)
[2020-12-03 14:44] LABS: Slide Review Slide Review Perform
== END 2020-12-03 12:51 | disposition home or self-care (01) ==
PROVIDERS: PCP Physician Assistant Medical; Visit Provider Internal Medicine Medical Oncology
DX: D64.9 Anemia, unspecified (principal)
CPT/HCPCS: 85025; 86850; 86900

== ENCOUNTER 2020-12-10 12:47 | Outpatient (CLI) | payer MEDICARE, OTHER, SELFPAY ==
[2020-12-10 13:37] LABS: Hematocrit 26.9 % (37.0-47.0); Hemoglobin 8.4 g/dL (11.5-15.3); Mean Corpuscular HGB Conc 31.2 g/dL (30.0-36.0); Mean Corpuscular Hemoglobin 28.5 pg (28.0-34.0); Mean Corpuscular Volume 91.2 fL (81-99); Mean Platelet Volume 10.4 fL (7.4-10.4); Platelet Count 297 10^3/cmm (130-400); Red Blood Count 2.95 10^6/uL (4.1-5.3); Red Cell Distribution Width 15.2 % (12.1-15.1); White Blood Count 5.4 10^3/uL (4.0-10.0)
[2020-12-10 14:34] LABS: Slide Review Slide Review Perform
[2020-12-10 14:36] LABS: Band Neutrophils Absolute 0.2 10^3/cmm (0.0-1.2); Eosinophils 0 %; Lymphocytes 32 %; Lymphocytes Absolute 1.7 10^3/cmm (1.2-3.4); Monocytes Absolute 0.6 10^3/cmm (0.1-0.6); Total Cells Counted 100 (0-100)
[2020-12-10 14:38] LABS: Absolute Neutrophil 2.9 10^3/cmm (1.4-6.5); Absolute Segmented Neutrophil 2.8 10/cmm (1.6-7.1); Anisocytosis Trace; Platelet Estimate Normal (Normal); Segmented Neutrophils 51 %
== END 2020-12-10 12:48 | disposition home or self-care (01) ==
LOC: LAB 12:48
PROVIDERS: PCP Physician Assistant Medical; Visit Provider Physician Assistant Medical
DX: D64.9 Anemia, unspecified (principal)
CPT/HCPCS: 85007; 85025

== ENCOUNTER 2020-12-17 10:00 | Outpatient (CLI) | payer MEDICARE, OTHER, SELFPAY ==
[2020-12-17 13:19] LABS: Basophils % 0.2 %; Hematocrit 24.8 % (37.0-47.0); Hemoglobin 7.9 g/dL (11.5-15.3); Lymphocytes # 1.3 10^3/uL (0.8-4.8); Lymphocytes % 25.9 %; Mean Corpuscular HGB Conc 31.9 g/dL (30.0-36.0); Mean Corpuscular Hemoglobin 28.6 pg (28.0-34.0); Mean Corpuscular Volume 89.9 fL (81-99); Mean Platelet Volume 10.5 fL (7.4-10.4); Monocytes # 0.5 10^3/uL (0.2-0.9); Monocytes % 10.4 %; Neutrophils # 2.92 10^3/uL (1.8-7.7); Neutrophils % 59.6 %; Nucleated Red Blood Cells % 0 %; Platelet Count 251 10^3/cmm (130-400); Red Blood Count 2.76 10^6/uL (4.1-5.3); Red Cell Distribution Width 15.6 % (12.1-15.1); White Blood Count 4.9 10^3/uL (4.0-10.0)
== END 2020-12-17 10:01 | disposition home or self-care (01) ==
LOC: LAB 10-10 16:47
PROVIDERS: Visit Provider Internal Medicine Medical Oncology
DX: J44.1 Chronic obstructive pulmonary disease with (acute) exacerbation (principal)
CPT/HCPCS: 85025

== ENCOUNTER 2020-12-18 10:16 | Outpatient (CLI) | payer MEDICARE, OTHER, SELFPAY ==
[2020-12-18] MEDS: acetaminophen 325 mg Tablet 650 MG PO (12:50)
[2020-12-18] MEDS: sodium chloride 0.9% 250 ML 999 ML IV (12:50)
[2020-12-18] MEDS: FUROsemide 10 mg/mL SDV 2mL 20 MG IV (14:40)
[2020-12-20] MEDS: diphenhydrAMINE 25 mg Capsule PO (09:55)
== END 2020-12-18 10:17 | disposition home or self-care (01) ==
PROVIDERS: PCP Physician Assistant Medical; Visit Provider Internal Medicine Medical Oncology
DX: D47.1 Chronic myeloproliferative disease (principal)
CPT/HCPCS: 86850; 86900; 86920; J1940; J7050; P9016; P9040

== ENCOUNTER 2021-01-03 06:34 | Outpatient (CLI) | payer MEDICARE, OTHER, SELFPAY ==
[2021-01-03] VITALS (9 sets, daily range): BP systolic 120–128; BP diastolic 44–78; PULSE 74–80; RESP 18; TEMP 36.4–36.8; O2SAT 96–99
[2021-01-03] MEDS: sodium chloride 0.9% 250 ML 999 ML IV (10:00)
[2021-01-03] MEDS: diphenhydrAMINE 25 mg Capsule PO (10:00)
[2021-01-03] MEDS: acetaminophen 325 mg Tablet 650 MG PO (10:00)
[2021-01-03] MEDS: FUROsemide 10 mg/mL SDV 2mL 20 MG IV (12:35)
== END 2021-01-03 06:35 | disposition home or self-care (01) ==
LOC: ONCMED 06:36
PROVIDERS: PCP Physician Assistant Medical; Visit Provider Internal Medicine Medical Oncology
DX: D75.81 Myelofibrosis (principal); D64.9 Anemia, unspecified; D72.819 Decreased white blood cell count, unspecified
CPT/HCPCS: 36430; 86850; 86900; 86920; J1940; J7050; P9016

== ENCOUNTER → 2021-01-17 08:57 | Outpatient (BNVA) | payer MEDICARE, OTHER, SELFPAY | PROVIDERS: PCP Physician Assistant Medical; Visit Provider Internal Medicine Medical Oncology | DX: D75.81 Myelofibrosis (principal) | CPT/HCPCS: 85025 ==

== ENCOUNTER → 2021-01-18 10:45 | Outpatient (BNVA) | payer MEDICARE, OTHER, SELFPAY | PROVIDERS: PCP Physician Assistant Medical; Visit Provider Internal Medicine Medical Oncology | DX: K92.2 Gastrointestinal hemorrhage, unspecified (principal) | CPT/HCPCS: 86850; 86900 ==

== ENCOUNTER → 2021-01-21 08:19 | Outpatient (BNVA) | payer MEDICARE, OTHER, SELFPAY | PROVIDERS: PCP Physician Assistant Medical; Visit Provider Internal Medicine Medical Oncology | DX: K92.2 Gastrointestinal hemorrhage, unspecified (principal) | CPT/HCPCS: 85025; 86850; 86900 ==

== ENCOUNTER → 2021-01-24 08:23 | Outpatient (BNVA) | payer MEDICARE, OTHER, SELFPAY | PROVIDERS: PCP Physician Assistant Medical; Visit Provider Internal Medicine Medical Oncology | DX: K92.2 Gastrointestinal hemorrhage, unspecified (principal) | CPT/HCPCS: 85025 ==

== ENCOUNTER 2021-01-25 10:03 | Outpatient (CLI) | payer MEDICARE, OTHER, SELFPAY ==
[2021-01-25 10:50] VITALS: BP 112/64; PULSE 84; RESP 18; TEMP 36.6; O2SAT 97
[2021-01-25] MEDS: acetaminophen 325 mg Tablet 650 MG PO (10:50)
[2021-01-25] MEDS: sodium chloride 0.9% 250 ML 999 ML IV (10:50)
[2021-01-25] MEDS: diphenhydrAMINE 25 mg Capsule PO (10:50)
[2021-01-25 11:05] VITALS: BP 116/71; PULSE 86; RESP 18; TEMP 36.9; O2SAT 98
[2021-01-25 11:20] VITALS: BP 112/72; PULSE 86; RESP 18; TEMP 36.6; O2SAT 99
[2021-01-25 11:50] VITALS: BP 114/74; PULSE 86; RESP 18; TEMP 36.6; O2SAT 98
[2021-01-25] MEDS: FUROsemide 10 mg/mL SDV 2mL 20 MG IV (12:05)
[2021-01-25 12:15] VITALS: BP 124/78; PULSE 74; RESP 18; TEMP 36.5; O2SAT 97
[2021-01-25 14:10] VITALS: BP 109/70; PULSE 74; RESP 18; TEMP 36.6; O2SAT 98
== END 2021-01-25 10:04 | disposition home or self-care (01) ==
PROVIDERS: PCP Physician Assistant Medical; Visit Provider Internal Medicine Medical Oncology
DX: D75.81 Myelofibrosis (principal); D64.9 Anemia, unspecified; D72.819 Decreased white blood cell count, unspecified; Z79.899 Other long term (current) drug therapy
CPT/HCPCS: 36430; 86850; 86900; 86920; 96374; J1940; J7050; P9016; P9040

== ENCOUNTER → 2021-01-29 00:01 | Outpatient (BNVA) | payer MEDICARE, OTHER, SELFPAY | PROVIDERS: PCP Physician Assistant Medical; Visit Provider Internal Medicine Medical Oncology | DX: K92.2 Gastrointestinal hemorrhage, unspecified (principal) | CPT/HCPCS: 85025; 86850; 86900 ==

== ENCOUNTER → 2021-01-31 08:22 | Outpatient (BNVA) | payer MEDICARE, OTHER, SELFPAY | PROVIDERS: PCP Physician Assistant Medical; Visit Provider Internal Medicine Medical Oncology | DX: K92.2 Gastrointestinal hemorrhage, unspecified (principal) | CPT/HCPCS: 85025 ==

== ENCOUNTER → 2021-02-04 09:08 | Outpatient (BNVA) | payer MEDICARE, OTHER, SELFPAY | PROVIDERS: PCP Physician Assistant Medical; Visit Provider Internal Medicine Medical Oncology | DX: K92.2 Gastrointestinal hemorrhage, unspecified (principal) | CPT/HCPCS: 36415; 85025; 86850; 86900 ==

== ENCOUNTER 2021-02-11 06:13 | Outpatient (CLI) | payer MEDICARE, OTHER, SELFPAY ==
[2021-02-11 09:17] LABS: Basophils % 0.3 %; Hematocrit 21.7 % (37.0-47.0); Lymphocytes # 0.8 10^3/uL (0.8-4.8); Lymphocytes % 25.4 %; Mean Corpuscular HGB Conc 32.3 g/dL (30.0-36.0); Mean Corpuscular Hemoglobin 27.6 pg (28.0-34.0); Mean Corpuscular Volume 85.4 fL (81-99); Mean Platelet Volume 9.6 fL (7.4-10.4); Monocytes # 0.4 10^3/uL (0.2-0.9); Neutrophils # 1.83 10^3/uL (1.8-7.7); Neutrophils % 58.1 %; Nucleated Red Blood Cells % 0 %; Platelet Count 154 10^3/cmm (130-400); Red Blood Count 2.54 10^6/uL (4.1-5.3); Red Cell Distribution Width 15.6 % (12.1-15.1); White Blood Count 3.2 10^3/uL (4.0-10.0)
[2021-02-11] MEDS: sodium chloride 0.9% 250 ML 999 ML IV (09:45)
[2021-02-11] MEDS: acetaminophen 325 mg Tablet 650 MG PO (09:45)
[2021-02-11] MEDS: diphenhydrAMINE 25 mg Capsule PO (09:45)
[2021-02-11] MEDS: FUROsemide 10 mg/mL SDV 2mL 20 MG IV (12:00)
== END 2021-02-11 06:14 | disposition home or self-care (01) ==
LOC: ONCMED 06:16
PROVIDERS: PCP Physician Assistant Medical; Visit Provider Internal Medicine Medical Oncology
DX: D64.9 Anemia, unspecified (principal); D75.81 Myelofibrosis; E78.5 Hyperlipidemia, unspecified; I12.9 Hypertensive chronic kidney disease with stage 1 through stage 4 chronic kidney disease, or unspecified chronic kidney disease; N18.30 Chronic kidney disease, stage 3 unspecified; K21.9 Gastro-esophageal reflux disease without esophagitis; K58.9 Irritable bowel syndrome, unspecified; M19.90 Unspecified osteoarthritis, unspecified site; F41.9 Anxiety disorder, unspecified; F32.9 Major depressive disorder, single episode, unspecified; Z79.899 Other long term (current) drug therapy
CPT/HCPCS: 36415; 85025; 86850; 86900; 86920; J1940; J7050; P9040

== ENCOUNTER 2021-02-12 13:30 | Outpatient (CLI) | payer MEDICARE, OTHER, SELFPAY ==
--- NOTE | 2021-02-25 07:39 | ONC FU_ITS ---
Dr. Gonzales Patient Follow-Up Note Patient: Tonya Lynch Unit #: [id number]: [id number] Dicatated By: Cole Gonzales M.D.Date of Visit:Feb 12, 2021 Onc Med Follow-up/Prog Note Chief Complaint: Myelofibrosis. History of Present Illness: This is an 80 year-old woman with myelofibrosis, presenting with anemia, leukopenia, and splenomegaly. On 05/16/2018 she was admitted to the hospital with anemia and leukopenia. Her initial CBC showed hemoglobin 6.5 g with hematocrit 20.2%. The red cell indices were in the low normal range. The white blood cell count was 2800 and the platelet count was 163,000. The differential showed 70% neutrophils, 17% lymphocytes, and 9% monocytes. Also reported were 3% immature . Her serum iron studies show transferrin saturation 34%. The ferritin was relatively low at 44.1 ng/mL. Her comprehensive metabolic profile showed borderline renal function with BUN 9 and creatinine 1.21 mg/dL. The bilirubin and liver enzymes were normal. TSH was normal at 2.38. She was transfused PRBC. She reportedly had a similar episode in 2017, at which time she did undergo GI endoscopy studies. Hematology consultation was recommended, but apparently not completed. I had seen her initially on 06/14/2019. At that time, she was noted to have an enlarged spleen, and that was subsequently confirmed by CT. There was no associated lymphadenopathy. Bone marrow aspiration/biopsy on 07/14/2019 showed hypercellular marrow estimated at 70 to 90% cellularity. There was megakaryocytic hyperplasia with occasional bizarre megakaryocyte forms present. Blasts were estimated at 2.5%. There was severe reticulin fibrosis noted. Standard cytogenetics were not able to be done, as the bone marrow aspirate did not contain any spicules. The FISH panel for MDS was unrevealing. Overall, the findings were most consistent with myelofibrosis. Her other medical illnesses include hypertension, hyperlipidemia, chronic kidney disease, GERD, irritable bowel syndrome, degenerative arthritis, and anxiety/depression. She has a history of smoking 2 packs of cigarettes daily for 63 years. She had cut down to 1 pack/day. INTERIM HISTORY: On 10/04/2019 she began treatment with ruxolitinib 10 mg daily for 3 days, then 10 mg twice daily. As of 10/14/2019 the dosage was further increased to 20 mg twice daily. She tolerated it well. During follow-up she had improvement in her clinical status with resolution of splenomegaly, improved appetite, and significant weight gain, and she felt better generally. However, she continued to have tansfusion dependent anemia. She was then hospitalized a couple of times with more severe anemia in association with acute GI bleeding. Her evaluation revealed no specific source of GI blood loss. 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 There were no other abnormalities identified, but it was incomplete study as the capsule had not traversed the small bowel within the 8 hours of recording. She is seen for a follow-up visit. She has remained transfusion dependent. She continues to complain that she gets tired very easily, she is doing some light work and she is able to live independently. ECOG score is 1. Her appetite is okay. She does not have fever or night sweats. She has some cough associated with irritation in her throat. She sometimes has shortness of breath. She does not complain of chest pain. She was having pain in the right side of her abdomen for a few days, but that has resolved. She has no other GI complaints. She has not recently been aware of any blood in the stool. Bladder function has been okay. She has pain in her right knee. She complains that her legs are weak. She has headaches and she reports having a lot of dizziness. She has no numbness/paresthesia or other focal neurologic symptoms. Medications: Albuterol Sulfate 2 Puff(s) (of 108 (90 base) mcg/act) Aerosol Powder, Breath Activated Inhalation q 6 hours PRN, ALPRAZolam 1 (1 mg) Tablet Oral t.i.d. PRN, amLODIPine Besylate 1 (5 mg) Tablet Oral daily, Antacid Maximum Tablet, chewable Oral PRN, Benzonatate 1 (200 mg) Capsule Oral daily PRN, Combivent Respimat 1 Inhalation (of 20-100 mcg/act) Aerosol, solution Inhalation b.i.d., Cough & Sore Throat NightTime 30 mL (of 30-12.5-1000 mg/30mL) Liquid Oral PRN, [facility] Migraine Relief 1 (250-250-65 mg) Tablet Oral PRN, Ferrous Sulfate 1 (325 (65 fe) mg) Tablet Oral daily, Isosorbide Mononitrate ER 1 (30 mg) Tablet SR 24 HR Oral daily, Jakafi 1 Tablet (of 20 mg) Oral b.i.d. for 30 days, Meclizine HCl 1 (12.5 mg) Tablet Oral PRN, raNITIdine HCl 1 (150 mg) Capsule Oral at bedtime, SUMAtriptan Succinate Tablet Oral PRN, traMADol-Acetaminophen 1 (37.5-325 mg) Tablet Oral q 6 hours PRN Allergies: No Known Allergies. Vital Signs: Performed on Feb 12, 2021 13:20 Height - 69.00 in Weight - 132 lbs (HIGH) BSA - 1.73 sq.m BMI - 19.49 Temperature - 99.4 F (HIGH) Pulse - 83 /min Respiration - 18 /min BP - 104/56 mm(hg) O2 Sat - 94 % (LOW) Pain - 0 Physical Examination: Constitutional - She appears generally weak, Eyes - Sclerae nonicteric. Conjunctivae clear, ENMT - No lesions noted in the oral cavity, Hematologic/Lymphatic - No cervical, clavicular, or axillary adenopathy, Respiratory - Lungs sound clear with diminished air movement bilaterally, Cardiovascular - Heart rhythm is regular. There is a II/ systolic murmur. There is no gallop or rub noted, Abdomen - Soft. Liver is not enlarged. The spleen is not palpable. There is no abdominal mass or ascites noted and there is no inguinal adenopathy, Extremities - No edema, Neurologic - There is significant weakness in the proximal leg muscles. There are no focal neurologic deficits noted. Lab/Imaging: Her CBC yesterday showed hemoglobin 7.0 g and hematocrit 21.7%. The white blood cell count was 3200 and the platelet count was 154,000. She was transfused PRBCs. Problem List: 1. Myelofibrosis with transfusion dependent anemia. 2. She is at risk for iron overload. 3. Hypertension. 4. Hyperlipidemia. 5. Chronic kidney disease, stage III. 6. GERD. 7. Irritable bowel syndrome. 8. Degenerative arthritis. 9. Anxiety/depression. Problems Addressed with this Encounter and Plan: 1. Patient with myelofibrosis. She had presented with anemia, leukopenia, and splenomegaly. Her bone marrow aspiration/biopsy on 07/14/2019 showed severe reticulin fibrosis, consistent with myelofibrosis. She had associated decline in performance status and weight loss. Her symptoms improved with ruxolitinib, and she had tolerated it well. However, during followup she remained transfusion dependent. At this point she continues to have limited activity tolerance. With transfusion support she has been able to continue to live independently. Overall, her clinical status appears stable. Her blood counts are being monitored twice weekly. She will be transfused PRBC as needed. She continues ruxolitinib 20 mg twice daily. She will be scheduled for a follow-up visit in 3 months. 2. She had recently been hospitalized with more severe anemia and with evidence of acute GI bleeding. A definite source of blood loss was not identified. Bleeding from proximal small bowel AVMs was suspected based on camera endoscopy findings. 3. She is at risk for iron overload. She requires monitoring of her transferrin saturation and ferritin. Signed By: Cole Gonzales M.D. <<Signature on File>>
== END 2021-02-12 13:31 | disposition home or self-care (01) ==
LOC: ONCMED 02-13 07:09
PROVIDERS: PCP Physician Assistant Medical; Visit Provider Internal Medicine Medical Oncology
DX: D64.9 Anemia, unspecified (principal); D75.81 Myelofibrosis; E78.5 Hyperlipidemia, unspecified; I12.9 Hypertensive chronic kidney disease with stage 1 through stage 4 chronic kidney disease, or unspecified chronic kidney disease; N18.30 Chronic kidney disease, stage 3 unspecified; K21.9 Gastro-esophageal reflux disease without esophagitis; K58.9 Irritable bowel syndrome, unspecified; M19.90 Unspecified osteoarthritis, unspecified site; F41.9 Anxiety disorder, unspecified; F32.9 Major depressive disorder, single episode, unspecified; Z79.899 Other long term (current) drug therapy
CPT/HCPCS: 99214

== ENCOUNTER → 2021-02-14 08:16 | Outpatient (BNVA) | payer MEDICARE, OTHER, SELFPAY | PROVIDERS: PCP Physician Assistant Medical; Visit Provider Internal Medicine Medical Oncology | DX: K92.2 Gastrointestinal hemorrhage, unspecified (principal) | CPT/HCPCS: 85025 ==

== ENCOUNTER → 2021-02-18 08:33 | Outpatient (BNVA) | payer MEDICARE, OTHER, SELFPAY | PROVIDERS: PCP Physician Assistant Medical; Visit Provider Internal Medicine Medical Oncology | DX: K92.2 Gastrointestinal hemorrhage, unspecified (principal) | CPT/HCPCS: 36415; 85025; 86850; 86900 ==

== ENCOUNTER → 2021-02-21 08:04 | Outpatient (BNVA) | payer MEDICARE, OTHER, SELFPAY | PROVIDERS: PCP Physician Assistant Medical; Visit Provider Internal Medicine Medical Oncology | DX: K92.2 Gastrointestinal hemorrhage, unspecified (principal) | CPT/HCPCS: 85025; 86850; 86900 ==

== ENCOUNTER → 2021-02-25 08:45 | Outpatient (BNVA) | payer MEDICARE, OTHER, SELFPAY | PROVIDERS: PCP Physician Assistant Medical; Visit Provider Internal Medicine Medical Oncology | DX: K92.2 Gastrointestinal hemorrhage, unspecified (principal) | CPT/HCPCS: 85025; 86850; 86900 ==

== ENCOUNTER → 2021-02-28 08:20 | Outpatient (BNVA) | payer MEDICARE, OTHER, SELFPAY | PROVIDERS: PCP Physician Assistant Medical; Visit Provider Internal Medicine Medical Oncology | DX: K92.2 Gastrointestinal hemorrhage, unspecified (principal) | CPT/HCPCS: 85025 ==

== ENCOUNTER → 2021-03-04 08:42 | Outpatient (BNVA) | payer MEDICARE, OTHER, SELFPAY | PROVIDERS: PCP Physician Assistant Medical; Visit Provider Internal Medicine Medical Oncology | DX: K92.2 Gastrointestinal hemorrhage, unspecified (principal) | CPT/HCPCS: 85025 ==

== ENCOUNTER → 2021-03-07 08:35 | Outpatient (BNVA) | payer MEDICARE, OTHER, SELFPAY | PROVIDERS: PCP Physician Assistant Medical; Visit Provider Internal Medicine Medical Oncology | DX: K92.2 Gastrointestinal hemorrhage, unspecified (principal) | CPT/HCPCS: 85025 ==

== ENCOUNTER → 2021-03-11 08:21 | Outpatient (BNVA) | payer MEDICARE, OTHER, SELFPAY | PROVIDERS: PCP Physician Assistant Medical; Visit Provider Internal Medicine Medical Oncology | DX: K92.2 Gastrointestinal hemorrhage, unspecified (principal) | CPT/HCPCS: 85025 ==

== ENCOUNTER 2021-03-13 08:38 | Outpatient (CLI) | payer MEDICARE, OTHER, SELFPAY ==
[2021-03-13] MEDS: sodium chloride 0.9% 250 ML 999 ML IV (09:15)
[2021-03-13] MEDS: acetaminophen 325 mg Tablet 650 MG PO (09:15)
[2021-03-13] MEDS: diphenhydrAMINE 25 mg Capsule PO (09:15)
[2021-03-13 11:30] VITALS: BP 108/78; PULSE 74; RESP 18; TEMP 36.3; O2SAT 100
[2021-03-13] MEDS: FUROsemide 10 mg/mL SDV 2mL 20 MG IV (11:30)
[2021-03-13 11:50] VITALS: BP 112/56; PULSE 61; RESP 18; TEMP 36.3; O2SAT 99
[2021-03-13 12:05] VITALS: BP 107/50; PULSE 64; RESP 18; TEMP 36.3; O2SAT 98
[2021-03-13 12:35] VITALS: BP 116/52; PULSE 72; RESP 18; TEMP 36.4; O2SAT 99
== END 2021-03-13 08:39 | disposition home or self-care (01) ==
PROVIDERS: PCP Physician Assistant Medical; Visit Provider Internal Medicine Medical Oncology
DX: D64.9 Anemia, unspecified (principal); D75.81 Myelofibrosis; Z79.899 Other long term (current) drug therapy; E78.5 Hyperlipidemia, unspecified; I12.9 Hypertensive chronic kidney disease with stage 1 through stage 4 chronic kidney disease, or unspecified chronic kidney disease; N18.30 Chronic kidney disease, stage 3 unspecified; K21.9 Gastro-esophageal reflux disease without esophagitis; K58.9 Irritable bowel syndrome, unspecified; M19.90 Unspecified osteoarthritis, unspecified site; F41.9 Anxiety disorder, unspecified; F32.9 Major depressive disorder, single episode, unspecified
CPT/HCPCS: 36430; 86850; 86900; 86920; J1940; J7050; P9040

== ENCOUNTER → 2021-03-18 08:27 | Outpatient (BNVA) | payer MEDICARE, OTHER, SELFPAY | PROVIDERS: PCP Physician Assistant Medical; Visit Provider Internal Medicine Medical Oncology | DX: K92.2 Gastrointestinal hemorrhage, unspecified (principal) | CPT/HCPCS: 85025 ==

== ENCOUNTER → 2021-03-21 08:39 | Outpatient (BNVA) | payer MEDICARE, OTHER, SELFPAY | PROVIDERS: PCP Physician Assistant Medical; Visit Provider Internal Medicine Medical Oncology | DX: K92.2 Gastrointestinal hemorrhage, unspecified (principal) | CPT/HCPCS: 85025 ==

== ENCOUNTER → 2021-03-25 08:22 | Outpatient (BNVA) | payer MEDICARE, OTHER, SELFPAY | PROVIDERS: PCP Physician Assistant Medical; Visit Provider Internal Medicine Medical Oncology | DX: K92.2 Gastrointestinal hemorrhage, unspecified (principal) | CPT/HCPCS: 85025 ==

== ENCOUNTER → 2021-03-28 08:30 | Outpatient (BNVA) | payer MEDICARE, OTHER, SELFPAY | PROVIDERS: PCP Physician Assistant Medical; Visit Provider Internal Medicine Medical Oncology | DX: K92.2 Gastrointestinal hemorrhage, unspecified (principal) | CPT/HCPCS: 85025; 86850; 86900 ==

== ENCOUNTER → 2021-04-05 09:00 | Outpatient (BNVA) | payer MEDICARE, OTHER, SELFPAY | PROVIDERS: PCP Physician Assistant Medical; Visit Provider Internal Medicine Medical Oncology | DX: K92.2 Gastrointestinal hemorrhage, unspecified (principal) | CPT/HCPCS: 85025; 86850; 86900 ==

== ENCOUNTER → 2021-04-08 08:25 | Outpatient (BNVA) | payer MEDICARE, OTHER, SELFPAY | PROVIDERS: PCP Physician Assistant Medical; Visit Provider Internal Medicine Medical Oncology | DX: K92.2 Gastrointestinal hemorrhage, unspecified (principal) | CPT/HCPCS: 85025 ==

== ENCOUNTER → 2021-04-11 11:54 | Outpatient (BNVA) | payer MEDICARE, OTHER, SELFPAY | PROVIDERS: PCP Physician Assistant Medical; Visit Provider Internal Medicine Medical Oncology | DX: D46.9 Myelodysplastic syndrome, unspecified (principal); K92.2 Gastrointestinal hemorrhage, unspecified | CPT/HCPCS: 85025; 85384; 85610; 85730 ==

== ENCOUNTER → 2021-04-15 08:51 | Outpatient (BNVA) | payer MEDICARE, OTHER, SELFPAY | PROVIDERS: PCP Physician Assistant Medical; Visit Provider Internal Medicine Medical Oncology | DX: K92.2 Gastrointestinal hemorrhage, unspecified (principal) | CPT/HCPCS: 36415; 85025 ==

== ENCOUNTER 2021-04-16 06:43 | Outpatient (CLI) | payer MEDICARE, OTHER, SELFPAY ==
[2021-04-16] VITALS (11 sets, daily range): BP systolic 113–126; BP diastolic 52–78; PULSE 56–83; RESP 18; TEMP 36.1–36.6; O2SAT 98–100
[2021-04-16] MEDS: diphenhydrAMINE 25 mg Capsule PO (09:45)
[2021-04-16] MEDS: sodium chloride 0.9% 250 ML 999 ML IV (09:45)
[2021-04-16] MEDS: acetaminophen 325 mg Tablet 650 MG PO (10:05)
[2021-04-16] MEDS: FUROsemide 10 mg/mL SDV 2mL 20 MG IV (12:00)
== END 2021-04-16 06:44 | disposition home or self-care (01) ==
LOC: ONCMED 06:44
PROVIDERS: PCP Physician Assistant Medical; Visit Provider Internal Medicine Medical Oncology
DX: D75.81 Myelofibrosis (principal); D64.9 Anemia, unspecified; D72.819 Decreased white blood cell count, unspecified
CPT/HCPCS: 36430; 86850; 86900; 86920; J1940; J7050; P9040

== ENCOUNTER → 2021-04-23 09:30 | Outpatient (BNVA) | payer MEDICARE, OTHER, SELFPAY | PROVIDERS: PCP Physician Assistant Medical; Visit Provider Internal Medicine Medical Oncology | DX: K92.2 Gastrointestinal hemorrhage, unspecified (principal) | CPT/HCPCS: 85025 ==

== ENCOUNTER → 2021-04-25 09:07 | Outpatient (BNVA) | payer MEDICARE, OTHER, SELFPAY | PROVIDERS: PCP Physician Assistant Medical; Visit Provider Internal Medicine Medical Oncology | DX: K92.2 Gastrointestinal hemorrhage, unspecified (principal) | CPT/HCPCS: 85025 ==

== ENCOUNTER → 2021-04-29 08:47 | Outpatient (BNVA) | payer MEDICARE, OTHER, SELFPAY | PROVIDERS: PCP Physician Assistant Medical; Visit Provider Internal Medicine Medical Oncology | DX: K92.2 Gastrointestinal hemorrhage, unspecified (principal) | CPT/HCPCS: 85025 ==

== ENCOUNTER → 2021-05-02 08:28 | Outpatient (BNVA) | payer MEDICARE, OTHER, SELFPAY | PROVIDERS: PCP Physician Assistant Medical; Visit Provider Internal Medicine Medical Oncology | DX: D64.9 Anemia, unspecified (principal); K92.2 Gastrointestinal hemorrhage, unspecified | CPT/HCPCS: 85025 ==

== ENCOUNTER → 2021-05-06 08:38 | Outpatient (BNVA) | payer MEDICARE, OTHER, SELFPAY | PROVIDERS: PCP Physician Assistant Medical; Visit Provider Internal Medicine Medical Oncology | DX: D64.9 Anemia, unspecified (principal); K92.2 Gastrointestinal hemorrhage, unspecified | CPT/HCPCS: 85025 ==

== ENCOUNTER → 2021-05-09 08:20 | Outpatient (BNVA) | payer MEDICARE, OTHER, SELFPAY | PROVIDERS: PCP Physician Assistant Medical; Visit Provider Internal Medicine Medical Oncology | DX: D64.9 Anemia, unspecified (principal); K92.2 Gastrointestinal hemorrhage, unspecified | CPT/HCPCS: 85025 ==

== ENCOUNTER → 2021-05-13 11:47 | Outpatient (BNVA) | payer MEDICARE, OTHER, SELFPAY | PROVIDERS: PCP Physician Assistant Medical; Visit Provider Internal Medicine Medical Oncology | DX: D64.9 Anemia, unspecified (principal); K92.2 Gastrointestinal hemorrhage, unspecified | CPT/HCPCS: 36415; 85025; 86850; 86900 ==

== ENCOUNTER → 2021-05-20 08:15 | Outpatient (BNVA) | payer MEDICARE, OTHER, SELFPAY | PROVIDERS: PCP Physician Assistant Medical; Visit Provider Internal Medicine Medical Oncology | DX: D64.9 Anemia, unspecified (principal); K92.2 Gastrointestinal hemorrhage, unspecified | CPT/HCPCS: 85025; 86850; 86900 ==

== ENCOUNTER 2021-05-22 08:39 | Outpatient (CLI) | payer MEDICARE, OTHER, SELFPAY ==
[2021-05-20 15:51] LABS: Basophils % 0.3 %; Hematocrit 23.5 % (37.0-47.0); Hemoglobin 7.8 g/dL (11.5-15.3); Lymphocytes # 1.3 10^3/uL (0.8-4.8); Lymphocytes % 39.3 %; Mean Corpuscular HGB Conc 33.2 g/dL (30.0-36.0); Mean Corpuscular Volume 81.3 fl (81-99); Monocytes # 0.9 10^3/uL (0.2-0.9); Monocytes % 25.8 %; Neutrophils # 1.02 10^3/uL (1.8-7.7); Neutrophils % 30.7 %; Nucleated Red Blood Cells % 0.6 %; Platelet Count 101 10^3/cmm (130-400); Red Blood Count 2.89 10^6/uL (4.1-5.3); White Blood Count 3.3 10^3/uL (4.0-10.0)
[2021-05-22] VITALS (10 sets, daily range): BP systolic 118–136; BP diastolic 61–71; PULSE 72–76; RESP 18; TEMP 36.1–36.6; O2SAT 92–96
[2021-05-22] MEDS: acetaminophen 325 mg Tablet 650 MG PO (09:15)
[2021-05-22] MEDS: diphenhydrAMINE 25 mg Capsule PO (09:15)
[2021-05-22] MEDS: sodium chloride 0.9% 250 ML 999 ML IV (09:15)
[2021-05-22 09:45] LABS: Basophils % 0.3 %; Hematocrit 21.8 % (37.0-47.0); Hemoglobin 7.3 g/dL (11.5-15.3); Lymphocytes # 1.1 10^3/uL (0.8-4.8); Lymphocytes % 31.9 %; Mean Corpuscular HGB Conc 33.5 g/dL (30.0-36.0); Mean Corpuscular Hemoglobin 27.4 pg (28.0-34.0); Monocytes # 0.9 10^3/uL (0.2-0.9); Monocytes % 24.6 %; Neutrophils # 1.37 10^3/uL (1.8-7.7); Neutrophils % 38.7 %; Nucleated Red Blood Cells % 0.6 %; Platelet Count 101 10^3/cmm (130-400); Red Blood Count 2.66 10^6/uL (4.1-5.3); Red Cell Distribution Width 16.6 % (12.1-15.1); White Blood Count 3.5 10^3/uL (4.0-10.0)
[2021-05-22] MEDS: FUROsemide 10 mg/mL SDV 2mL 20 MG IV (12:50)
== END 2021-05-22 08:40 | disposition home or self-care (01) ==
LOC: ONCMED 08:40
PROVIDERS: PCP Physician Assistant Medical; Visit Provider Internal Medicine Medical Oncology
DX: D75.81 Myelofibrosis (principal); D64.9 Anemia, unspecified; D72.819 Decreased white blood cell count, unspecified
CPT/HCPCS: 36430; 85025; 86850; 86900; 86920; J1940; J7050; P9040

== ENCOUNTER → 2021-05-30 09:19 | Outpatient (BNVA) | payer MEDICARE, OTHER, SELFPAY | PROVIDERS: PCP Physician Assistant Medical; Visit Provider Internal Medicine Medical Oncology | DX: D64.9 Anemia, unspecified (principal); K92.2 Gastrointestinal hemorrhage, unspecified | CPT/HCPCS: 85025 ==

== ENCOUNTER → 2021-06-06 09:12 | Outpatient (BNVA) | payer MEDICARE, OTHER, SELFPAY | PROVIDERS: PCP Physician Assistant Medical; Visit Provider Internal Medicine Medical Oncology | DX: D64.9 Anemia, unspecified (principal); K92.2 Gastrointestinal hemorrhage, unspecified | CPT/HCPCS: 85025 ==

== ENCOUNTER → 2021-06-10 08:24 | Outpatient (BNVA) | payer MEDICARE, OTHER, SELFPAY | PROVIDERS: PCP Physician Assistant Medical; Visit Provider Internal Medicine Medical Oncology | DX: D64.9 Anemia, unspecified (principal) | CPT/HCPCS: 36415; 85025; 86850; 86900 ==

== ENCOUNTER → 2021-06-13 08:15 | Outpatient (BNVA) | payer MEDICARE, OTHER, SELFPAY | PROVIDERS: PCP Physician Assistant Medical; Visit Provider Nurse Practitioner Family | DX: K92.2 Gastrointestinal hemorrhage, unspecified (principal) | CPT/HCPCS: 85007; 85025 ==

== ENCOUNTER → 2021-06-17 08:42 | Outpatient (BNVA) | payer MEDICARE, OTHER, SELFPAY | PROVIDERS: PCP Physician Assistant Medical; Visit Provider Internal Medicine Medical Oncology | DX: K92.2 Gastrointestinal hemorrhage, unspecified (principal); D64.9 Anemia, unspecified | CPT/HCPCS: 85025 ==

== ENCOUNTER 2021-06-18 08:21 | Outpatient (CLI) | payer MEDICARE, OTHER, SELFPAY ==
[2021-06-18] MEDS: diphenhydrAMINE 25 mg Capsule PO (09:10)
[2021-06-18] MEDS: acetaminophen 325 mg Tablet 650 MG PO (09:10)
[2021-06-18] MEDS: sodium chloride 0.9% 250 ML 999 ML IV (09:10)
[2021-06-18 09:40] VITALS: BP 109/49; PULSE 70; RESP 18; TEMP 36.4; O2SAT 97
[2021-06-18] MEDS: FUROsemide 10 mg/mL SDV 2mL 20 MG IV (11:25)
[2021-06-18 11:30] VITALS: BP 108/48; PULSE 74; RESP 18; TEMP 36.6; O2SAT 97
== END 2021-06-18 08:22 | disposition home or self-care (01) ==
LOC: ONCMED 08:27
PROVIDERS: PCP Physician Assistant Medical; Visit Provider Internal Medicine Medical Oncology
DX: D75.81 Myelofibrosis (principal); D64.9 Anemia, unspecified; D72.819 Decreased white blood cell count, unspecified; Z79.899 Other long term (current) drug therapy
CPT/HCPCS: 36430; 86850; 86900; 86920; J1940; J7050; P9040

== ENCOUNTER → 2021-06-24 08:30 | Outpatient (BNVA) | payer MEDICARE, OTHER, SELFPAY | PROVIDERS: PCP Physician Assistant Medical; Visit Provider Internal Medicine Medical Oncology | DX: D64.9 Anemia, unspecified (principal); K92.2 Gastrointestinal hemorrhage, unspecified | CPT/HCPCS: 85025; 86850; 86900 ==

== ENCOUNTER → 2021-06-27 09:32 | Outpatient (BNVA) | payer MEDICARE, OTHER, SELFPAY | PROVIDERS: PCP Physician Assistant Medical; Visit Provider Internal Medicine Medical Oncology | DX: D64.9 Anemia, unspecified (principal); K92.2 Gastrointestinal hemorrhage, unspecified | CPT/HCPCS: 85025; 86850; 86900 ==

== ENCOUNTER → 2021-07-01 09:30 | Outpatient (BNVA) | payer MEDICARE, OTHER, SELFPAY | PROVIDERS: PCP Physician Assistant Medical; Visit Provider Internal Medicine Medical Oncology | DX: D64.9 Anemia, unspecified (principal); K92.2 Gastrointestinal hemorrhage, unspecified | CPT/HCPCS: 85025; 86850; 86900 ==

== ENCOUNTER 2021-07-04 10:27 | Outpatient (CLI) | payer MEDICARE, OTHER, SELFPAY ==
[2021-07-04] VITALS (12 sets, daily range): BP systolic 89–107; BP diastolic 42–63; PULSE 65–78; RESP 18–22; TEMP 36.3–37.1; O2SAT 95–99
[2021-07-04 11:17] LABS: Hemoglobin 6.6 g/dL (11.5-15.3); Lymphocytes # 1.1 10^3/uL (0.8-4.8); Mean Corpuscular HGB Conc 33.3 g/dL (30.0-36.0); Mean Corpuscular Hemoglobin 26.1 pg (28.0-34.0); Mean Corpuscular Volume 78.3 fl (81-99); Monocytes # 1.2 10^3/uL (0.2-0.9); Monocytes % 31.6 %; Neutrophils # 1.53 10^3/uL (1.8-7.7); Neutrophils % 38.9 %; Nucleated Red Blood Cells % 0.8 %; Platelet Count 93 10^3/cmm (130-400); Red Blood Count 2.53 10^6/uL (4.1-5.3); Red Cell Distribution Width 17.5 % (12.1-15.1); White Blood Count 3.9 10^3/uL (4.0-10.0)
[2021-07-04 11:50] LABS: Alanine Aminotransferase 11 U/L (0-33); Albumin Level 4.2 g/dL (3.5-5.2); Alkaline Phosphatase 48 IU/L (35-105); Anion Gap 14.5 (5-19); Aspartate Amino Transferase 9 U/L (0-32); Blood Urea Nitrogen 16 mg/dL (8-23); Calcium 8.3 mg/dL (8.5-10.5); Carbon Dioxide 22 mmol/L (22-29); Chloride 102 mmol/L (98-107); Globulin 1.7 g/dL (1.3-4.6); Glucose 88 mg/dL (65-115); Lactate Dehydrogenase 232 U/L (135-214); Osmolality Calculated 279 mOsm/kg (285-295); Potassium 4.5 mmol/L (3.5-5.1); Sodium 134 mmol/L (136-145); Total Bilirubin 0.4 mg/dL (0.15-1.2); Total Protein 5.9 g/dL (6.6-8.7)
[2021-07-04] MEDS: sodium chloride 0.9% 50 ML 200 ML IV (11:50)
[2021-07-04 12:19] LABS: Hematocrit 19.8 % (37.0-47.0)
[2021-07-04 12:20] LABS: Slide Review Slide Review Perform
[2021-07-04] MEDS: sodium chloride 0.9% 250 ML 999 ML IV (12:50)
[2021-07-04] MEDS: diphenhydrAMINE 25 mg Capsule PO (12:50)
[2021-07-04] MEDS: acetaminophen 325 mg Tablet 650 MG PO (12:50)
[2021-07-04] MEDS: FUROsemide 10 mg/mL SDV 2mL 20 MG IV (14:44)
== END 2021-07-04 10:28 | disposition home or self-care (01) ==
LOC: ONCMED 10:31
PROVIDERS: Visit Provider Internal Medicine Medical Oncology
DX: D75.81 Myelofibrosis (principal); D64.9 Anemia, unspecified; D72.819 Decreased white blood cell count, unspecified; Z79.899 Other long term (current) drug therapy
CPT/HCPCS: 36430; 80053; 83615; 85025; 86850; 86900; 86920; J1940; J2930; J7050; P9040

== ENCOUNTER 2021-07-08 06:34 | Outpatient (CLI) | payer MEDICARE, OTHER, SELFPAY ==
--- NOTE | 2021-07-08 10:56 | ONC FU_ITS ---
Dr. Gonzales Patient Follow-Up Note Patient: Tonya Lynch Unit #: [id number]: [id number] Dicatated By: Cole Gonzales M.D.Date of Visit:Jul 08, 2021 Onc Med Follow-up/Prog Note Chief Complaint: Myelofibrosis. History of Present Illness: This is an 80 year-old woman with myelofibrosis, presenting with anemia, leukopenia, and splenomegaly. On 05/16/2018 she was admitted to the hospital with anemia and leukopenia. Her initial CBC showed hemoglobin 6.5 g with hematocrit 20.2%. The red cell indices were in the low normal range. The white blood cell count was 2800 and the platelet count was 163,000. The differential showed 70% neutrophils, 17% lymphocytes, and 9% monocytes. Also reported were 3% immature . Her serum iron studies show transferrin saturation 34%. The ferritin was relatively low at 44.1 ng/mL. Her comprehensive metabolic profile showed borderline renal function with BUN 9 and creatinine 1.21 mg/dL. The bilirubin and liver enzymes were normal. TSH was normal at 2.38. She was transfused PRBC. She reportedly had a similar episode in 2017, at which time she did undergo GI endoscopy studies. Hematology consultation was recommended, but apparently not completed. I had seen her initially on 06/14/2019. At that time, she was noted to have an enlarged spleen, and that was subsequently confirmed by CT. There was no associated lymphadenopathy. Bone marrow aspiration/biopsy on 07/14/2019 showed hypercellular marrow estimated at 70 to 90% cellularity. There was megakaryocytic hyperplasia with occasional bizarre megakaryocyte forms present. Blasts were estimated at 2.5%. There was severe reticulin fibrosis noted. Standard cytogenetics were not able to be done, as the bone marrow aspirate did not contain any spicules. The FISH panel for MDS was unrevealing. Overall, the findings were most consistent with myelofibrosis. Her other medical illnesses include hypertension, hyperlipidemia, chronic kidney disease, GERD, irritable bowel syndrome, degenerative arthritis, and anxiety/depression. She has a history of smoking 2 packs of cigarettes daily for 63 years. She had cut down to 1 pack/day. INTERIM HISTORY: On 10/04/2019 she began treatment with ruxolitinib 10 mg daily for 3 days, then 10 mg twice daily. As of 10/14/2019 the dosage was further increased to 20 mg twice daily. She tolerated it well. During follow-up she had improvement in her clinical status with resolution of splenomegaly, improved appetite, and significant weight gain, and she felt better generally. However, she continued to have tansfusion dependent anemia. She was then hospitalized a couple of times with more severe anemia in association with acute GI bleeding. Her evaluation revealed no specific source of GI blood loss. 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 There were no other abnormalities identified, but it was an incomplete study as the capsule had not traversed the small bowel within the 8 hours of recording. During subsequent follow-up she continued the ruxolitinib at 20 mg daily. She continued to require transfusion, but not as frequently. She is seen for a follow-up visit. She had presented here on Thursday with increased weakness and shortness of breath. Her hemoglobin had dropped to 6.6 g, and she was transfused PRBC. She also was given IV Solu-Medrol and DuoNeb for wheezing. She has since then been feeling better, though she continues to have shortness of breath and wheezing. She has a pulmonary nebulizer for home use, but it is not functional. She has been showing decline in her activity tolerance. She says she cannot do much without having to rest. Her ECOG score is 1. Appetite is somewhat variable, but she does eat every day. She does not have fever or night sweats. She has not had sore mouth or throat. She has nonproductive cough. Last week she had to take nitroglycerin twice for chest pain. She does not complain of nausea. She does have acid reflux, which she manages with baking soda. Bowel function has been okay. She has not been aware of blood in the stool. She has had some pain in the right upper quadrant area. She has no complaints. She has soreness in her joints, especially her knees. She says her legs get jumpy and she has burning pain in her legs and feet. She has been having neck pain and headache following a recent fall at home and she also complains that she is dizzy most of the time. She had some x-rays done in [place]. I do not have those results available yet. Medications: Albuterol Sulfate 2 Puff(s) (of 108 (90 base) mcg/act) Aerosol Powder, Breath Activated Inhalation q 6 hours PRN, ALPRAZolam 1 (1 mg) Tablet Oral t.i.d. PRN, amLODIPine Besylate 1 (5 mg) Tablet Oral daily, Antacid Maximum Tablet, chewable Oral PRN, Benzonatate 1 (200 mg) Capsule Oral daily PRN, Combivent Respimat 1 Inhalation (of 20-100 mcg/act) Aerosol, solution Inhalation b.i.d., Cough & Sore Throat NightTime 30 mL (of 30-12.5-1000 mg/30mL) Liquid Oral PRN, [facility] Migraine Relief 1 (250-250-65 mg) Tablet Oral PRN, Ferrous Sulfate 1 (325 (65 fe) mg) Tablet Oral daily, Isosorbide Mononitrate ER 1 (30 mg) Tablet SR 24 HR Oral daily, Jakafi 1 Tablet (of 20 mg) Oral b.i.d. for 30 days, Meclizine HCl 1 (12.5 mg) Tablet Oral PRN, raNITIdine HCl 1 (150 mg) Capsule Oral at bedtime, SUMAtriptan Succinate Tablet Oral PRN, traMADol-Acetaminophen 1 (37.5-325 mg) Tablet Oral q 6 hours PRN Allergies: No Known Allergies. Vital Signs: Performed on Jul 08, 2021 08:16 Height - 69.00 in Weight - 136.8 lbs (HIGH) BSA - 1.76 sq.m BMI - 20.20 Temperature - 98.2 F (LOW) Pulse - 66 /min Respiration - 20 /min BP - 144/66 mm(hg) (HIGH) O2 Sat - 91 % (LOW) Pain - 0 Fatigue - 8 Physical Examination: Constitutional - She appears generally weak and chronically ill, Eyes - Sclerae nonicteric. Conjunctivae clear, ENMT - No lesions noted in the oral cavity, Hematologic/Lymphatic - No cervical, clavicular, or axillary adenopathy, Respiratory - Lungs show diminished air movement with mild expiratory wheezing bilaterally, Cardiovascular - Heart rhythm is regular. There is a II/ systolic murmur. There is no gallop or rub noted, Abdomen - Soft. Liver is not enlarged. The spleen is not palpable. There is no abdominal mass or ascites noted and there is no inguinal adenopathy, Extremities - No edema. There is a firm nodule palpable on the dorsum of the left hand, Neurologic - There is weakness in the proximal leg muscles. There are no focal neurologic deficits noted. Problem List: 1. Myelofibrosis with transfusion dependent anemia. 2. She is at risk for iron overload. 3. Hypertension. 4. Hyperlipidemia. 5. Chronic kidney disease, stage III. 6. GERD. 7. Irritable bowel syndrome. 8. Degenerative arthritis. 9. Anxiety/depression. Problems Addressed with this Encounter and Plan: 1. Patient with myelofibrosis. She had presented with anemia, leukopenia, and splenomegaly. Her bone marrow aspiration/biopsy on 07/14/2019 showed severe reticulin fibrosis, consistent with myelofibrosis. She had associated decline in performance status and weight loss. Her symptoms improved with ruxolitinib, and she tolerated it well. However, during followup she remained transfusion dependent. In December 2020 she multiple transfusions in association with acute GI bleeding, but that seems to have resolved. Since then she has remained transfusion dependent, but not as frequently. She has been showing some gradual decline in performance status, but at this point she is still able to live independently. She will continue ruxolitinib 20 mg daily. Blood counts will be monitored regularly, and she will be transfused as needed. As she is at risk for iron overload, I will recheck serum iron studies and ferritin. I will tentatively plan a follow-up visit in 3 months. 2. She has been having shortness of breath and wheezing. She will be provided a new pulmonary nebulizer for home use. 3. She has had persistent neck pain and headache following her recent injury, and she also complains of dizziness. I will get results of her recent x-rays done in [place]. Depending on the findings, she will be scheduled for further evaluation with MRI of the head and cervical spine. 4. She has neuropathy pain in the lower extremities. I will have her try gabapentin, initially at 100 mg 3 times daily. Signed By: Cole Gonzales M.D. <<Signature on File>>
== END 2021-07-08 06:35 | disposition home or self-care (01) ==
LOC: ONCMED 06:34
PROVIDERS: Visit Provider Internal Medicine Medical Oncology
DX: D47.1 Chronic myeloproliferative disease (principal); D64.9 Anemia, unspecified; I12.9 Hypertensive chronic kidney disease with stage 1 through stage 4 chronic kidney disease, or unspecified chronic kidney disease; E78.5 Hyperlipidemia, unspecified; N18.30 Chronic kidney disease, stage 3 unspecified; K21.9 Gastro-esophageal reflux disease without esophagitis; K58.9 Irritable bowel syndrome, unspecified; M19.90 Unspecified osteoarthritis, unspecified site; F41.9 Anxiety disorder, unspecified; F32.9 Major depressive disorder, single episode, unspecified; G62.9 Polyneuropathy, unspecified; Z79.891 Long term (current) use of opiate analgesic; Z79.899 Other long term (current) drug therapy
CPT/HCPCS: 99214

== ENCOUNTER → 2021-07-22 10:26 | Outpatient (BNVA) | payer MEDICARE, OTHER, SELFPAY | PROVIDERS: Visit Provider Internal Medicine Medical Oncology | DX: D75.81 Myelofibrosis (principal) | CPT/HCPCS: 36415; 85025; 86850; 86900 ==

== ENCOUNTER → 2021-07-29 00:01 | Outpatient (BNVA) | payer MEDICARE, OTHER, SELFPAY | PROVIDERS: Visit Provider Internal Medicine Medical Oncology | DX: K92.2 Gastrointestinal hemorrhage, unspecified (principal) | CPT/HCPCS: 85025; 86850; 86900 ==

== ENCOUNTER 2021-07-30 10:15 | Outpatient (CLI) | payer MEDICARE, OTHER, SELFPAY ==
[2021-07-29 15:25] LABS: Basophils % 0.2 %; Hematocrit 23.8 % (37.0-47.0); Hemoglobin 7.5 g/dL (11.5-15.3); Lymphocytes # 1.3 10^3/uL (0.8-4.8); Lymphocytes % 25.5 %; Mean Corpuscular HGB Conc 31.5 g/dL (30.0-36.0); Mean Corpuscular Hemoglobin 25.8 pg (28.0-34.0); Mean Corpuscular Volume 81.8 fl (81-99); Monocytes # 1.7 10^3/uL (0.2-0.9); Monocytes % 32.7 %; Neutrophils # 1.98 10^3/uL (1.8-7.7); Neutrophils % 38.3 %; Nucleated Red Blood Cells # 0.1 /100WBC; Nucleated Red Blood Cells % 1.2 %; Platelet Count 92 10^3/cmm (130-400); Red Blood Count 2.91 10^6/uL (4.1-5.3); White Blood Count 5.2 10^3/uL (4.0-10.0)
[2021-07-30] MEDS: acetaminophen 325 mg Tablet 650 MG PO (10:50)
[2021-07-30] MEDS: diphenhydrAMINE 25 mg Capsule PO (10:50)
[2021-07-30] MEDS: sodium chloride 0.9% 250 ML 999 ML IV (10:50)
[2021-07-30 11:25] VITALS: BP 100/63; PULSE 69; RESP 18; TEMP 36.8; O2SAT 99
[2021-07-30 11:40] VITALS: BP 108/64; PULSE 69; RESP 18; TEMP 36.9; O2SAT 98
[2021-07-30 12:10] VITALS: BP 110/68; PULSE 68; RESP 18; TEMP 36.8; O2SAT 98
[2021-07-30 13:00] VITALS: BP 109/67; PULSE 69; RESP 18; TEMP 36.6; O2SAT 98
[2021-07-30] MEDS: FUROsemide 10 mg/mL SDV 2mL 20 MG IV (13:10)
[2021-07-30 13:15] VITALS: BP 127/74; PULSE 67; RESP 18; TEMP 36.6; O2SAT 97
[2021-07-30 13:30] VITALS: BP 121/78; PULSE 67; RESP 18; TEMP 36.6; O2SAT 97
[2021-07-31 12:39] VITALS: BP 122/78; PULSE 74; RESP 18; TEMP 36.2; O2SAT 97
== END 2021-07-30 10:16 | disposition home or self-care (01) ==
PROVIDERS: Visit Provider Internal Medicine Medical Oncology
DX: D75.81 Myelofibrosis (principal); D64.9 Anemia, unspecified; D72.819 Decreased white blood cell count, unspecified; Z79.899 Other long term (current) drug therapy
CPT/HCPCS: 36430; 85025; 86850; 86900; 86920; 87506; J1940; J7050; P9040; P9058

== ENCOUNTER → 2021-08-05 08:39 | Outpatient (BNVA) | payer MEDICARE, OTHER, SELFPAY | PROVIDERS: Visit Provider Internal Medicine Medical Oncology | DX: K92.2 Gastrointestinal hemorrhage, unspecified (principal) | CPT/HCPCS: 36415; 85025 ==

== ENCOUNTER → 2021-08-12 10:39 | Outpatient (BNVA) | payer MEDICARE, OTHER, SELFPAY | PROVIDERS: Visit Provider Internal Medicine Medical Oncology | DX: K92.2 Gastrointestinal hemorrhage, unspecified (principal); M79.643 Pain in unspecified hand | CPT/HCPCS: 73130; 85025; 86850; 86900 ==

== ENCOUNTER → 2021-08-15 09:46 | Outpatient (BNVA) | payer MEDICARE, OTHER, SELFPAY | PROVIDERS: Visit Provider Nurse Practitioner Family | DX: R39.9 Unspecified symptoms and signs involving the genitourinary system (principal) | CPT/HCPCS: 81003; 85025; 86850; 86900 ==

== ENCOUNTER → 2021-08-19 09:18 | Outpatient (BNVA) | payer MEDICARE, OTHER, SELFPAY | PROVIDERS: PCP Internal Medicine Medical Oncology; Visit Provider Internal Medicine Medical Oncology | DX: K92.2 Gastrointestinal hemorrhage, unspecified (principal) | CPT/HCPCS: 81003; 85025; 86850; 86900 ==

== ENCOUNTER 2021-08-22 08:19 | Outpatient (CLI) | payer MEDICARE, OTHER, SELFPAY ==
[2021-08-22] VITALS (8 sets, daily range): BP systolic 103–118; BP diastolic 54–74; PULSE 70–84; RESP 18–19; TEMP 36.3–36.6; O2SAT 96–98
--- NOTE | 2021-08-22 08:43 | MR_ITS ---
WS: [id number] MRI CERVICAL SPINE NONCONTRAST AND CONTRAST TECHNIQUE: Sagittal T1, T2 and STIR imaging. Axial T2, gradient, and fiesta imaging. Post gadolinium imaging was obtained. CLINICAL INFORMATION: MYELOFIBROSIS;ANEMIA;DECREASED WHITE BLOOD CELL COUNT COMPARISON: CT June 16, 2020 FINDINGS: Exam is limited due to motion artifact. Straightening of the normal cervical lordosis. Mild disc osteophyte complexes C4-C5 C5-C6 and C6-C7. Enhancing lesion in the left C5 vertebral body with T2 hyperintensity. This extends into the left C5 pedicle and facet. This most likely represents atypical hemangioma with trabeculation on the prior ce rvical spine CT. Metastatic disease not entirely excluded. This can be followed up with MRI in 3 alexander hs. Alternatively bone scan could be obtained to evaluate for additional lesions if suspicion for met astatic disease. C2-C3: Normal. C3-C4: Moderate right facet arthropathy. Moderate right and mild left bony foraminal narrowing. Spina l canal is patent. C4-C5: Disc osteophyte complex with tiny central protrusion. Slight contact of the cervical cord. Mil d bilateral foraminal narrowing. Mild facet arthropathy. C5-C6: Disc osteophyte complex with endplate ridging eccentric to the left. Mild central canal stenos is. Severe left bony foraminal narrowing. Moderate right bony foraminal narrowing. C6-C7: Disc osteophyte complex with endplate ridging. Mild central canal stenosis. Moderate left and mild right bony foraminal narrowing. C7-T1: No significant disc bulging. Spinal canal and foramen are patent. Visualized brain stem structures: Normal. Prevertebral soft tissues: Normal. MR/MR cervical spine wo/w [id number] IMPRESSION: Images degraded by patient motion which limits examination 1. Straightening of the normal cervical lordosis. Moderate spondylitic changes . 2. Small central disc osteophyte protrusion C4-C5 with slight contact of the c ervical cord and mild central canal stenosis. 3. Disc osteophyte complexes with mild central canal stenosis C5-C6 and C6-C7. 4. Moderate to severe bony foraminal narrowing left C5-C6 and moderate left C6 -C7. 5. Asymmetric moderate right facet arthropathy C3-C4 with moderate right bony foraminal narrowing at this level. 6. Enhancing lesion in the left C5 vertebral body extending into the left pedi abby and posterior elements. This is nonspecific but suggestive of an atypical h emangioma. Some trabeculation in this area on the prior CT. Metastatic disease not entirely excluded. Recommend 3 month MRI cervical spine follow-up without a nd with gadolinium enhancement. Alternatively, bone scan could also be obtained to evaluate for additional lesions if suspicion for metastatic disease.
--- NOTE | 2021-08-22 08:43 | MR_ITS ---
WS: [id number] MRI HEAD WITH CONTRAST TECHNIQUE: Sagittal T1, T2 axial, T2 axial FLAIR, axial susceptibility weighted imaging, axial diffus ion weighted images, and coronal T2 images were obtained. Pre and post-T1 axial and post T1 coronal i mages. ADC and FSPGR images. CLINICAL INFORMATION: MYELOFIBROSIS;ANEMIA;DECREASED WHITE BLOOD CELL COUNT COMPARISON: MRI and CT October 02, 2020 FINDINGS: No evidence of restricted diffusion to suggest acute ischemia. Ventricular system and basal cisterns are patent. Moderate small vessel changes. Mild parenchymal volume loss. Small vessel changes in the jaylyn. Normal posterior fossa. Normal vascular flow voids at the skull base. No extra-axial fluid collections. Mil d mucosal thickening ethmoid air cells. Mastoid air cells are well aerated. Previously described meningioma overlying the left lateral temporal lobe with a small amount of perip heral enhancement appears unchanged since 2014. This measures approximately 6 1.4 x 1.3 CCM. No evide nce of increasing surrounding edema. Mild mass effect in the left temporal lobe is unchanged. Suggestion of additional tiny en plaque meningioma overlying the right frontal lobe measuring 6 mm. No other enhancing parenchymal lesions. Normal optic chiasm and pituitary infundibulum. Moderate symm etric atrophy temporal lobes and hippocampal formations. Normal posterior nasopharynx. Enhancing righ t parotid lesion measures 13 mm most likely parotid adenoma. This can be followed up with contrast-en hanced neck CT. Normal posterior nasopharynx. Normal dural venous sinuses. MR/MR head wo/w con [id number] IMPRESSION: 1. No evidence of restricted diffusion to suggest acute ischemia. 2. Stable calcified left temporal meningioma. No evidence of increasing edema or mass effect. No evidence of progression. 3. Moderate small vessel changes with moderate parenchymal volume loss. Small vessel changes in the jaylyn. 4. T2 hyperintense lesion in the right parotid gland measuring 13 mm likely pa rotid adenoma. This can be followed up with contrast-enhanced CT neck. 5. Moderate symmetric atrophy temporal lobes and hippocampal formations. 6. Suggestion of additional tiny en plaque meningioma overlying the right fron saray lobe measuring 6 mm.
[2021-08-22 08:50] LABS: Hematocrit 24.5 % (37.0-47.0); Lymphocytes # 0.7 10^3/uL (0.8-4.8); Lymphocytes % 16.3 %; Mean Corpuscular HGB Conc 32.7 g/dL (30.0-36.0); Mean Corpuscular Hemoglobin 26.4 pg (28.0-34.0); Mean Corpuscular Volume 80.9 fl (81-99); Monocytes # 1.4 10^3/uL (0.2-0.9); Monocytes % 32.9 %; Neutrophils # 2.05 10^3/uL (1.8-7.7); Neutrophils % 47.1 %; Nucleated Red Blood Cells % 0.7 %; Platelet Count 81 10^3/cmm (130-400); Red Blood Count 3.03 10^6/uL (4.1-5.3); White Blood Count 4.4 10^3/uL (4.0-10.0)
[2021-08-22 09:10] LABS: Add RBC Morph Yes; Slide Review Slide Review Perform
[2021-08-22 09:11] LABS: Anisocytosis 1+; Ovalocytes 1+; Poikilocytosis 1+; RBC Morph Comp Yes; Schistocytes Trace
[2021-08-22] MEDS: gadobenate dimeglumine 20 mL vial IV (10:30)
[2021-08-22] MEDS: sodium chloride 0.9% 250 ML 999 ML IV (11:50)
[2021-08-22] MEDS: diphenhydrAMINE 25 mg Capsule PO (11:50)
[2021-08-22] MEDS: morphine 4 mg/mL SDV 1 mL 2 MG IV (11:50)
[2021-08-22] MEDS: acetaminophen 325 mg Tablet 650 MG PO (12:00)
== END 2021-08-22 08:20 | disposition home or self-care (01) ==
LOC: ONCMED 08:23
PROVIDERS: Visit Provider Internal Medicine Medical Oncology
DX: D75.81 Myelofibrosis (principal); D64.9 Anemia, unspecified; D72.819 Decreased white blood cell count, unspecified; M50.30 Other cervical disc degeneration, unspecified cervical region; M48.02 Spinal stenosis, cervical region; M48.32 Traumatic spondylopathy, cervical region; Z79.899 Other long term (current) drug therapy
CPT/HCPCS: 36415; 36430; 70553; 72156; 85025; 86850; 86900; 86920; 96372; A9577; J2270; J7050; P9040

== ENCOUNTER 2021-09-04 10:42 | Outpatient (CLI) | payer MEDICARE, OTHER, SELFPAY ==
[2021-09-04 12:49] LABS: Basophils % 0.2 %; Hematocrit 24.7 % (37.0-47.0); Lymphocytes % 22.3 %; Mean Corpuscular HGB Conc 32.4 g/dL (30.0-36.0); Mean Corpuscular Hemoglobin 25.9 pg (28.0-34.0); Mean Corpuscular Volume 79.9 fl (81-99); Monocytes # 1.4 10^3/uL (0.2-0.9); Monocytes % 31.8 %; Neutrophils # 1.85 10^3/uL (1.8-7.7); Neutrophils % 42.1 %; Nucleated Red Blood Cells % 0.5 %; Platelet Count 72 10^3/cmm (130-400); Red Blood Count 3.09 10^6/uL (4.1-5.3); Red Cell Distribution Width 18.8 % (12.1-15.1); White Blood Count 4.4 10^3/uL (4.0-10.0)
[2021-09-04 13:07] LABS: Slide Review Slide Review Perform
[2021-09-04 13:11] LABS: Alanine Aminotransferase 15 U/L (0-33); Albumin Level 4.6 g/dL (3.5-5.2); Alkaline Phosphatase 52 IU/L (35-105); Anion Gap 14.1 (5-19); Aspartate Amino Transferase 13 U/L (0-32); Blood Urea Nitrogen 15 mg/dL (8-23); Calcium 9.3 mg/dL (8.5-10.5); Carbon Dioxide 23 mmol/L (22-29); Chloride 99 mmol/L (98-107); Globulin 1.6 g/dL (1.3-4.6); Glucose 84 mg/dL (65-115); Osmolality Calculated 274 mOsm/kg (285-295); Potassium 4.1 mmol/L (3.5-5.1); Sodium 132 mmol/L (136-145); Total Bilirubin 0.5 mg/dL (0.15-1.2); Total Protein 6.2 g/dL (6.6-8.7)
== END 2021-09-04 10:43 | disposition home or self-care (01) ==
LOC: ONCMED 11:03
PROVIDERS: Visit Provider Internal Medicine Medical Oncology
DX: D64.9 Anemia, unspecified (principal)
CPT/HCPCS: 80053; 85025; 86850; 86900; 86920; P9016

== ENCOUNTER → 2021-09-10 09:15 | Outpatient (BNVA) | payer MEDICARE, OTHER, SELFPAY | PROVIDERS: Visit Provider Internal Medicine Medical Oncology | DX: D64.9 Anemia, unspecified (principal) | CPT/HCPCS: 85025; 86850; 86900 ==

== ENCOUNTER → 2021-09-16 09:36 | Outpatient (BNVA) | payer MEDICARE, OTHER, SELFPAY | PROVIDERS: Visit Provider Internal Medicine Medical Oncology | DX: K92.2 Gastrointestinal hemorrhage, unspecified (principal) | CPT/HCPCS: 85025; 86850; 86900 ==

== ENCOUNTER 2021-09-18 21:18 | Inpatient (IN) | payer MEDICARE, OTHER, SELFPAY ==
[2021-09-18 21:20] VITALS: BP 91/59; PULSE 92; RESP 18; TEMP 36.5; BMI 20.2
--- NOTE | 2021-09-18 21:20 | ED_ITS ---
HPI - SOB/Dyspnea General: Chief Complaint: Shortness of Breath/Dyspnea Stated Complaint: SOB Time Seen by Provider: 09/18/21 21:20 History of Present Illness: HPI Narrative: Ms. Barrett is a 81-year-old lady with complex past medical history including hypertension, hyperlipidemia, CKD, MDS, COPD, GERD who presents emergency department due to shortness of breath. She reports a longstanding history of shortness of breath however this has been worse today. She describes marked decrease in exertional capacity associated with burning sensation in her chest. She does have a cough which is dry. She has not been vaccinated this Covid. Overall intensity symptoms is moderate. Course has been worsening. Has generalized malaise but no other focal symptoms of infection, exacerbating, relieving factors identified. She did take a nitroglycerin which reportedly helped with the burning sensation in her epigastric region and chest. She has been using her breathing treatments at home. Pertinent past history: COPD and other Onset (ago): hour(s) Timing: intermittent Severity: moderate Exacerbating factors: exertion Relieving factors: nothing Known history of: COPD and other Associated symptoms: Reports other Review of Systems General: Reports: 10 or more systems reviewed and unremarkable except in HPI and below PFSH ED PFSH: Medical History Anemia Chronic kidney disease COPD (chronic obstructive pulmonary disease) Degenerative arthritis GERD (gastroesophageal reflux disease) Hyperlipidemia Hypertension Irritable bowel syndrome Myelodysplasia (myelodysplastic syndrome) Shortness of Breath Skin lesion of face UTI symptoms Surgical History History of appendectomy History of cholecystectomy History of hysterectomy Family History Mother Lung disease Asthma Father CAD (coronary artery disease) Social History Smoking and tobacco status: never smoked Alcohol intake: never Physical Exam Const: COMMON NORMALS: alert GENERAL APPEARANCE: cooperative, well developed and ill appearing (chronically) HENMT: COMMON NORMALS: normocephalic and atraumatic HEAD & SCALP: normoc ephalic and atraumatic THROAT: posterior oropharynx normal Eye: COMMON NORMALS: conjunctivae normal CONJUNCTIVA: Yes conjunctivae normal SCLERA: sclerae normal Neck/C-Spine: COMMON NORMALS: supple GENERAL: Yes trachea midline Resp: EFFORT & INSPECTION: Yes able to speak in complete sentences AUSCULTATION: diminished lung sounds Cardio: COMMON NORMALS: regular rate and regular rhythm RATE: regular rate RHYTHM: regular rhythm OTHER: No significant peripheral edema GI: COMMON NORMALS: Soft to palpation PALPATION: Yes Soft to palpation and No Tenderness to palpation present (GI) PERCUSSION: normal to percussion RECTAL EXAM: normal sphincter tone and heme positive stool (maroon melena, oily) OTHER: Rectal exam performed with photo lab technician present Extremity: GENERAL: Yes normal exam except as noted and No edema Neuro: COMMON NORMALS: moves all extremities SENSORIUM/ORIENTATION: Yes alert and No Orientation impaired Psych: COMMON NORMALS: mental status grossly normal and Normal thought process present THOUGHT PROCESS: Normal thought process present Course ED course: - Patient was seen and evaluated by me at bedside - Patient placed on cardiac monitors, IV access obtained - Initial evaluation notable for chronically ill appearance, nontoxic - Unfortunately, given the patient's chest pain and shortness of breath, prior to obtaining lab results and rectal exam I did order 324 mg of aspirin which the patient received - Labs notable for mild leukocytosis. Hemoglobin worse than baseline at 5.4, thrombocytopenia 99 which is within normal range for the patient. No acute metabolic abnormality to explain patient's symptoms. No evidence of hypoxemia on ABG. Urinalysis pending at time of admission. - Imaging notable for unchanged chest x-ray without lobar consolidation. - Rectal exam performed with photo lab technician present, as noted above with maroon oily melanotic stool - Patient consented for blood transfusion and transfusion ordered - Upon serial reexamination after treatment the patient was similar - Based on patient history, evaluation, labs, and imaging as interpreted the most likely cause of the patient's condition is GI bleed resulting in acute blood loss anemia on chronic anemia likely secondary to MDS. - Discussed with GI on-call Dr Orourke, planned endoscopy with likely EGD in the morning, no indication for emergent endoscopy tonight based on patient's clinical clinical status. Last EGD appears to be 09/2020, has had subsequent pill endoscopy at outside facility, patient reports unsure of when last colonoscopy was. - The results of ED evaluation were discussed with the patient including plan for admission due to requirement for level of care not available if discharged to prevent significant worsening/deterioration. - Admitting service was contacted and Dr Villarreal with the hospitalist service agreed to admit the patient - Patient was admitted without further deterioration or significant events. - After admission I did receive a call from Dr Pat Brown regarding patient's peripheral smear. This was reviewed by him and previously reported blast cell count of 4% appears more closer to 7 to 10% on his review. At his request I did place order for flow cytometry. Additionally he recommended oncology consult in the inpatient setting and he had plans to speak with Dr. Gonzales regarding this case and this patient in the morning. Note: Click bubbles or prepopulated poole in note writing are used for assistance with data collection and billing and are inherently more limited than narrative and other text portions of this note. Please use narrative for additional clinical history and defer to narrative/free test for any case of contradictory information. If information appears in only free text or click bubble it should be considered present or absent as reported. Please contact note commercial underwriter for clarifications of clinical information or contradictory information. MDM is a brief summary, contradictory or erroneous seeming information should be clarified and full note should be reviewed. Vital Signs: Vital signs: Vital Signs Temperature 98.4 F 09/24/21 20:00 Pulse Rate 90 09/24/21 21:01 Respiratory Rate 18 09/24/21 21:01 Blood Pressure 118/70 09/24/21 20:00 Pulse Oximetry 100 09/24/21 21:01 MDM - SOB/Dyspnea Medical Decision Making 81-year-old lady with complex past medical history including history of GI bleeds and MDS presenting with progressive onset shortness of breath. Denies other associated infectious symptoms. Patient found to have hemoglobin 5.4 which likely explain symptoms. Consented for transfusion and transfusion ordered. Patient to be admitted for further evaluation and treatment. Medical Records I reviewed the patient's medical records. Lab Data I reviewed the patient's lab results. : 09/24/21 04:43 09/24/21 04:43 Labs/Radiology: Radiology Impressions Chest X-Ray 09/23/21 11:52 IMPRESSION: No evidence of focal consolidation. COPD changes. Laboratory Results WBC 10.1 10^3/uL (4.0-10.0) H 09/18/21 21:30 RBC 2.15 10^6/uL (4.1-5.3) L 09/18/21 21:30 Hgb 5.4 g/dL (11.5-15.3) L* 09/18/21 21: Hct 16.7 % (37.0-47.0) L* 09/18/21 21: MCV 77.7 fl (81-99) L 09/18/21 21: MCH 25.1 pg (28.0-34.0) L 09/18/21 21: MCHC 32.3 g/dL (30.0-36.0) 09/18/21 21: RDW 19.2 % (12.1-15.1) H 09/18/21 21:30 Plt Count 99 10^3/cmm (130-400) L 09/18/21 21: MPV Not Reportable 09/18/21 21:30 Lymph % (Auto) Not Reportable 09/18/21 21: Ness % (Auto) Not Reportable 09/18/21 21: Lymph # (Auto) Not Reportable 09/18/21 21:30 Ness # (Auto) Not Reportable 09/18/21 21:30 Total Counted 100 (0-100) 09/18/21 21: Atypical Lymphs % 6.0 % (0-5) H 09/18/21 21: Absolute Neutrophils 5.4 10^3/cmm (1.4-6.5) 09/18/21 21:30 Segmented Neutrophils 51 % 09/18/21: Abs Segm Neuts (Man) 5.2 10/cmm (1.6-7.1) 09/18/21 21:30 Band Neutrophils 2.0 % 09/18/21 21:30 Abs Band Neuts (Man) 0.2 10^3/cmm (0.0-1.2) 09/18/21 21:30 Absolute Lymphocytes 2.7 10^3/cmm (1.2-3.4) 09/18/21 21:30 Lymphocytes (Manual) 21 % 09/18/21 21:30 Monocytes (Manual) 13.0 % 09/18/21 21:30 Absolute Monocytes 1.3 10^3/cmm (0.1-0.6) H 09/18/21 21:30 Eosinophils (Manual) 0 % 09/18/21 21:30 Absolute Eosinophils 0.0 10^3/cmm (0.0-0.7) 09/18/21 21:30 Basophils (Manual) 0.0 % 09/18/21 21:30 Absolute Basophils 0.0 10^3/cmm (0.0-0.2) 09/18/21 21:30 Metamyelocytes 3.0 % 09/18/21 21:30 Pathologist Review Yes 09/18/21 21:30 Blast Cells 4 % (0-0) H* 09/18/21 21:30 Platelet Estimate Decreased (Normal) L 09/18/21 21:30 Polychromasia Trace 09/18/21 21:30 Hypochromasia 1+ H 09/18/21 21:30 Poikilocytosis 2+ H 09/18/21 21:30 Basophilic Stippling Trace 09/18/21 21:30 Anisocytosis 1+ H 09/18/21 21:30 Ovalocytes 1+ H 09/18/21 21:30 Acanthocytes (Spur) 2+ H 09/18/21 21:30 Specimen Type Arterial 09/18/21 21:45 Sample Site Radial, left 09/18/21 21:45 ABG pH 7.43 (7.35-7.45) 09/18/21 21:45 ABG pCO2 32.8 mmHg (35-45) L 09/18/21 21:45 ABG pO2 87.6 mmHg (80.0-100.0) 09/18/21 21:45 ABG HCO3 21.6 mmol/L (22-26) L 09/18/21 21:45 ABG Base Excess -2.6 mmol/L (-2.0-2.0) L 09/18/21 21:45 Ra Test Pos 09/18/21 21:45 Hematocrit 16.5 % (37-47) L 09/18/21 21:45 O2 Delivery Device Room air 09/18/21 21:45 Computer Hardware Technician ID Buttr 09/18/21 21:45 Sodium 136 mmol/L (136-145) 09/18/21 21:30 Potassium 4.8 mmol/L (3.5-5.1) 09/18/21 21:30 Chloride 103 mmol/L (98-107) 09/18/21 21:30 Carbon Dioxide 22 mmol/L (22-29) 09/18/21 21: Anion Gap 15.8 (5-19) 09/18/21 21: BUN 42 mg/dL (8-23) H 09/18/21 21:30 Creatinine 1.2 mg/dL (0.5-0.9) H 09/18/21 21:30 GFR Calculation Not Reportable 09/18/21: Glucose 104 mg/dL (65-115) 09/18/21 21: Calculated Osmolality 293 mOsm/kg (285-295) 09/18/21: Calcium 8.3 mg/dL (8.5-10.5) L 09/18/21: Magnesium 2.2 mg/dL (1.7-2.3) 09/18/21: Total Bilirubin 0.3 mg/dL (0.15-1.2) 09/18/21: AST 9 U/L (0-32) 09/18/21: ALT 11 U/L (0-33) 09/18/21: Alkaline Phosphatase 39 IU/L (35-105) 09/18/21 21: Troponin T Baseline 18 ng/L (0-10) H 09/18/21: C-Reactive Protein 3.0 mg/L (0.0-4.9) 09/18/21 21: NT-Pro-B Natriuret Pep 160 pg/mL (0-450) 09/18/21: Total Protein 5.2 g/dL (6.6-8.7) L 09/18/21: Albumin 4.0 g/dL (3.5-5.2) 09/18/21 21: Globulin 1.2 g/dL (1.3-4.6) L 09/18/21:30 Procalcitonin 0.11 ng/mL (0-0.5) 09/18/21 21: TSH 2.18 uIU/mL (0.27-4.20) 09/18/21 21:30 Lymphoma Panel See report 09/18/21 21:30 Immunophenotype Interp See report 09/18/21 21:30 Coronavirus 229E (PCR) Not detected (NOT DETECT) 09/18/21 22:08 SARS-CoV-2 (PCR) Not detected (NOT DETECT) 09/18/21 22:08 Misc Test Reference Cancelled 09/18/21 21:30 Blood Type A Positive 09/18/21 21:30 Rho(D) Type Positive 09/18/21 21:30 Antibody Screen Negative 09/18/21 21:30 Crossmatch See Detail 09/18/21 21:30 EKG Data EKG 1: I personally reviewed and interpreted this EKG as follows: EKG Interpretation Date: 10/16/21 EKG interpretation time: 22:24 Interpretation: Twelve-lead EKG shows a regular rhythm at a rate of 94. LA interval upper end of normal, QRS duration 89, QTc 406. Normal axis. Interpretation: Sinus rhythm. Electronic interpretation of atrial fibrillation appears erroneous. Discharge Plan Discharge Patient Disposition: Admitted As Inpatient Admit Provider: Maria Guadalupe Villarreal Clinical Impression: Acute GI bleeding, Myelodysplasia (myelodysplastic syndrome), Acute on chronic anemia Condition: Stable Discharge Diet: As Directed Discharge Activity: Resume usual activity Coding Level of Care Code ED Sisal Operator for Chg Fwd Exam Comprehensive
--- NOTE | 2021-09-18 21:34 | XRR_ITS ---
PROCEDURE INFORMATION: Exam: XR Chest Exam date and time: 09/18/2021 9:34 PM Age: 81 years old Clinical indication: Shortness of breath; Additional info: SOB TECHNIQUE: Imaging protocol: XR of the chest. Views: 1 view. COMPARISON: CR XR chest 1V [id number] 05/28/2021 2:05 PM FINDINGS: Lungs: Unremarkable. No consolidation. Pleural spaces: Unremarkable. No pleural effusion. No pneumothorax. Heart/Mediastinum: Unremarkable. No cardiomegaly. Bones/joints: Unremarkable. XR/XR chest 1V portable [id number] IMPRESSION: No change, unremarkable
--- NOTE | 2021-09-18 21:35 | ECG_ITS ---
[facility] Test Date: 2021-09-18 Pat Name: Tonya Lynch Department: Room: Gender: Female Drafter Landscape: : 1940 Requested By: Shay Mendez Order Number: [id number] Mares MD: Mel Raman M.D. Measurements Intervals [place] Rate: 94 P: TX: QRS: -16 QRSD: 89 T: 73 QT: 354 QTc: 444 Interpretive Statements Multifocal atrial rhythm POSSIBLE RIGHT VENTRICULAR CONDUCTION DELAY [RSR (QR) IN V1/V2] Nonspecific T wave change ABNORMAL RHYTHM ECG Compared to ECG 10/02/2020 06:06:52 Sinus rhythm no longer present Incomplete right bundle-branch block no longer present Electronically Signed On 09-19-2021 13:42:03 RUFFLING HEMMER AUTOMATIC by Mel Raman M.D. [id number]
[2021-09-18 21:42] LABS: Mean Corpuscular HGB Conc 32.3 g/dL (30.0-36.0); Mean Corpuscular Hemoglobin 25.1 pg (28.0-34.0); Mean Corpuscular Volume 77.7 fl (81-99); Platelet Count 99 10^3/cmm (130-400); Red Blood Count 2.15 10^6/uL (4.1-5.3); Red Cell Distribution Width 19.2 % (12.1-15.1); White Blood Count 10.1 10^3/uL (4.0-10.0)
[2021-09-18 21:56] LABS: ABG PCO2 32.8 mmHg (35-45); ABG PH Result 7.43 (7.35-7.45); Arterial Blood Gas Hematocrit 16.5 % (37-47); Base Excess ABG -2.6 mmol/L (-2.0-2.0); Blood Gas Allen Test Pos; Blood Gas Sample Site Radial, left; Blood Gas Sample Type Arterial; HCO3 ABG 21.6 mmol/L (22-26); Oxygen Device ROOM AIR; PO2 ABG 87.6 mmHg (80.0-100.0)
[2021-09-18] MEDS: sodium chloride 0.9% 500 ML 999 ML IV (22:03)
[2021-09-18] MEDS: aspirin 81 mg Chew Tablet 324 MG PO (22:03)
[2021-09-18 22:04] LABS: Troponin(5th) Baseline 18 ng/L (0-10)
[2021-09-18 22:11] LABS: Slide Review Slide Review Perform
[2021-09-18 22:12] LABS: Hematocrit 16.7 % (37.0-47.0); Hemoglobin 5.4 g/dL (11.5-15.3)
[2021-09-18 22:14] LABS: NT Pro B Type Natriuretic Pept 160 pg/mL (0-450); Procalcitonin 0.11 ng/mL (0-0.5); Thyroid Stimulating Hormone 2.18 uIU/mL (0.27-4.20)
[2021-09-18 22:26] LABS: Alanine Aminotransferase 11 U/L (0-33); Alkaline Phosphatase 39 IU/L (35-105); Aspartate Amino Transferase 9 U/L (0-32); Blood Urea Nitrogen 42 mg/dL (8-23); Calcium 8.3 mg/dL (8.5-10.5); Carbon Dioxide 22 mmol/L (22-29); Chloride 103 mmol/L (98-107); Globulin 1.2 g/dL (1.3-4.6); Glucose 104 mg/dL (65-115); Magnesium 2.2 mg/dL (1.7-2.3); Osmolality Calculated 293 mOsm/kg (285-295); Sodium 136 mmol/L (136-145); Total Bilirubin 0.3 mg/dL (0.15-1.2); Total Protein 5.2 g/dL (6.6-8.7)
[2021-09-18 22:27] VITALS: BP 89/66; RESP 18; O2SAT 99
[2021-09-18 22:28] LABS: Band Neutrophils Absolute 0.2 10^3/cmm (0.0-1.2); Eosinophils 0 %; Total Cells Counted 100 (0-100)
[2021-09-18 22:31] LABS: Absolute Neutrophil 5.4 10^3/cmm (1.4-6.5); Absolute Segmented Neutrophil 5.2 10/cmm (1.6-7.1); Lymphocytes 21 %; Lymphocytes Absolute 2.7 10^3/cmm (1.2-3.4); Monocytes Absolute 1.3 10^3/cmm (0.1-0.6); Platelet Estimate Decreased (Normal); Segmented Neutrophils 51 %
[2021-09-18 22:32] LABS: Blastocytes 4 % (0-0)
[2021-09-18 22:33] LABS: Acanthocytes 2+; Anisocytosis 1+; Hypochromasia 1+
[2021-09-18 22:34] LABS: Basophilic Stippling Trace; Poikilocytosis 2+; Polychromasia Trace
[2021-09-18 22:38] LABS: Ovalocytes 1+; Pathology Refferal Yes
[2021-09-18 22:39] LABS: Anion Gap 15.8 (5-19); Potassium 4.8 mmol/L (3.5-5.1)
[2021-09-18] MEDS: pantoprazole 40 mg SDV 80 MG IVP (22:44)
[2021-09-18 23:22] VITALS: BP 106/53; PULSE 94; RESP 18; O2SAT 98
--- NOTE | 2021-09-18 23:25 | P.HP_ITS ---
Providers/Chief Complaint Admitting Physician: Maria Guadalupe Villarreal MD Chief Complaint: SOB History of Present Illness Tonya Lynch is a 81 year old female with known myelofibrosis and resulting chronic anemia, leukopenia, and splenomegaly. currently on ruxolitinib 20 mg daily. She is tranfusion dependent, needs blood tranfusions every 4-6 weeks, last taken 2 weeks ago as outpatient with hem/onc per patient. She presented to ER today with excessive fatigue and shortness of breath. Stated that she felt so short of breath she thought she may . She had associated burning epigastric discomfort at this time which was releived with S/l nitroglycerin. Denies any past h/o CAD. She reports a chronic cough and per review of last noted from onc 07/16, she has been reporting shortness of breath and wheezing at home for which a new nebulizer was ordered for home use. She has had gradual functional decline and also c/o dizziness. 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 Currently saturating 97% on RA Labs today notable for Hb 5.4, FOBT+ on rectal exam. She reports brown to black colored stools ongoing over several months. Had a capsule endoscopy at [facility] on 12/31/2020 showed a few small nonbleeding AVMs in the proximal small bowel and one in the mid to distal small bowel.? There were no other abnormalities identified, but it was an incomplete study as the capsule had not traversed the small bowel within the 8 hours of recording. Last endoscopy 10/14 with moderate diffuse gastritis but otherwise no obvious source of bleeding. Patient states that she cannot get a colonoscopy due to friable colon. No abdominal pain, diarrhea or hematemesis. Review of Systems General: Reports: 10 or more systems reviewed and unremarkable except in HPI and below Const: Denies: fever(s), chills or body aches Eyes: Denies: change in vision, blurry vision or photophobia ENMT: Reports: hoarseness; Denies: throat pain, enlarged tonsils, odynophagia or nasal congestion Card: Denies: chest pain, palpitations, irregular heart rhythm, edema, swelling of feet/ankles, lightheadedness, pre-syncope, dyspnea on exertion or orthopnea Resp: Denies: dyspnea, productive cough, non-productive cough, wheezing, stridor, pain on inspiration, change in phlegm color, hemoptysis or chest congestion GI: Denies: abdominal pain, nausea, vomiting, hematemesis, coffee ground leonela sis, dysphagia, heartburn, diarrhea, constipation, GI cramping, change in stool character, hematochezia or melena : Denies: flank pain, difficulty voiding, dysuria, urinary frequency, urinary urgency, urinary hesitancy or hematuria Musc: Denies: neck pain, back pain, extremity pain, joint swelling, joint warmth or deformity Neuro: Denies: headache(s), numbness in extremities, weakness in extremities, sensory changes, difficulty walking, frequent falls, dizziness, vertigo, behavioral changes, Slurred speech present or seizure-like activity Psych: Denies: anxiety, depression, suicidal ideation or homicidal ideation Endo: Denies: polyuria, polydipsia, tired all the time, cold intolerance or hot flashes [place]/Lymph: Denies: easy bruising or easy bleeding Medications/Allergies Home Medications Medication Instructions Recorded Confirmed Last Taken Type Vitamin D3 1 tab PO DAILY 06/30/20 07/07/21 10/16/20 History alprazolam 1 mg tablet 1 mg PO DAILY PRN 06/30/20 07/07/21 1 Day Ago History ~10/01/20 ipratropium 20 mcg-albuterol 100 1 puff INHALATION TID PRN 06/30/20 07/07/21 1 Day Ago History mcg/actuation mist for inhalation ~10/01/20 (Combivent Respimat) ropinirole 0.25 mg tablet 0.25 mg PO BID 06/30/20 07/07/21 1 Day Ago History ~10/01/20 ruxolitinib 20 mg tablet (Jakafi) 20 mg PO BID 06/30/20 07/07/21 10/17/20 07:00 History vitamin E 1 tab PO DAILY 06/30/20 07/07/21 10/16/20 History fludrocortisone 0.1 mg tablet 0.1 mg PO DAILY #30 tab 10/03/20 07/07/21 10/16/20 Rx albuterol sulfate 2.5 mg INHALATION Q6H PRN 10/17/20 07/07/21 Unknown History lovastatin 20 mg tablet 20 mg PO DAILY@17 10/17/20 07/07/21 10/16/20 History meclizine 12.5 mg tablet 12.5 mg PO PRN 10/17/20 07/07/21 10/16/20 History nitroglycerin 0.4 mg sublingual 0.4 mg SUBLINGUAL Q5M PRN 10/17/20 07/07/21 Unknown History tablet potassium chloride 10 mEq 10 meq PO QAM 10/17/20 07/07/21 10/16/20 History tablet,extended release albuterol sulfate 90 mcg/actuation 2 inh INHALATION Q4H PRN #18 gm 08/12/21 Unknown Rx aerosol inhaler gabapentin 100 mg capsule ea PO 08/12/21 08/12/21 Unknown History hydrocodone 5 mg-acetaminophen 325 1 tab PO DAILY tab 08/12/21 08/12/21 Unknown History mg tablet pantoprazole 40 mg tablet,delayed 40 mg PO BID #60 tab 08/12/21 08/12/21 Unknown Rx release Allergies Allergy/AdvReac Type Severity Reaction Status Date / Time No Known Allergies Allergy Verified 08/12/21 09:58 PFSH Acute PFSH: Medical History Anemia Chronic kidney disease COPD (chronic obstructive pulmonary disease) Degenerative arthritis GERD (gastroesophageal reflux disease) Hyperlipidemia Hypertension Irritable bowel syndrome Myelodysplasia (myelodysplastic syndrome) Shortness of Breath Skin lesion of face UTI symptoms Surgical History History of appendectomy History of cholecystectomy History of hysterectomy Family History Mother Lung disease Asthma Father CAD (coronary artery disease) Social History Smoking and tobacco status: never smoked Alcohol intake: never Vitals/I&O/Wt Last Vital Signs Temp 97.7 F 09/18/21 21:20 Pulse 94 09/18/21 23:22 Resp 18 09/18/21 23:22 BP 106/53 09/18/21 23:22 Pulse Ox 98 09/18/21 23:22 Weight last 48 hrs Weight 62.142 kg Physical Exam Narrative: GEN: Awake, alert and oriented, no acute distress CVS: S1S2 N RS: CTA B/L all areas Abd: Soft, nt/nd , bs+ CARDIAC CATH TECHNICIAN: no focal neuro deficits Data : 09/18/21 21:30 09/18/21 21:30 A&P Assessment and plan (1) Anemia: Appears to be multifactorial related to known myelofibrosis, may be contributed by additional GI bleeding given presence of FOBT+ stool. Transfuse 2U PRBC, recheck H&H post transfusion Had gastroduodenoscopy 10/14 and capsule endoscopy 01/14 with findings of non s pecific gastritis and small bowel AVMs. Last BM yesterday Dr. Orourke consulted from ER Status: Acute Qualifiers: Anemia type: unspecified type Qualified Code(s): D64.9 - Anemia, unspecified (2) Myelofibrosis: 4% blasts on peripheral smear, 2% 06/16 ; platelet and WBC linegaes at baseline currently Outpatient f/up with hem/onc Status: Acute (3) COPD (chronic obstructive pulmonary disease): worsening dyspnea over past several months duoneb q6h ellen, budesonide Holding off on systemic steroids for now Status: Acute Attestations Medical Necessity Statement*: anticioate >2midnight admission for blood tra nsfusion, GI evaluation Coding Level of Care Code Acute Plastics Nurse for [facility] Diagnoses COPD (chronic obstructive pulmonary disease) J44.9 Anemia D64.9 Anemia type: unspecified type Myelofibrosis D75.81
[2021-09-18] MEDS: sodium chloride 0.9% 100 mL Bag 50 ML IV (23:35)
[2021-09-18 23:39] VITALS: BP 102/55; PULSE 99; RESP 18; TEMP 36.8; O2SAT 97
[2021-09-18 23:56] VITALS: BP 113/69; PULSE 101; RESP 17; TEMP 36.5; O2SAT 100
[2021-09-18 23:58] LABS: Troponin 5 2HR 17.59 ng/L (0-10)
[2021-09-18 23:59] LABS: Troponin 5 2HR Delta -0.41 ABS# (0-10)
[2021-09-19] VITALS (22 sets, daily range): BP systolic 83–126; BP diastolic 50–73; PULSE 64–102; RESP 15–20; TEMP 36.4–37.4; O2SAT 90–100; BMI 22.1
[2021-09-19 00:44] LABS: Adenovirus Not Detected (NOT DETECT); Chlamydia Pneumoniae Not Detected (NOT DETECT); Coronavirus 229E,HKU1,NL63,OC4 Not Detected (NOT DETECT); Human Metapneumovirus Not Detected (NOT DETECT); Human Rhinovirus/Enterovirus Not Detected (NOT DETECT); Influenza A Not Detected (NOT DETECT); Influenza A H1 Not Detected (NOT DETECT); Influenza A H1-2009 Not Detected (NOT DETECT); Influenza A H3 Not Detected (NOT DETECT); Influenza B Not Detected (NOT DETECT); Mycoplasma Pneumoniae Not Detected (NOT DETECT); Parainfluenza Virus Type 1 Not Detected (NOT DETECT); Parainfluenza Virus Type 2 Not Detected (NOT DETECT); Parainfluenza Virus Type 3 Not Detected (NOT DETECT); Parainfluenza Virus Type 4 Not Detected (NOT DETECT); Respiratory Syncytial Virus A Not Detected (NOT DETECT); Respiratory Syncytial Virus B Not Detected (NOT DETECT); SARS-COV-2 Not Detected (NOT DETECT)
[2021-09-19] MEDS: pantoprazole 40 mg SDV IVP ×2 (01:25→12:38)
--- NOTE | 2021-09-19 03:35 | ECG_ITS ---
[facility] Test Date: 2021-09-19 Pat Name: Tonya Lynch Department: Room: 278 Gender: Female Biomass Facilitator: : 1940 Requested By: Shay Mendez Order Number: [id number] Vishnu MD: Mel Raman M.D. Measurements Intervals [place] Rate: 75 P: 73 [place]: 169 QRS: -8 QRSD: 97 T: 78 QT: 413 QTc: 464 Interpretive Statements SINUS RHYTHM WITH OCCASIONAL SUPRAVENTRICULAR PREMATURE COMPLEXES INCOMPLETE RIGHT BUNDLE BRANCH BLOCK [90+ ms QRS DURATION, TERMINAL R IN V1/V2, 40+ ms S IN I/aVL/V4/V5/V6] Compared to ECG 09/18/2021 22:17:52 Incomplete right bundle-branch block now present Atrial fibrillation no longer present Electronically Signed On 09-19-2021 13:43:32 ARMOR OFFICER by Mel Raman M.D. [id number]
--- NOTE | 2021-09-19 08:03 | PM.CONSULT ---
Providers/Reason For Consult Consulting Physician/Specialty*: Endoscopy Reason for Consult*: Acute on chronic anemia with leonid melena and Hemoccult positive stools Attending Physician: Maria Guadalupe Villarreal MD History of Present Illness History of Present Illness Tonya Lynch is a 81 year old female who presented to the ER complaining of shortness of breath. As a part of her ER work-up she was noted to be anemic. She has a long history of anemia requiring blood transfusions. She is under the care of Dr. Gonzales due to her myelofibrosis. She also has a long history of having intermittent gastrointestinal bleeds. She is known AVMs. She has been evaluated multiple times in the past. She has never had an intervention done despite her history of multiple endoscopies that it helped to minimize her previous GI bleeds. The ER doctor reported tarry stools consistent with melena that were Hemoccult positive. Her bowel movement this morning was brown but did have some red blood in it per the nurse. Review of Systems General: Reports: 10 or more systems reviewed and unremarkable except in HPI and below Const: Denies: fever(s) Card: Denies: chest pain or irregular heart rhythm Resp: Reports: dyspnea GI: Reports: hematochezia (Noted by the nurse this morning. The patient did not note any blood.); Denies: vomiting, coffee ground emesis or dysphagia Medications/Allergies Home Medications Medication Instructions Recorded Confirmed Last Taken Type Vitamin D3 1 tab PO DAILY 06/30/20 09/19/21 10/16/20 History alprazolam 1 mg tablet 1 mg PO DAILY PRN 06/30/20 09/19/21 1 Day Ago History ~10/01/20 ipratropium 20 mcg-albuterol 100 1 puff INHALATION TID PRN 06/30/20 09/19/21 1 Day Ago History mcg/actuation mist for inhalation ~10/01/20 (Combivent Respimat) ropinirole 0.25 mg tablet 0.25 mg PO BID 06/30/20 09/19/21 1 Day Ago History ~10/01/20 ruxolitinib 20 mg tablet (Jakafi) 20 mg PO BID 06/30/20 09/19/21 10/17/20 07:00 History vitamin E 1 tab PO DAILY 06/30/20 09/19/21 10/16/20 History fludrocortisone 0.1 mg tablet 0.1 mg PO DAILY #30 tab 10/03/20 09/19/21 10/16/20 Rx albuterol sulfate 2.5 mg INHALATION Q6H PRN 10/17/20 09/19/21 Unknown History lovastatin 20 mg tablet 20 mg PO DAILY@17 10/17/20 09/19/21 10/16/20 History meclizine 12.5 mg tablet 12.5 mg PO PRN 10/17/20 09/19/21 10/16/20 History nitroglycerin 0.4 mg sublingual 0.4 mg SUBLINGUAL Q5M PRN 10/17/20 09/19/21 Unknown History tablet potassium chloride 10 mEq 10 meq PO QAM 10/17/20 09/19/21 10/16/20 History tablet,extended release albuterol sulfate 90 mcg/actuation 2 inh INHALATION Q4H PRN #18 gm 08/12/21 09/19/21 Unknown Rx aerosol inhaler gabapentin 100 mg capsule 100 mg PO TID 08/12/21 09/19/21 Unknown History hydrocodone 5 mg-acetaminophen 325 1 tab PO DAILY PRN tab 08/12/21 09/19/21 Unknown History mg tablet pantoprazole 40 mg tablet,delayed 40 mg PO BID #60 tab 08/12/21 09/19/21 Unknown Rx release Allergies Allergy/AdvReac Type Severity Reaction Status Date / Time No Known Allergies Allergy Verified 09/19/21 09:38 Current Medications Generic Name Dose Route Start Last Admin Trade Name Freq PRN Reason Stop Dose Admin Pantoprazole Sodium 40 mg 09/19/21 00:15 09/19/21 01:25 Pantoprazole 40 Mg Sdv IVP 40 mg Q12H FRANCESCO Administration PFSH Acute PFSH: Medical History Anemia Chronic kidney disease COPD (chronic obstructive pulmonary disease) Degenerative arthritis GERD (gastroesophageal reflux disease) Hyperlipidemia Hypertension Irritable bowel syndrome Myelodysplasia (myelodysplastic syndrome) Shortness of Breath Skin lesion of face UTI symptoms Surgical History History of appendectomy History of cholecystectomy History of hysterectomy Family History Mother Lung disease Asthma Father CAD (coronary artery disease) Social History Smoking and tobacco status: never smoked Alcohol intake: never Vitals/I&O/Wt Last Vital Signs Temp 99.0 F 09/19/21 06:24 Pulse 89 09/19/21 06:24 Resp 18 09/19/21 06:24 BP 105/61 09/19/21 06:24 Pulse Ox 91 09/19/21 06:24 09/18/21 09/19/21 09/19/21 22:59 06:59 14:59 Intake Total 850 / 850 Balance 850 / 850 Weight last 48 hrs Weight 150 lb 4.8 oz Weight 137 lb Physical Exam Const: COMMON NORMALS: no acute distress and patient oriented x3; negative for average body habitus (Thin) GENERAL APPEARANCE: cooperative, comfortable and well developed HENMT: COMMON NORMALS: normocephalic and moist oral mucous membranes HEAD & SCALP: normocephalic Chest: COMMONS NORMALS: normal inspection of the chest Resp: COMMON NORMALS: normal respiratory effort and clear to auscultation bilaterally AUSCULTATION: clear to auscultation bilaterally Cardio: COMMON NORMALS: regular rate, regular rhythm, No gallops present (Cardio), No murmurs present (Cardio) and No rub (Cardio) RATE: regular rate RHYTHM: regular rhythm GI: COMMON NORMALS: Soft to palpation and non-tender AUSCULTATION: Yes normoactive bowel sounds PALPATION: Yes Soft to palpation and No Tenderness to palpation present (GI) Extremity: COMMON NORMALS: normal to inspection Neuro: COMMON NORMALS: patient oriented x3 and no focal motor deficits Skin: COMMON NORMALS: no rashes or lesions noted GENERAL SKIN EXAM: no rashes or lesions noted Data : 09/21/21 03:20 09/21/21 03:20 A&P Assessment and plan (1) Anemia: I spoke with Dr. Gonzales who is very familiar with the patient. He states that she has a chronic history of of having gastrointestinal bleeds that occur in addition to her chronic anemia due to her myelofibrosis. She has not required interventions in the past. She also has known AVMs, and red blood was noted in her stool this morning. She is also told by previous echometer engineer that she should not have a colonoscopy done again due to the friability of her colon. Because of her constitutional status, and the probability that she will stop bleeding without intervention, he recommended that we monitor the patient, and only consider an EGD if she continues to have blood loss. I agree with that assessment. We will reassess her tomorrow and if her hemoglobin continues to drop significantly, we will consider an EGD. I discussed the circumstances with the patient, and she wants to do whatever Dr. Gonzales feels is best. Status: Acute Qualifiers: Anemia type: unspecified type Qualified Code(s): D64.9 - Anemia, unspecified (2) GERD (gastroesophageal reflux disease): Status: Acute (3) Myelodysplasia (myelodysplastic syndrome): Status: Acute (4) Chronic kidney disease: Status: Acute (5) Myelofibrosis: Status: Acute (6) Gastritis: Status: Acute (7) Upper gastrointestinal hemorrhage: Status: Acute Coding Level of Care Code Acute Solid Waste Division Supervisor for Chg Fwd Exam Comprehensive Diagnoses Anemia D64.9 Anemia type: unspecified type GERD (gastroesophageal reflux disease) K21.9 Myelodysplasia (myelodysplastic syndrome) D46.9 Chronic kidney disease N18.9 Myelofibrosis D75.81 Gastritis K29.70 Upper gastrointestinal hemorrhage K92.2
[2021-09-19 08:24] LABS: Hematocrit 23.8 % (37.0-47.0); Hemoglobin 7.9 g/dL (11.5-15.3)
[2021-09-19 08:32] LABS: INR 1.12 (0.8-1.2)
[2021-09-19 08:33] LABS: Partial Thromboplastin Time 26.7 SECONDS (23.9-36.7)
--- NOTE | 2021-09-19 09:55 | PC.NURSE ---
DIet advanced to clear liquid per Dr Burgess while in room with patient. Patient given ice water via straw and patient tolerated very well.
--- NOTE | 2021-09-19 11:23 | PM.PN ---
Subjective Subjective: Patient was seen this morning, she denies any bloody or black stools, no lightheadedness, dizziness, no nausea, no vomiting, she tells her that she is very thirsty she would like some water Vitals/I&O/Wt Last Vital Signs Temp 98.3 F 09/19/21 08:43 Pulse 89 09/19/21 08:43 Resp 15 09/19/21 08:43 BP 123/69 09/19/21 08:43 Pulse Ox 96 09/19/21 08:43 09/18/21 09/19/21 09/19/21 22:59 06:59 14:59 Intake Total 850 / 850 Balance 850 / 850 Weight last 48 hrs Weight 68.175 kg Weight 62.142 kg Physical Exam Const: COMMON NORMALS: no acute distress and patient oriented x3 Resp: COMMON NORMALS: normal respiratory effort, No retractions, No use of accessory muscles and clear to auscultation bilaterally AUSCULTATION: clear to auscultation bilaterally Cardio: COMMON NORMALS: regular rate, regular rhythm, S1 normal heart sound present and S2 normal heart sound present RATE: regular rate RHYTHM: regular rhythm HEART SOUNDS: S1 normal heart sound present and S2 normal heart sound present GI: COMMON NORMALS: Normal to inspection, nondistended, normoactive bowel sounds present, Soft to palpation, non-tender and No hepatosplenomegaly present PALPATION: Yes Soft to palpation and Yes No hepatosplenomegaly present Extremity: COMMON NORMALS: no pedal edema Neuro: COMMON NORMALS: patient oriented x3 Data : 09/19/21 08:15 09/18/21 21:30 A&P Assessment and plan (1) Anemia: Status: Acute Qualifiers: Anemia type: unspecified type Qualified Code(s): D64.9 - Anemia, unspecified (2) GERD (gastroesophageal reflux disease): Status: Acute (3) Myelodysplasia (myelodysplastic syndrome): Status: Acute (4) Chronic kidney disease: Status: Acute (5) Myelofibrosis: Status: Acute (6) Gastritis: Status: Acute (7) Upper gastrointestinal hemorrhage: Status: Acute Plan (1) Anemia: Appears to be multifactorial related to known myelofibrosis, may be contributed by additional GI bleeding given presence of FOBT+ stool.? Transfuse 2U PRBC, posttransfusion H&H 7.9 Had gastroduodenoscopy 10/14 and capsule endoscopy 01/14 with findings of non specific gastritis and small bowel AVMs. Last BM yesterday Dr. Orourke consulted from ER, hold off on EGD, possible EGD based on hemoglobin trend Monitor hemoglobin every 8 hours (2) Myelofibrosis: 4% blasts on peripheral smear, 2% 06/16 ; platelet and WBC linegaes at baseline currently Outpatient f/up with hem/onc (3) COPD (chronic obstructive pulmonary disease): worsening dyspnea over past several months duoneb q6h ellen, budesonide Holding off on systemic steroids for now Attestations Medical Necessity Statement*: Patient requires hospitalization for acute anemia Coding Level of Care Code Acute Slaughterer Religious Ritual for Chg Fwd Diagnoses Anemia D64.9 Anemia type: unspecified type GERD (gastroesophageal reflux disease) K21.9 Myelodysplasia (myelodysplastic syndrome) D46.9 Chronic kidney disease N18.9 Myelofibrosis D75.81 Gastritis K29.70 Upper gastrointestinal hemorrhage K92.2
[2021-09-19] MEDS: sodium chloride 0.9% 1,000 ML 75 ML IV (12:37)
[2021-09-19 13:15] LABS: Hematocrit 20.5 % (37.0-47.0)
[2021-09-19] MEDS: sodium chloride 0.9% 100 mL Bag 50 ML IV (14:52)
[2021-09-19] MEDS: gabapentin 100 mg Capsule PO ×2 (14:53→22:03)
[2021-09-19 17:10] LABS: Glucose Point of Care 97 mg/dL (70-110)
[2021-09-19] MEDS: sucralfate 1 gm/10 mL Oral Liq UDC PO ×2 (18:23→22:03)
[2021-09-19] MEDS: atorvastatin 40 mg Tablet 20 MG PO (18:23)
[2021-09-19] MEDS: ropinirole 0.25 mg Tablet PO (18:23)
[2021-09-19 20:44] LABS: Hematocrit 18.5 % (37.0-47.0); Hemoglobin 6.2 g/dL (11.5-15.3)
[2021-09-19] MEDS: ondansetron 2 mg/ML SDV 2 mL 4 MG IVP (21:14)
[2021-09-20] VITALS (20 sets, daily range): BP systolic 66–142; BP diastolic 45–74; PULSE 68–97; RESP 16–18; TEMP 36.4–37.2; O2SAT 93–100
[2021-09-20] MEDS: pantoprazole 40 mg SDV IVP ×3 (02:05→23:12)
[2021-09-20] MEDS: sodium chloride 0.9% 1,000 ML 75 ML IV ×2 (02:15→16:51)
[2021-09-20 04:54] LABS: Basophils % 0.3 %; Eosinophils % 0.3 %; Lymphocytes # 0.4 10^3/uL (0.8-4.8); Lymphocytes % 12.7 %; Mean Corpuscular HGB Conc 33.9 g/dL (30.0-36.0); Mean Corpuscular Hemoglobin 29.2 pg (28.0-34.0); Mean Corpuscular Volume 86.1 fl (81-99); Monocytes # 1.2 10^3/uL (0.2-0.9); Monocytes % 39.3 %; Neutrophils # 1.25 10^3/uL (1.8-7.7); Neutrophils % 41.7 %; Nucleated Red Blood Cells # 0.1 /100WBC; Nucleated Red Blood Cells % 1.7 %; Platelet Count 32 10^3/cmm (130-400); Red Blood Count 2.09 10^6/uL (4.1-5.3); Red Cell Distribution Width 17.6 % (12.1-15.1)
[2021-09-20] MEDS: sodium chloride 0.9% (100 ml) 100 ML 125 ML (05:01)
[2021-09-20 05:11] LABS: Alanine Aminotransferase 7 U/L (0-33); Albumin Level 3.3 g/dL (3.5-5.2); Alkaline Phosphatase 33 IU/L (35-105); Anion Gap 11.8 (5-19); Aspartate Amino Transferase 6 U/L (0-32); Blood Urea Nitrogen 26 mg/dL (8-23); Calcium 7.8 mg/dL (8.5-10.5); Carbon Dioxide 22 mmol/L (22-29); Chloride 108 mmol/L (98-107); Globulin 1.1 g/dL (1.3-4.6); Glucose 102 mg/dL (65-115); Magnesium 1.8 mg/dL (1.7-2.3); Osmolality Calculated 291 mOsm/kg (285-295); Potassium 3.8 mmol/L (3.5-5.1); Sodium 138 mmol/L (136-145); Total Bilirubin 0.5 mg/dL (0.15-1.2); Total Protein 4.4 g/dL (6.6-8.7)
[2021-09-20 05:18] LABS: Creatinine Clr Calc Pharmacy 42.4185; Slide Review Slide Review Perform
[2021-09-20 05:19] LABS: Hemoglobin 6.1 g/dL (11.5-15.3)
[2021-09-20] MEDS: sucralfate 1 gm/10 mL Oral Liq UDC PO ×4 (06:32→20:25)
--- NOTE | 2021-09-20 08:22 | P.PN_ITS ---
Subjective Subjective: The patient continues to complain of shortness of breath today. Vitals/I&O/Wt Last Vital Signs Temp 99.0 F 09/20/21 07:25 Pulse 82 09/20/21 07:25 Resp 18 09/20/21 07:25 BP 98/60 09/20/21 07:25 Pulse Ox 98 09/20/21 07:25 09/19/21 09/20/21 09/20/21 22:59 06:59 14:59 Intake Total 1177.083 / 1189.083 Output Total 240 / 240 Balance 937.083 / 949.083 Weight last 48 hrs Weight 150 lb 4.8 oz Weight 137 lb Physical Exam Narrative: The patient is alert and pleasant. Her lungs are clear to auscultation bilaterally. Her heart has a regular rate and rhythm without murmurs. Her abdomen is nondistended nontender bowel sounds are positive. Data : 09/21/21 03:20 09/21/21 03:20 A&P Assessment and plan (1) Anemia: The patient's last 2 hemoglobins were essentially the same. Given the patient's long history of chronic anemia with intermittent acute GI bleeds that are not amenable to intervention, at this time the benefits of performing an EGD do not outweigh the risks. We will see if her hemoglobin starts to drift more tomorrow if it does, we will consider an EGD at that time. We will reassess in the [facility] emergency department. Status: Acute Qualifiers: Anemia type: unspecified type Qualified Code(s): D64.9 - Anemia, unspecified (2) Myelofibrosis: Status: Acute Attestations Medical Necessity Statement*: Given the patient's constitutional condition, together with her severe anemia, she will require at least 1-2 more nights in [facility]. Coding Level of Care Code Acute Rewards Consultant for [facility] Fwd Diagnoses Anemia D64.9 Anemia type: unspecified type Myelofibrosis D75.81
[2021-09-20] MEDS: fludrocortisone 0.1 mg Tablet PO (10:31)
[2021-09-20] MEDS: ropinirole 0.25 mg Tablet PO ×2 (10:31→16:52)
[2021-09-20] MEDS: gabapentin 100 mg Capsule PO ×3 (10:31→20:25)
--- NOTE | 2021-09-20 12:14 | PM.PN ---
Subjective Subjective: Patient was seen this morning, she does complain that she feels weak, she tells me that nursing staff told her that she has blood in her stool, no lightheadedness, no dizziness, she tells me she really wants to go home today because someone needs to feed her dogs and cats Vitals/I&O/Wt Last Vital Signs Temp 98.5 F 09/20/21 08:00 Pulse 85 09/20/21 08:42 Resp 18 09/20/21 08:42 BP 117/65 09/20/21 08:00 Pulse Ox 96 09/20/21 08:42 09/19/21 09/20/21 09/20/21 22:59 06:59 14:59 Intake Total 1177.083 / 1189.083 0 / 0 Output Total 240 / 240 Balance 937.083 / 949.083 0 / 0 Weight last 48 hrs Weight 68.175 kg Weight 62.142 kg Physical Exam Const: COMMON NORMALS: no acute distress and patient oriented x3 Resp: COMMON NORMALS: normal respiratory effort, No retractions, No use of accessory muscles and clear to auscultation bilaterally AUSCULTATION: clear to auscultation bilaterally Cardio: COMMON NORMALS: regular rate, regular rhythm, S1 normal heart sound present and S2 normal heart sound present RATE: regular rate RHYTHM: regular rhythm HEART SOUNDS: S1 normal heart sound present and S2 normal heart sound present GI: COMMON NORMALS: Normal to inspection, nondistended, normoactive bowel sounds present, Soft to palpation, non-tender and No hepatosplenomegaly present PALPATION: Yes Soft to palpation and Yes No hepatosplenomegaly present Extremity: COMMON NORMALS: no pedal edema Neuro: COMMON NORMALS: patient oriented x3 Psych: COMMON NORMALS: mental status grossly normal Data : 09/20/21 04:42 09/20/21 04:42 A&P Assessment and plan (1) Anemia: Status: Acute Qualifiers: Anemia type: unspecified type Qualified Code(s): D64.9 - Anemia, unspecified (2) GERD (gastroesophageal reflux disease): Status: Acute (3) Myelodysplasia (myelodysplastic syndrome): Status: Acute (4) Chronic kidney disease: Status: Acute (5) Myelofibrosis: Status: Acute (6) Gastritis: Status: Acute (7) Upper gastrointestinal hemorrhage: Status: Acute Plan (1) Anemia: Appears to be multifactorial related to known myelofibrosis, may be contributed by additional GI bleeding given presence of FOBT+ stool.? S/p 3 units PRBC, repeat H&H pending Had gastroduodenoscopy 10/14 and capsule endoscopy 01/14 with findings of non specific gastritis and small bowel AVMs. Last BM yesterday Dr. Orourke consulted from ER, hold off on EGD, possible EGD based on hemoglobin trend Monitor hemoglobin every 12 hours (2) Myelofibrosis: 4% blasts on peripheral smear, 2% 06/16 ; platelet and WBC linegaes at baseline currently Outpatient f/up with hem/onc (3) COPD (chronic obstructive pulmonary disease): worsening dyspnea over past several months duoneb q6h ellen, budesonide Attestations Medical Necessity Statement*: Patient requires hospitalization for acute anemia Coding Level of Care Code Acute Automotive Product Specialist for Chg Fwd Diagnoses Anemia D64.9 Anemia type: unspecified type GERD (gastroesophageal reflux disease) K21.9 Myelodysplasia (myelodysplastic syndrome) D46.9 Chronic kidney disease N18.9 Myelofibrosis D75.81 Gastritis K29.70 Upper gastrointestinal hemorrhage K92.2
[2021-09-20 13:12] LABS: Hemoglobin 6.7 g/dL (11.5-15.3); Lymphocytes # 0.2 10^3/uL (0.8-4.8); Lymphocytes % 7.5 %; Mean Corpuscular HGB Conc 33.8 g/dL (30.0-36.0); Mean Corpuscular Hemoglobin 28.3 pg (28.0-34.0); Mean Corpuscular Volume 83.5 fl (81-99); Monocytes # 1.2 10^3/uL (0.2-0.9); Monocytes % 46.4 %; Neutrophils # 1.18 10^3/uL (1.8-7.7); Neutrophils % 44.2 %; Nucleated Red Blood Cells % 1.1 %; Platelet Count 33 10^3/cmm (130-400); Red Blood Count 2.37 10^6/uL (4.1-5.3); Red Cell Distribution Width 16.8 % (12.1-15.1); White Blood Count 2.7 10^3/uL (4.0-10.0)
[2021-09-20 13:16] LABS: Hematocrit 19.8 % (37.0-47.0)
[2021-09-20 14:17] LABS: LAB Peripheral Smear Sent for Review
[2021-09-20] MEDS: atorvastatin 40 mg Tablet 20 MG PO (16:51)
[2021-09-20] MEDS: sodium chloride 0.9% (100 ml) 100 ML 110 ML (23:00)
[2021-09-21] VITALS (15 sets, daily range): BP systolic 98–122; BP diastolic 50–81; PULSE 69–103; RESP 16–20; TEMP 36.6–37.8; O2SAT 94–100
[2021-09-21 04:31] LABS: Basophils % 0.4 %; Hematocrit 23.2 % (37.0-47.0); Hemoglobin 7.7 g/dL (11.5-15.3); Lymphocytes # 0.3 10^3/uL (0.8-4.8); Lymphocytes % 9.2 %; Mean Corpuscular HGB Conc 33.2 g/dL (30.0-36.0); Mean Corpuscular Hemoglobin 28.6 pg (28.0-34.0); Mean Corpuscular Volume 86.2 fl (81-99); Monocytes # 1.2 10^3/uL (0.2-0.9); Monocytes % 44.3 %; Neutrophils # 1.14 10^3/uL (1.8-7.7); Neutrophils % 41.7 %; Nucleated Red Blood Cells % 1.5 %; Platelet Count 29 10^3/cmm (130-400); Red Blood Count 2.69 10^6/uL (4.1-5.3); Red Cell Distribution Width 16.5 % (12.1-15.1); White Blood Count 2.7 10^3/uL (4.0-10.0)
[2021-09-21 05:03] LABS: Alanine Aminotransferase 6 U/L (0-33); Albumin Level 3.1 g/dL (3.5-5.2); Alkaline Phosphatase 36 IU/L (35-105); Anion Gap 10.3 (5-19); Aspartate Amino Transferase 9 U/L (0-32); Blood Urea Nitrogen 19 mg/dL (8-23); Calcium 8.1 mg/dL (8.5-10.5); Carbon Dioxide 21 mmol/L (22-29); Chloride 109 mmol/L (98-107); Globulin 1.7 g/dL (1.3-4.6); Glucose 110 mg/dL (65-115); Magnesium 1.8 mg/dL (1.7-2.3); Osmolality Calculated 287 mOsm/kg (285-295); Potassium 3.3 mmol/L (3.5-5.1); Sodium 137 mmol/L (136-145); Total Bilirubin 0.5 mg/dL (0.15-1.2); Total Protein 4.8 g/dL (6.6-8.7)
[2021-09-21 05:11] LABS: Slide Review Slide Review Perform
[2021-09-21] MEDS: sucralfate 1 gm/10 mL Oral Liq UDC PO ×3 (06:29→20:40)
--- NOTE | 2021-09-21 09:42 | ANES.PREANE2 ---
Pre-Anesthetic Assessment Height/Weight: Height 1.75 m Weight 68.175 kg Temp Pulse Resp BP Pulse Ox 98.1 F 90 16 108/75 97 09/21/21 08:00 09/21/21 08:13 09/21/21 08:13 09/21/21 08:00 09/21/21 08:13 Preop Diagnosis: Melena Operation Date: 09/19/21 09:30 Proposed Procedures p EGD(Not Applicable) - Clay Orourke MD Familial anesthetic complications: None Was Beta Junaid taken within 24 hours: N/A Was Clonidine taken within 24 hours: N/A Last intake: > 8 hrs Social No alcohol and No tobacco former smoker, only very recently quit Exam alert, oriented x 3, clear to auscultation bilaterally and regular rate & rhythm Airway Mallampati: Class II Dentition: other (rotted, almost completely gone, broken off in her gums) Pulmonary Chronic Obstructive Pulmonary Disease CV/HEM Anemia, Stable Angina and Hypertension Chronic Renal Insufficiency GI Gastroesophageal Reflux Disease Metabolic MDS Anesthetic Plan ASA status: 4 Anesthesia: MAC Risk of > 500 ml blood loss (7ml/kg in children): No Medications/Allergies Home Medications Medication Instructions Recorded Confirmed Last Taken Type Vitamin D3 1 tab PO DAILY 06/30/20 09/19/21 10/16/20 History alprazolam 1 mg tablet 1 mg PO DAILY PRN 06/30/20 09/19/21 1 Day Ago History ~10/01/20 ipratropium 20 mcg-albuterol 100 1 puff INHALATION TID PRN 06/30/20 09/19/21 1 Day Ago History mcg/actuation mist for inhalation ~10/01/20 (Combivent Respimat) ropinirole 0.25 mg tablet 0.25 mg PO BID 06/30/20 09/19/21 1 Day Ago History ~10/01/20 ruxolitinib 20 mg tablet (Jakafi) 20 mg PO BID 06/30/20 09/19/21 10/17/20 07:00 History vitamin E 1 tab PO DAILY 06/30/20 09/19/21 10/16/20 History fludrocortisone 0.1 mg tablet 0.1 mg PO DAILY #30 tab 10/03/20 09/19/21 10/16/20 Rx albuterol sulfate 2.5 mg INHALATION Q6H PRN 10/17/20 09/19/21 Unknown History lovastatin 20 mg tablet 20 mg PO DAILY@17 10/17/20 09/19/21 10/16/20 History meclizine 12.5 mg tablet 12.5 mg PO PRN 10/17/20 09/19/21 10/16/20 History nitroglycerin 0.4 mg sublingual 0.4 mg SUBLINGUAL Q5M PRN 10/17/20 09/19/21 Unknown History tablet potassium chloride 10 mEq 10 meq PO QAM 10/17/20 09/19/21 10/16/20 History tablet,extended release albuterol sulfate 90 mcg/actuation 2 inh INHALATION Q4H PRN #18 gm 08/12/21 09/19/21 Unknown Rx aerosol inhaler gabapentin 100 mg capsule 100 mg PO TID 08/12/21 09/19/21 Unknown History hydrocodone 5 mg-acetaminophen 325 1 tab PO DAILY PRN tab 08/12/21 09/19/21 Unknown History mg tablet pantoprazole 40 mg tablet,delayed 40 mg PO BID #60 tab 08/12/21 09/19/21 Unknown Rx release Allergies Allergy/AdvReac Type Severity Reaction Status Date / Time No Known Allergies Allergy Verified 09/19/21 09:38 Current Medications Generic Name Dose Route Start Last Admin Trade Name Andrezq PRN Reason Stop Dose Admin Atorvastatin Calcium 20 mg 09/19/21 17:00 09/20/21 16:51 Atorvastatin 40 Mg Tablet PO 20 mg DAILY@17 FRANCESCO Administration Fludrocortisone Acetate 0.1 mg 09/20/21 09:00 09/20/21 10:31 Fludrocortisone 0.1 Mg Tablet PO 0.1 mg DAILY FRANCESCO Administration Gabapentin 100 mg 09/19/21 15:00 09/20/21 20:25 Gabapentin 100 Mg Capsule PO 100 mg TID FRACNESCO Administration Sodium Chloride 1,000 mls @ 75 mls/hr 09/19/21 11:30 09/20/21 16:51 Sodium Chloride 0.9% IV 75 mls/hr .[id number] FRANCESCO Administration Ondansetron HCl 4 mg 09/19/21 00:09 09/19/21 21:14 Ondansetron 2 Mg/Ml Sdv 2 Ml IVP 4 mg Q8H PRN Administration vomiting, or N/V if npo Pantoprazole Sodium 40 mg 09/19/21 00:15 09/20/21 23:12 Pantoprazole 40 Mg Sdv IVP 40 mg Q12H FRANCESCO Administration Ropinirole HCl 0.25 mg 09/19/21 18:00 09/20/21 16:52 Ropinirole 0.25 Mg Tablet PO 0.25 mg BID FRANCESCO Administration Sucralfate 1 gm 09/19/21 17:00 09/21/21 06:29 Sucralfate 1 Gm/10 Ml Oral Liq Udc PO 1 gm AC&BEDTIME FRANCESCO Administration PFSH Anesthesia Medical History Anemia Chronic kidney disease COPD (chronic obstructive pulmonary disease) Degenerative arthritis GERD (gastroesophageal reflux disease) Hyperlipidemia Hypertension Irritable bowel syndrome Myelodysplasia (myelodysplastic syndrome) Shortness of Breath Skin lesion of face UTI symptoms Surgical History History of appendectomy History of cholecystectomy History of hysterectomy Family History Mother Lung disease Asthma Father CAD (coronary artery disease) Social History Smoking and tobacco status: never smoked Alcohol intake: never Data Anesthesia : 09/21/21 03:20 09/21/21 03:20 Short CBC 09/19/21 09/19/21 09/20/21 Range/Units 13:00 20:27 04:42 WBC 3.0 L (4.0-10.0) 10^3/uL Hgb 7.0 L 6.2 L* 6.1 L* (11.5-15.3) g/dL Hct 20.5 L* 18.5 L* 18.0 L* (37.0-47.0) % MCV 86.1 (81-99) fl Plt Count 32 L (130-400) 10^3/cmm Neut % (Auto) 41.7 % Neut # (Auto) 1.25 L (1.8-7.7) 10^3/uL 09/20/21 09/21/21 Range/Units 13:01 03:20 WBC 2.7 L 2.7 L (4.0-10.0) 10^3/uL Hgb 6.7 L 7.7 L (11.5-15.3) g/dL Hct 19.8 L* 23.2 L (37.0-47.0) % MCV 83.5 86.2 (81-99) fl Plt Count 33 L 29 L (130-400) 10^3/cmm Neut % (Auto) 44.2 41.7 % Neut # (Auto) 1.18 L 1.14 L (1.8-7.7) 10^3/uL BMP 09/20/21 09/21/21 04:42 03:20 Sodium 138 137 Potassium 3.8 3.3 L Chloride 108 H 109 H Carbon Dioxide 22 21 L BUN 26 H 19 Creatinine 1.1 H 1.0 H Glucose 102 110 Calcium 7.8 L 8.1 L Liver Function 09/20/21 09/21/21 Range/Units 04:42 03:20 Total Bilirubin 0.5 0.5 (0.15-1.2) mg/dL AST 6 9 (0-32) U/L ALT 7 6 (0-33) U/L Alkaline Phosphatase 33 L 36 (35-105) IU/L Albumin 3.3 L 3.1 L (3.5-5.2) g/dL Blood Bank 09/18/21 21:30 Blood Type A Positive Rho(D) Type Positive Antibody Screen Negative Cardiac Studies: Echocardiogram Ultrasound 10/02/20
--- NOTE | 2021-09-21 10:14 | PC.SOCIAL ---
IMM Update Pg. 2 of IMM updated and reviewed with patient, who verbalized understanding. Copy provided.
[2021-09-21] MEDS: lidocaine 1% 5 ML in potassium chloride premix 100 ML 50 ML IV (11:17)
--- NOTE | 2021-09-21 12:16 | PC.CHAP ---
Pastoral Care Encounter/Spiritual Assessment Type of Contact [] Declined insurance executive visit [] Patient/Family/Request visit [] Outpatient visit [] Follow-up visit [] Physician referral [] Code/Alert [X] Routine visit [] Staff referral [] Actively dying [] Patient sleeping [] Family support [] [] Out of room [] Palliative care [] [] Receiving care in room [] Pre-surgical visit [] Trauma [] Long length of stay [] ICU visit [] Other: Relational/Emotional Strength [X] Patient feels connected with others/family/visitors/staff [] Distress [X] Loneliness/isolation [] Abandonment Spirituality of Patient [] Person of Juliane [] Attends Religion of their Juliane [] Believes in Prayer [] Reads Bible or Jainism materials [X] There are Spiritual issues to be addressed Pre Billing Specialist Interventions [] Prayer [X] Active listening [X] Non-anxious presence [X] Spiritual/emotional support [] Crisis/trauma care [] Spiritual counseling [] Bereavement support [] Provided bereavement packet [] Provided Bible/devotional materials [] Provided toy/stuffed animal, coloring book to patient or family member [] Provided Communion [] Anointing/[place] [] Salvation [X] Completed spiritual assessment [] Other: Impact on Illness or Injury [] Angry [] Fearful [] Anxious [] Often cries [] Exhaustion [] Unable to work [] Unable to attend buddhist [] Unable to walk/stand [] Unable to read [] Unable to drive [] Unable to eat/drink [] Unable to sleep [] Unable to be with family [] Patient intubated [] Other: Summary: Pt is alert and sitting up in bed. Pt may have leukemia but will know more tomorrow after visiting with her doctor. Pt has 3 living family members but only 1 locally. Pt has pets and a few activities that keep her occupied. Several times, pt made statements that led insurance executive to raise concern with patient about loneliness and depression. Pt admits that she becomes depressed but does not feel that she needs any treatment for it. However, pt agreed to ask for help if the depression becomes more frequent or worse than normal in any way. Pt appreciated visit but declined prayer or reading materials. Time spent with patient: 30 mins
[2021-09-21] MEDS: sodium chloride 0.9% 1,000 ML 30 ML IV (12:20)
--- NOTE | 2021-09-21 13:08 | PM.MISC ---
Miscellaneous Note Purpose of Documentation: Post EGD report Note: The patient tolerated the EGD well. She was noted to have ulcerative gastritis with limited active bleeding. Her duodenum and esophagus were within normal limits. The patient does note that she only intermittently took her PPIs at home. I discussed the case with the patient's Sister Xochilt. If the patient will consistently take her PPIs, we may be able to minimize her gastric bleeding. Overall, her prognosis is still questionable given her known history of bleeding AVMs, and now bleeding gastric mucosa together with her evolving myelodysplasia. I discussed this with the patient briefly today. Unless there is further need for my services, I will sign off the case.
--- NOTE | 2021-09-21 15:41 | P.PN_ITS ---
Subjective Subjective: Patient was seen this morning, no bloody or black stools, no nausea, no vomiting, plans on EGD today Vitals/I&O/Wt Last Vital Signs Temp 98.8 F 09/21/21 12:46 Pulse 89 09/21/21 12:51 Resp 18 09/21/21 12:51 BP 110/60 09/21/21 12:51 Pulse Ox 99 09/21/21 12:51 09/21/21 09/21/21 09/21/21 06:59 14:59 22:59 Intake Total 450 / 1520 100 / 100 Output Total 850 / 850 Balance -400 / 670 100 / 100 Physical Exam Const: COMMON NORMALS: no acute distress and patient oriented x3 Neck/C-Spine: COMMON NORMALS: no JVD Resp: COMMON NORMALS: normal respiratory effort, No retractions, No use of accessory muscles and clear to auscultation bilaterally AUSCULTATION: clear to auscultation bilaterally Cardio: COMMON NORMALS: no JVD, regular rate, regular rhythm, S1 normal heart sound present and S2 normal heart sound present RATE: regular rate RHYTHM: regular rhythm HEART SOUNDS: S1 normal heart sound present and S2 normal heart sound present GI: COMMON NORMALS: Normal to inspection, nondistended, normoactive bowel sounds present, Soft to palpation, non-tender and No hepatosplenomegaly present PALPATION: Yes Soft to palpation and Yes No hepatosplenomegaly present Extremity: COMMON NORMALS: no pedal edema Neuro: COMMON NORMALS: patient oriented x3 Psych: COMMON NORMALS: mental status grossly normal Data : 09/21/21 03:20 09/21/21 03:20 A&P Assessment and plan (1) Anemia: Status: Acute Qualifiers: Anemia type: unspecified type Qualified Code(s): D64.9 - Anemia, unspecified (2) GERD (gastroesophageal reflux disease): Status: Acute (3) Myelodysplasia (myelodysplastic syndrome): Status: Acute (4) Chronic kidney disease: Status: Acute (5) Myelofibrosis: Status: Acute (6) Gastritis: Status: Acute (7) Upper gastrointestinal hemorrhage: Status: Acute Plan (1) Anemia: Appears to be multifactorial related to known myelofibrosis, may be contributed by additional GI bleeding given presence of FOBT+ stool.? S/p floor 7.7 units PRBC, repeat H&H plans on EGD today Had gastroduodenoscopy 10/14 and capsule endoscopy 01/14 with findings of non specific gastritis and small bowel AVMs. Last BM yesterday Dr. Orourke consulted from ER, plans on EGD today Repeat blood work in evening (2) Myelofibrosis: 4% blasts on peripheral smear, 2% 06/16 ; platelet and WBC linegaes at baseline currently Outpatient f/up with hem/onc (3) COPD (chronic obstructive pulmonary disease): worsening dyspnea over past several months duoneb q6h ellen, budesonide #4, thrombocytopenia -1 unit platelets -Hold Velvet Attestations Medical Necessity Statement*: Patient requires hospitalization for anemia, thrombocytopenia Coding Level of Care Code Acute Community Services Manager for Chg Fwd Diagnoses Anemia D64.9 Anemia type: unspecified type GERD (gastroesophageal reflux disease) K21.9 Myelodysplasia (myelodysplastic syndrome) D46.9 Chronic kidney disease N18.9 Myelofibrosis D75.81 Gastritis K29.70 Upper gastrointestinal hemorrhage K92.2
[2021-09-21] MEDS: ropinirole 0.25 mg Tablet PO (17:46)
[2021-09-21] MEDS: gabapentin 100 mg Capsule PO ×2 (17:46→20:40)
[2021-09-21] MEDS: atorvastatin 40 mg Tablet 20 MG PO (17:47)
[2021-09-21 18:24] LABS: Hematocrit 22.9 % (37.0-47.0); Hemoglobin 7.6 g/dL (11.5-15.3); Mean Corpuscular HGB Conc 33.2 g/dL (30.0-36.0); Mean Corpuscular Hemoglobin 28.8 pg (28.0-34.0); Mean Corpuscular Volume 86.7 fl (81-99); Platelet Count 33 10^3/cmm (130-400); Red Blood Count 2.64 10^6/uL (4.1-5.3); Red Cell Distribution Width 17.2 % (12.1-15.1); White Blood Count 2.5 10^3/uL (4.0-10.0)
[2021-09-21 19:25] LABS: Absolute Segmented Neutrophil 1.7 10/cmm (1.6-7.1); Band Neutrophils Absolute 0.2 10^3/cmm (0.0-1.2); Eosinophils 0 %; Lymphocytes 19 %; Lymphocytes Absolute 0.5 10^3/cmm (1.2-3.4); Monocytes Absolute 0.1 10^3/cmm (0.1-0.6); Segmented Neutrophils 69 %; Total Cells Counted 100 (0-100)
[2021-09-21 19:26] LABS: Acanthocytes Trace; Burr Cells Trace; Microcytosis Trace; Platelet Estimate Decreased (Normal); Polychromasia Trace
[2021-09-22] VITALS (15 sets, daily range): BP systolic 97–123; BP diastolic 53–80; PULSE 0–95; RESP 16–20; TEMP 36.3–37.3; O2SAT 92–100
[2021-09-22] MEDS: pantoprazole 40 mg SDV IVP ×3 (00:20→23:32)
[2021-09-22 03:44] LABS: Hematocrit 21.7 % (37.0-47.0); Hemoglobin 7.2 g/dL (11.5-15.3); Lymphocytes # 0.2 10^3/uL (0.8-4.8); Lymphocytes % 9.4 %; Mean Corpuscular HGB Conc 33.2 g/dL (30.0-36.0); Mean Corpuscular Hemoglobin 28.6 pg (28.0-34.0); Mean Corpuscular Volume 86.1 fl (81-99); Monocytes # 1.1 10^3/uL (0.2-0.9); Monocytes % 53.7 %; Neutrophils % 32.5 %; Nucleated Red Blood Cells % 1.5 %; Platelet Count 32 10^3/cmm (130-400); Red Blood Count 2.52 10^6/uL (4.1-5.3); Red Cell Distribution Width 16.9 % (12.1-15.1)
[2021-09-22 04:12] LABS: Alanine Aminotransferase 7 U/L (0-33); Albumin Level 3.4 g/dL (3.5-5.2); Alkaline Phosphatase 58 IU/L (35-105); Anion Gap 16.1 (5-19); Aspartate Amino Transferase 9 U/L (0-32); Blood Urea Nitrogen 16 mg/dL (8-23); Calcium 8.3 mg/dL (8.5-10.5); Carbon Dioxide 19 mmol/L (22-29); Chloride 104 mmol/L (98-107); Globulin 1.5 g/dL (1.3-4.6); Glucose 100 mg/dL (65-115); Osmolality Calculated 283 mOsm/kg (285-295); Potassium 3.1 mmol/L (3.5-5.1); Sodium 136 mmol/L (136-145); Total Bilirubin 0.6 mg/dL (0.15-1.2); Total Protein 4.9 g/dL (6.6-8.7)
[2021-09-22 04:22] LABS: Neutrophils # 0.66 10^3/uL (1.8-7.7); Slide Review Slide Review Perform
[2021-09-22] MEDS: sucralfate 1 gm/10 mL Oral Liq UDC PO ×3 (05:57→20:21)
[2021-09-22] MEDS: FUROsemide 10 mg/mL SDV 4mL 40 MG IVP (09:07)
[2021-09-22] MEDS: lidocaine 1% 5 ML in potassium chloride premix 100 ML 25 ML IV (09:08)
[2021-09-22] MEDS: ropinirole 0.25 mg Tablet PO ×2 (09:09→16:04)
[2021-09-22] MEDS: fludrocortisone 0.1 mg Tablet PO (09:09)
[2021-09-22] MEDS: gabapentin 100 mg Capsule PO ×3 (09:10→20:21)
--- NOTE | 2021-09-22 10:43 | PM.DCS ---
Discharge Providers Date of Admission: 09/18/21 22:53 Date of Discharge: September 22, 2021 Attending Provider at Admission: Maria Guadalupe Villarreal MD Attending Provider at Discharge: Guy Burgess MD Diagnoses at Discharge Discharge Diagnosis (1) Anemia: Status: Acute Qualifiers: Anemia type: unspecified type Qualified Code(s): D64.9 - Anemia, unspecified (2) GERD (gastroesophageal reflux disease): Status: Acute (3) Myelodysplasia (myelodysplastic syndrome): Status: Acute (4) Chronic kidney disease: Status: Acute (5) Myelofibrosis: Status: Acute (6) Gastritis: Status: Acute Permanent problem details: appears to be due to Vitamin C and steroids. 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 currently on ruxolitinib 20 mg daily. She is tranfusion dependent, needs blood tranfusions every 4-6 weeks, last taken 2 weeks ago as outpatient with hem/onc per patient, history of meningioma she presented to ER today with excessive fatigue and shortness of breath Patient t presented to [facility] for anemia, likely multifactorial, from gastritis, myelofibrosis, possible progression of underlying myelofibrosis to acute leukemia. 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 Hemoglobin on discharge is 7.2, but I will give her a unit of blood before discharge. She did develop thrombocytopenia during hospitalization, did require 2 units platelets, platelet count on discharge is 32, will give her 1 unit of platelets before discharge. She did develop neutropenia, remains afebrile, will discharge her on neutropenic prophylaxis. Hold Jakafi on discharge. After discussion with patient and Dr. Gonzales, likely findings of peripheral smear, and blood count indicate that she is progressing to acute leukemia. She will have to follow-up with Dr. Gonzales in the next 1 to 2 days. Physical Exam Const: COMMON NORMALS: no acute distress and patient oriented x3 Resp: COMMON NORMALS: normal respiratory effort, No retractions, No use of accessory muscles and clear to auscultation bilaterally AUSCULTATION: clear to auscultation bilaterally Cardio: COMMON NORMALS: regular rate, regular rhythm, S1 normal heart sound present and S2 normal heart sound present RATE: regular rate RHYTHM: regular rhythm HEART SOUNDS: S1 normal heart sound present and S2 normal heart sound present GI: COMMON NORMALS: Normal to inspection, nondistended, normoactive bowel sounds present, Soft to palpation, non-tender and No hepatosplenomegaly present PALPATION: Yes Soft to palpation and Yes No hepatosplenomegaly present Extremity: COMMON NORMALS: no pedal edema Neuro: COMMON NORMALS: patient oriented x3 Psych: COMMON NORMALS: mental status grossly normal Discharge Data Studies Completed and Pending Completed Studies During Hospitalization Category Date Time Status XR chest 1V portable [id number] Urgent Exams 09/18/21 21:34 Completed Pending at discharge Category Date Time Status ABO/Rh Type Routine Lab 09/18/21 21:30 Results Complete Blood Count w/Auto AM LABS Lab 09/23/21 04:00 Ordered Complete Blood Count w/Auto AM LABS Lab 09/24/21 04:00 Ordered Complete Crossmatch Routine Lab 09/18/21 21:30 Results Comprehensive Metabolic Panel AM LABS Lab 09/23/21 04:00 Ordered Comprehensive Metabolic Panel AM LABS Lab 09/24/21 04:00 Ordered Leukocyte Reduced RBC Routine Lab 09/18/21 21:30 Results Leukocyte Reduced RBC Stat Lab 09/22/21 08:30 Received Platelets Leuko-Reduced Routine Lab 09/21/21 10:11 Results Type and Screen Routine Lab 09/18/21 21:30 Results Type and Screen Stat Lab 09/22/21 08:30 Received Radiology Impressions Chest X-Ray 09/18/21 21:34 IMPRESSION: No change, unremarkable Laboratory Results WBC 2.0 10^3/uL (4.0-10.0) L 09/22/21 03:20 RBC 2.52 10^6/uL (4.1-5.3) L 09/22/21 03:20 Hgb 7.2 g/dL (11.5-15.3) L 09/22/21 03:20 Hct 21.7 % (37.0-47.0) L 09/22/21 03:20 MCV 86.1 fl (81-99) 09/22/21 03:20 MCH 28.6 pg (28.0-34.0) 09/22/21 03:20 MCHC 33.2 g/dL (30.0-36.0) 09/22/21 03:20 RDW 16.9 % (12.1-15.1) H 09/22/21 03:20 Plt Count 32 10^3/cmm (130-400) L 09/22/21 03:20 MPV Not Reportable 09/22/21 03:20 Neut % (Auto) 32.5 % 09/22/21 03:20 Lymph % (Auto) 9.4 % 09/22/21 03:20 Wal[place] % (Auto) 53.7 % 09/22/21 03:20 Eos % (Auto) 0.0 % 09/22/21 03:20 Baso % (Auto) 0.0 % 09/22/21 03:20 Neut # (Auto) 0.66 10^3/uL (1.8-7.7) L* 09/22/21 03:20 Lymph # (Auto) 0.2 10^3/uL (0.8-4.8) L 09/22/21 03:20 Waldo # (Auto) 1.1 10^3/uL (0.2-0.9) H 09/22/21 03:20 Eos # (Auto) 0.0 10^3/uL (0.0-0.8) 09/22/21 03:20 Baso # (Auto) 0.0 10^3/uL (0.0-0.1) 09/22/21 03:20 Nucleated RBC % (auto) 1.5 % 09/22/21 03:20 Total Counted 100 (0-100) 09/21/21 18:05 Atypical Lymphs % 0.0 % (0-5) 09/21/21 18:05 Absolute Neutrophils 2.0 10^3/cmm (1.4-6.5) 09/21/21 18:05 Segmented Neutrophils 69 % 09/21/21 18:05 Abs Segm Neuts (Man) 1.7 10/cmm (1.6-7.1) 09/21/21 18:05 Band Neutrophils 9.0 % 09/21/21 18:05 Abs Band Neuts (Man) 0.2 10^3/cmm (0.0-1.2) 09/21/21 18:05 Absolute Lymphocytes 0.5 10^3/cmm (1.2-3.4) L 09/21/21 18:05 Lymphocytes (Manual) 19 % 09/21/21 18:05 Monocytes (Manual) 3.0 % 09/21/21 18:05 Absolute Monocytes 0.1 10^3/cmm (0.1-0.6) 09/21/21 18:05 Eosinophils (Manual) 0 % 09/21/21 18:05 Absolute Eosinophils 0.0 10^3/cmm (0.0-0.7) 09/21/21 18:05 Basophils (Manual) 0.0 % 09/21/21 18:05 Absolute Basophils 0.0 10^3/cmm (0.0-0.2) 09/21/21 18:05 Metamyelocytes 3.0 % 09/18/21 21:30 Nucleated RBCs # 0.0 /100WBC 09/22/21 03:20 Pathologist Review Yes 09/18/21 21:30 Blast Cells 4 % (0-0) H* 09/18/21 21:30 Platelet Estimate Decreased (Normal) L 09/21/21 18:05 Polychromasia Trace 09/21/21 18:05 Hypochromasia 1+ H 09/18/21 21:30 Poikilocytosis 2+ H 09/18/21 21:30 Basophilic Stippling Trace 09/18/21 21:30 Anisocytosis 1+ H 09/18/21 21:30 Microcytosis Trace 09/21/21 18:05 Ovalocytes 1+ H 09/18/21 21:30 [place] Cells Trace 09/21/21 18:05 Acanthocytes (Spur) Trace 09/21/21 18:05 PT 14.70 SECONDS (12.1-14.9) 09/19/21 08:15 INR 1.12 (0.8-1.2) 09/19/21 08:15 APTT 26.7 SECONDS (23.9-36.7) 09/19/21 08:15 Specimen Type Arterial 09/18/21 21:45 Sample Site Radial, left 09/18/21 21:45 ABG pH 7.43 (7.35-7.45) 09/18/21 21:45 ABG pCO2 32.8 mmHg (35-45) L 09/18/21 21:45 ABG pO2 87.6 mmHg (80.0-100.0) 09/18/21 21:45 ABG HCO3 21.6 mmol/L (22-26) L 09/18/21 21:45 ABG Base Excess -2.6 mmol/L (-2.0-2.0) L 09/18/21 21:45 Ra Test Pos 09/18/21 21:45 Hematocrit 16.5 % (37-47) L 09/18/21 21:45 O2 Delivery Device Room air 09/18/21 21:45 [employer] Technical Assistant ID Buttr 09/18/21 21:45 Sodium 136 mmol/L (136-145) 09/22/21 03:20 Potassium 3.1 mmol/L (3.5-5.1) L 09/22/21 03:20 Chloride 104 mmol/L (98-107) 09/22/21 03:20 Carbon Dioxide 19 mmol/L (22-29) L 09/22/21 03:20 Anion Gap 16.1 (5-19) 09/22/21 03:20 BUN 16 mg/dL (8-23) 09/22/21 03:20 Creatinine 0.8 mg/dL (0.5-0.9) 09/22/21 03:20 GFR Calculation Not Reportable 09/22/21 03:20 Glucose 100 mg/dL (65-115) 09/22/21 03:20 POC Glucose 97 mg/dL (70-110) 09/19/21 17:05 Calculated Osmolality 283 mOsm/kg (285-295) L 09/22/21 03:20 Calcium 8.3 mg/dL (8.5-10.5) L 09/22/21 03:20 Phosphorus 3.0 mg/dL (2.5-4.5) 09/21/21 03:20 Magnesium 1.8 mg/dL (1.7-2.3) 09/21/21 03:20 Total Bilirubin 0.6 mg/dL (0.15-1.2) 09/22/21 03:20 AST 9 U/L (0-32) 09/22/21 03:20 ALT 7 U/L (0-33) 09/22/21 03:20 Alkaline Phosphatase 58 IU/L (35-105) 09/22/21 03:20 Troponin T Baseline 18 ng/L (0-10) H 09/18/21 21:30 Troponin T 120 Minute 17.59 ng/L (0-10) H 09/18/21 23:32 Delta Troponin T -0.41 ABS# (0-10) L 09/18/21 23:32 C-Reactive Protein 3.0 mg/L (0.0-4.9) 09/18/21 21:30 NT-Pro-B Natriuret Pep 160 pg/mL (0-450) 09/18/21 21:30 Total Protein 4.9 g/dL (6.6-8.7) L 09/22/21 03:20 Albumin 3.4 g/dL (3.5-5.2) L 09/22/21 03:20 Globulin 1.5 g/dL (1.3-4.6) 09/22/21 03:20 Procalcitonin 0.11 ng/mL (0-0.5) 09/18/21 21:30 TSH 2.18 uIU/mL (0.27-4.20) 09/18/21 21:30 Coronavirus 229E (PCR) Not detected (NOT DETECT) 09/18/21 22:08 SARS-CoV-2 (PCR) Not detected (NOT DETECT) 09/18/21 22:08 Misc Test Reference Cancelled 09/18/21 21:30 Blood Type A Positive 09/18/21 21:30 Rho(D) Type Positive 09/18/21 21:30 Antibody Screen Negative 09/18/21 21:30 Crossmatch See Detail 09/18/21 21:30 Vitals Last Vital Signs Temp 97.4 F L 09/22/21 08:00 Pulse 90 09/22/21 08:02 Resp 18 09/22/21 08:02 BP 108/56 09/22/21 08:00 Pulse Ox 97 09/22/21 08:02 Discharge Plan Discharge Patient Disposition: Home Condition: Stable Prescriptions: New sucralfate [Carafate] 1 gram tablet 1 g PO BID 28 Days Qty: 56 0RF ciprofloxacin HCl 500 mg tablet 500 mg PO BID 7 Days Qty: 14 0RF pantoprazole [Protonix] 40 mg tablet,delayed release (DR/EC) 40 mg PO BID 30 Days Qty: 60 0RF Continued gabapentin 100 mg capsule 100 mg PO TID 0RF hydrocodone-acetaminophen 5-325 mg tablet 1 tab PO DAILY PRN (Reason: Pain) 0RF albuterol sulfate 90 mcg/actuation HFA aerosol inhaler 2 inh INHALATION Q4H PRN (Reason: shortness of breath or wheezing) Qty: 18 5RF alprazolam 1 mg tablet 1 mg PO DAILY PRN (Reason: Anxiety) 0RF ropinirole 0.25 mg tablet 0.25 mg PO BID 0RF Rx Instructions: see pharmacy comments Combivent Respimat 20-100 mcg/actuation mist 1 puff INHALATION TID PRN (Reason: Shortness Of Breath) 0RF Vitamin D3 1 tab PO DAILY 0RF vitamin E 1 tab PO DAILY 0RF albuterol sulfate 2.5 mg /3 mL (0.083 %) solution for nebulization 2.5 mg inhalation Q6H PRN (Reason: Shortness Of Breath) 0RF meclizine 12.5 mg Tablet 12.5 mg PO PRN 0RF nitroglycerin 0.4 mg Tablet, Sublingual 0.4 mg SUBLINGUAL Q5M PRN (Reason: Chest Pain) 0RF lovastatin 20 mg Tablet 20 mg PO DAILY@17 0RF potassium chloride 10 mEq tablet extended release 10 meq PO QAM 0RF fludrocortisone 0.1 mg tablet 0.1 mg PO DAILY Qty: 30 0RF Rx Instructions: see pharmacy comments Discontinued pantoprazole 40 mg tablet,delayed release (DR/EC) 40 mg PO BID Qty: 60 2RF Jakafi 20 mg tablet 20 mg PO BID 0RF Discharge Orders: Discharge Order (Routine); Ordered 09/22/21 Ordered By: Guy Burgess Referrals: Cole Gonzales MD [Hospitalist] - 1-3 days (Please call on Thursday and make follow-up appointment for 1-3 days. ) Discharge Diet: As Directed Discharge Activity: Resume usual activity Patient Instructions: Ciprofloxacin (By mouth), Sucralfate (By mouth), Pantoprazole (By mouth), Urinary Tract Infection in Women (DC), GI Discharge Instructions, Opioid Safety Activity Restrictions/Additional Instructions: -Avoid blood thinners, NSAIDs, ibuprofen -Take Protonix 40 twice daily as prescribed -Take Carafate as prescribed -Antibiotics for neutropenia -If any fevers go to the emergency room -Follow with Dr. Gonzales tomorrow Discharge Attestations Time Spent in Discharge Care*: less than 30 min Quality Metrics Clinical Quality Measures [ No reported AMI, CVA or VTE this stay] Coding Level of Care Code Acute Chg FW DC note Diagnoses Anemia D64.9 Anemia type: unspecified type GERD (gastroesophageal reflux disease) K21.9 Myelodysplasia (myelodysplastic syndrome) D46.9 Chronic kidney disease N18.9 Myelofibrosis D75.81 Gastritis K29.70 Upper gastrointestinal hemorrhage K92.2
--- NOTE | 2021-09-22 11:58 | PC.OT ---
OT orders received. OT evaluation attempted though patient is being discharged today. No concerns reported. Jl Perez OTR/L
--- NOTE | 2021-09-22 15:29 | PM.PN ---
Subjective Medications: Medication Review Details: Patient was seen this morning, reports generalized weakness, no fevers overnight, no cough, no diarrhea, no dysuria, patient was eval by physical therapy, recommended shelter placement, patient is agreeable for shelter placement Vitals/I&O/Wt Last Vital Signs Temp 98.3 F 09/22/21 14:32 Pulse 95 09/22/21 14:32 Resp 18 09/22/21 13:46 BP 123/75 09/22/21 14:32 Pulse Ox 98 09/22/21 14:32 09/22/21 09/22/21 09/22/21 06:59 14:59 22:59 Intake Total 370 / 370 Balance 370 / 370 Physical Exam Const: COMMON NORMALS: no acute distress and patient oriented x3 Resp: COMMON NORMALS: normal respiratory effort, No retractions, No use of accessory muscles and clear to auscultation bilaterally AUSCULTATION: clear to auscultation bilaterally Cardio: COMMON NORMALS: regular rate, regular rhythm, S1 normal heart sound present and S2 normal heart sound present RATE: regular rate RHYTHM: regular rhythm HEART SOUNDS: S1 normal heart sound present and S2 normal heart sound present GI: COMMON NORMALS: Normal to inspection, nondistended, normoactive bowel sounds present, Soft to palpation and non-tender PALPATION: Yes Soft to palpation Extremity: COMMON NORMALS: no pedal edema Neuro: COMMON NORMALS: patient oriented x3 Psych: COMMON NORMALS: mental status grossly normal Data : 09/22/21 03:20 09/22/21 03:20 A&P Assessment and plan (1) Neutropenia: Status: Acute (2) Anemia: Status: Acute Qualifiers: Anemia type: unspecified type Qualified Code(s): D64.9 - Anemia, unspecified (3) GERD (gastroesophageal reflux disease): Status: Acute (4) Myelodysplasia (myelodysplastic syndrome): Status: Acute (5) Chronic kidney disease: Status: Acute (6) Myelofibrosis: Status: Acute (7) Gastritis: Status: Acute (8) Upper gastrointestinal hemorrhage: Status: Acute Plan (1) Anemia: Appears to be multifactorial related to known myelofibrosis, may be contributed by additional GI bleeding given presence of FOBT+ stool.? S/p floor 7.7 units PRBC, repeat H&H plans on EGD today Had gastroduodenoscopy 3/21 and capsule endoscopy 01/14 with findings of non specific gastritis and small bowel AVMs. Last BM yesterday Continue Protonix [address] Orourke consulted from ER, EGD shows gastritis Repeat blood work hemoglobin 7.2 will transfuse 1 unit PRBC (2) Myelofibrosis: 4% blasts on peripheral smear, 2% 06/16 ; platelet and WBC linegaes at baseline currently Outpatient f/up with hem/onc (3) COPD (chronic obstructive pulmonary disease): worsening dyspnea over past several months duoneb q6h ellen, budesonide #4, thrombocytopenia - pleural catheter 1999, will transfuse another unit platelets, status post 1 unit -Hold Jakafi #5 after neutropenia, no fevers, no cough, after fevers, start on Cipro for neutropenic prophylaxis, neutropenic precautions Anemia, thrombocytopenia, neutropenia, all evidence of progressing to acute leukemia, follow-up with Dr. Gonzales the next 24 hours Generalized weakness, agreeable to shelter placement Attestations Medical Necessity Statement*: Patient requires hospitalization for anemia, thrombocytopenia, neutropenia, generalized weakness Coding Level of Care Code Acute Manager Battery for Chg Fwd Diagnoses Neutropenia D70.9 Anemia D64.9 Anemia type: unspecified type GERD (gastroesophageal reflux disease) K21.9 Myelodysplasia (myelodysplastic syndrome) D46.9 Chronic kidney disease N18.9 Myelofibrosis D75.81 Gastritis K29.70 Upper gastrointestinal hemorrhage K92.2
[2021-09-22] MEDS: atorvastatin 40 mg Tablet 20 MG PO (16:04)
[2021-09-22] MEDS: ciprofloxacin 500 mg Tablet PO (20:21)
[2021-09-23] VITALS (8 sets, daily range): BP systolic 109–113; BP diastolic 57–72; PULSE 0–105; RESP 16–23; TEMP 36.4–37.6; O2SAT 90–100
[2021-09-23 04:44] LABS: Hematocrit 23.9 % (37.0-47.0); Hemoglobin 8.1 g/dL (11.5-15.3); Lymphocytes # 0.2 10^3/uL (0.8-4.8); Lymphocytes % 11.7 %; Mean Corpuscular HGB Conc 33.9 g/dL (30.0-36.0); Mean Corpuscular Hemoglobin 27.9 pg (28.0-34.0); Mean Corpuscular Volume 82.4 fl (81-99); Monocytes # 0.8 10^3/uL (0.2-0.9); Neutrophils % 34.9 %; Nucleated Red Blood Cells % 1.8 %; Red Cell Distribution Width 17.1 % (12.1-15.1); White Blood Count 1.6 10^3/uL (4.0-10.0)
[2021-09-23 04:56] LABS: Alanine Aminotransferase 7 U/L (0-33); Albumin Level 3.3 g/dL (3.5-5.2); Alkaline Phosphatase 62 IU/L (35-105); Anion Gap 16.7 (5-19); Aspartate Amino Transferase 10 U/L (0-32); Blood Urea Nitrogen 13 mg/dL (8-23); Calcium 8.5 mg/dL (8.5-10.5); Carbon Dioxide 23 mmol/L (22-29); Chloride 101 mmol/L (98-107); Globulin 1.6 g/dL (1.3-4.6); Glucose 97 mg/dL (65-115); Osmolality Calculated 286 mOsm/kg (285-295); Sodium 138 mmol/L (136-145); Total Bilirubin 0.7 mg/dL (0.15-1.2); Total Protein 4.9 g/dL (6.6-8.7)
[2021-09-23 05:46] LABS: Potassium 2.7 mmol/L (3.5-5.1)
[2021-09-23 05:47] LABS: Platelet Count 24 10^3/cmm (130-400)
[2021-09-23 05:48] LABS: Neutrophils # 0.57 10^3/uL (1.8-7.7); Slide Review Slide Review Perform
[2021-09-23] MEDS: sucralfate 1 gm/10 mL Oral Liq UDC PO ×5 (06:47→20:18)
[2021-09-23] MEDS: gabapentin 100 mg Capsule PO ×3 (08:41→20:18)
[2021-09-23] MEDS: fludrocortisone 0.1 mg Tablet PO (08:41)
[2021-09-23] MEDS: ciprofloxacin 500 mg Tablet PO ×2 (08:41→20:19)
[2021-09-23] MEDS: ropinirole 0.25 mg Tablet PO ×2 (08:41→17:41)
[2021-09-23] MEDS: lidocaine 1% INJ 20 mL 5 ML IV (08:42)
[2021-09-23] MEDS: potassium chloride premix 100 ML 25 MEQ IV (08:42)
[2021-09-23 10:21] LABS: Leukemia Profile (BBPL) See Report; Lymphoma Profile (BBPL) See Report
--- NOTE | 2021-09-23 11:52 | XRR_ITS ---
PROCEDURE INFORMATION: Exam: XR Chest Exam date and time: 09/23/2021 11:52 AM Age: 81 years old Clinical indication: Shortness of breath TECHNIQUE: Imaging protocol: XR of the chest. Views: 1 view. COMPARISON: CR (CHEST, ) 09/18/2021 9:38 PM FINDINGS: Lungs: The lungs are somewhat hyperinflated with increased interstitial markings, likely representing COPD. No evidence of focal consolidation to suggest pneumonia. Pleural spaces: Unremarkable. No pleural effusion. No pneumothorax. Heart/Mediastinum: Stable cardiomediastinal silhouette. Bones/joints: Degenerative changes of the spine seen. XR/XR chest 1V portable [id number] IMPRESSION: No evidence of focal consolidation. COPD changes.
--- NOTE | 2021-09-23 11:52 | PM.PN ---
Subjective Subjective: She is feeling short of breath today. She is having some mild dry cough. Denies nausea vomiting, some chronic loose stools. No pain on swallowing. No headache. No chills or subjective fever. Vitals/I&O/Wt Last Vital Signs Temp 98.5 F 09/23/21 11:34 Pulse 68 09/23/21 11:34 Resp 17 09/23/21 11:34 BP 110/72 09/23/21 11:34 Pulse Ox 91 09/23/21 11:34 09/22/21 09/23/21 09/23/21 22:59 06:59 14:59 Intake Total 1525 / 2000 360 / 360 Output Total 500 / 500 Balance 1025 / 1500 360 / 360 Physical Exam Const: COMMON NORMALS: no acute distress and patient oriented x3 HENMT: TEETH & GINGIVA: Yes other (mostly edentulous except few bottom teeth) Neck/C-Spine: COMMON NORMALS: no JVD Resp: COMMON NORMALS: normal respiratory effort and clear to auscultation bilaterally AUSCULTATION: clear to auscultation bilaterally Cardio: COMMON NORMALS: no JVD, regular rhythm, S1 normal heart sound present, S2 normal heart sound present and No murmurs present (Cardio) RHYTHM: regular rhythm HEART SOUNDS: S1 normal heart sound present and S2 normal heart sound present GI: COMMON NORMALS: Normal to inspection, nondistended, normoactive bowel sounds present, Soft to palpation and non-tender PALPATION: Yes Soft to palpation Extremity: COMMON NORMALS: no joint enlargement and no pedal edema Neuro: COMMON NORMALS: patient oriented x3 and moves all extremities Skin: COMMON NORMALS: no rashes or lesions noted GENERAL SKIN EXAM: no rashes or lesions noted Data : 09/23/21 04:03 09/23/21 04:03 A&P Assessment and plan (1) Neutropenia: Neutropenic precautions. Pending additional hematologic assessment. TSH is normal. Check B12, folic acid. On empiric antibiotic currently, continue for now. Status: Acute (2) Anemia: Status: Acute Qualifiers: Anemia type: unspecified type Qualified Code(s): D64.9 - Anemia, unspecified (3) GERD (gastroesophageal reflux disease): Status: Acute (4) Myelodysplasia (myelodysplastic syndrome): Status: Acute (5) Chronic kidney disease: Status: Acute (6) Myelofibrosis: Status: Acute (7) Gastritis: Status: Acute (8) Upper gastrointestinal hemorrhage: EGD with gastritis during this admission. Received 1 unit PRBC with adequate response. Gastroduodenoscopy 10/14 and capsule endoscopy 01/14 with findings of non specific gastritis and small bowel AVMs. Status: Acute (9) Hypokalemia: Received replacement. Recheck. Follow-up magnesium level. Status: Acute Plan (3) COPD (chronic obstructive pulmonary disease): worsening dyspnea over past several months duoneb q6h ellen, budesonide #4, thrombocytopenia Received 1 unit platelets. Thrombocytopenia again, platelets 24,000 today, no active bleeding currently. -Hold Jakafi Generalized weakness, agreeable to senior living placement. Pending arrangements. Attestations Medical Necessity Statement*: Continue admission for management with severe electrolyte deficiency, reassessment of platelets with pancytopenia, arrangements for placement to assisted facility. Coding Level of Care Code Acute [employer] Supervisor for [facility] Fwd Diagnoses Neutropenia D70.9 Anemia D64.9 Anemia type: unspecified type GERD (gastroesophageal reflux disease) K21.9 Myelodysplasia (myelodysplastic syndrome) D46.9 Chronic kidney disease N18.9 Myelofibrosis D75.81 Gastritis K29.70 Upper gastrointestinal hemorrhage K92.2 Hypokalemia E87.6
[2021-09-23] MEDS: pantoprazole 40 mg SDV IVP (13:08)
--- NOTE | 2021-09-23 13:35 | PC.NURSE ---
Pt has been up ad narayan in room today. Complaining of stomach pain at a 3/10 but did not want medication for it.
[2021-09-23 14:38] LABS: Vitamin B12 192 pg/mL (232-1245)
[2021-09-23] MEDS: ondansetron 2 mg/ML SDV 2 mL 4 MG IVP (14:41)
--- NOTE | 2021-09-23 16:22 | PC.SOCIAL ---
IMM UPDATED IMM dated and initialed and copy given to patient
[2021-09-23 17:19] LABS: Anion Gap 12.9 (5-19); Blood Urea Nitrogen 15 mg/dL (8-23); Calcium 8.8 mg/dL (8.5-10.5); Carbon Dioxide 26 mmol/L (22-29); Chloride 101 mmol/L (98-107); Glucose 128 mg/dL (65-115); Magnesium 1.6 mg/dL (1.7-2.3); Osmolality Calculated 286 mOsm/kg (285-295); Sodium 137 mmol/L (136-145)
[2021-09-23] MEDS: atorvastatin 40 mg Tablet 20 MG PO (17:41)
[2021-09-23 19:04] LABS: Potassium 2.9 mmol/L (3.5-5.1)
[2021-09-23] MEDS: potassium chloride ER 20 mEq Tablet 40 MEQ PO (19:31)
[2021-09-24] VITALS (13 sets, daily range): BP systolic 110–118; BP diastolic 60–70; PULSE 0–99; RESP 16–20; TEMP 36.4–36.9; O2SAT 96–100
[2021-09-24] MEDS: pantoprazole 40 mg SDV IVP ×3 (00:01→20:34)
[2021-09-24 05:20] LABS: Basophils % 0.7 %; Hematocrit 24.5 % (37.0-47.0); Hemoglobin 8.1 g/dL (11.5-15.3); Lymphocytes # 0.2 10^3/uL (0.8-4.8); Lymphocytes % 9.8 %; Mean Corpuscular HGB Conc 33.1 g/dL (30.0-36.0); Mean Corpuscular Hemoglobin 27.9 pg (28.0-34.0); Mean Corpuscular Volume 84.5 fl (81-99); Monocytes # 0.6 10^3/uL (0.2-0.9); Monocytes % 41.8 %; Neutrophils % 41.2 %; Nucleated Red Blood Cells % 0 %; Red Cell Distribution Width 17.2 % (12.1-15.1); White Blood Count 1.5 10^3/uL (4.0-10.0)
[2021-09-24 05:42] LABS: Alanine Aminotransferase 7 U/L (0-33); Albumin Level 3.2 g/dL (3.5-5.2); Alkaline Phosphatase 64 IU/L (35-105); Anion Gap 10.2 (5-19); Aspartate Amino Transferase 8 U/L (0-32); Blood Urea Nitrogen 13 mg/dL (8-23); Calcium 7.9 mg/dL (8.5-10.5); Carbon Dioxide 28 mmol/L (22-29); Chloride 102 mmol/L (98-107); Globulin 1.5 g/dL (1.3-4.6); Glucose 111 mg/dL (65-115); Osmolality Calculated 285 mOsm/kg (285-295); Potassium 3.2 mmol/L (3.5-5.1); Sodium 137 mmol/L (136-145); Total Bilirubin 0.5 mg/dL (0.15-1.2); Total Protein 4.7 g/dL (6.6-8.7)
[2021-09-24 05:59] LABS: Slide Review Slide Review Perform
[2021-09-24 06:02] LABS: Neutrophils # 0.63 10^3/uL (1.8-7.7); Platelet Count 19 10^3/cmm (130-400)
[2021-09-24] MEDS: sucralfate 1 gm/10 mL Oral Liq UDC PO ×4 (06:29→20:34)
[2021-09-24] MEDS: acetaminophen 325 mg Tablet 650 MG PO (06:30)
[2021-09-24] MEDS: ciprofloxacin 500 mg Tablet PO ×2 (07:58→20:34)
[2021-09-24] MEDS: ropinirole 0.25 mg Tablet PO ×2 (07:58→17:01)
[2021-09-24] MEDS: gabapentin 100 mg Capsule PO ×3 (07:58→20:34)
[2021-09-24] MEDS: fludrocortisone 0.1 mg Tablet PO (07:58)
[2021-09-24] MEDS: magnesium sulfate premix 2 GM/50 ML PIGGYBACK IV (09:22)
[2021-09-24] MEDS: potassium chloride ER 20 mEq Tablet PO (09:22)
[2021-09-24] MEDS: folic acid 1 mg Tablet PO (09:22)
[2021-09-24] MEDS: cyanocobalamin 1,000 mcg/mL SDV 1000 MCG IM (09:22)
--- NOTE | 2021-09-24 11:36 | PC.NURSE ---
updated patient's family Leslie.
[2021-09-24] MEDS: ipratropium-albuterol 3 mL Neb INHALATION ×3 (12:49→20:54)
--- NOTE | 2021-09-24 15:19 | P.PN_ITS ---
Subjective Subjective: She is doing about the same. She has been wheezing, has been more short of breath. Denies orthopnea. No lower extremity swelling. Vitals/I&O/Wt Last Vital Signs Temp 97.8 F 09/24/21 11:27 Pulse 90 09/24/21 12:56 Resp 16 09/24/21 12:56 BP 111/60 09/24/21 11:27 Pulse Ox 97 09/24/21 12:56 09/24/21 09/24/21 09/24/21 06:59 14:59 22:59 Intake Total 480 / 1300 530 / 530 Output Total 200 / 352 Balance 280 / 948 530 / 530 Physical Exam Const: COMMON NORMALS: no acute distress and patient oriented x3 HENMT: TEETH & GINGIVA: Yes other (mostly edentulous except few bottom teeth) Neck/C-Spine: COMMON NORMALS: no JVD Resp: AUSCULTATION: wheezes throughout Cardio: COMMON NORMALS: no JVD, regular rhythm, S1 normal heart sound present, S2 normal heart sound present and No murmurs present (Cardio) RHYTHM: regular rhythm HEART SOUNDS: S1 normal heart sound present and S2 normal heart sound present GI: COMMON NORMALS: Normal to inspection, nondistended, normoactive bowel sounds present, Soft to palpation and non-tender PALPATION: Yes Soft to palpation Extremity: COMMON NORMALS: no joint enlargement and no pedal edema Neuro: COMMON NORMALS: patient oriented x3 and moves all extremities Skin: COMMON NORMALS: no rashes or lesions noted GENERAL SKIN EXAM: no rashes or lesions noted Data : 09/24/21 04:43 09/24/21 04:43 A&P Assessment and plan (1) Neutropenia: Neutropenic precautions. Discussed with her outsole rounder. With pancytopenia would not continue Jakafi. Noted folic acid and B12 deficiency. Started replacement. Looks like we only have p.o. folic acid. B12 IM. TSH is normal. On empiric antibiotic currently, continue for now. Status: Acute (2) COPD exacerbation: With bilateral wheezing, dyspnea. Chest x-ray obtained not suggestive of pneumonia. She is afebrile. No purulent sputum. Is already empirically on Cipro. In addition to as needed nebs will add scheduled nebs. Budesonide inhaled. For now hold off systemic steroids given thrombocytopenia, risk of bleeding. PPI. Oxygen support. Status: Acute (3) Anemia: Has been receiving about biweekly transfusions as needed. These likely may continue after discharge if can be accommodated by senior care. 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 Blasts in the periphery. Follow-up with hematology. Overall prognosis is not good. Status: Acute (5) GERD (gastroesophageal reflux disease): PPI Status: Acute (6) Chronic kidney disease: Status: Acute (7) Myelofibrosis: Status: Acute (8) Gastritis: Status: Acute (9) Upper gastrointestinal hemorrhage: EGD with gastritis during this admission. Received 1 unit PRBC with adequate response. Gastroduodenoscopy 10/14 and capsule endoscopy 01/14 with findings of non specific gastritis and small bowel AVMs. Status: Acute (10) Hypokalemia: Replace. Replace hypomagnesemia. Status: Acute (11) Hypomagnesemia: Ordered repletion Status: Acute Plan Thrombocytopenia Received 1 unit platelets. Thrombocytopenia again, platelets 19,000 today, no active bleeding currently. -Hold Jakafi Generalized weakness, agreeable to senior care placement for rehabilitation Pending arrangements. Attestations Medical Necessity Statement*: Continue admission for assessment management of COPD exacerbation, pancytopenia, initiation of vitamin and electrolyte replacement, disposition planning and arrangements. Coding Level of Care Code Acute Subgrade Roller Operator for Chg Fwd Diagnoses Neutropenia D70.9 Anemia D64.9 Anemia type: unspecified type GERD (gastroesophageal reflux disease) K21.9 Myelodysplasia (myelodysplastic syndrome) D46.9 Chronic kidney disease N18.9 Myelofibrosis D75.81 Gastritis K29.70 Upper gastrointestinal hemorrhage K92.2 Hypokalemia E87.6 COPD exacerbation J44.1 Hypomagnesemia E83.42
[2021-09-24] MEDS: atorvastatin 40 mg Tablet 20 MG PO (17:01)
[2021-09-24] MEDS: budesonide 0.5 mg/2 mL Neb INHALATION (20:54)
[2021-09-25] VITALS (16 sets, daily range): BP systolic 100–150; BP diastolic 62–74; PULSE 0–115; RESP 18–26; TEMP 36.4–37.1; O2SAT 94–100
[2021-09-25 05:27] LABS: Hematocrit 24.3 % (37.0-47.0); Lymphocytes # 0.3 10^3/uL (0.8-4.8); Lymphocytes % 19.9 %; Mean Corpuscular HGB Conc 32.9 g/dL (30.0-36.0); Mean Corpuscular Hemoglobin 28.1 pg (28.0-34.0); Mean Corpuscular Volume 85.3 fl (81-99); Monocytes # 0.4 10^3/uL (0.2-0.9); Monocytes % 30.9 %; Neutrophils % 41.8 %; Nucleated Red Blood Cells % 0 %; Red Blood Count 2.85 10^6/uL (4.1-5.3); Red Cell Distribution Width 17.3 % (12.1-15.1); White Blood Count 1.4 10^3/uL (4.0-10.0)
[2021-09-25 05:41] LABS: Alanine Aminotransferase 8 U/L (0-33); Albumin Level 2.9 g/dL (3.5-5.2); Alkaline Phosphatase 65 IU/L (35-105); Anion Gap 12.5 (5-19); Aspartate Amino Transferase 8 U/L (0-32); Blood Urea Nitrogen 11 mg/dL (8-23); Calcium 8.2 mg/dL (8.5-10.5); Carbon Dioxide 25 mmol/L (22-29); Chloride 98 mmol/L (98-107); Globulin 2.1 g/dL (1.3-4.6); Glucose 106 mg/dL (65-115); Osmolality Calculated 274 mOsm/kg (285-295); Potassium 3.5 mmol/L (3.5-5.1); Sodium 132 mmol/L (136-145); Total Bilirubin 0.5 mg/dL (0.15-1.2)
[2021-09-25 05:42] LABS: Slide Review Slide Review Perform
[2021-09-25 05:43] LABS: Neutrophils # 0.57 10^3/uL (1.8-7.7); Platelet Count 23 10^3/cmm (130-400)
[2021-09-25] MEDS: sucralfate 1 gm/10 mL Oral Liq UDC PO ×4 (06:10→21:36)
[2021-09-25] MEDS: ipratropium-albuterol 3 mL Neb INHALATION ×5 (08:00→23:19)
[2021-09-25] MEDS: budesonide 0.5 mg/2 mL Neb INHALATION ×2 (08:00→20:31)
[2021-09-25] MEDS: folic acid 1 mg Tablet PO (09:11)
[2021-09-25] MEDS: ropinirole 0.25 mg Tablet PO ×2 (09:11→17:07)
[2021-09-25] MEDS: fludrocortisone 0.1 mg Tablet PO (09:11)
[2021-09-25] MEDS: gabapentin 100 mg Capsule PO ×3 (09:11→21:36)
[2021-09-25] MEDS: ciprofloxacin 500 mg Tablet PO ×2 (09:11→21:36)
[2021-09-25] MEDS: pantoprazole 40 mg SDV IVP (11:42)
--- NOTE | 2021-09-25 12:12 | PC.SOCIAL ---
IMM update Pg.2 of IMM updated and reviewed with patient, who verbalized understanding. Copy provided.
--- NOTE | 2021-09-25 16:33 | P.DS_ITS ---
Discharge Providers Date of Admission: 09/18/21 22:53 Date of Discharge: September 25, 2021 Attending Provider at Admission: Maria Guadalupe Villarreal MD Attending Provider at Discharge: Clifton Morris Diagnoses at Discharge Discharge Diagnosis (1) Neutropenia: Status: Acute (2) COPD exacerbation: Status: Acute (3) Anemia: Status: Acute Qualifiers: Anemia type: unspecified type Qualified Code(s): D64.9 - Anemia, unspecified (4) Myelodysplasia (myelodysplastic syndrome): Status: Acute (5) GERD (gastroesophageal reflux disease): Status: Acute (6) Chronic kidney disease: Status: Acute (7) Myelofibrosis: Status: Acute (8) Gastritis: Status: Acute Permanent problem details: appears to be due to Vitamin C and steroids. (9) Upper gastrointestinal hemorrhage: Status: Acute (10) Hypokalemia: Status: Acute (11) Hypomagnesemia: Status: Acute Reason for Visit Reason for Visit: SOB Hospital Course Hospital Course Tonya Lynch is a 81 year old female with known myelofibrosis and resulting chronic?anemia, leukopenia, and splenomegaly. currently on ruxolitinib 20 mg daily. 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 EGD showed mild gastritis. Treated with PPI. Blasts were identified in peripheral smear, 7% on manual differential. Subsequent with response to PRBC transfusion, but persistent pancytopenia, with neutropenia, absolute neutrophil count 570, thrombocytopenia, platelet count around 20,000. Slightly better today at 23,000. Jakafi has been on hold and will not be continued as per discussion with her assembler surgical garment. Prescription also they may not be good options for treatment with the progression to leukemia, but she will be following up with him in office for thorough discussion and consideration of bone marrow assessment. Started on B12 and folic acid replacement due to deficiency. She is asked to maintain neutropenic precautions. Remains afebrile, has been on empiric antibiotic coverage with ciprofloxacin which she will for now continue. During hospitalization noted COPD exacerbation with wheezing, transient oxygen requirement of low flow nasal cannula, treated with nebulization, inhaled s teroids, continue antibiotic. She is improved with new resolution of wheezing, improvement in dyspnea, and weaned down to room air at rest. Home oxygen evaluation is obtained. Due to deconditioning initially arrangements attempted for placement to [facility] facility, however, with improvement in functional status, able to ambulate 120 feet with physical therapy, and felt more comfortable returning home with home health care. Given difficulty in predicting blood counts in the future given likely progression of leukemia she is asked to consider finding a new home for her dogs to allow maintain neutropenic precautions. With persistence or possibly worsening of pancytopenia she is also asked to refrain from driving herself. Discharge Data Studies Completed and Pending Completed Studies During Hospitalization Category Date Time Status CXRP [XR chest 1V portable [id number]] Routine Exams 09/23/21 11:52 Completed XR chest 1V portable [id number] Urgent Exams 09/18/21 21:34 Completed Pending at discharge Category Date Time Status ABO/Rh Type Routine Lab 09/18/21 21:30 Results Complete Blood Count w/Auto AM LABS Lab 09/26/21 04:00 Ordered Complete Blood Count w/Auto AM LABS Lab 09/27/21 04:00 Ordered Complete Crossmatch Routine Lab 09/18/21 21:30 Results Comprehensive Metabolic Panel AM LABS Lab 09/26/21 04:00 Ordered Comprehensive Metabolic Panel AM LABS Lab 09/27/21 04:00 Ordered Leukocyte Reduced RBC Routine Lab 09/18/21 21:30 Results Platelets Leuko-Reduced Routine Lab 09/21/21 10:11 Results Type and Screen Routine Lab 09/18/21 21:30 Results Radiology Impressions Chest X-Ray 09/23/21 11:52 IMPRESSION: No evidence of focal consolidation. COPD changes. Laboratory Results WBC 1.4 10^3/uL (4.0-10.0) L 09/25/21 05:06 RBC 2.85 10^6/uL (4.1-5.3) L 09/25/21 05:06 Hgb 8.0 g/dL (11.5-15.3) L 09/25/21 05:06 Hct 24.3 % (37.0-47.0) L 09/25/21 05:06 MCV 85.3 fl (81-99) 09/25/21 05:06 MCH 28.1 pg (28.0-34.0) 09/25/21 05:06 MCHC 32.9 g/dL (30.0-36.0) 09/25/21 05:06 RDW 17.3 % (12.1-15.1) H 09/25/21 05:06 Plt Count 23 10^3/cmm (130-400) L* 09/25/21 05:06 MPV Not Reportable 09/25/21 05:06 Neut % (Auto) 41.8 % 09/25/21 05:06 Lymph % (Auto) 19.9 % 09/25/21 05:06 Summers % (Auto) 30.9 % 09/25/21 05:06 Eos % (Auto) 0.0 % 09/25/21 05:06 Baso % (Auto) 0.0 % 09/25/21 05:06 Neut # (Auto) 0.57 10^3/uL (1.8-7.7) L* 09/25/21 05:06 Lymph # (Auto) 0.3 10^3/uL (0.8-4.8) L 09/25/21 05:06 Summers # (Auto) 0.4 10^3/uL (0.2-0.9) 09/25/21 05:06 Eos # (Auto) 0.0 10^3/uL (0.0-0.8) 09/25/21 05:06 Baso # (Auto) 0.0 10^3/uL (0.0-0.1) 09/25/21 05:06 Nucleated RBC % (auto) 0 % 09/25/21 05:06 Total Counted 100 (0-100) 09/21/21 18:05 Atypical Lymphs % 0.0 % (0-5) 09/21/21 18:05 Absolute Neutrophils 2.0 10^3/cmm (1.4-6.5) 09/21/21 18:05 Segmented Neutrophils 69 % 09/21/21 18:05 Abs Segm Neuts (Man) 1.7 10/cmm (1.6-7.1) 09/21/21 18:05 Band Neutrophils 9.0 % 09/21/21 18:05 Abs Band Neuts (Man) 0.2 10^3/cmm (0.0-1.2) 09/21/21 18:05 Absolute Lymphocytes 0.5 10^3/cmm (1.2-3.4) L 09/21/21 18:05 Lymphocytes (Manual) 19 % 09/21/21 18:05 Monocytes (Manual) 3.0 % 09/21/21 18:05 Absolute Monocytes 0.1 10^3/cmm (0.1-0.6) 09/21/21 18:05 Eosinophils (Manual) 0 % 09/21/21 18:05 Absolute Eosinophils 0.0 10^3/cmm (0.0-0.7) 09/21/21 18:05 Basophils (Manual) 0.0 % 09/21/21 18:05 Absolute Basophils 0.0 10^3/cmm (0.0-0.2) 09/21/21 18:05 Metamyelocytes 3.0 % 09/18/21 21:30 Nucleated RBCs # 0.0 /100WBC 09/25/21 05:06 Pathologist Review Yes 09/18/21 21:30 Blast Cells 4 % (0-0) H* 09/18/21 21:30 Platelet Estimate Decreased (Normal) L 09/21/21 18:05 Polychromasia Trace 09/21/21 18:05 Hypochromasia 1+ H 09/18/21 21:30 Poikilocytosis 2+ H 09/18/21 21:30 Basophilic Stippling Trace 09/18/21 21:30 Anisocytosis 1+ H 09/18/21 21:30 Microcytosis Trace 09/21/21 18:05 Ovalocytes 1+ H 09/18/21 21:30 [place] Cells Trace 09/21/21 18:05 Acanthocytes (Spur) Trace 09/21/21 18:05 PT 14.70 SECONDS (12.1-14.9) 09/19/21 08:15 INR 1.12 (0.8-1.2) 09/19/21 08:15 APTT 26.7 SECONDS (23.9-36.7) 09/19/21 08:15 Specimen Type Arterial 09/18/21 21:45 Sample Site Radial, left 09/18/21 21:45 ABG pH 7.43 (7.35-7.45) 09/18/21 21:45 ABG pCO2 32.8 mmHg (35-45) L 09/18/21 21:45 ABG pO2 87.6 mmHg (80.0-100.0) 09/18/21 21:45 ABG HCO3 21.6 mmol/L (22-26) L 09/18/21 21:45 ABG Base Excess -2.6 mmol/L (-2.0-2.0) L 09/18/21 21:45 Ra Test Pos 09/18/21 21:45 Hematocrit 16.5 % (37-47) L 09/18/21 21:45 O2 Delivery Device Room air 09/18/21 21:45 Film Process Operator ID Buttr 09/18/21 21:45 Sodium 132 mmol/L (136-145) L 09/25/21 05:06 Potassium 3.5 mmol/L (3.5-5.1) 09/25/21 05:06 Chloride 98 mmol/L (98-107) 09/25/21 05:06 Carbon Dioxide 25 mmol/L (22-29) 09/25/21 05:06 Anion Gap 12.5 (5-19) 09/25/21 05:06 BUN 11 mg/dL (8-23) 09/25/21 05:06 Creatinine 0.8 mg/dL (0.5-0.9) 09/25/21 05:06 GFR Calculation Not Reportable 09/25/21 05:06 Glucose 106 mg/dL (65-115) 09/25/21 05:06 POC Glucose 97 mg/dL (70-110) 09/19/21 17:05 Calculated Osmolality 274 mOsm/kg (285-295) L 09/25/21 05:06 Calcium 8.2 mg/dL (8.5-10.5) L 09/25/21 05:06 Phosphorus 3.0 mg/dL (2.5-4.5) 09/21/21 03:20 Magnesium 1.6 mg/dL (1.7-2.3) L 09/23/21 16:48 Total Bilirubin 0.5 mg/dL (0.15-1.2) 09/25/21 05:06 AST 8 U/L (0-32) 09/25/21 05:06 ALT 8 U/L (0-33) 09/25/21 05:06 Alkaline Phosphatase 65 IU/L (35-105) 09/25/21 05:06 Troponin T Baseline 18 ng/L (0-10) H 09/18/21 21:30 Troponin T 120 Minute 17.59 ng/L (0-10) H 09/18/21 23:32 Delta Troponin T -0.41 ABS# (0-10) L 09/18/21 23:32 C-Reactive Protein 3.0 mg/L (0.0-4.9) 09/18/21 21:30 NT-Pro-B Natriuret Pep 160 pg/mL (0-450) 09/18/21 21:30 Total Protein 5.0 g/dL (6.6-8.7) L 09/25/21 05:06 Albumin 2.9 g/dL (3.5-5.2) L 09/25/21 05:06 Globulin 2.1 g/dL (1.3-4.6) 09/25/21 05:06 Vitamin B12 192 pg/mL (232-1245) L 09/23/21 04:03 Folate 4.0 ng/mL (4.8-37.3) L 09/23/21 12:29 Procalcitonin 0.11 ng/mL (0-0.5) 09/18/21 21:30 TSH 2.18 uIU/mL (0.27-4.20) 09/18/21 21:30 Lymphoma Panel See report 09/18/21 21:30 Immunophenotype Interp See report 09/18/21 21:30 Coronavirus 229E (PCR) Not detected (NOT DETECT) 09/18/21 22:08 SARS-CoV-2 (PCR) Not detected (NOT DETECT) 09/18/21 22:08 [facility] [place] Test Reference Cancelled 09/18/21 21:30 Blood Type A Positive 09/22/21 08:30 Rho(D) Type Positive 09/22/21 08:30 Antibody Screen Negative 09/22/21 08:30 Crossmatch See Detail 09/22/21 08:30 Vitals Last Vital Signs Temp 98.8 F 09/25/21 15:28 Pulse 108 H 09/25/21 15:28 Resp 18 09/25/21 15:28 BP 120/70 09/25/21 15:28 Pulse Ox 95 09/25/21 15:28 Discharge Plan Discharge Patient Disposition: Home Health Service Condition: Stable Prescriptions: New Protonix 40 mg tablet,delayed release (DR/EC) 40 mg PO BID 30 Days Qty: 60 0RF Carafate 1 gram tablet 1 g PO BID 28 Days Qty: 56 0RF ciprofloxacin HCl 500 mg tablet 500 mg PO BID 7 Days Qty: 14 0RF folic acid 1 mg tablet 1,000 mcg PO DAILY Qty: 90 0RF cyanocobalamin (vitamin B-12) 1,000 mcg capsule 1,000 mcg PO DAILY Qty: 90 0RF Continued gabapentin 100 mg capsule 100 mg PO TID 0RF hydrocodone-acetaminophen 5-325 mg tablet 1 tab PO DAILY PRN (Reason: Pain) 0RF albuterol sulfate 90 mcg/actuation HFA aerosol inhaler 2 inh INHALATION Q4H PRN (Reason: shortness of breath or wheezing) Qty: 18 5RF alprazolam 1 mg tablet 1 mg PO DAILY PRN (Reason: Anxiety) 0RF ropinirole 0.25 mg tablet 0.25 mg PO BID 0RF Rx Instructions: see pharmacy comments Combivent Respimat 20-100 mcg/actuation mist 1 puff INHALATION TID PRN (Reason: Shortness Of Breath) 0RF Vitamin D3 1 tab PO DAILY 0RF vitamin E 1 tab PO DAILY 0RF albuterol sulfate 2.5 mg /3 mL (0.083 %) solution for nebulization 2.5 mg inhalation Q6H PRN (Reason: Shortness Of Breath) 0RF meclizine 12.5 mg Tablet 12.5 mg PO PRN 0RF nitroglycerin 0.4 mg Tablet, Sublingual 0.4 mg SUBLINGUAL Q5M PRN (Reason: Chest Pain) 0RF lovastatin 20 mg Tablet 20 mg PO DAILY@17 0RF potassium chloride 10 mEq tablet extended release 10 meq PO QAM 0RF fludrocortisone 0.1 mg tablet 0.1 mg PO DAILY Qty: 30 0RF Rx Instructions: see pharmacy comments Discontinued pantoprazole 40 mg tablet,delayed release (DR/EC) 40 mg PO BID Qty: 60 2RF Jakafi 20 mg tablet 20 mg PO BID 0RF Discharge Orders: Discharge Order (Routine); Ordered 09/22/21 Ordered By: Guy Burgess [place] [facility] [place] [Outside] Cole Gonzales MD [Hospitalist] - 10/09/21 3:00 pm (APPOINTMENT FOR LABS EVERYTHURSDAY AND THURSDAY IN [facility] ) Shira Diaz MD [Referring] - 4-7 days Discharge Diet: As Directed Discharge Activity: Resume usual activity Patient Instructions: Ciprofloxacin (By mouth), Sucralfate (By mouth), Pantoprazole (By mouth), Urinary Tract Infection in Women (DC), Neutropenic Precautions (GEN), GI Discharge Instructions, Opioid Safety, Vitamin B12 Deficiency (GEN), Folic Acid (By mouth) Activity Restrictions/Additional Instructions: Please maintain neutropenic precautions. Avoid bringing pets back home and consider finding a home for your dogs due to likelihood that your cell counts may remain on the low side and immune system be suppressed. -Avoid blood thinners, NSAIDs, ibuprofen -Take Protonix 40 twice daily as prescribed -Take Carafate as prescribed -Antibiotics for neutropenia -If any fevers go to the emergency room -Follow with Dr. Gonzales tomorrow Long-term it is better for you not to drive as low blood cell counts may be worsening with progression to leukemia. In that case he may be at risk of spontaneous bleeding, or infection, or other complications that may make driving dangerous for you or others. Discharge Attestations Time Spent in Discharge Care*: greater than 30 min Quality Metrics Clinical Quality Measures [ No reported AMI, CVA or VTE this stay] Coding Level of Care Code Acute g FW DC note Diagnoses Neutropenia D70.9 COPD exacerbation J44.1 Anemia D64.9 Anemia type: unspecified type Myelodysplasia (myelodysplastic syndrome) D46.9 GERD (gastroesophageal reflux disease) K21.9 Chronic kidney disease N18.9 Myelofibrosis D75.81 Gastritis K29.70 Upper gastrointestinal hemorrhage K92.2 Hypokalemia E87.6 Hypomagnesemia E83.42
[2021-09-25] MEDS: atorvastatin 40 mg Tablet 20 MG PO (17:07)
[2021-09-26] VITALS (12 sets, daily range): BP systolic 112–144; BP diastolic 52–76; PULSE 102–113; RESP 14–22; TEMP 36.8–37.4; O2SAT 92–98
[2021-09-26] MEDS: pantoprazole 40 mg SDV IVP (00:09)
[2021-09-26] MEDS: ipratropium-albuterol 3 mL Neb INHALATION ×3 (03:20→11:02)
[2021-09-26 03:36] LABS: Hematocrit 22.7 % (37.0-47.0); Hemoglobin 7.5 g/dL (11.5-15.3); Lymphocytes # 0.2 10^3/uL (0.8-4.8); Lymphocytes % 12.9 %; Mean Corpuscular Hemoglobin 28.2 pg (28.0-34.0); Mean Corpuscular Volume 85.3 fl (81-99); Monocytes # 0.5 10^3/uL (0.2-0.9); Monocytes % 34.8 %; Neutrophils % 40.7 %; Nucleated Red Blood Cells % 0 %; Red Blood Count 2.66 10^6/uL (4.1-5.3); Red Cell Distribution Width 17.3 % (12.1-15.1); White Blood Count 1.6 10^3/uL (4.0-10.0)
[2021-09-26 04:00] LABS: Alanine Aminotransferase 9 U/L (0-33); Albumin Level 2.8 g/dL (3.5-5.2); Alkaline Phosphatase 75 IU/L (35-105); Aspartate Amino Transferase 9 U/L (0-32); Blood Urea Nitrogen 9 mg/dL (8-23); Calcium 8.2 mg/dL (8.5-10.5); Carbon Dioxide 24 mmol/L (22-29); Chloride 98 mmol/L (98-107); Glucose 133 mg/dL (65-115); Osmolality Calculated 279 mOsm/kg (285-295); Sodium 134 mmol/L (136-145); Total Bilirubin 0.4 mg/dL (0.15-1.2); Total Protein 4.8 g/dL (6.6-8.7)
[2021-09-26 04:14] LABS: Platelet Count 28 10^3/cmm (130-400); Slide Review Slide Review Perform
[2021-09-26 04:15] LABS: Neutrophils # 0.63 10^3/uL (1.8-7.7)
[2021-09-26] MEDS: sucralfate 1 gm/10 mL Oral Liq UDC PO (06:09)
[2021-09-26] MEDS: budesonide 0.5 mg/2 mL Neb INHALATION (08:02)
[2021-09-26] MEDS: potassium chloride ER 20 mEq Tablet 40 MEQ PO (08:49)
[2021-09-26] MEDS: gabapentin 100 mg Capsule PO (08:49)
[2021-09-26] MEDS: ropinirole 0.25 mg Tablet PO (08:49)
[2021-09-26] MEDS: folic acid 1 mg Tablet PO (08:49)
[2021-09-26] MEDS: cyanocobalamin 1,000 mcg/mL SDV 1000 MCG IM (08:50)
[2021-09-26] MEDS: ciprofloxacin 500 mg Tablet PO (08:50)
[2021-09-26] MEDS: fludrocortisone 0.1 mg Tablet PO (08:50)
--- NOTE | 2021-09-26 14:59 | P.PN_ITS ---
Subjective Subjective: Please refer to discharge summary from 09/25. Did not end up discharging yesterday as well rising at that time for home oxygen evaluation felt weaker, got dizzy, stayed overnight. Today feels better. Generally still rather weak, although has walked without assistance to the bathroom and back to bed on the other side of the room. Does still feel weaker, not back to baseline. Discussed with her consideration of seeking placement at another SNF, however, she declines, states she will go home. We are requesting repeat home oxygen evaluation today. Discussed with her also regarding neutropenic precautions, avoiding pneumonia other things also her dogs, with neutropenia due to immune deficiency with risk of severe sepsis and . She verbalized understanding, although states likely will still end up bringing her dogs back home. Discussed with her also long-term not to drive due to risk of changes in cell counts, possibly with further decreases in blood counts unbeknownst to her to levels with risk of spontaneous bleeding with the suspected conversion to leukemia. The timing of this may be unknown if it were to occur. Discussed driving may be risky to her and others in case of event related to unstable cell counts in the near future. She verbalized understanding. She otherwise denies any headache, nausea vomiting, diarrhea, notes some mild dyspnea with exertion, no chest pain or pressure. No abdominal pain or discomfort. Vitals/I&O/Wt Last Vital Signs Temp 98.2 F 09/26/21 12:00 Pulse 103 H 09/26/21 12:00 Resp 14 09/26/21 12:00 BP 127/76 09/26/21 12:00 Pulse Ox 96 09/26/21 12:00 09/25/21 09/26/21 09/26/21 22:59 06:59 14:59 Intake Total 580 / 1660 240 / 1900 200 / 200 Output Total 650 / 650 Balance -70 / 1010 240 / 1250 200 / 200 Physical Exam Const: COMMON NORMALS: no acute distress and patient oriented x3 HENMT: TEETH & GINGIVA: Yes other (mostly edentulous except few bottom teeth) Neck/C-Spine: COMMON NORMALS: no JVD Resp: COMMON NORMALS: normal respiratory effort AUSCULTATION: wheezes (Mostly resolved, mild LLL) Cardio: COMMON NORMALS: no JVD, regular rhythm, S1 normal heart sound present, S2 normal heart sound present and No murmurs present (Cardio) RHYTHM: regular rhythm HEART SOUNDS: S1 normal heart sound present and S2 normal heart sound present GI: COMMON NORMALS: Normal to inspection, nondistended, normoactive bowel sounds present, Soft to palpation and non-tender PALPATION: Yes Soft to palpation Extremity: COMMON NORMALS: no joint enlargement and no pedal edema Neuro: COMMON NORMALS: patient oriented x3 and moves all extremities Skin: COMMON NORMALS: no rashes or lesions noted GENERAL SKIN EXAM: no rashes or lesions noted Data : 09/26/21 03:17 09/26/21 03:17 A&P Assessment and plan (1) Neutropenia: Discussed with her to continue neutropenic precautions. Follow-up with hematology. With pancytopenia would not continue Jakafi. Noted folic acid and B12 deficiency. Started replacement. TSH is normal. On empiric antibiotic currently, continue for now. Status: Acute (2) COPD exacerbation: Improved. Home O2 evaluation requested, did not qualify for oxygen. Chest x-ray obtained not suggestive of pneumonia. She is afebrile. No purulent sputum. Is already empirically on Cipro. In addition to as needed nebs will add scheduled nebs. Budesonide inhaled. Did not receive systemic steroids given thrombocytopenia, risk of bleeding. Oxygen support. Status: Acute (3) Anemia: Has been receiving about biweekly transfusions as needed. These likely may continue after discharge. 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 Blasts in the periphery. Follow-up with hematology. Overall prognosis is not good. Status: Acute (5) GERD (gastroesophageal reflux disease): PPI Status: Acute (6) Chronic kidney disease: Status: Acute (7) Myelofibrosis: Status: Acute (8) Gastritis: Status: Acute (9) Upper gastrointestinal hemorrhage: EGD with gastritis during this admission. Received 1 unit PRBC with adequate response. Gastroduodenoscopy 10/14 and capsule endoscopy 01/14 with findings of non specific gastritis and small bowel AVMs. Status: Acute (10) Hypokalemia: Replace. Replace hypomagnesemia. Status: Acute (11) Hypomagnesemia: Repleted Status: Acute Plan Thrombocytopenia Received 1 unit platelets. Thrombocytopenia again, platelets 19,000 today, no active bleeding currently. -Hold Velvet Generalized weakness, agreeable to long term placement for rehabilitation Pending arrangements. Attestations Medical Necessity Statement*: N/A Coding Level of Care Code Acute Telephone Technician for Chg Fwd Diagnoses Neutropenia D70.9 COPD exacerbation J44.1 Anemia D64.9 Anemia type: unspecified type Myelodysplasia (myelodysplastic syndrome) D46.9 GERD (gastroesophageal reflux disease) K21.9 Chronic kidney disease N18.9 Myelofibrosis D75.81 Gastritis K29.70 Upper gastrointestinal hemorrhage K92.2 Hypokalemia E87.6 Hypomagnesemia E83.42
--- NOTE | 2021-09-26 15:07 | PC.NURSE ---
IV removed intact. Patient tolerated well. Patient is A&Ox3. Respirations even and non-labored on room air. Reviewed discharge with patient and sister. Patient and sister verbalized understanding of how to take medications and follow up appointments. Patient assisted into a wheel chair and pushed to private.
== END 2021-09-26 15:30 | disposition home health service (06) | DRG 840 ==
LOC: ER 22:01 → MEDSURG 23:08
PROVIDERS: Family Medicine; Admitting Provider Student in an Organized Health Care Education/Training Program; Emergency Provider Emergency Medicine; Visit Provider Internal Medicine
PROC: 0DJ08ZZ Inspection of Upper Intestinal Tract, Via Natural or Artificial Opening Endoscopic (ICD-10-PCS; CPT 43235; principal; 2021-09-21 13:00)
DX: C94.40 Acute panmyelosis with myelofibrosis not having achieved remission (principal); K29.51 Unspecified chronic gastritis with bleeding; J44.1 Chronic obstructive pulmonary disease with (acute) exacerbation; Q27.30 Arteriovenous malformation, site unspecified; I12.9 Hypertensive chronic kidney disease with stage 1 through stage 4 chronic kidney disease, or unspecified chronic kidney disease; N18.9 Chronic kidney disease, unspecified; E78.5 Hyperlipidemia, unspecified; K21.9 Gastro-esophageal reflux disease without esophagitis; K58.9 Irritable bowel syndrome, unspecified; Z79.899 Other long term (current) drug therapy; Z79.51 Long term (current) use of inhaled steroids; Z79.891 Long term (current) use of opiate analgesic; E87.6 Hypokalemia
CPT/HCPCS: 12345; 36415; 36416; 36430; 36600; 43235; 71045; 80048; 80053; 80500; 82607; 82746; 82803; 82962; 83735; 83880; 84100; 84145; 84443; 84484; 85007; 85014; 85018; 85025; 85027; 85610; 85730; 86140; 86850; 86900; 86920; 86927; 87635; 88184; 88185; 93005; 94640; 96361; 96372; 96374; 96375; 97110; 97116; 97161; 97165; 97530; 97535; 99285; C9113; J1940; J2405; J2704; J3420; J3475; J3480; J7030; J7040; J7626; P9016; P9017; P9035; P9058

== ENCOUNTER 2021-10-18 08:31 | Outpatient (CLI) | payer OTHER, MEDICARE, SELFPAY ==
[2021-10-18 09:15] LABS: Hemoglobin 8.2 g/dL (11.5-15.3); Lymphocytes # 0.5 10^3/uL (0.8-4.8); Lymphocytes % 36.6 %; Mean Corpuscular HGB Conc 32.8 g/dL (30.0-36.0); Mean Corpuscular Hemoglobin 28.1 pg (28.0-34.0); Mean Corpuscular Volume 85.6 fl (81-99); Monocytes # 0.3 10^3/uL (0.2-0.9); Monocytes % 23.1 %; Neutrophils % 37.3 %; Nucleated Red Blood Cells % 0 %; Platelet Count 30 10^3/cmm (130-400); Red Blood Count 2.92 10^6/uL (4.1-5.3); Red Cell Distribution Width 15.8 % (12.1-15.1); White Blood Count 1.3 10^3/uL (4.0-10.0)
[2021-10-18 09:25] LABS: LAB Peripheral Smear Sent for Review
[2021-10-18 09:35] LABS: Slide Review Slide Review Perform
[2021-10-18 09:38] LABS: Alanine Aminotransferase 21 U/L (0-33); Albumin Level 3.4 g/dL (3.5-5.2); Alkaline Phosphatase 57 IU/L (35-105); Anion Gap 13.5 (5-19); Aspartate Amino Transferase 10 U/L (0-32); Blood Urea Nitrogen 17 mg/dL (8-23); Calcium 8.4 mg/dL (8.5-10.5); Carbon Dioxide 26 mmol/L (22-29); Chloride 96 mmol/L (98-107); Globulin 2.2 g/dL (1.3-4.6); Glucose 99 mg/dL (65-115); Lactate Dehydrogenase 177 U/L (135-214); Osmolality Calculated 276 mOsm/kg (285-295); Potassium 3.5 mmol/L (3.5-5.1); Sodium 132 mmol/L (136-145); Total Bilirubin 0.3 mg/dL (0.15-1.2); Total Protein 5.6 g/dL (6.6-8.7)
--- NOTE | 2021-10-18 12:31 | ONC FU_ITS ---
Dr. Gonzales Patient Follow-Up Note Patient: Tonya Lynch Unit #: [id number]: 1940 Dicatated By: Cloe Gonzales M.D.Date of Visit:Oct 18, 2021 Onc Med Follow-up/Prog Note Chief Complaint: Myelofibrosis. History of Present Illness: This is an 81 year-old woman with myelofibrosis, presenting with anemia, leukopenia, and splenomegaly. On 05/16/2018 she was admitted to the hospital with anemia and leukopenia. Her initial CBC showed hemoglobin 6.5 g with hematocrit 20.2%. The red cell indices were in the low normal range. The white blood cell count was 2800 and the platelet count was 163,000. The differential showed 70% neutrophils, 17% lymphocytes, and 9% monocytes. Also reported were 3% immature . Her serum iron studies show transferrin saturation 34%. The ferritin was relatively low at 44.1 ng/mL. Her comprehensive metabolic profile showed borderline renal function with BUN 9 and creatinine 1.21 mg/dL. The bilirubin and liver enzymes were normal. TSH was normal at 2.38. She was transfused PRBC. She reportedly had a similar episode in 2017, at which time she did undergo GI endoscopy studies. I had seen her initially on 06/14/2019. At that time, she was noted to have an enlarged spleen, and that was subsequently confirmed by CT. There was no associated lymphadenopathy. Bone marrow aspiration/biopsy on 07/14/2019 showed hypercellular marrow estimated at 70 to 90% cellularity. There was megakaryocytic hyperplasia with occasional bizarre megakaryocyte forms present. Blasts were estimated at 2.5%. There was severe reticulin fibrosis noted. Standard cytogenetics were not able to be done, as the bone marrow aspirate did not contain any spicules. The FISH panel for MDS was unrevealing. Overall, the findings were most consistent with myelofibrosis, though a molecular profile for myeloproliferative neoplasms was unrevealing. On 10/04/2019 she began treatment with ruxolitinib 10 mg daily for 3 days, then 10 mg twice daily. As of 10/14/2019 the dosage was further increased to 20 mg twice daily. She tolerated it well. During follow-up she had improvement in her clinical status with resolution of splenomegaly, improved appetite, and significant weight gain, and she felt better generally. However, she continued to have tansfusion dependent anemia. She was then hospitalized a couple of times with more severe anemia in association with acute GI bleeding. Her evaluation revealed no specific source of GI blood loss. 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 There were no other abnormalities identified, but it was an incomplete study as the capsule had not traversed the small bowel within the 8 hours of recording. During subsequent follow-up she continued the ruxolitinib at 20 mg daily. She continued to require transfusion, but not as frequently. As of her follow-up visit in June 2021 her overall clinical status appeared stable, and she continued with her same treatment. Her other medical illnesses include hypertension, hyperlipidemia, chronic kidney disease, GERD, irritable bowel syndrome, degenerative arthritis, and anxiety/depression. She has a history of smoking 2 packs of cigarettes daily for 63 years. She had cut down to 1 pack/day. INTERIM HISTORY: On 09/18/2021 she was admitted to the hospital with another episode of acute GI bleeding. Her hemoglobin dropped to 5.4 g. Her white blood cell count at that point had become mildly elevated, and she was noted to have 4% peripheral blasts. Her platelet count initially was adequate at 99,000, but it had subsequently dropped to around 30,000. Her EGD showed ulcerative gastritis with limited active bleeding. She was discharged with home health on 09/25/2021. However, within a short time she was admitted to [facility] in [place]. Her evaluation there included bone marrow aspiration/biopsy on 10/02/2021. The bone marrow was moderately hypercellular with monocytosis and with estimated 10% bone marrow blasts by CD34 immunohistochemistry. There were 5% circulating blasts. The bone marrow showed just mild interstitial reticulin fibrosis, patchy 1+ out of 3+. The standard cytogenetic study was normal. 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 Specifically, there is no evidence for FLT3 or for IDH 1 or 2 mutations. She was discharged to a nursing home facility in [place] ([facility]). She is seen for a follow-up visit. She has been very weak following her recent hospitalizations. Her activity is very limited. She is able to ambulate slowly, but only for very short distances. Her ECOG score is 3. She says her appetite is gone. She does not have fever or night sweats. She has a little sinus drainage. She has not had sore mouth or throat. She does have some cough. She is short of breath with effort. She has not been having chest pain. She sometimes has nausea. She has been having pain in the right upper quadrant area. It comes and goes. Her bowel function is not too good, and her stools have been dark. She has no complaints. She still has some pain in the neck which radiates up into her head. She has no other joint or bone pain. She says she is feeling lightheaded and scatterbrained. She has no focal neurologic symptoms. Medications: Albuterol Sulfate 2 Puff(s) (of 108 (90 base) mcg/act) Aerosol Powder, Breath Activated Inhalation q 6 hours PRN, ALPRAZolam 1 (1 mg) Tablet Oral t.i.d. PRN, amLODIPine Besylate 1 (5 mg) Tablet Oral daily, Antacid Maximum Tablet, chewable Oral PRN, Benzonatate 1 (200 mg) Capsule Oral daily PRN, Combivent Respimat 1 Inhalation (of 20-100 mcg/act) Aerosol, solution Inhalation b.i.d., Cough & Sore Throat NightTime 30 mL (of 30-12.5-1000 mg/30mL) Liquid Oral PRN, [facility] Migraine Relief 1 (250-250-65 mg) Tablet Oral PRN, Isosorbide Mononitrate ER 1 (30 mg) Tablet SR 24 HR Oral daily, Meclizine HCl 1 (12.5 mg) Tablet Oral PRN, raNITIdine HCl 1 (150 mg) Capsule Oral at bedtime, SUMAtriptan Succinate Tablet Oral PRN, traMADol-Acetaminophen 1 (37.5-325 mg) Tablet Oral q 6 hours PRN Allergies: No Known Allergies. Vital Signs: Performed on Oct 18, 2021 09:41 Height - 69.00 in Temperature - 97.4 F (LOW) Pulse - 94 /min Respiration - 16 /min BP - 138/69 mm(hg) O2 Sat - 97 % Pain - 0 Fatigue - 3 Physical Examination: Constitutional - She appears very weak generally, Eyes - Sclerae nonicteric. Conjunctivae clear, ENMT - No lesions noted in the oral cavity, Hematologic/Lymphatic - No cervical, clavicular, or axillary adenopathy, Respiratory - Lungs sound clear diminished air movement bilaterally, Cardiovascular - Heart rhythm is regular. There is a II/ systolic murmur. There is no gallop or rub noted, Abdomen - Soft. Liver is not enlarged. There is mild tenderness and fullness in the left upper quadrant area, but I cannot definitely palpate the spleen. There is no abdominal mass or ascites noted and there is no inguinal adenopathy, Extremities - No edema. There is a firm nodule palpable on the dorsum of the left hand. There are purpuric lesions on both arms, Neurologic - She is very weak generally. There are no focal neurologic deficits noted. Lab/Imaging: Test performed on Oct 18, 2021 09:00 LDH (Total) 177 U/L Sodium 132 mmol/L Potassium 3.5 mmol/L Chloride 96 mmol/L CO2 26 mmol/L Anion Gap 13.5 BUN 17 mg/dL Creatinine 1.2 mg/dL Cr Clearance (Est) 36.0200 mL/min Glucose 99 mg/dL Osmolality - Calculated 276 mOsm/kg Calcium 8.4 mg/dL Protein, Total 5.6 g/dL Albumin 3.4 g/dL Globulin 2.2 g/dL Bilirubin, Total 0.3 mg/dL ALT (SGPT) 21 U/L AST (SGOT) 10 U/L Alkaline Phosphatase 57 IU/L WBC 1.3 10 3/uL RBC 2.92 10 6/uL HGB 8.2 g/dL HCT 25.0 % MCV 85.6 fl MCH 28.1 pg MCHC 32.8 g/dL RDW 15.8 % Platelet Count 30 10 3/cmm Neutrophils 0.50 10 3/uL Lymphocytes 0.5 10 3/uL Monocytes 0.3 10 3/uL Eosinophils 0.0 10 3/uL Basophils 0.0 10 3/uL Neutrophil % 37.3 % Lymphocyte % 36.6 % Monocyte % 23.1 % Eosinophil % 0.0 % Basophils % 0.0 % NRBC % 0 % CBC Slide Review Slide Review Perform SLIDE REVIEW AGREES WITH AUTOMATED RESULTS ST Anti-D Positive Blood Type AP Antibody Screen (Gel) NEGATIVE Problem List: 1. Myelofibrosis with transfusion dependent anemia. 2. She is at risk for iron overload. 3. Hypertension. 4. Hyperlipidemia. 5. Chronic kidney disease, stage III. 6. GERD. 7. Irritable bowel syndrome. 8. Degenerative arthritis. 9. Anxiety/depression. Problems Addressed with this Encounter and Plan: Patient with myelofibrosis. She had presented with anemia, leukopenia, and splenomegaly. Her bone marrow aspiration/biopsy on 07/14/2019 showed severe reticulin fibrosis, consistent with myelofibrosis, though her molecular profile for myeloproliferative neoplasms was unrevealing. She had associated decline in performance status and weight loss. Her symptoms improved with ruxolitinib, and she tolerated it well. During follow-up she remained transfusion dependent, and she also had recurrent episodes of acute GI bleeding, most recently in August 2021. At that point she also was found to have evidence of circulating blasts. Her repeat bone marrow aspiration/biopsy on 10/02/2021 showed hypercellular marrow with monocytosis, 10% marrow blasts, and 5% circulating blasts. There was just 1+ reticulin fibrosis. 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 Specifically, there was no evidence for FLT3 or for IDH 1 or 2 mutations. 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 She has had a significant decline in performance status, and the overall prognosis at this point is poor. Treatment options are very limited. A trial of therapy with a hypomethylating agent could be considered, but as she also has moderate to severe neutropenia and thrombocytopenia, there would be significant risks with treatment. Overall, I think the best option is to just continue with supportive care measures. At least for the time being she does want to continue with transfusion support, which will be arranged to the nursing facility. I discussed the issue of resuscitation, and she does not want to be on life support. Signed By: Cole Gonzales M.D. <<Signature on File>>
== END 2021-10-18 08:32 | disposition home or self-care (01) ==
PROVIDERS: Visit Provider Internal Medicine Medical Oncology
DX: D75.81 Myelofibrosis (principal); D64.9 Anemia, unspecified; D72.819 Decreased white blood cell count, unspecified; R16.1 Splenomegaly, not elsewhere classified; E78.5 Hyperlipidemia, unspecified; I12.9 Hypertensive chronic kidney disease with stage 1 through stage 4 chronic kidney disease, or unspecified chronic kidney disease; N18.9 Chronic kidney disease, unspecified; K21.9 Gastro-esophageal reflux disease without esophagitis; F17.210 Nicotine dependence, cigarettes, uncomplicated; Z79.899 Other long term (current) drug therapy
CPT/HCPCS: 36415; 80053; 83615; 85025; 86850; 86900; 99215

== ENCOUNTER 2021-10-30 07:48 | Outpatient (CLI) | payer MEDICARE, OTHER, SELFPAY ==
[2021-10-30] VITALS (10 sets, daily range): BP systolic 70–101; BP diastolic 48–62; PULSE 85–97; RESP 17–18; TEMP 36.4–36.7; O2SAT 98–99
[2021-10-30] MEDS: acetaminophen 325 mg Tablet 650 MG PO (09:58)
[2021-10-30] MEDS: diphenhydrAMINE 25 mg Capsule PO (09:58)
[2021-10-30] MEDS: sodium chloride 0.9% 250 ML 999 ML IV (10:25)
[2021-10-30] MEDS: sodium chloride 0.9% 1,000 ML 999 ML IV (11:15)
== END 2021-10-30 07:49 | disposition home or self-care (01) ==
LOC: ONCMED 07:50
PROVIDERS: Visit Provider Internal Medicine Medical Oncology
DX: D75.81 Myelofibrosis (principal); D64.9 Anemia, unspecified; D72.819 Decreased white blood cell count, unspecified; R16.1 Splenomegaly, not elsewhere classified; E78.5 Hyperlipidemia, unspecified; N18.9 Chronic kidney disease, unspecified; K21.9 Gastro-esophageal reflux disease without esophagitis; F17.210 Nicotine dependence, cigarettes, uncomplicated; Z79.899 Other long term (current) drug therapy
CPT/HCPCS: 36430; 86850; 86900; 86920; 96365; 96374; J7030; J7050; P9016